=== PATIENT | female | born 1970 | race Caucasian/White ===

== ENCOUNTER 2024-08-10 15:12 | Inpatient (IN) | payer OTHER, SELFPAY ==
[2024-08-10] VITALS (16 sets, daily range): BP systolic 93–170; BP diastolic 72–111; BMI 17.7; BMI 19.1
[2024-08-10 08:27] LABS: % Basophils 0.2 % (0-2); % Eosinophils 1.3 % (0-6); % Immature Granulocytes 1.2 % (0-0.5); % Lymphocytes 14.7 % (20.5-51.1); % Monocytes 11.1 % (1.7-9.3); % Neutrophils 71.5 % (42.2-75.2); Absolute Eosinophils 0.1 10^3/uL (0-0.7); Absolute Immature Granulocytes 0.1 10^3/uL (0-0.05); Absolute Lymphocytes 1.6 10^3/uL (1.2-3.4); Absolute Monocytes 1.2 10^3/uL (0.1-0.6); Absolute Neutrophils 7.8 10^3/uL (1.4-6.5); Hematocrit 40.8 % (37.0-47.0); Mean Corp Hgb Conc. 31.9 g/dL (33.0-37.0); Mean Corpuscular Hgb 27.4 pg (27.0-31.0); Mean Corpuscular Volume 86.1 fL (81.0-99.0); Mean Platelet Volume 8.7 fL (7.4-10.4); Nucleated Red Blood Cells % 0 %; Platelet Count 760 10^3/uL (130-400); Red Blood Cell Count 4.74 10^6/uL (4.20-5.40); Red Cell Dist. Width 21.3 % (11.5-14.5); White Blood Cell Count 10.9 10^3/uL (4.8-10.8)
[2024-08-10 08:34] LABS: ALT (SGPT) 21 U/L (0-35); AST (SGOT) 24 U/L (14-36); Albumin 4.5 g/dl (3.5-5.0); Alkaline Phosphatase 125 U/L (38-126); Blood Urea Nitrogen 56 mg/dl (7-17); Calcium 10.6 mg/dl (8.4-10.2); Carbon Dioxide 14 mmol/L (22-30); Chloride 105 mmol/L (98-107); Glucose 123 mg/dl (70-99); Lipase 64 U/L (23-300); Potassium 6.9 mmol/L (3.5-5.1); Sodium 136 mmol/L (135-145); Total Bilirubin 0.4 mg/dl (0.2-1.3); Total Protein 8.4 g/dl (6.3-8.2); eGFR 17.91
--- NOTE | 2024-08-10 08:54 | ED.GENMED ---
History of Present Illness
General
Chief Complaint: Abdominal Symptoms
Time Seen by Provider: 08/10/24 08:15
History of Present Illness
History of Present Illness:
Patient is a 54-year-old woman with complicated medical history including lupus, colon cancer status post ileostomy, hypertension presenting to the emergency department nausea vomiting abdominal pain. Patient states that yesterday she had countless
episodes of nausea vomiting. She is also noticed increased output from ileostomy yesterday her total was anywhere from 1500 to 1700 mL. Normally she is under 800 mL. She does feel dehydrated. She is having lower abdominal pain. She states this
has happened to her before. All her care is at [facility]. Unfortunately ambulance came to the told her that she has to, [facility]. Patient would prefer to be transferred to [facility] if possible. No fever or chills. No chest pain or
difficulty breathing. No travel. No recent antibiotics. No sick contacts.
Phy Exam
Physical Exam
Physical Exam:
GENERAL: Chronically unwell
HEENT: normocephalic, extraocular movements intact, dry oral mucosa
NECK: normal inspection
RESPIRATORY: no respiratory distress, clear to auscultation bilaterally
CARDIOVASCULAR: regular rate and rhythm
ABDOMEN/: soft, non-distended, bilateral lower quadrant tenderness, no rebound or guarding, ileostomy in place
EXTREMITIES: non-tender, no edema/swelling
NEUROLOGIC: awake and alert, moves all extremities
SKIN: warm, chronic skin changes from raynauds/lupus
Course
Orders/Labs/Results
Orders:
Orders
08/10/24 08:13
Complete Blood Count/With Diff Urgent
Comprehensive Metabolic Panel Urgent
Lipase Urgent
Magnesium Urgent
Comment: ADD ON
08/10/24 08:35
Electrocardiogram (*1) Urgent
Reason for Study: Chest Pain
EKG- Treatment ONCE
08/10/24 08:53
Calcium Gluconate 1,000 mg IV NOW STA
Dextrose 50%-Water [Dextrose 50% Syringe] 12.5 grams IV [id number] PRN
Dextrose 50%-Water [Dextrose 50% Syringe] 25 grams IV NOW STA
Insulin Human Regular [Novolin R] 5 units IV NOW STA
Iohexol [Omnipaque] See Protocol PO NOW STA
Sodium Bicarbonate 50 meq IV NOW STA
Sodium Zirconium Cyclosilicate [Lokelma] 10 gram PO NOW STA
Bedside Glucose PRE IV Insulin- HyperK+ NOW
08/10/24 08:54
Lactated Ringers [Lr] 1,000 ml IV BOLUS
08/10/24 09:01
Urinalysis Reflex To Culture Urgent
08/10/24 09:07
Add On- LAB Urgent
Tests Added?: magnesium
08/10/24 09:15
Ondansetron Injectable [Zofran] 4 mg IV NOW STA
08/10/24 09:16
Electrocardiogram (*1) Urgent
Reason for Study: Other
Other Reason for Exam: hyperK
EKG- Treatment ONCE
Ondansetron Injectable [Zofran] 4 mg .ROUTE .STK-MED ONE
08/10/24 09:51
Calcium Gluconate 1,000 mg IV NOW STA
08/10/24 09:52
CT Abd/pel Without Iv Or Oral Urgent
Comment:
Reason For Exam: abdominal pain
08/10/24 10:23
Bedside Glucose POST IV Insulin- HyperK+ Q1HX2,Q2HX2
08/10/24 13:09
Potassium Urgent
08/10/24 13:23
Potassium Urgent
Comment: draw 4 hours after Lokelma administered
Abnormal Lab Results
08/10/24 08/10/24
08:13 11:21
WBC 10.9 H 10^3/uL
(4.8-10.8)
MCHC 31.9 L g/dL
(33.0-37.0)
RDW 21.3 H %
(11.5-14.5)
Plt Count 760 H 10^3/uL
(130-400)
Abs Immat Gran (auto) 0.1 H 10^3/uL
(0-0.05)
Absolute Neuts (auto) 7.8 H 10^3/uL
(1.4-6.5)
Absolute Monos (auto) 1.2 H 10^3/uL
(0.1-0.6)
Immature Gran % 1.2 H %
(0-0.5)
Lymphocytes % 14.7 L %
(20.5-51.1)
Monocytes % 11.1 H %
(1.7-9.3)
Potassium 6.9 H* mmol/L
(3.5-5.1)
Carbon Dioxide 14 L* mmol/L
(22-30)
BUN 56 H mg/dl
(7-17)
Creatinine 3.0 H mg/dL
(0.6-1.0)
Glucose 123 H mg/dl
(70-99)
Calcium 10.6 H mg/dl
(8.4-10.2)
Total Protein 8.4 H g/dl
(6.3-8.2)
POC Glucose 103 H mg/dl
(70-99)
08/10/24 08:13
Vital Signs
Initial and Last Documented VS:
Initial Vital Signs
Pulse Resp BP
101 16 148/111
08/10/24 07:57 08/10/24 07:57 08/10/24 07:57
Last Documented Vital Signs
Pulse Resp BP Pulse Ox
112 16 140/93 98
08/10/24 13:00 08/10/24 13:00 08/10/24 13:00 08/10/24 09:00
MDM/Problems Addressed
Differential Diagnosis Includes:
Patient is a 54-year-old woman with complicated medical history including colon cancer status post ileostomy completed at [place], [facility], followed by [facility] presenting to the emergency department nausea vomiting abdominal pain for the past
day as well as high output from her ileostomy. On arrival patient's vital signs are notable for heart rate in the low 100s. Her exam does show dry oral mucosa with bilateral lower quadrant tenderness. Concern for intra-abdominal complication such
as abscess versus gastroenteritis. Could be urine infection. Concern for metabolic derangement. I did review patient's CT scan that she had completed at [facility] last week on patient's portal and she did have evidence of gastroenteritis at that
time. She was not started on any medications. Will obtain blood work here as well as urine and CT scan. Will give fluids.
*Critical Care Note
Total Time (30-74mins, 75-104mins- exclusive of procedures): Not Applicable
Update Note
Update Note:
Blood work notable for a potassium of 6.9. Will obtain EKG. He will initiate hyperkalemia protocol. Her creatinine is 3. No prior baseline. Her CO2 is also low at 14.
EKG per my interpretation with peaked T waves. I did review patient's prior EKG on her portal which did not show these peaked T waves. Will treat with calcium for cardiac stabilization.
CT scan with no acute abnormality. On reevaluation patient's tachycardia has improved. She did feel much better after the Zofran. Awaiting urine. We did discuss transfer and initially patient did not want transfer to [facility]. I did call them
and unfortunately they do not have that available and it will take 1 to 2 days for transfer. I did offer patient admission and transfer however patient would prefer staying at [facility] for her entire hospital stay instead. Discussed with
hospitalist who excepted patient to their service with urine pending.
ED Attending Note
-
Portions of this chart may have been created with voice recognition software.� Occasional wrong word or��sound alike� substitutions may have occurred due to the inherent limitations of voice recognition software.
Discharge Plan
Departure
Patient Disposition: Admit
Date of Disposition: 08/10/24
Time of Disposition: 11:59
Presentation/result/management discussed w/ accepting MD/DO: Hospitalist
Discharge Problem:
JOSE (acute kidney injury), Acute hyperkalemia
Prescriptions:
No Action
prednisone 10 mg Tablet
30 mg PO DIRECTED
Rx Instructions:
STARTING ON 08/05/24 TAKE 30MG DAILY FOR 7 DAYS THEN 20MG DAILY FOR 7 DAYS THEN 10MG DAILY THERE AFTER. Chronic dose = 10 mg daily
loperamide 2 mg Tablet
2 mg PO TID
amitriptyline 25 mg Tablet
25 mg PO HS
pantoprazole [Protonix] 40 mg Tablet,Delayed Release (Dr/Ec)
40 mg PO DAILY
ferrous sulfate 325 mg (65 mg iron) Tablet
325 mg PO DAILY
hydroxychloroquine [Plaquenil] 200 mg Tablet
200 mg PO BID
ondansetron [Zofran ODT] 4 mg Tablet,Disintegrating
4 mg PO Q6HPRN PRN (Reason: NAUSEA)
tacrolimus 1 mg Capsule
1 mg PO Q12
oxycodone 5 mg Tablet
5 mg PO Q4HPRN PRN (Reason: SEVERE PAIN)
escitalopram oxalate [Lexapro] 10 mg Tablet
10 mg PO DAILY
gabapentin 100 mg Tablet
300 mg PO BID
Xarelto 20 mg Tablet
20 mg PO DAILY
psyllium husk [Metamucil] 0.4 gram Capsule
0.4 g PO BID
mycophenolate mofetil 200 mg/mL Suspension
200 mg PO BID
Referrals:
Bob Urban MD [Family Provider] -
Interventions
Interventions:
*Risk Screen - Suicide Last Done: 08/10/24 07:57
*General Assessment Last Done: 08/10/24 07:57
*Neglect/Abuse Screening Last Done: 08/10/24 07:57
Discharge Date and Time
Print Language: CITIZEN OF [place]
[2024-08-10] MEDS: LOKELMA 10 GRAM PO ×2 (09:02→21:59)
[2024-08-10] MEDS: SODIUM BICARBONATE 50 MEQ IV (09:03)
[2024-08-10] MEDS: DEXTROSE 50% SYRINGE 25 GRAMS IV ×2 (09:03→21:58)
[2024-08-10] MEDS: CALCIUM GLUCONATE 1000 MG IV ×2 (09:04→11:07)
[2024-08-10] MEDS: NOVOLIN R 5 UNITS IV (09:05)
[2024-08-10] MEDS: OMNIPAQUE 50 ML PO (09:36)
[2024-08-10] MEDS: LR 1000 IV ×2 (09:37→20:13)
[2024-08-10] MEDS: ZOFRAN IV (11:07)
[2024-08-10] MEDS: ZOFRAN 4 MG IV ×2 (11:13→14:20)
[2024-08-10 11:24] LABS: Glucose - Point of Care 103 mg/dl (70-99)
--- NOTE | 2024-08-10 13:34 | HPS.HSE ---
Family Physician
-
Family Physician: Bob Urban
Chief Complaint
-
High output diarrhea from ostomy bag
History of Present Illness
54-year-old woman with complicated medical history including:
lupus,
colon cancer status post ileostomy,
hypertension
presents with nausea vomiting abdominal pain. Yesterday she had countless episodes of nausea & vomiting. She has also had increased output from ileostomy yesterday her total was anywhere from 1500 to 1700 mL. Normally she is under 800 mL. She
feels dehydrated and is having lower abdominal pain. All her care is at [facility], but the ambulance came to . Patient would prefer to be transferred to [facility], bu there are no open beds there. No fever or chills. No chest pain or
difficulty breathing. No travel. No recent antibiotics. No sick contacts.
Medical History
Past Medical History
Past Medical History: Reports Other
Additional Past Medical History:
Lupus -with multiple varied complications
Colon cancer
Reynaulds
Past Surgical History: Reports Other
Additional Past Surgical History:
Colon cancer
Illeostomy
Skin lesions
Social History
Tobacco: Smoker
Alcohol: None
Drug: None
Living: With Family
Employment: Not Employed
Family History
Family History: Not pertinent
Allergies / Home Medications
Allergies reflects when Allergies were last updated in [facility].
Home Medications with original date entered in [facility]
Allergy/Medication List:
Allergies
Allergy/AdvReac Type Severity Reaction Status Date / Time
No Known Allergies Allergy Verified 08/10/24 08:04
Home Medications
amitriptyline 25 mg tablet 25 mg PO HS Mental Health 08/10/24
escitalopram oxalate 10 mg tablet (Lexapro) 10 mg PO DAILY Mental Health 08/10/24
ferrous sulfate 325 mg (65 mg iron) tablet 325 mg PO DAILY Supplement 08/10/24
gabapentin 100 mg tablet 300 mg PO BID Pain 08/10/24
hydroxychloroquine 200 mg tablet (Plaquenil) 200 mg PO BID lupus 08/10/24
loperamide 2 mg tablet 2 mg PO TID Loose Stools 08/10/24
mycophenolate mofetil 200 mg/mL oral suspension 200 mg PO BID lupus 08/10/24
ondansetron 4 mg disintegrating tablet 4 mg PO Q6HPRN PRN NAUSEA 08/10/24
oxycodone 5 mg tablet 5 mg PO Q4HPRN PRN SEVERE PAIN 08/10/24
pantoprazole 40 mg tablet,delayed release (Protonix) 40 mg PO DAILY Gastrointestinal Issue 08/10/24
prednisone 10 mg tablet 30 mg PO DIRECTED Lupus 08/10/24
psyllium husk 0.4 gram capsule (Metamucil) 0.4 g PO BID Gastrointestinal Issue 08/10/24
rivaroxaban 20 mg tablet (Xarelto) 20 mg PO DAILY Blood Clot Prevention/Tx 08/10/24
tacrolimus 1 mg capsule, immediate-release 1 mg PO Q12 Lupus 08/10/24
Review of Systems
-
History Source: Patient and Other (multiple chronic complaints on most organ systems)
A 12 point ROS was completed and negative except as noted: Yes
Skin: Reports Rash
Physical Exam
Vital Signs
Vital Signs
Pulse Resp BP Pulse Ox
112 16 140/93 98
08/10/24 13:00 08/10/24 13:00 08/10/24 13:00 08/10/24 09:00
Physical Exam
General: Appears in Distress, Poor Appetite, Appears Chronically Ill and Other (thin, with multiple skin rashes and discoloration)
HEENT: Atraumatic; No Good Dentition
Respiratory: Clear and Decreased Breath Sounds
Cardiac: S1/S2, Regular Rhythm and Tachycardia
GI: Soft and Other (ostomy with dark green liquid output)
Musculoskeletal: No Clubbing, No Cyanosis, No Edema and Other (blue/purple hands from raynaulds - chronic symptom)
Skin: Rash (all over entire body)
Neuro: Awake, Alert, Oriented and AO x 3
Psych: Calm
Laboratory Results
-
08/10/24 08:13
Laboratory Results
Total Bilirubin 0.4 mg/dl (0.2-1.3) 08/10/24 08:13
AST 24 U/L (14-36) 08/10/24 08:13
ALT 21 U/L (0-35) 08/10/24 08:13
Alkaline Phosphatase 125 U/L (38-126) 08/10/24 08:13
Lipase 64 U/L (23-300) 08/10/24 08:13
Data Reviewed
-
Lab Data: Labs Reviewed by me
Impression/Plan
-
IMPRESSION:
54 woman, medically complex, who usually gets her care at another hospital (which does not have beds right now). Here for viral gastroenteritis. Recent workup at another hospital showed c-diff neg.
WBC 10.9
K 6.9
Ca 10.6
BUN/Creat 56/3.0
CO2 [address]:
Markedly limited evaluation of intestinal tract with only small volume oral contrast.
No intestinal obstruction or free air.
Distal colonic anastomosis and apparent right lower quadrant ileostomy.
High attenuation density in the gallbladder which could represent vicarious excretion of contrast from prior outside CT in light of markedly abnormal renal function.
Small bilateral nonobstructing renal calculi.
Lobulated diffuse high attenuation density of the cortex of the kidneys bilaterally with minimal very faint likely residual contrast within nondilated renal pelves bilaterally. No findings to suggest obstructive uropathy bilaterally.
Some differential diagnostic possibilities include acute tubular necrosis, glomerulonephritis, renal toxicity of other etiology and cortical/medullary nephrocalcinosis.
PLAN:
1. Probable viral gastroenteritis, complicated by co-morbidities, with severe acidosis and renal failure
IV fluids
Supportive care
Replete electrolytes
2. WBC of 10.9 and PLT of 760 - probable acute phase reaction of viral illness.
Follow daily
3. Severe renal acidosis with bicarb of 14, bicarb administered.
High volume LR
Check BMP this evening
4. Acute renal failure, with BUN/Creat of 56/3.0
High volume LR
Check renal function daily
5. Hyperkalemia, initially 6.9 - No ECG changes of hyperk, calcium gluc given.
High volume IVF to improve renal function
Check BMP in PM
6. HYpercalcemia - likely from renal failure
IV fluids
Check again in pm
7. Tachycardia - rate in 110s. Chronic issue. Patient states her usual rate is 100-110
IV fluids
Follow
Continue usual home meds (dosages double checked by pharmacist)
Code: DNR
Xarelto for DVTp
[2024-08-10 13:55] LABS: Potassium 5.9 mmol/L (3.5-5.1)
--- NOTE | 2024-08-10 14:11 | EDRN ---
pt had x1 episode of vomiting. Pt. also complaining of HERNANDES and all over body pain, take oxy at home for chronic pain. Hospitalist made aware of symptoms, states he will order zofran and dilaudid for pt. Awaiting orders.
[2024-08-10] MEDS: DILAUDID 1 MG IV ×2 (14:27→20:25)
--- NOTE | 2024-08-10 16:15 | CM ---
CM met with pt, DIL/Natalie and sister/Isabel bedside
Pt resides with her son and DIL in a ranc[place] with 1STE
Pt ambulates with a WW and supervision
Her DIL is her informal caregivers and providers all personal care
DIL cares ofr ileostomy
Pt has a transfer chair, rollatoer, WW, shower chair and grab bars
She si current with [facility] and they manage the ostomy supplies
PCP- Alexx Rene
rx- [facility]
Emotional support provided as pt with complaints of chronic sickness
Pt may need SW support through [facility] and may want to reconsider palliative care on dc
Referred DIl to [address] program for paid caregiver program
Discharge Disposition- anticipate home with [facility]
[2024-08-10 17:08] LABS: Glucose - Point of Care 92 mg/dl (70-99)
[2024-08-10 18:42] LABS: Urine Albumin 3+ (Neg - Trace); Urine Bilirubin Negative (Negative); Urine Character Very Cloudy (Clear); Urine Color Yellow; Urine Glucose Negative (Negative); Urine Ketone Negative (Negative); Urine Leukocyte 1+ (Negative); Urine Nitrite Positive (Negative); Urine Occult Blood Trace (Negative); Urine Urobilinogen Negative (Neg - 1+)
[2024-08-10 18:52] LABS: Urine Bacteria Few (Negative); Urine Squamous Cell >30 /LPF (Few); Urine White Cell 80-90 /HPF (0-5)
[2024-08-10 20:26] LABS: Blood Urea Nitrogen 62 mg/dl (7-17); Calcium 10.6 mg/dl (8.4-10.2); Carbon Dioxide 17 mmol/L (22-30); Chloride 102 mmol/L (98-107); Estimated Creatinine Clearance 12 ml/min; Glucose 103 mg/dl (70-99); Potassium 5.9 mmol/L (3.5-5.1); Sodium 135 mmol/L (135-145); eGFR 13.93
--- NOTE | 2024-08-10 20:54 | PTCARENOTE ---
Pt received from ED RN. Admission complete by this RN. Family at bedside. BMP recheck sent to lab. LR running @ 200ml/hr per order. AAOx3. NSR on monitor, HR 97. BP 110/82(92). Satting 100%, pt with Raynauds so hands are cold. 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
however. Call light in reach. Care is ongoing.
[2024-08-10 21:55] LABS: Glucose - Point of Care 110 mg/dl (70-99)
[2024-08-10] MEDS: NOVOLIN R 0.05 UNITS IV (22:06)
[2024-08-10] MEDS: CALCIUM GLUCONATE 100 IV (22:13)
[2024-08-10 23:35] LABS: Glucose - Point of Care 174 mg/dl (70-99)
[2024-08-11] VITALS (14 sets, daily range): BP systolic 101–129; BP diastolic 59–77; PULSE 79; O2SAT 98; BMI 17.5; BMI 17.4
--- NOTE | 2024-08-11 00:50 | PTCARENOTE ---
POC glucose check reading 16. pt AAOx3. alert, chatting with staff. asymptomatic. immediate recheck on different finger, cleaned with alcohol, dried, blood drop wiped away. resulting as 90.
[2024-08-11] MEDS: PLAQUENIL 200 MG PO ×3 (00:55→20:13)
[2024-08-11] MEDS: NEURONTIN 300 MG PO ×3 (00:55→20:13)
[2024-08-11] MEDS: METAMUCIL, KONSYL 1 PACKET PO ×2 (00:56→08:59)
[2024-08-11] MEDS: CELLCEPT 500 MG PO ×3 (00:56→20:13)
[2024-08-11] MEDS: DELTASONE 30 MG PO ×2 (00:56→09:01)
[2024-08-11] MEDS: IMODIUM 2 MG PO ×4 (00:56→20:13)
[2024-08-11] MEDS: PROGRAF 1 MG PO ×3 (00:57→20:13)
[2024-08-11] MEDS: ELAVIL 25 MG PO ×2 (00:57→20:14)
[2024-08-11 01:02] LABS: Glucose - Point of Care 16 mg/dl (70-99)
[2024-08-11] MEDS: DILAUDID 1 MG IV ×5 (01:10→20:14)
[2024-08-11] MEDS: LR 1000 IV ×2 (01:11→06:06)
[2024-08-11 01:18] LABS: Potassium 5.2 mmol/L (3.5-5.1)
--- NOTE | 2024-08-11 02:55 | PTCARENOTE ---
Glucose check done, initial result 62. pt AAOx3. alert, chatting with staff. asymptomatic. immediate recheck on different finger, cleaned with alcohol, dried, blood drop wiped away. resulting as 75. Pt has hx of Raynaud, hands purple B/L and cold.
[2024-08-11 03:10] LABS: Glucose - Point of Care 62 mg/dl (70-99)
[2024-08-11 05:04] LABS: Glucose - Point of Care 113 mg/dl (70-99)
[2024-08-11 06:16] LABS: Blood Urea Nitrogen 56 mg/dl (7-17); Calcium 9.5 mg/dl (8.4-10.2); Carbon Dioxide 16 mmol/L (22-30); Chloride 101 mmol/L (98-107); Estimated Creatinine Clearance 12 ml/min; Glucose 100 mg/dl (70-99); Potassium 5.2 mmol/L (3.5-5.1); Sodium 130 mmol/L (135-145); eGFR 13.08
--- NOTE | 2024-08-11 07:46 | W.PN.HOSP.TC ---
Today's Communication/Plan
-
see bold
Assessment / Plan
Assessment / Plan
Gen: NAD, AAOx3.
Eyes: EOMI, PERRLA, no scleral icterus.
Neck: supple.
CV: RRR, +S1/S2, no m/r/g.
Resp: CTAB, no rales, wheezes, or rhonchi.
Abd: +BS, soft, NT, ND
Skin: No rashes.
Neuro: CN 2-12 intact, non-focal.
Psych: Normal mood and affect.
CT A/P: Markedly limited evaluation of intestinal tract with only small volume oral contrast. No intestinal obstruction or free air. Distal colonic anastomosis and apparent right lower quadrant ileostomy. High attenuation density in the gallbladder
which could represent vicarious excretion of contrast from prior outside CT in light of markedly abnormal renal function. Small bilateral nonobstructing renal calculi. Lobulated diffuse high attenuation density of the cortex of the kidneys
bilaterally with minimal very faint likely residual contrast within nondilated renal pelves bilaterally. No findings to suggest obstructive uropathy bilaterally. Some of several differential diagnostic possibilities include acute tubular necrosis,
glomerulonephritis, renal toxicity of other etiology and cortical/medullary nephrocalcinosis.
JOSE, acute metabolic acidosis, hyperkalemia:
-suspect due to GI losses possibly from viral gastroenteritis
-change IVFs to D5W with 150meq NaHCO3/L @ 125cc/hr
-c/s renal/GI (discussed with both services)
-note, recent hospitalization from 07/30/24-08/05/24 at [facility]. Baseline Cr 0.8-1.0, presented with similar picture of increased ileostomy output. At that time the patient's Lasix and lisinopril were held and not restarted on d/c.
Patient received bicarb drip during hospitalization. Cr at the time of discharge was 1.07. I personally reviewed the records from [facility].
-hyponatremia, trend Na with change in IVFs
Other problems:
Anxiety: cont Elavil/Lexapro
GERD: Cont PPI
Severe protein calorie malnutrition
Malignant neoplasm of sigmoid colon: diagnosed 2022, s/p resection with ostomy, FOLFOX x 2, revision at [facility] in Jun 2024 for Brannon's reversal and diverting loop ileostomy.
SLE: cont Plaquenil/Cellcept/Prograf/Prednisone
Chronic tachycardia
h/o thrombosis: Cont Xarelto
DNR/Xarelto
Total time spent on today's encounter was 50 minutes which included time spent in counseling the patient/family regarding diagnosis and treatment plan as listed above, goals of care, and symptom management. Case was discussed with nursing staff,
specialists, and care coordinators/case management. All labs and imaging personally reviewed by me. Remainder the time spent in detailed review of previous records, lab data, imaging, and other medical provider documentation.
Anticipated Discharge: > 48 hours
Subjective/Interval History
-
Date of Service: August 11, 2024
No new complaints.
Objective Data
-
Labs:
Laboratory Results
08/10/24 08/11/24 08/11/24
20:04 01:00 05:03
Sodium 135 130 L
Potassium 5.9 H 5.2 H 5.2 H
Chloride 102 101
Carbon Dioxide 17 L 16 L
BUN 62 H 56 H
Creatinine 3.7 H 3.9 H
Glucose 103 H 100 H
Calcium 10.6 H 9.5
Vital Signs:
Vital Signs
Temp Pulse Resp BP Pulse Ox
97.5 F 95 14 111/71 99
08/11/24 05:24 08/11/24 06:00 08/11/24 06:00 08/11/24 06:00 08/11/24 02:37
I&O
08/10/24 08/11/24 08/12/24
06:59 06:59 06:59
Intake Total 2640 / 2640
Output Total 400 / 400
Balance 2239 / 2239
--- NOTE | 2024-08-11 07:53 | PTCARENOTE ---
Received patient from night club manager. Patient resting comfortably in bed. AAO, VSS. No events noted overnight. Complaints of pain from the Lupus, see MAR. Currently on Room Air. LR @ 200L/hr through IV. Ileostomy site red and budded, CDI with
green liquid output. Wounds to be seen by wound nurse today. Clear liquid diet. No testing scheduled for today at this time. Call brandon in reach.
[2024-08-11] MEDS: SODIUM BICARBONATE 1150 MEQ IV ×2 (09:00→19:24)
[2024-08-11] MEDS: LEXAPRO 10 MG PO (09:01)
[2024-08-11] MEDS: FEOSOL 325 MG PO (09:01)
[2024-08-11] MEDS: PROTONIX 40 MG PO ×2 (09:01→20:13)
[2024-08-11 09:07] LABS: Glucose - Point of Care 90 mg/dl (70-99)
[2024-08-11 09:43] LABS: Glucose - Point of Care 114 mg/dl (70-99)
--- NOTE | 2024-08-11 11:30 | CM ---
CM reviewed chart- ADC >48 hours
Call from [facility] requesting update as pt is current
CM requested support for LTC services in the community and assistance with [facility] application
ERIKA referral sent via [facility]
Jose will also have [facility] reach back out to pt on dc to explain their services again
Pt had previously declined due to misunderstanding of philosophy and services
Discharge Disposition- anticipate home with [facility] and likely [facility]
[2024-08-11 11:57] LABS: Hematocrit 26.8 % (37.0-47.0); Hemoglobin 8.7 g/dL (12.0-16.0); Mean Corp Hgb Conc. 32.5 g/dL (33.0-37.0); Mean Corpuscular Hgb 27.2 pg (27.0-31.0); Mean Corpuscular Volume 83.8 fL (81.0-99.0); Mean Platelet Volume 8.9 fL (7.4-10.4); Platelet Count 496 10^3/uL (130-400); Red Cell Dist. Width 20.7 % (11.5-14.5)
--- NOTE | 2024-08-11 12:28 | CON.GI ---
Addendum entered and electronically signed by Chivo Wyatt MD 08/11/24 16:58:
I saw and examined the patient.
The STRATEGIC PARTNER DEVELOPMENT MANAGER's note was reviewed and I agree with the note.
-recurrent admissions with high ostomy output after Price reversal and diverting loop ileostomy - At [facility] with Dr. Roldan 07/02/2024
( hx colon CA with colostomy with attempted elective reversal 07/02 at [facility] -unable to reverse secondary to severe inflammation)
-JOSE /metabolic acidosis /hyponatremia/hyperkalemia
-anemia
-hx lupus on immunosuppression (Prednisone, Mycophenolate, Plaquenil, prograf)
-hx cerebral thrombosis in Xarelto
PLAN:
Will monitor input/output closely
cont to correct electrolyte/ IV hydration as per medical team/nephrology
Will increase PPI to twice daily
continue Imodium 2mg TID and Metamucil BID
low residue diet
Increase fluid intake
Will consider Lomotil or octreotide as next step if she continues to have high output
STRATEGIC PARTNER DEVELOPMENT MANAGER discussed with Dr. Roladn office staff and updated on patient status -awaiting input from Dr. Roldan about early reversal versus transfer to [facility]
will follow
Original Note:
Consultation
-
Date/Time Consultation Requested: 08/11/24 0900
Date/Time Consultation Performed: 08/11/24 1230
Requesting Provider: Navjot Wyatt MD
Performing Provider: VERONICA Hunter
Reason for Consultation: nausea, vomiting, abdominal pain
Medical History
Chief Complaint / HPI
Chief Complaint: nausea/vomiting/diarrhea
History of Present Illness:
Pt is a 54yo with hx lupus with immunosuppression,cerebral thrombosis on Xarelto , tobacco abuse, HTN and colon Ca. In review with patient she diagnosed 2022 with colon resection with colostomy completed at [facility] then folfox x 2
not completed with complicated course with CO. She recently went for elective colostomy reversal at [facility] July 02, 2024 but procedure not completed due to severe inflammation with immunosuppression and nutritional status with concern for poor
healing. She then proceeded with Price reversal and diverting loop ileostomy with Dr. Mitali Valera. Per patient she is due for repeat surgery 08/21 to complete reversal and barium enema 08/17 prior to surgery. After surgery she was discharge
07/07. She has had recurrent admission at [facility] 07/18-07/23 with electrolyte imbalance. 07/30-08/05/24- [facility] admission with similar symptoms with JOSE, hyponatremia, anemia, vomiting with fluid distention noted in stomach on CT and also
question of SMA syndrome , increased ostomy output requiring bicarb gtt. Pt was given trial of Imodium. She did also have palliative care consult during admission. She now returns 08/10 to [facility] with nausea, vomiting and abdominal
pain with increased ileostomy output from 1500ml to 1700ml with normal around 800ml. Pt receives care through [facility] but ambulance brought her to [place]. On admission she is noted with leukocytosis, dehydration with hbg 13 with drop to 8.7
with hydration, platelets 760, calcium 10.6, creat 3 now 3.9, Co2 14 with metabolic acidosis, K 6.9 improved to 5.2. She has also lost 10- 20 lbs since surgery.
At this time she continues to admits to dry mouth with feeling of pill dysphagia. She also had nausea/vomiting on admission with larger volumes at time and improvement since admission, abdominal pain, with high outputs. She reports dark stools
but no blood or black in stool. Last EGD/colon at [facility] in April prior to surgery.
Past Medical History
Past Medical History: Cancer (colon CA with colonoscopy with attempted reversal 07/02 and price reversal with diverting loop ileostomy), HTN, CO and Other (lupus on immunosuppression, cerebral thrombosis, tobacco abuse )
Social History
Tobacco: Smoker
Alcohol: None
Drug: None
Living: With Family
Employment: Disabled
Family History
Family History: Other (paternal grandmother with rectal CA)
Allergies / Home Medications
Allergy/AdvReac Type Severity Reaction Status Date / Time
No Known Allergies Allergy Verified 08/10/24 08:04
�Medication �Instructions �Recorded
amitriptyline 25 mg tablet 25 mg PO HS Mental Health 08/10/24
escitalopram oxalate 10 mg tablet 10 mg PO DAILY Mental Health 08/10/24
(Lexapro)
ferrous sulfate 325 mg (65 mg 325 mg PO DAILY Supplement 08/10/24
iron) tablet
gabapentin 100 mg tablet 300 mg PO BID Pain 08/10/24
hydroxychloroquine 200 mg tablet 200 mg PO BID lupus 08/10/24
(Plaquenil)
loperamide 2 mg tablet 2 mg PO TID Loose Stools 08/10/24
mycophenolate mofetil 200 mg/mL 500 mg PO BID lupus 08/10/24
oral suspension
ondansetron 4 mg disintegrating 4 mg PO Q6HPRN PRN NAUSEA 08/10/24
tablet
oxycodone 5 mg tablet 5 mg PO Q4HPRN PRN SEVERE PAIN 08/10/24
pantoprazole 40 mg tablet,delayed 40 mg PO DAILY Gastrointestinal 08/10/24
release (Protonix) Issue
prednisone 10 mg tablet 30 mg PO DIRECTED Lupus 08/10/24
psyllium husk 0.4 gram capsule 0.4 g PO BID Gastrointestinal Issue 08/10/24
(Metamucil)
rivaroxaban 20 mg tablet (Xarelto) 20 mg PO DAILY Blood Clot 08/10/24
Prevention/Tx
tacrolimus 1 mg capsule, 1 mg PO Q12 Lupus 08/10/24
immediate-release
Review of Systems
-
History Source: Patient and Family
Constitutional: Reports Weight Loss, Fatigue and Other (dry mouth )
EENT: Reports No Symptoms
Respiratory: Reports No Symptoms
Abdomen/GI: Reports Abdominal Pain, Nausea, Vomiting and Diarrhea (increased ostomy ouput )
: Reports No Symptoms
Musculoskeletal: Reports Joint Pain
Neurological: Reports Weakness
Endocrine: Reports No Symptoms
Hematologic/Lymphatic: Reports No Symptoms
Vital Signs
Temp Pulse Resp BP Pulse Ox
98 F 95 14 111/71 99
08/11/24 07:10 08/11/24 06:00 08/11/24 06:00 08/11/24 06:00 08/11/24 02:37
Physical Exam
Exam
General: Other (thin appearing with difficulty rash )
HEENT: Normocephalic and Anicteric
Respiratory: Clear
Cardiac: Regular Rhythm
GI: Soft, Non Tender, Non Distended and Other (mid line incision with small dressing and area not healed, ileostomy wtih bornw )
Musculoskeletal: No Clubbing and No Cyanosis
Skin: Dry
Neuro: Awake, Alert and AO x 3
Psych: Calm
Results
WBC 5.0 10^3/uL (4.8-10.8) 08/11/24 10:48
Hgb 8.7 g/dL (12.0-16.0) L D 08/11/24 10:48
Hct 26.8 % (37.0-47.0) L 08/11/24 10:48
MCV 83.8 fL (81.0-99.0) 08/11/24 10:48
Plt Count 496 10^3/uL (130-400) H D 08/11/24 10:48
Absolute Neuts (auto) 7.8 10^3/uL (1.4-6.5) H 08/10/24 08:13
Sodium 130 mmol/L (135-145) L 08/11/24 05:03
Potassium 5.2 mmol/L (3.5-5.1) H 08/11/24 05:03
Chloride 101 mmol/L (98-107) 08/11/24 05:03
Carbon Dioxide 16 mmol/L (22-30) L 08/11/24 05:03
BUN 56 mg/dl (7-17) H 08/11/24 05:03
Creatinine 3.9 mg/dL (0.6-1.0) H 08/11/24 05:03
Calcium 9.5 mg/dl (8.4-10.2) 08/11/24 05:03
Total Bilirubin 0.4 mg/dl (0.2-1.3) 08/10/24 08:13
AST 24 U/L (14-36) 08/10/24 08:13
ALT 21 U/L (0-35) 08/10/24 08:13
Alkaline Phosphatase 125 U/L (38-126) 08/10/24 08:13
Lipase 64 U/L (23-300) 08/10/24 08:13
Diagnostic Image Results:
08/11/24 CT Abd/pel Without Iv Or Oral
Markedly limited evaluation of intestinal tract with only small volume oral contrast. No intestinal obstruction or free air. Distal colonic anastomosis and apparent right lower quadrant ileostomy.
High attenuation density in the gallbladder which could represent vicarious excretion of contrast from prior outside CT in light of markedly abnormal renal function.
Small bilateral nonobstructing renal calculi.
Lobulated diffuse high attenuation density of the cortex of the kidneys bilaterally with minimal very faint likely residual contrast within nondilated renal pelves bilaterally. No findings to suggest obstructive uropathy bilaterally. Some of several
differential diagnostic possibilities include acute tubular necrosis, glomerulonephritis, renal toxicity of other etiology and cortical/medullary nephrocalcinosis.
Prior GI Procedures:
EGD: April 2024 results not reviewed [facility]
Colonoscopy: April 2024 results not reviewed [facility]
Assessment / Plan
-
Pt is a 54yo with hx lupus with immunosuppression, cerebral thrombosis on Xarelto , tobacco abuse HTN and colon Ca. In review with patient she diagnosed 2022 with colon resection with colostomy completed at [facility] then folfox x 2
not completed with complicated course with CO. She recently went for elective colostomy reversal at [facility] July 02, 2024 but procedure not completed due to severe inflammation with immunosuppression and nutritional status with concern for poor
healing. She then proceeded with Price reversal and diverting loop ileostomy with Dr. Mitali Valera. Per patient she is due for repeat surgery 08/21 to complete reversal and barium enema 08/17 prior to surgery. After surgery she was discharge
07/07. She has had recurrent admission at [facility] 07/18-07/23 with electrolyte imbalance. 07/30-08/05/24- [facility] admission with similar symptoms with JOSE, hyponatremia, anemia, vomiting with fluid distention noted in stomach on CT and also
question of SMA syndrome , increased ostomy output requiring bicarb gtt. Pt was given trial of Imodium. She did also have palliative care consult during admission. She now returns 08/10 to [facility] with nausea, vomiting and abdominal
pain with increased ileostomy output from 1500ml to 1700ml with normal around 800ml. Pt receives care through [facility] but ambulance brought her to [place]. On admission she is noted with leukocytosis, dehydration with hbg 13 with drop to 8.7
with hydration, platelets 760, calcium 10.6, creat 3 now 3.9, Co2 14 with metabolic acidosis, K 6.9 improved to 5.2. She has also lost 10- 20 lbs since surgery.
-recurrent admission (now third admit) with high ostomy output post Price reversal and diverting loop ileostomy with Dr. Mitali Valera 07/02
-noted severe inflammation in colon and unable to reverse 07/02
-JOSE
-metabolic acidosis
-hyponatremia
-hyperkalemia
-anemia
-hx colon CA with colostomy with attempted elective reversal 07/02 diverted due to severe inflammation
-hx lupus on immunosuppression (Prednisone, Mycophenolate, Plaquenil, prograf)
-hx cerebral thrombosis in Xarelto
PLAN:
etiology of electrolyte imbalance related to post ileostomy state and high ostomy outputs
cont to correct output per renal
reviewed with nursing accurate 1 +O
cont Imodium 2mg TID and Metamucil BID
cont PPI will increased to BID
discussed increasing fluid intakes
once documented high output
other option are to consider sooner reversal if able per Toshia, add Lomotil, octreotide
Questran should be avoided
I discussed recurrent admission with Dr. Valera office staff and updated on status
Pt is due barium enema 08/17 and reattempt reversal 08/21
ok for low residue diet
family updated
-
-
Thank you for consultation and allowing me to participate in the patient's care. Please call the sales operations consultant GI physician during the after hours with any questions or concerns.
--- NOTE | 2024-08-11 12:45 | W.CON.NEPH ---
Consultation
-
Date/Time Consultation Requested: 08/11/2024 9 AM
Date/Time Consultation Performed: 08/11/2024 12 PM
Requesting Provider: Dr. Wyatt
Performing Provider: Dr. Hendricks
Reason for Consultation: JOSE
Medical History
-
Chief Complaint: Nausea vomiting
History of Present Illness:
This is a 54-year-old female who generally gets most of her care at [facility]. She had colon cancer for sigmoid diagnosed in 2022 with resection and ostomy placement. She underwent chemotherapy and subsequent Brannon's reversal for
a diverting loop ileostomy on July 02. Since her surgery she has been declining clinically. She says that she became volume depleted and was admitted to [facility] earlier in this month. She received blood transfusion iron and fluids and
had improvement of her creatinine to her baseline of 1.07 at the time of discharge. She says that there was talk of possibly arranging for outpatient IV fluids on a routine basis but this was never determined to be the plan. She had a port which
was removed otherwise. In the last week that she has been out of the hospital she has had poor oral intake with persistent nausea and increased ileostomy output. She had then called EMS who had brought her to [facility] because of a full
ER at [facility]. Here she was noted to have acute kidney injury with a creatinine of 3.9. She also had associated hyponatremia and hyperkalemia. She also has systemic lupus with skin manifestations as well as Raynaud's and thrombotic
complications. She says that she also had lupus nephritis though she was never biopsied. She has been treated with Plaquenil, prednisone, CellCept, tacrolimus. She says that she has never heard of Benlysta or voclosporin.
Past Medical History
Systemic lupus with skin, thrombotic, renal issues
Sigmoid colon cancer with resection, Brannon's procedure, loop ileostomy
Chronic tachycardia
GERD
Anxiety
Social History
Tobacco: Non-Smoker
Alcohol: None
Family History
Family History: Not Pertinent
Allergies / Home Medications
Allergy/AdvReac Type Severity Reaction Status Date / Time
No Known Allergies Allergy Verified 08/10/24 08:04
�Medication �Instructions �Recorded �Confirmed �Type
amitriptyline 25 mg tablet 25 mg PO HS Mental Health 08/10/24 08/10/24 History
escitalopram oxalate 10 mg tablet 10 mg PO DAILY Mental Health 08/10/24 08/10/24 History
(Lexapro)
ferrous sulfate 325 mg (65 mg 325 mg PO DAILY Supplement 08/10/24 08/10/24 History
iron) tablet
gabapentin 100 mg tablet 300 mg PO BID Pain 08/10/24 08/10/24 History
hydroxychloroquine 200 mg tablet 200 mg PO BID lupus 08/10/24 08/10/24 History
(Plaquenil)
loperamide 2 mg tablet 2 mg PO TID Loose Stools 08/10/24 08/10/24 History
mycophenolate mofetil 200 mg/mL 500 mg PO BID lupus 08/10/24 08/10/24 History
oral suspension
ondansetron 4 mg disintegrating 4 mg PO Q6HPRN PRN NAUSEA 08/10/24 08/10/24 History
tablet
oxycodone 5 mg tablet 5 mg PO Q4HPRN PRN SEVERE PAIN 08/10/24 08/10/24 History
pantoprazole 40 mg tablet,delayed 40 mg PO DAILY Gastrointestinal 08/10/24 08/10/24 History
release (Protonix) Issue
prednisone 10 mg tablet 30 mg PO DIRECTED Lupus 08/10/24 08/10/24 History
psyllium husk 0.4 gram capsule 0.4 g PO BID Gastrointestinal Issue 08/10/24 08/10/24 History
(Metamucil)
rivaroxaban 20 mg tablet (Xarelto) 20 mg PO DAILY Blood Clot 08/10/24 08/10/24 History
Prevention/Tx
tacrolimus 1 mg capsule, 1 mg PO Q12 Lupus 08/10/24 08/10/24 History
immediate-release
Review of Systems
-
Mild nausea.
No chest pain or shortness of breath
Decreased urine output
Ileostomy output has improved
All other systems: Negative unless noted
Physical Exam
Vital Signs
Vital Signs
Temp Pulse Resp BP Pulse Ox
98 F 95 14 111/71 99
08/11/24 11:05 08/11/24 06:00 08/11/24 06:00 08/11/24 06:00 08/11/24 02:37
Lab Results
WBC 5.0 10^3/uL (4.8-10.8) 08/11/24 10:48
RBC 3.20 10^6/uL (4.20-5.40) L 08/11/24 10:48
Hgb 8.7 g/dL (12.0-16.0) L D 08/11/24 10:48
Hct 26.8 % (37.0-47.0) L 08/11/24 10:48
Plt Count 496 10^3/uL (130-400) H D 08/11/24 10:48
Sodium 130 mmol/L (135-145) L 08/11/24 05:03
Potassium 5.2 mmol/L (3.5-5.1) H 08/11/24 05:03
Chloride 101 mmol/L (98-107) 08/11/24 05:03
Carbon Dioxide 16 mmol/L (22-30) L 08/11/24 05:03
BUN 56 mg/dl (7-17) H 08/11/24 05:03
Creatinine 3.9 mg/dL (0.6-1.0) H 08/11/24 05:03
eGFR 13.08 08/11/24 05:03
Glucose 100 mg/dl (70-99) H 08/11/24 05:03
Calcium 9.5 mg/dl (8.4-10.2) 08/11/24 05:03
Albumin 4.5 g/dl (3.5-5.0) 08/10/24 08:13
CT abdomen pelvis without contrast
IMPRESSION:
Markedly limited evaluation of intestinal tract with only small volume oral contrast. No intestinal obstruction or free air. Distal colonic anastomosis and apparent right lower quadrant ileostomy.
High attenuation density in the gallbladder which could represent vicarious excretion of contrast from prior outside CT in light of markedly abnormal renal function.
Small bilateral nonobstructing renal calculi.
Lobulated diffuse high attenuation density of the cortex of the kidneys bilaterally with minimal very faint likely residual contrast within nondilated renal pelves bilaterally. No findings to suggest obstructive uropathy bilaterally. Some of several
differential diagnostic possibilities include acute tubular necrosis, glomerulonephritis, renal toxicity of other etiology and cortical/medullary nephrocalcinosis.
Physical Exam
Patient is awake alert oriented and in no distress. Mood and affect were pleasant, insight and judgment were good. Pupils are equal round and reactive to light, extraocular movements are intact, sclera were anicteric. Hearing was normal, ears and
nose are intact. Oropharynx was clear. Neck was supple with trachea midline and no thyromegaly. Heart was regular rate and rhythm without rubs. Lower extremities without edema. Lungs were clear to auscultation bilaterally and with normal
excursion. Abdomen was soft, nontender, with normal active bowel sounds, and no hepatosplenomegaly. Skin was without rash and with normal turgor. Diffuse scattered skin lesions. Ileostomy clean dry and intact
Data Reviewed
-
CT Scan: Report Reviewed by me
Medical Tests (Nuc Med, Echo etc): Image Personally Visualized and interpreted (EKG on 08/10/2024 by my reading shows sinus tachycardia)
Labs: Labs Reviewed by me
Old Records: Reviewed (Reviewed from [facility])
Assessment/Plan
-
Assessment
JOSE
Metabolic acidosis
Hyponatremia
Hyperkalemia
Systemic lupus
Diverting loop ileostomy
Nausea vomiting
Failure to thrive
Colon cancer status post resection, chemo
History of thrombosis, cerebral
Plan
Overall clinical picture is consistent with volume depletion
Check urine studies
Continue IV fluids with bicarbonate
Follow BMP
She does prefer to have all her care performed at [facility] and so we will stabilize her various issues such he may follow-up with rheumatology
She says that she has a surgical appointment next Saturday for ileostomy reversal at [facility]
Discussed with patient and family
--- NOTE | 2024-08-11 13:48 | WOUNDNOTE ---
L MEDIAL LOWER LEG
--- NOTE | 2024-08-11 13:48 | WOUNDNOTE ---
R MEDIAL LOWER LEG
--- NOTE | 2024-08-11 13:50 | WOUNDNOTE ---
WON RN note: Patient admitted with Acute kidney injury, hyperkalemia.
See H&P for complete history. Lives with son and his girlfriend Natalie who does wound care.
PMH: Lupus, HTN, malignant neoplasm of sigmoid colon s/p resection with ostomy. Jun 2024 had revision at [facility] Brannon's reversal with diverting loop ileostomy. Lupus associated chronic skin changes on body.
Wound Location and type/assessment: Patient admitted with: Scattered red patches of skin all over body with scabs, some open and weeping but mostly dry. Patient reports itching and used steroid cream at home does not recall name. Patient is
currently on prednisone. R hip and L medial leg with weeping partial thickness ulcers lupus related. Heels and sacrum are intact. Midline incision being packed with dry gauze and covered with dry dressing. Ileostomy appliance changed yesterday per
patient, peristomal skin intact. Currently using Wheeler 2 1/4' 2 piece appliance, no leakage. Patient states much less output compared to admission. Pouch had about 200ml of brown liquid stool.
Appetite: clears, dietary following.
Pressure redistribution devices in place: On [facility] air bed, can turns self and ambulate with minimal assist.
Plan: Will order mineral oil for all dry red flaky patches on back, arms, chest and legs. Patient declined steroid cream since she is taking prednisone. She states' any moisturizer cream will help' Dressings changed on R hip and lower legs, honey
gel applied to hip and L leg. Called [facility] for 1/4' plain packing strips to use for abdominal wound tomorrow. Supplies placed at bedside. Teaching done with patient and caregiver Natalie. Will confirm orders with hospitalist and updated nurse Darren at
bedside. Updated care plan and will follow as needed.
Note to case management of equipment requested for discharge: none.
Recommend follow up at wound care center upon discharge.
[2024-08-11] MEDS: XARELTO 15 MG PO (17:25)
[2024-08-11 18:21] LABS: Protein/creatinine Ratio 0.3; Urine Protein 76 mg/dl; Urine Sodium 8 mmol/L (30-90)
[2024-08-11] MEDS: METAMUCIL, KONSYL PO (20:24)
[2024-08-11] MEDS: HYDROPHOR 1 APPLIC TOPICAL (20:24)
[2024-08-11 22:02] LABS: Blood Urea Nitrogen 65 mg/dl (7-17); Calcium 8.4 mg/dl (8.4-10.2); Carbon Dioxide 25 mmol/L (22-30); Chloride 91 mmol/L (98-107); Estimated Creatinine Clearance 11 ml/min; Glucose 116 mg/dl (70-99); Potassium 5.1 mmol/L (3.5-5.1); Sodium 126 mmol/L (135-145); eGFR 11.96
--- NOTE | 2024-08-11 22:14 | PTCARENOTE ---
Received patient from previous RN. Patient is Aox3 and pleasant. NSR on monitor. RA sating at 96%. D5 water running at 125. 150 emptied from ileostomy, liquid brown. Patient reported 8/10 pain, see MAR. Patient resting in bed with call brandon in
reach. Assessment and VS as documented.
[2024-08-11] MEDS: NSS 1000 IV (23:05)
[2024-08-12] VITALS (11 sets, daily range): BP systolic 100–158; BP diastolic 64–94
--- NOTE | 2024-08-12 02:08 | DOWNTIME ---
There was a [employer] Client Emergency Telecommunications Dispatcher Downtime on 08/12/2024 from 0100 to 08/12/2023 at 0205 . Downtime documentation of patient's care, including medication administrations, has been reconciled in the electronic record per guidelines. Refer to the
patient's paper chart under the miscellaneous tab to see printed paper medication records and downtime forms.
[2024-08-12] MEDS: DILAUDID 1 MG IV ×5 (05:21→21:23)
[2024-08-12 05:50] LABS: Hematocrit 25.5 % (37.0-47.0); Hemoglobin 8.1 g/dL (12.0-16.0); Mean Corp Hgb Conc. 31.8 g/dL (33.0-37.0); Mean Corpuscular Hgb 26.9 pg (27.0-31.0); Mean Corpuscular Volume 84.7 fL (81.0-99.0); Mean Platelet Volume 8.7 fL (7.4-10.4); Platelet Count 491 10^3/uL (130-400); Red Blood Cell Count 3.01 10^6/uL (4.20-5.40); Red Cell Dist. Width 20.3 % (11.5-14.5); White Blood Cell Count 4.9 10^3/uL (4.8-10.8)
[2024-08-12 06:25] LABS: Blood Urea Nitrogen 67 mg/dl (7-17); Calcium 8.1 mg/dl (8.4-10.2); Carbon Dioxide 22 mmol/L (22-30); Chloride 96 mmol/L (98-107); Estimated Creatinine Clearance 12 ml/min; Glucose 105 mg/dl (70-99); Potassium 5.5 mmol/L (3.5-5.1); Sodium 128 mmol/L (135-145); eGFR 13.49
[2024-08-12] MEDS: NSS 1000 IV ×3 (07:30→21:22)
[2024-08-12] MEDS: LEXAPRO 10 MG PO (08:43)
[2024-08-12] MEDS: PROGRAF 1 MG PO (08:43)
[2024-08-12] MEDS: PLAQUENIL 200 MG PO (08:43)
[2024-08-12] MEDS: CELLCEPT 500 MG PO (08:43)
[2024-08-12] MEDS: FEOSOL 325 MG PO (08:43)
[2024-08-12] MEDS: DELTASONE 20 MG PO (08:43)
[2024-08-12] MEDS: IMODIUM 2 MG PO ×3 (08:43→22:04)
[2024-08-12] MEDS: NEURONTIN 300 MG PO (08:43)
[2024-08-12] MEDS: PROTONIX 40 MG PO ×2 (08:44→21:19)
[2024-08-12] MEDS: METAMUCIL, KONSYL PO ×2 (08:44→21:20)
[2024-08-12] MEDS: HYDROPHOR 1 APPLIC TOPICAL ×2 (08:44→21:20)
--- NOTE | 2024-08-12 08:49 | PTCARENOTE ---
Received patient from shift coordinator. Patient resting comfortably in bed. AAO, VSS. No events noted overnight. Complaints of pain from the Lupus, see MAR. Currently on Room Air. NSS @ 125mL/hr, was changed due to lab work. Ileostomy site red and
budded, CDI with green liquid output. Wounds to be tended to per order. No testing scheduled for today at this time. Call brandon in reach.
--- NOTE | 2024-08-12 08:54 | CM ---
Patient seen at bedside with physician. Patient confirmed discharge plan home to her son's and girlfriend. Patient for home with [facility]. CM will continue to follow for discharge planning needs.
Plans; home with [facility]
--- NOTE | 2024-08-12 08:59 | W.PN.HOSP.TC ---
Today's Communication/Plan
-
cont NSS
stop prednisone and start hydrocortisone 25 mg IV Q8
start cefepime
Assessment / Plan
Assessment / Plan
Gen: NAD, AAOx3.
Eyes: EOMI, PERRLA, no scleral icterus.
Neck: supple.
CV: RRR, +S1/S2, no m/r/g.
Resp: CTAB, no rales, wheezes, or rhonchi.
Abd: +BS, soft, NT, ND--ostomy
Ext: no clubbing--purple fingers bilaterally PIP and distal, MCP to PIP red
Skin: No rashes.
Neuro: non-focal.
Psych: tearful, crying--frustrated over clinical situation
CT A/P: Markedly limited evaluation of intestinal tract with only small volume oral contrast. No intestinal obstruction or free air. Distal colonic anastomosis and apparent right lower quadrant ileostomy. High attenuation density in the gallbladder
which could represent vicarious excretion of contrast from prior outside CT in light of markedly abnormal renal function. Small bilateral nonobstructing renal calculi. Lobulated diffuse high attenuation density of the cortex of the kidneys
bilaterally with minimal very faint likely residual contrast within nondilated renal pelves bilaterally. No findings to suggest obstructive uropathy bilaterally. Some of several differential diagnostic possibilities include acute tubular necrosis,
glomerulonephritis, renal toxicity of other etiology and cortical/medullary nephrocalcinosis.
JOSE (baseline creat 0.8-1.0), acute metabolic acidosis, hyperkalemia/hyponatremia--Na 128, K 5.5, BUN 67, creat 3.8, HCO3 22 (improved with bicarb drip)--likely due to increased ostomy output--apprec renal--now on NSS--note, recent hospitalization
from 07/30/24-08/05/24 at [facility]. At that time the patient's Lasix and lisinopril were held and not restarted on d/c. Patient received bicarb drip during hospitalization. Cr at the time of discharge was 1.07. Dr. Wyatt personally
reviewed the records from [facility].
MRSA screen positive--noted
pseudomonas UTI--sensitive to cipro--check EKG for QTc--for now start cefepime
Anxiety: cont Elavil/Lexapro--watch sodium with SSI/SSRI
GERD: Cont PPI
Severe protein calorie malnutrition--affects healing and all care
Malignant neoplasm of sigmoid colon: diagnosed 2022, s/p resection with ostomy, FOLFOX x 2, revision at [facility] in Jun 2024 for Brannon's reversal and diverting loop ileostomy.
SLE: cont Plaquenil/Cellcept/Prograf/Prednisone--with dropping sodium and rising potassium, watch for relative AI--will start stress dose steroids, 25mg IV Q8
Chronic tachycardia
h/o thrombosis: Cont Xarelto
DNR/Xarelto
Anticipated Discharge: > 48 hours
Subjective/Interval History
-
Date of Service: August 12, 2024
pt without specific c/o--frustrated at current situation
Objective Data
-
Labs:
Laboratory Results
08/11/24 08/12/24
21: 05:26
WBC 4.9
Hgb 8.1 L
Hct 25.5 L
Plt Count 491 H
Sodium 126 L 128 L
Potassium 5.1 5.5 H
Chloride 91 L 96 L
Carbon Dioxide 25
BUN 65 H 67 H
Creatinine 4.2 H* 3.8 H
Glucose 116 H 105 H
Calcium 8.4 8.1 L
Vital Signs:
max temp for 24 hours
08/11/24
19:00
Temp 98.8 F
Vital Signs
Temp Pulse Resp BP Pulse Ox
97.8 F 79 7 115/74 97
08/12/24 07:20 08/12/24 06:00 08/12/24 06:00 08/12/24 06:00 08/12/24 06:00
I&O
08/11/24 08/12/24 08/13/24
06:59 06:59 06:59
Intake Total 2640 / 2640 450 / 450
Output Total 400 / 400 550 / 550
Balance 2240 / 2240 -100 / -100
Review of Systems
-
All other systems: Reviewed and negative
Physical Exam
-
General: Appears Chronically Ill
HEENT: Normocephalic and Atraumatic; Negative Oxygen
Respiratory: Clear to Auscultation; Negative Wheezes or Rhonchi
Cardiac: Regular Rhythm and S1/S2; Negative Murmur
GI: Soft, Nontender, Nondistended, Normal Bowel Sounds and Ostomy
Musculoskeletal: No Clubbing, No Edema and Other (purple warm fingers bilaterally from PIP distal, MCP to PIP red); Negative No Cyanosis
Skin: Other (thin fragile skin); Negative Rash
Neuro: Awake and Alert
Psych: Calm
[2024-08-12] MEDS: MAXIPIME 1000 MG IV (10:33)
[2024-08-12] MEDS: STERILE WATER FOR INJECTION 10 ML IV (10:33)
--- NOTE | 2024-08-12 11:24 | W.PN.NEPH.PH ---
Today's Communication / Plan
-
2 Gram potassium diet/continue IV fluid
Assessment/Plan
-
Assessment
JOSE
Metabolic acidosis
Hyponatremia
Hyperkalemia
Systemic lupus
Diverting loop ileostomy
Nausea vomiting
Failure to thrive
Colon cancer status post resection, chemo
History of thrombosis, cerebral
Plan
Overall clinical picture is consistent with volume depletion
Check urine studies= consistent with urinary tract infection no evidence of active lupus nephritis as there is only 3-6 red blood cells with a protein creatinine ratio of 0.3.
Okay with normal saline bicarbonate has improved
Follow BMP
Urine cultures= Pseudomonas continue antibiotic
She says that she has a surgical appointment next Saturday for ileostomy reversal at [place]
Discussed with patient and family
Creatinine improved potassium mildly elevated= changed to a 2 g potassium
-
-
Date of Service: August 12, 2024
CC / HPI / ROS
-
Chief Complaint:
Nausea/vomiting
History of Present Illness:
Acute kidney injury secondary to GI losses and hyperkalemia.
Improving.
Antibiotics for UTI
Review of Systems:.
No chest pain or shortness of breath.
Increased urine output
Labs
-
Labs:
WBC 4.9 10^3/uL (4.8-10.8) 08/12/24 05:26
RBC 3.01 10^6/uL (4.20-5.40) L 08/12/24 05:26
Hgb 8.1 g/dL (12.0-16.0) L 08/12/24 05:26
Hct 25.5 % (37.0-47.0) L 08/12/24 05:26
Plt Count 491 10^3/uL (130-400) H 08/12/24 05:26
Sodium 128 mmol/L (135-145) L 08/12/24 05:26
Potassium 5.5 mmol/L (3.5-5.1) H 08/12/24 05:26
Chloride 96 mmol/L (98-107) L 08/12/24 05:26
Carbon Dioxide 22 mmol/L (22-30) 08/12/24 05:26
BUN 67 mg/dl (7-17) H 08/12/24 05:26
Creatinine 3.8 mg/dL (0.6-1.0) H 08/12/24 05:26
eGFR 13.49 08/12/24 05:26
Glucose 105 mg/dl (70-99) H 08/12/24 05:26
Calcium 8.1 mg/dl (8.4-10.2) L 08/12/24 05:26
Albumin 4.5 g/dl (3.5-5.0) 08/10/24 08:13
Physical Exam
-
Vital Signs:
Vital Signs
Temp Pulse Resp BP Pulse Ox
97.8 F 80 14 135/84 98
08/12/24 07:20 08/12/24 11:00 08/12/24 11:00 08/12/24 10:00 08/12/24 11:00
Cardiovascular:: Regular rate and rhythm
Respiratory:: Bilateral: CTA
Lung Excursion:: Normal
Abdomen:: Soft
Bowel Sounds:: Normal
Extremity Edema:: None: Bilateral:
Pryor Catheter: No
--- NOTE | 2024-08-12 14:08 | W.PN.GI.CBS2 ---
Today's Communication / Plan
-
continue current mx
monitor I/O
Assessment / Plan
-
Pt is a 54yo with hx lupus with immunosuppression, cerebral thrombosis on Xarelto , tobacco abuse HTN and colon Ca. In review with patient she diagnosed 2022 with colon resection with colostomy completed at [facility] then folfox x 2
not completed with complicated course with PA. She recently went for elective colostomy reversal at [place] July 02, 2024 but procedure not completed due to severe inflammation with immunosuppression and nutritional status with concern for poor
healing. She then proceeded with Brannon reversal and diverting loop ileostomy with Dr. Mitali Valera. Per patient she is due for repeat surgery 08/21 to complete reversal and barium enema 08/17 prior to surgery. After surgery she was discharge
07/07. She has had recurrent admission at [facility] 07/18-07/23 with electrolyte imbalance. 07/30-08/05/24- [facility] admission with similar symptoms with JOSE, hyponatremia, anemia, vomiting with fluid distention noted in stomach on CT and also
question of SMA syndrome , increased ostomy output requiring bicarb gtt. Pt was given trial of Imodium. She did also have palliative care consult during admission. She now returns 08/10 to [facility] with nausea, vomiting and abdominal
pain with increased ileostomy output from 1500ml to 1700ml with normal around 800ml. Pt receives care through [facility] but ambulance brought her to [place]. On admission she is noted with leukocytosis, dehydration with hbg 13 with drop to 8.7
with hydration, platelets 760, calcium 10.6, creat 3 now 3.9, Co2 14 with metabolic acidosis, K 6.9 improved to 5.2. She has also lost 10- 20 lbs since surgery.
-recurrent admissions with high ostomy output after Brannon reversal and diverting loop ileostomy - At [facility] with Dr. Roldan 07/02/2024
( hx colon CA 2022 with colostomy+ chemo with attempted elective reversal 07/02 at [facility] -unable to reverse secondary to severe inflammation)
-JOSE /metabolic acidosis /hyponatremia/hyperkalemia
- UTI
-anemia
-hx lupus on immunosuppression (Prednisone, Mycophenolate, Plaquenil, prograf)
-hx cerebral thrombosis in Xarelto
PLAN:
Will monitor input/output closely ( documented ileostomy output yesterday 350 cc )
cont to correct electrolyte/ IV hydration as per medical team/nephrology
continue PPI to twice daily
continue Imodium 2mg TID and Metamucil BID
low residue diet
Increase fluid intake
Will consider Lomotil or octreotide as next step if she continues to have high output
BEDSPREAD FOLDER discussed with Dr. Roldan office staff and updated on patient status -awaiting input from Dr. Roldan about early reversal
will follow
Total Time Spent with Patient (in minutes): 35
Subjective
Subjective
Date of Service: August 12, 2024
Denies any abdominal pain/ N/V
Objective
Data Reviewed
Laboratory Data:
Laboratory Results
08/12/24 05:26
08/12/24 05:26
Laboratory Results
Magnesium 2.0 mg/dl (1.6-2.3) 08/10/24 08:13
Total Bilirubin 0.4 mg/dl (0.2-1.3) 08/10/24 08:13
AST 24 U/L (14-36) 08/10/24 08:13
ALT 21 U/L (0-35) 08/10/24 08:13
Alkaline Phosphatase 125 U/L (38-126) 08/10/24 08:13
Lipase 64 U/L (23-300) 08/10/24 08:13
Vital Signs and I&O:
Vital Signs
Temp Pulse Resp BP Pulse Ox
98.5 F 88 16 139/84 98
08/12/24 11:05 08/12/24 13:00 08/12/24 13:00 08/12/24 12:00 08/12/24 13:00
I&O
08/11/24 08/12/24 08/13/24
06:59 06:59 06:59
Intake Total 2640 / 2640 450 / 450
Output Total 400 / 400 550 / 550 350 / 350
Balance 2240 / 2240 -100 / -100 -350 / -350
Physical Exam
Physical Exam
GI: Soft, Non Distended and Non Tender
[2024-08-12] MEDS: SOLU-CORTEF 25 MG IV (16:30)
--- NOTE | 2024-08-12 17:49 | PTCARENOTE ---
Called to give report, RN in the middle of completing an admission. 3W RN to call back.
--- NOTE | 2024-08-12 19:20 | PTCARENOTE ---
Report called to Sridhar VELARDE 3W. Patient transported via wheel chair to new room with all known belongings. PCT in room to receive patient, spoke with receiving lieutenant shift supervisor RN.
[2024-08-12] MEDS: ELIQUIS 2.5 MG PO (21:19)
[2024-08-12] MEDS: CIPRO 200 MG 100 IV (21:21)
[2024-08-12] MEDS: ELAVIL 25 MG PO (21:21)
[2024-08-12] MEDS: PROGRAF PO (21:26)
[2024-08-12] MEDS: PLAQUENIL PO (21:26)
[2024-08-12] MEDS: CELLCEPT PO (21:26)
[2024-08-13] MEDS: SOLU-CORTEF 25 MG IV ×2 (00:56→08:24)
[2024-08-13 03:00] VITALS: BP 140/82
[2024-08-13] MEDS: DILAUDID 1 MG IV ×5 (03:44→22:11)
[2024-08-13 06:40] LABS: Hematocrit 24.5 % (37.0-47.0); Hemoglobin 7.9 g/dL (12.0-16.0); Mean Corp Hgb Conc. 32.2 g/dL (33.0-37.0); Mean Corpuscular Hgb 27.4 pg (27.0-31.0); Mean Corpuscular Volume 85.1 fL (81.0-99.0); Mean Platelet Volume 9.3 fL (7.4-10.4); Platelet Count 468 10^3/uL (130-400); Red Blood Cell Count 2.88 10^6/uL (4.20-5.40); Red Cell Dist. Width 20.4 % (11.5-14.5); White Blood Cell Count 4.6 10^3/uL (4.8-10.8)
[2024-08-13 07:19] LABS: ALT (SGPT) < 10 U/L (0-35); AST (SGOT) 14 U/L (14-36); Albumin 2.5 g/dl (3.5-5.0); Alkaline Phosphatase 70 U/L (38-126); Blood Urea Nitrogen 62 mg/dl (7-17); Calcium 8.2 mg/dl (8.4-10.2); Carbon Dioxide 19 mmol/L (22-30); Chloride 105 mmol/L (98-107); Estimated Creatinine Clearance 19 ml/min; Glucose 113 mg/dl (70-99); Magnesium 1.3 mg/dl (1.6-2.3); Potassium 5.4 mmol/L (3.5-5.1); Sodium 130 mmol/L (135-145); Total Bilirubin < 0.1 mg/dl (0.2-1.3); Total Protein 5.1 g/dl (6.3-8.2); eGFR 23.41
[2024-08-13 07:30] VITALS: BP 171/99
[2024-08-13] MEDS: METAMUCIL, KONSYL PO ×2 (08:23→21:34)
[2024-08-13] MEDS: IMODIUM 2 MG PO ×3 (08:23→20:54)
[2024-08-13] MEDS: NEURONTIN 300 MG PO (08:24)
[2024-08-13] MEDS: PROTONIX 40 MG PO ×2 (08:24→20:53)
[2024-08-13] MEDS: LEXAPRO 10 MG PO (08:25)
[2024-08-13] MEDS: ELIQUIS 2.5 MG PO (08:25)
[2024-08-13] MEDS: FEOSOL 325 MG PO (08:25)
[2024-08-13] MEDS: NSS 1000 IV ×3 (08:28→23:00)
[2024-08-13] MEDS: HYDROPHOR 1 APPLIC TOPICAL ×2 (08:29→20:54)
[2024-08-13] MEDS: CIPRO 200 MG 100 IV (11:04)
[2024-08-13 11:30] VITALS: BP 176/95
--- NOTE | 2024-08-13 13:03 | W.PN.GI.CBS2 ---
Today's Communication / Plan
-
Continue monitor input/output
Continue current supportive management
follow up colorectal surgery at [place]
Assessment / Plan
-
Pt is a 54yo with hx lupus with immunosuppression, cerebral thrombosis on Xarelto , tobacco abuse HTN and colon Ca. In review with patient she diagnosed 2022 with colon resection with colostomy completed at [facility] then folfox x 2
not completed with complicated course with [place]. She recently went for elective colostomy reversal at [place] July 02, 2024 but procedure not completed due to severe inflammation with immunosuppression and nutritional status with concern for poor
healing. She then proceeded with Brannon reversal and diverting loop ileostomy with Dr. Mitali Valera. Per patient she is due for repeat surgery 08/21 to complete reversal and barium enema 08/17 prior to surgery. After surgery she was discharge
07/07. She has had recurrent admission at [facility] 07/18-07/23 with electrolyte imbalance. 07/30-08/05/24- [facility] admission with similar symptoms with JOSE, hyponatremia, anemia, vomiting with fluid distention noted in stomach on CT and also
question of SMA syndrome , increased ostomy output requiring bicarb gtt. Pt was given trial of Imodium. She did also have palliative care consult during admission. She now returns 08/10 to [facility] with nausea, vomiting and abdominal
pain with increased ileostomy output from 1500ml to 1700ml with normal around 800ml. Pt receives care through [facility] but ambulance brought her to [place]. On admission she is noted with leukocytosis, dehydration with hbg 13 with drop to 8.7
with hydration, platelets 760, calcium 10.6, creat 3 now 3.9, Co2 14 with metabolic acidosis, K 6.9 improved to 5.2. She has also lost 10- 20 lbs since surgery.
-recurrent admissions with high ostomy output after Brannon reversal and diverting loop ileostomy - At [facility] with Dr. Roldan 07/02/2024
( hx colon CA 2022 with colostomy+ chemo with attempted elective reversal 07/02 at [facility] -unable to reverse secondary to severe inflammation)
-JOSE /metabolic acidosis /hyponatremia/hyperkalemia
- UTI
-anemia
-hx lupus on immunosuppression (Prednisone, Mycophenolate, Plaquenil, prograf)
-hx cerebral thrombosis in Xarelto
PLAN:
Will monitor input/output closely ( documented ileostomy output yesterday 850 cc ) . S.Cr this am better
cont to correct electrolyte/ IV hydration as per medical team/nephrology
continue PPI to twice daily
continue Imodium 2mg TID and Metamucil BID
low residue diet
Increase fluid intake
consider adding Lomotil or octreotide as next step if she continues to have high output. currently output is decreasing
FACILITIES AND GROUNDS DIRECTOR discussed with Dr. Roldan office staff and updated on patient status . Patient has follow-up with colorectal surgery at [place] next week
--Continue further ileostomy care with colorectal surgery
No further recommendation at this point. Will sign off. Please call us back if any questions
Total Time Spent with Patient (in minutes): 35
Subjective
Subjective
Date of Service: August 13, 2024
feeling better. Tolerating diet. Ileostomy output is less
Objective
Data Reviewed
Laboratory Data:
Laboratory Results
08/13/24 06:09
08/13/24 06:09
Laboratory Results
Magnesium 1.3 mg/dl (1.6-2.3) L 08/13/24 06:09
Total Bilirubin < 0.1 mg/dl (0.2-1.3) L 08/13/24 06:09
AST 14 U/L (14-36) 08/13/24 06:09
ALT < 10 U/L (0-35) 08/13/24 06:09
Alkaline Phosphatase 70 U/L (38-126) 08/13/24 06:09
Lipase 64 U/L (23-300) 08/10/24 08:13
Vital Signs and I&O:
Vital Signs
Temp Pulse Resp BP Pulse Ox
97.6 F 76 18 176/95 100
08/13/24 11:30 08/13/24 11:30 08/13/24 11:30 08/13/24 11:30 08/13/24 11:30
I&O
08/12/24 08/13/24 08/14/24
06:59 06:59 06:59
Intake Total 450 / 450 2280 / 2280
Output Total 550 / 550 1400 / 1400
Balance -100 / -100 880 / 880
Physical Exam
Physical Exam
GI: Soft, Non Distended, Non Tender and Other (ileostomy +)
--- NOTE | 2024-08-13 13:04 | W.PN.HOSP.TC ---
Today's Communication/Plan
-
see bold
Assessment / Plan
Assessment / Plan
Gen: NAD, AAOx3, appears chronically ill.
Eyes: EOMI, PERRLA, no scleral icterus.
Neck: supple.
CV: RRR, +S1/S2, no m/r/g.
Resp: CTAB, no rales, wheezes, or rhonchi.
Abd: +BS, soft, NT, ND
Skin: Diffuse patchy, scaly rash
Neuro: CN 2-12 intact, non-focal.
Psych: Normal mood and affect.
CT A/P: Markedly limited evaluation of intestinal tract with only small volume oral contrast. No intestinal obstruction or free air. Distal colonic anastomosis and apparent right lower quadrant ileostomy. High attenuation density in the gallbladder
which could represent vicarious excretion of contrast from prior outside CT in light of markedly abnormal renal function. Small bilateral nonobstructing renal calculi. Lobulated diffuse high attenuation density of the cortex of the kidneys
bilaterally with minimal very faint likely residual contrast within nondilated renal pelves bilaterally. No findings to suggest obstructive uropathy bilaterally. Some of several differential diagnostic possibilities include acute tubular necrosis,
glomerulonephritis, renal toxicity of other etiology and cortical/medullary nephrocalcinosis.
JOSE:
-likely due to increased ostomy output
-baseline Cr 0.8-1.0
-with acute metabolic acidosis
-cont NS @ 125cc/hr, Cr improving
-hyperkalemia/hyponatremia, on chronic Prednisone, increase stress dose hydrocortisone to 50mg IV Q8H (note 30mg Prednisone daily equals 120mg IV Hydrocortisone)
-note, recent hospitalization from 07/30/24-08/05/24 at [facility]. At that time the patient's Lasix and lisinopril were held and not restarted on d/c. Patient received bicarb drip during hospitalization. Cr at the time of discharge was
1.07. Dr. Wyatt personally reviewed the records from [facility].
Acute pseudomonas UTI:
-cont Cipro
-immunocompromised, ID to see
Anxiety: cont Elavil/Lexapro, may need to d/c if Na does not improving
GERD: Cont PPI
Severe protein calorie malnutrition
Malignant neoplasm of sigmoid colon: diagnosed 2022, s/p resection with ostomy, FOLFOX x 2, revision at [facility] in Jun 2024 for Brannon's reversal and diverting loop ileostomy.
SLE: cont Plaquenil/Cellcept/Prograf. Increase Hydrocortisone as above,
Chronic tachycardia
h/o thrombosis: Resume Xarelto (renally dosed). Stop Eliquis (has failed Eliquis in the past)
Patient's mother updated at bedside.
DNR/Xarelto
Total time spent on today's encounter was 50 minutes which included time spent in counseling the patient/family regarding diagnosis and treatment plan as listed above, goals of care, and symptom management. Case was discussed with nursing staff,
specialists, and care coordinators/case management. All labs and imaging personally reviewed by me. Remainder the time spent in detailed review of previous records, lab data, imaging, and other medical provider documentation.
Anticipated Discharge: 24 - 48 hours
Subjective/Interval History
-
Date of Service: August 13, 2024
No new complaints.
Objective Data
-
Labs:
Laboratory Results
08/13/24
06:09
WBC 4.6 L
Hgb 7.9 L
Hct 24.5 L
Plt Count 468 H
Sodium 130 L
Potassium 5.4 H
Chloride 105
Carbon Dioxide 19 L
BUN 62 H
Creatinine 2.4 H
Glucose 113 H
Calcium 8.2 L
Total Bilirubin < 0.1 L
AST 14
ALT < 10
Alkaline Phosphatase 70
Vital Signs:
Vital Signs
Temp Pulse Resp BP Pulse Ox
97.6 F 76 18 176/95 100
08/13/24 11:30 08/13/24 11:30 08/13/24 11:30 08/13/24 11:30 08/13/24 11:30
I&O
08/12/24 08/13/24 08/14/24
06:59 06:59 06:59
Intake Total 450 / 450 2280 / 2280
Output Total 550 / 550 1400 / 1400
Balance -100 / -100 880 / 880
--- NOTE | 2024-08-13 14:46 | W.PN.NEPH.PH ---
Today's Communication / Plan
-
continue normal saline
Assessment/Plan
-
Assessment
JOSE
Metabolic acidosis
Hyponatremia
Hyperkalemia
Systemic lupus
Diverting loop ileostomy
Nausea vomiting
Failure to thrive
Colon cancer status post resection, chemo
History of thrombosis, cerebral
Plan
Overall clinical picture is consistent with volume depletion
Check urine studies= consistent with urinary tract infection no evidence of active lupus nephritis as there is only 3-6 red blood cells with a protein creatinine ratio of 0.3.
Follow BMP
Urine cultures= Pseudomonas continue antibiotic
She says that she has a surgical appointment next Saturday for ileostomy reversal at [place]
Discussed with patient and family
Creatinine improved potassium mildly elevated= changed to a 2 g potassium.
Sodium remains mildly low at 130 asymptomatic.
Consider discharged tomorrow
-
-
Date of Service: August 13, 2024
CC / HPI / ROS
-
Chief Complaint:
Nausea/vomiting
History of Present Illness:
Acute kidney injury secondary to GI losses and hyperkalemia.
Improving.
Antibiotics for UTI
Review of Systems:.
No chest pain or shortness of breath.
Increased urine output
Labs
-
Labs:
WBC 4.6 10^3/uL (4.8-10.8) L 08/13/24 06:09
RBC 2.88 10^6/uL (4.20-5.40) L 08/13/24 06:09
Hgb 7.9 g/dL (12.0-16.0) L 08/13/24 06:09
Hct 24.5 % (37.0-47.0) L 08/13/24 06:09
Plt Count 468 10^3/uL (130-400) H 08/13/24 06:09
Sodium 130 mmol/L (135-145) L 08/13/24 06:09
Potassium 5.4 mmol/L (3.5-5.1) H 08/13/24 06:09
Chloride 105 mmol/L (98-107) 08/13/24 06:09
Carbon Dioxide 19 mmol/L (22-30) L 08/13/24 06:09
BUN 62 mg/dl (7-17) H 08/13/24 06:09
Creatinine 2.4 mg/dL (0.6-1.0) H 08/13/24 06:09
eGFR 23.41 08/13/24 06:09
Glucose 113 mg/dl (70-99) H 08/13/24 06:09
Calcium 8.2 mg/dl (8.4-10.2) L 08/13/24 06:09
Albumin 2.5 g/dl (3.5-5.0) L D 08/13/24 06:09
Physical Exam
-
Vital Signs:
Vital Signs
Temp Pulse Resp BP Pulse Ox
97.6 F 76 18 176/95 100
08/13/24 11:30 08/13/24 11:30 08/13/24 11:30 08/13/24 11:30 08/13/24 11:30
Cardiovascular:: Regular rate and rhythm
Respiratory:: Bilateral: CTA
Lung Excursion:: Normal
Abdomen:: Soft
Bowel Sounds:: Normal
Extremity Edema:: None: Bilateral:
Pryor Catheter: No
[2024-08-13 15:30] VITALS: BP 163/97
--- NOTE | 2024-08-13 15:49 | CON.ID ---
Consultation
-
Date/Time Consultation Requested: 08/12/20242003
Date/Time Consultation Performed: 08/13/2024 1430
Requesting Provider: Dr. Wyatt
Performing Provider: Dr. Sultana
Reason for Consultation: Urinary tract infection
Chief Complaint / Past History
History of Present Illness
Lisette Hilton is a 54-year-old female with a significant past medical history of extensive lupus (x 25 years) being evaluated at the request of Dr. Wyatt regarding urinary tract infection. History is obtained from chart review, along with patient
interview.
The patient reports that she underwent an attempt at colostomy reversal in mid June 2024, but surgery was unsuccessful, and she was left with an ileostomy. She reports since that time she has been dealing with high output from the ileostomy,
and states that she has been hospitalized 4 times for the same. She is usually seen in the [facility], though.
She presents to the emergency room 06/10/25 secondary to abdominal discomfort, along with nausea and vomiting. She reports the nausea and vomiting have been going on for the prior 24 hours, along with increased output from her ileostomy. During
this time she denied any fevers or chills. She denies any prior antibiotics. She denies any recent sick contacts. She admits that she did have some dysuria prior to admission. Cultures obtained at the time of presentation are positive for
Pseudomonas aeruginosa, and Infectious Diseases is asked to comment upon further antibiotic management.
At this time she reports feeling somewhat improved. Initial workup revealed acute elevation of her creatinine along with hyponatremia.
Past History
Additional Past Medical History:
Lupus
Colon CA
HTN
Raynaud's syndrome
Additional Past Surgical History:
Colon resection with colostomy (08/2022)
Ileostomy placement (07/02/2024)
Allergy History:
No Known Allergies Allergy (Verified 08/10/24 08:04)
Medications Reviewed: Yes
Current Antibiotics:
Cipro
Social History
Tobacco: Smoker
Alcohol: None
Drug: None
Living: With Family
Family History
Family History: Not Pertinent
Review of Systems
Vital Signs
Temp Pulse Resp BP Pulse Ox
97.6 F 76 18 176/95 100
08/13/24 11:30 08/13/24 11:30 08/13/24 11:30 08/13/24 11:30 08/13/24 11:30
Physical Exam
Physical Exam
Constitutional: Comfortable, Chronically Ill and Non-toxic
Eyes: No Conjunctival Hemorrhage and Sclera Anicteric
Oral: No Thrush and No Ulcers
Cardiovascular: Regular Rate and S1/S2; Negative S3/S4
Pulmonary: Negative Wheezes or Rales
Gastrointestinal: Soft, Non Tender, Non Distended, Normal Bowel Sounds and Other (Ostomy in place.)
Genito-Urinary: Negative Pryor or CVA Tenderness
Extremities: Negative Cyanosis or Erythema
Neurological: Awake and Alert
Psychological: Calm
Lab / Diagnostic Study Results
08/13/24 06:09
08/13/24 06:09
Abs Immat Gran (auto) 0.1 10^3/uL (0-0.05) H 08/10/24 08:13
Absolute Neuts (auto) 7.8 10^3/uL (1.4-6.5) H 08/10/24 08:13
Absolute Lymphs (auto) 1.6 10^3/uL (1.2-3.4) 08/10/24 08:13
Absolute Monos (auto) 1.2 10^3/uL (0.1-0.6) H 08/10/24 08:13
Absolute Basos (auto) 0.0 10^3/uL (0-0.2) 08/10/24 08:13
Immature Gran % 1.2 % (0-0.5) H 08/10/24 08:13
Neutrophils % 71.5 % (42.2-75.2) 08/10/24 08:13
Lymphocytes % 14.7 % (20.5-51.1) L 08/10/24 08:13
Monocytes % 11.1 % (1.7-9.3) H 08/10/24 08:13
Eosinophils % 1.3 % (0-6) 08/10/24 08:13
Basophils % 0.2 % (0-2) 08/10/24 08:13
Ur Squamous Epith Cells >30 /LPF (Few) 08/10/24 18:32
Microbiology Results
Micro:
08/11/24 16:05 Salmonella/Shigella Culture - Final
Feces/Stool No Salmonella, Shigella, Aeromonas or Plesiomonas species
isolated.
Campylobacter Culture - Final
No Campylobacter species isolated.
Shiga Toxin Test - Final
No E. coli Shiga Toxin 1 or 2 detected.
08/10/24 18:32 Urine Culture - Final
Urine Pseudomonas aeruginosa
M.I.C. RX
--------- ---
Aztreonam <=4 S
Cefepime 4 S
Ceftazidime <=1 S
Ciprofloxacin <=0.25 S
Meropenem <=1 S
Piperacillin/Tazobactam <=8 S
Tobramycin <=2 S
08/11/24 01:23 MRSA Screen - Final
Nose Staph aureus MRSA
08/11/24 16:05 - Final
Feces/Stool Negative for Norovirus GI and GII.
08/11/24 16:05 Cryptosporidium/Giardia - Final
Feces/Stool Negative for Cryptosporidium and/or Giardia Lamblia
antigens.
C. difficile GDH Antigen & Toxins - Final
Negative for toxigenic C.difficile
Imaging:
08/10/2024 CT abdomen/pelvis without contrast: Markedly limited evaluation of intestinal track with only a small volume of oral contrast. No intestinal obstruction or free air. Distal colonic anastomosis and apparent right lower quadrant ileostomy
in place. Small bilateral nonobstructing renal calculi. Lobulated diffuse high attenuation density of the cortex of the kidneys bilaterally with minimal very faint likely residual contrast within nondilated renal pelves bilaterally. No findings to
suggest obstructive uropathy bilaterally. Some of several differential diagnostic possibilities include acute tubular necrosis, glomerulonephritis, renal toxicity of other etiology and cortical/medullary nephrocalcinosis.
Assessment / Plan
Complicated urinary tract infection secondary to Pseudomonas aeruginosa
Nausea and vomiting; improved
Ileostomy with high output
JOSE
Lupus
Immunosuppression secondary to medications (mycophenolate, prednisone, tacrolimus)
Colon CA
HTN
Raynaud's
Recommendations:
Agree with initiation of ciprofloxacin. Given renal insufficiency will change to 500 mg every 24 hours. Would treat for a total of 7 to 10 days.
Trend creatinine and creatinine clearance to guide further dose adjustment.
Monitor for improvement or worsening in urinary symptomatology
Follow white count and temperature curve.
[2024-08-13] MEDS: SOLU-CORTEF 50 MG IV ×2 (17:16→23:53)
[2024-08-13] MEDS: XARELTO 15 MG PO (17:17)
[2024-08-13 19:43] VITALS: BP 154/93
[2024-08-13] MEDS: NON-FORMULARY ITEM 0.4 GRAM PO (20:53)
[2024-08-13] MEDS: ELAVIL 25 MG PO (20:55)
[2024-08-13 23:47] VITALS: BP 155/94
[2024-08-14 03:47] VITALS: BP 148/90
[2024-08-14] MEDS: DILAUDID 1 MG IV ×2 (06:06→09:54)
[2024-08-14 06:42] LABS: Hematocrit 28.2 % (37.0-47.0); Hemoglobin 8.8 g/dL (12.0-16.0); Mean Corp Hgb Conc. 31.2 g/dL (33.0-37.0); Mean Corpuscular Hgb 27.4 pg (27.0-31.0); Mean Corpuscular Volume 87.9 fL (81.0-99.0); Platelet Count 488 10^3/uL (130-400); Red Blood Cell Count 3.21 10^6/uL (4.20-5.40); Red Cell Dist. Width 20.4 % (11.5-14.5); White Blood Cell Count 5.8 10^3/uL (4.8-10.8)
[2024-08-14 07:09] LABS: Blood Urea Nitrogen 50 mg/dl (7-17); Calcium 8.9 mg/dl (8.4-10.2); Carbon Dioxide 18 mmol/L (22-30); Chloride 110 mmol/L (98-107); Estimated Creatinine Clearance 30 ml/min; Glucose 102 mg/dl (70-99); Sodium 134 mmol/L (135-145); eGFR 41.16
[2024-08-14 07:30] VITALS: BP 163/100
[2024-08-14] MEDS: NEURONTIN 300 MG PO (08:19)
[2024-08-14] MEDS: PROTONIX 40 MG PO ×2 (08:19→18:38)
[2024-08-14] MEDS: IMODIUM 2 MG PO ×2 (08:20→16:27)
[2024-08-14] MEDS: FEOSOL 325 MG PO (08:20)
[2024-08-14] MEDS: NON-FORMULARY ITEM 0.4 GRAM PO (08:20)
[2024-08-14] MEDS: LEXAPRO 10 MG PO (08:20)
[2024-08-14] MEDS: SOLU-CORTEF 50 MG IV ×2 (08:23→16:27)
[2024-08-14] MEDS: NSS 1000 IV ×2 (08:27→16:26)
[2024-08-14] MEDS: HYDROPHOR 1 APPLIC TOPICAL (08:29)
--- NOTE | 2024-08-14 08:34 | W.PN.HOSP.TC ---
Addendum entered and electronically signed by Navjot Wyatt MD 08/14/24 14:29:
Anemia was dilutional.
Addendum entered and electronically signed by Navjot Wyatt MD 08/14/24 11:42:
Case discussed with Dr. Sultana. D/c dose for Cipro will be 500mg daily based on current CrCl.
Addendum entered and electronically signed by Navjot Wyatt MD 08/14/24 11:25:
Case discussed with Dr. Hendricks and the pt is medically cleared for d/c.
Total time spent on d/c = 60 min. This included today's physical exam, progress note, review of laboratory and diagnostic data, preparation of discharge documents and prescriptions, and discussions about the pt's hospital course and discharge plan
with the patient and other medical physicist involved in the patient's care.
Original Note:
Today's Communication/Plan
-
see bold
Assessment / Plan
Assessment / Plan
Gen: NAD, AAOx3, appears chronically ill.
Eyes: EOMI, PERRLA, no scleral icterus.
Neck: supple.
CV: remains RRR, +S1/S2, no m/r/g.
Resp: remains CTAB, no rales, wheezes, or rhonchi.
Abd: +BS, soft, NT, ND
Skin: Diffuse patchy rash
Neuro: CN 2-12 intact, non-focal.
Psych: Normal mood and affect.
CT A/P: Markedly limited evaluation of intestinal tract with only small volume oral contrast. No intestinal obstruction or free air. Distal colonic anastomosis and apparent right lower quadrant ileostomy. High attenuation density in the gallbladder
which could represent vicarious excretion of contrast from prior outside CT in light of markedly abnormal renal function. Small bilateral nonobstructing renal calculi. Lobulated diffuse high attenuation density of the cortex of the kidneys
bilaterally with minimal very faint likely residual contrast within nondilated renal pelves bilaterally. No findings to suggest obstructive uropathy bilaterally. Some of several differential diagnostic possibilities include acute tubular necrosis,
glomerulonephritis, renal toxicity of other etiology and cortical/medullary nephrocalcinosis.
JOSE:
-likely due to increased ostomy output
-baseline Cr 0.8-1.0
-with acute metabolic acidosis
-cont NS @ 125cc/hr, Cr improving, now 1.5
-hyperkalemia/hyponatremia, on chronic Prednisone, cont stress dose hydrocortisone 50mg IV Q8H (note 30mg Prednisone daily equals 120mg IV Hydrocortisone)
-note, recent hospitalization from 07/30/24-08/05/24 at [facility]. At that time the patient's Lasix and lisinopril were held and not restarted on d/c. Patient received bicarb drip during hospitalization. Cr at the time of discharge was
1.07. Dr. Wyatt personally reviewed the records from [facility].
Acute comlicated pseudomonas UTI:
-immunocompromised, cont Cipro as per ID
Anxiety: cont Elavil/Lexapro, may need to d/c if Na does not improving
GERD: Cont PPI
Severe protein calorie malnutrition
Malignant neoplasm of sigmoid colon: diagnosed 2022, s/p resection with ostomy, FOLFOX x 2, revision at [facility] in Jun 2024 for Brannon's reversal and diverting loop ileostomy.
SLE: cont Plaquenil/Cellcept/Prograf. cont IV Hydrocortisone as above
Chronic tachycardia
h/o thrombosis: cont Xarelto (renally dosed).
Patient's mother updated at bedside.
DNR/Xarelto
Total time spent on today's encounter was 51 minutes which included time spent in counseling the patient/family regarding diagnosis and treatment plan as listed above, goals of care, and symptom management. Case was discussed with nursing staff,
specialists, and care coordinators/case management. All labs and imaging personally reviewed by me. Remainder the time spent in detailed review of previous records, lab data, imaging, and other medical provider documentation.
Anticipated Discharge: Within 24 hours
Subjective/Interval History
-
Date of Service: August 14, 2024
'I feel great.'
Objective Data
-
Labs:
Laboratory Results
08/14/24
06:19
WBC 5.8
Hgb 8.8 L
Hct 28.2 L
Plt Count 488 H
Sodium 134 L
Potassium 5.0
Chloride 110 H
Carbon Dioxide 18 L
BUN 50 H
Creatinine 1.5 H
Glucose 102 H
Calcium 8.9
Vital Signs:
Vital Signs
Temp Pulse Resp BP Pulse Ox
98.1 F 80 16 148/90 97
08/14/24 03:47 08/14/24 03:47 08/14/24 03:47 08/14/24 03:47 08/14/24 03:47
I&O
08/13/24 08/14/24 08/15/24
06:59 06:59 06:59
Intake Total 2280 / 2280 980 / 980
Output Total 1400 / 1400 1800 / 1800 900 / 900
Balance 880 / 880 -820 / -820 -900 / -900
--- NOTE | 2024-08-14 10:52 | W.PN.NEPH.PH ---
Today's Communication / Plan
-
bicarb
Assessment/Plan
-
Assessment
JOSE
Metabolic acidosis
Hyponatremia
Hyperkalemia
Systemic lupus
Diverting loop ileostomy
Nausea vomiting
Failure to thrive
Colon cancer status post resection, chemo
History of thrombosis, cerebral
Plan
for dc
restart tacrolimus at OP dose, f/u with rheum for levels
start bicarb 650 mg BID to help acidosis and HK
-
-
Date of Service: August 14, 2024
CC / HPI / ROS
-
Chief Complaint:
Nausea/vomiting
History of Present Illness:
JOSE/Cr down to 1.5
BP stable
K normal
mild acidosis persists
Antibiotics for UTI
Review of Systems:.
No chest pain or shortness of breath.
Labs
-
Labs:
WBC 5.8 10^3/uL (4.8-10.8) 08/14/24 06:19
RBC 3.21 10^6/uL (4.20-5.40) L 08/14/24 06:19
Hgb 8.8 g/dL (12.0-16.0) L 08/14/24 06:19
Hct 28.2 % (37.0-47.0) L 08/14/24 06:19
Plt Count 488 10^3/uL (130-400) H 08/14/24 06:19
Sodium 134 mmol/L (135-145) L 08/14/24 06:19
Potassium 5.0 mmol/L (3.5-5.1) 08/14/24 06:19
Chloride 110 mmol/L (98-107) H 08/14/24 06:19
Carbon Dioxide 18 mmol/L (22-30) L 08/14/24 06:19
BUN 50 mg/dl (7-17) H 08/14/24 06:19
Creatinine 1.5 mg/dL (0.6-1.0) H 08/14/24 06:19
eGFR 41.16 08/14/24 06:19
Glucose 102 mg/dl (70-99) H 08/14/24 06:19
Calcium 8.9 mg/dl (8.4-10.2) 08/14/24 06:19
Albumin 2.5 g/dl (3.5-5.0) L D 08/13/24 06:09
Physical Exam
-
Vital Signs:
Vital Signs
Temp Pulse Resp BP Pulse Ox
97.7 F 70 18 163/100 97
08/14/24 07:30 08/14/24 07:30 08/14/24 07:30 08/14/24 07:30 08/14/24 03:47
Cardiovascular:: Regular rate and rhythm
Respiratory:: Bilateral: Coarse
Lung Excursion:: Normal
Abdomen:: Nontender and Soft
Bowel Sounds:: Normal
Extremity Edema:: +1: Bilateral:
[2024-08-14 11:00] VITALS: BP 181/96
--- NOTE | 2024-08-14 11:50 | CM ---
Received notification that patient is medically cleared for discharge. Placed a call to [facility] and spoke to Janette [phone] to make aware. She requested that a new referral be faxed through [employer] so she has an update and that
all discharge paperwork be faxed to [phone].
Plan: Case management will continue to follow and assist with discharge planning. Home with [facility].
[2024-08-14] MEDS: CIPRO 500 MG PO ×2 (12:34→18:37)
[2024-08-14] MEDS: ROXICODONE 5 MG PO (12:34)
--- NOTE | 2024-08-14 13:30 | PN.CDI ---
CDI
- -
CDI:
Physician Documentation Request
Admit Date: 08/10/24 15:12
Dear Doctor Edmundo,
Please review the following and provide your response in the progress notes.
Clinical Indicators:
GI consult, 08/11
#...07/30-08/05/24- [facility] admission with similar symptoms with JOSE, hyponatremia, anemia,
#...vomiting with fluid distention noted in stomach on CT and also question of SMA syndrome
#...returns 08/10 to [facility] with nausea, vomiting and
#...abdominal pain with increased ileostomy output from 1500ml to 1700ml
#...with normal around 800ml.
#...admission she is noted with leukocytosis, dehydration with hbg 13
#...with drop to 8.7 with hydration, ....
#-anemia
Laboratory Tests
08/10/24 08/11/24 08/12/24
08:13 10:48 05:26
Hgb 13.0 8.7 L D 8.1 L
Hct 40.8 26.8 L 25.5 L
08/13/24 08/14/24
06:09 06:19
Hgb 7.9 L 8.8 L
Hct 24.5 L 28.2 L
Based on the above and your clinical assessment, please clarify,the most likely condition/diagnosis evaluated, monitored and/or treated?
Anemia, due to acute blood loss and hydration
Acute blood loss anemia with baseline chronic anemia (Specify type)
Precipitous drop in hematocrit
Other(please specify)
Use of terms such as suspected, likely, concern for, or probable (associated with a specific diagnosis that is being evaluated, monitored, or treated as if it exists) are acceptable and can be coded in the inpatient setting, when documented at the
time of discharge.
Thank you,
Ashley Martinez RN BSN CCDS
CDI Specialist
please contact via tiger text
Please use your independent medical judgment in providing your response.
--- NOTE | 2024-08-14 13:32 | W.PN.ID1 ---
Date of Service
Date of Service: August 14, 2024
Today's Communication
Adjusted cipro dose.
Assessment / Plan
Complicated urinary tract infection secondary to Pseudomonas aeruginosa
Nausea and vomiting; improved
Ileostomy with high output
JOSE
Lupus
Immunosuppression secondary to medications (mycophenolate, prednisone, tacrolimus)
Colon CA
HTN
Raynaud's
Recommendations:
JOSE improving. CrCl now 30.
Increase cipro dose to 500mg po bid through 08/19/24.
QTc acceptable.
Chief Complaint
-: UTI
Subjective / Review of Systems
Dysuria resolved.
Overall feeling better.
Vital Signs / Physical Exam
Vital Signs
Vital Signs
Temp Pulse Resp BP Pulse Ox
98.8 F 76 18 181/96 97
08/14/24 11:00 08/14/24 11:00 08/14/24 11:00 08/14/24 11:00 08/14/24 12:10
Physical Exam
Constitutional: No Acute Distress and Comfortable
Gastrointestinal: Soft, Non Tender and Non Distended
Genito-Urinary: Negative CVA Tenderness
Neurological: AO x 3
Objective Data
Lab Data
Lab Results
08/14/24 06:19
08/14/24 06:19
Estimated Creat Clear 30 ml/min 08/14/24 06:19
Total Bilirubin < 0.1 mg/dl (0.2-1.3) L 08/13/24 06:09
AST 14 U/L (14-36) 08/13/24 06:09
ALT < 10 U/L (0-35) 08/13/24 06:09
Alkaline Phosphatase 70 U/L (38-126) 08/13/24 06:09
Most recent labs reviewed.
Micro Results:
08/11/24 16:05 Salmonella/Shigella Culture - Final
Feces/Stool No Salmonella, Shigella, Aeromonas or Plesiomonas species
isolated.
Campylobacter Culture - Final
No Campylobacter species isolated.
Shiga Toxin Test - Final
No E. coli Shiga Toxin 1 or 2 detected.
08/10/24 18:32 Urine Culture - Final
Urine Pseudomonas aeruginosa
08/11/24 01:23 MRSA Screen - Final
Nose Staph aureus MRSA
08/11/24 16:05 - Final
Feces/Stool Negative for Norovirus GI and GII.
08/11/24 16:05 Cryptosporidium/Giardia - Final
Feces/Stool Negative for Cryptosporidium and/or Giardia Lamblia
antigens.
C. difficile GDH Antigen & Toxins - Final
Negative for toxigenic C.difficile
Imaging:
08/10/2024 CT abdomen/pelvis without contrast: Markedly limited evaluation of intestinal track with only a small volume of oral contrast. No intestinal obstruction or free air. Distal colonic anastomosis and apparent right lower quadrant ileostomy
in place. Small bilateral nonobstructing renal calculi. Lobulated diffuse high attenuation density of the cortex of the kidneys bilaterally with minimal very faint likely residual contrast within nondilated renal pelves bilaterally. No findings to
suggest obstructive uropathy bilaterally. Some of several differential diagnostic possibilities include acute tubular necrosis, glomerulonephritis, renal toxicity of other etiology and cortical/medullary nephrocalcinosis.
[2024-08-14 17:06] VITALS: BP 183/105
[2024-08-14] MEDS: XARELTO 15 MG PO (17:16)
--- NOTE | 2024-08-15 16:31 | W.DCSUMMARY ---
Discharge Summary
Discharge Data
Date of Admission: 08/10/24
Date of Discharge: 08/14/24
-
Pending Results: No
Hospital Course
Primary diagnoses:
Acute kidney injury
Acute metabolic acidosis
Acute complicated Pseudomonas urinary tract infection
Secondary diagnoses:
Systemic lupus erythematosus, immunocompromise state
Hyperkalemia
Hyponatremia
Dilutional anemia, anemia of chronic disease
Anxiety
Gastroesophageal reflux disease
Severe protein calorie malnutrition
Malignant neoplasm of sigmoid colon, diagnosed 2022, s/p resection with ostomy, FOLFOX x 2, revision at [facility] in Jun 2024
Chronic tachycardia
h/o thrombosis
Consultants:
Infectious disease
Nephrology
Gastroenterology
Imaging:
CT A/P: Markedly limited evaluation of intestinal tract with only small volume oral contrast. No intestinal obstruction or free air. Distal colonic anastomosis and apparent right lower quadrant ileostomy. High attenuation density in the gallbladder
which could represent vicarious excretion of contrast from prior outside CT in light of markedly abnormal renal function. Small bilateral nonobstructing renal calculi. Lobulated diffuse high attenuation density of the cortex of the kidneys
bilaterally with minimal very faint likely residual contrast within nondilated renal pelves bilaterally. No findings to suggest obstructive uropathy bilaterally. Some of several differential diagnostic possibilities include acute tubular necrosis,
glomerulonephritis, renal toxicity of other etiology and cortical/medullary nephrocalcinosis.
54-year-old female who presented with chief complaint of high output diarrhea from her ostomy bag as outlined in the H&P done on admission. Hospital course by problem list:
JOSE: On admission the patient's creatinine was 3.0, it peaked at 4.2, and improved to 1.5 with IV fluids. Her acute kidney injury was likely due to increased ostomy output. She also had an acute metabolic acidosis. On discharge she was started on
oral sodium bicarbonate. She had hyperkalemia that resolved. She also had hyponatremia that improved. She was instructed to have a basic metabolic profile 4 days after discharge.
Acute complicated pseudomonas UTI: Patient was immunocompromised due to immunosuppressants she was taking for systemic lupus erythematosus. Urine culture grew Pseudomonas sensitive to ciprofloxacin. She was initially on cefepime. She was seen in
consultation by infectious disease and transitioned to oral ciprofloxacin on which she was discharged.
Discharge Plan
-
Patient Disposition: Home (Routine Discharge)
Discharge Diagnosis/Procedures: Acute kidney injury, acute metabolic acidosis, and hyperkalemia due to increased ostomy output. Acute complicated Pseudomonas UTI.
Condition: Good
Diet: As tolerated
Activity: As tolerated
Driving Restrictions: As prior to admission
Blood Work: BMP, Mg, and CBC in 4 days, script from PCP
Activity Restrictions/Additional Instructions:
Wound Care Instructions
Midline incision: Clean with soap and water, Pack openings with 1/4' plain packing strip leave tail end out, cover with folded 2x2 gauze and seal with tegaderm. Change daily and prn drainage.
R hip and L medial lower leg: clean with soap and water, smear of honey gel, adaptic and dry dressing change q 2 days and prn drainage
L hip and R medial lower leg: clean with soap and water, dry dressing change q 2-3 days and prn drainage.
Mineral oil to back, arms and chest bid
Referrals:
Bob Urban MD [Family Provider] - in 4 days
Prescriptions:
New
ciprofloxacin HCl 500 mg Tablet
500 mg PO Q24H Qty: 8 0RF
pantoprazole 40 mg Tablet,Delayed Release (Dr/Ec)
40 mg PO BID Qty: 60 0RF
sodium bicarbonate 650 mg tablet
650 mg PO BID Qty: 60 0RF
Continued
prednisone 10 mg Tablet
30 mg PO DIRECTED
Rx Instructions:
STARTING ON 08/05/24 TAKE 30MG DAILY FOR 7 DAYS THEN 20MG DAILY FOR 7 DAYS THEN 10MG DAILY THERE AFTER. Chronic dose = 10 mg daily
loperamide 2 mg Tablet
2 mg PO TID
amitriptyline 25 mg Tablet
25 mg PO HS
ferrous sulfate 325 mg (65 mg iron) Tablet
325 mg PO DAILY
hydroxychloroquine [Plaquenil] 200 mg Tablet
200 mg PO BID
ondansetron 4 mg Tablet,Disintegrating
4 mg PO Q6HPRN PRN (Reason: NAUSEA)
tacrolimus 1 mg Capsule
1 mg PO Q12
oxycodone 5 mg Tablet
5 mg PO Q4HPRN PRN (Reason: SEVERE PAIN)
escitalopram oxalate [Lexapro] 10 mg Tablet
10 mg PO DAILY
gabapentin 100 mg Tablet
300 mg PO BID
Xarelto 20 mg Tablet
20 mg PO DAILY
psyllium husk [Metamucil] 0.4 gram Capsule
0.4 g PO BID
mycophenolate mofetil 200 mg/mL Suspension
500 mg PO BID
Discontinued
pantoprazole [Protonix] 40 mg Tablet,Delayed Release (Dr/Ec)
40 mg PO DAILY
Discharge Orders:
Discharge Patient (As Directed); Ordered 08/14/24
Ordered By: Navjot Wyatt
Discharge Date and Time
Discharge Date/Time: 08/14/24 18:50
Print Language: SALVADOREAN
== END 2024-08-14 18:50 | disposition home or self-care (01) | DRG 682 ==
LOC: 3 WEST ACU 15:12
PROVIDERS: Nurse Practitioner Family; ADMITTING PHYSICIAN Internal Medicine; ATTENDING PHYSICIAN Internal Medicine; CONSULT PHYSICIAN Internal Medicine Gastroenterology; EMERGENCY PHYSICIAN Student in an Organized Health Care Education/Training Program; FAMILY PHYSICIAN Family Medicine; OTHER PHYSICIAN Internal Medicine Infectious Disease; OTHER PHYSICIAN Specialist
DX: N17.0 Acute kidney failure with tubular necrosis (principal); E43 Unspecified severe protein-calorie malnutrition; E87.1 Hypo-osmolality and hyponatremia; E87.21 Acute metabolic acidosis; N39.0 Urinary tract infection, site not specified; Z68.1 Body mass index [BMI] 19.9 or less, adult; D84.821 Immunodeficiency due to drugs; B96.5 Pseudomonas (aeruginosa) (mallei) (pseudomallei) as the cause of diseases classified elsewhere; E87.5 Hyperkalemia; M32.14 Glomerular disease in systemic lupus erythematosus; D63.8 Anemia in other chronic diseases classified elsewhere; F41.9 Anxiety disorder, unspecified; K21.9 Gastro-esophageal reflux disease without esophagitis; Z85.038 Personal history of other malignant neoplasm of large intestine; Z86.718 Personal history of other venous thrombosis and embolism; Z79.624 Long term (current) use of inhibitors of nucleotide synthesis; Z79.01 Long term (current) use of anticoagulants; Z93.2 Ileostomy status; I10 Essential (primary) hypertension; E86.0 Dehydration; F17.200 Nicotine dependence, unspecified, uncomplicated; Z79.899 Other long term (current) drug therapy; Z79.891 Long term (current) use of opiate analgesic; N20.0 Calculus of kidney; L98.9 Disorder of the skin and subcutaneous tissue, unspecified; R62.7 Adult failure to thrive; Z80.0 Family history of malignant neoplasm of digestive organs; I73.00 Raynaud's syndrome without gangrene; Z22.322 Carrier or suspected carrier of Methicillin resistant Staphylococcus aureus; Z66 Do not resuscitate; N25.89 Other disorders resulting from impaired renal tubular function; R00.0 Tachycardia, unspecified; R13.10 Dysphagia, unspecified; E83.52 Hypercalcemia
CPT/HCPCS: 74176; 80048; 80053; 80197; 81003; 81015; 82570; 82962; 83690; 83735; 84132; 84156; 84300; 85025; 85027; 87045; 87046; 87070; 87077; 87086; 87147; 87186; 87324; 87328; 87329; 87427; 87449; 87798; 93005; 96361; 96374; 96375; 96376; 97162; 97166; 97530; 99285

== ENCOUNTER 2024-08-19 10:44 | Emergency (ER) | payer OTHER, SELFPAY ==
[2024-08-19] VITALS (8 sets, daily range): BP systolic 122–200; BP diastolic 73–108
[2024-08-19 11:36] LABS: % Basophils 0.2 % (0-2); % Eosinophils 0.9 % (0-6); % Immature Granulocytes 0.9 % (0-0.5); % Lymphocytes 7.1 % (20.5-51.1); % Monocytes 3.1 % (1.7-9.3); % Neutrophils 87.8 % (42.2-75.2); Absolute Eosinophils 0.1 10^3/uL (0-0.7); Absolute Immature Granulocytes 0.1 10^3/uL (0-0.05); Absolute Lymphocytes 0.7 10^3/uL (1.2-3.4); Absolute Monocytes 0.3 10^3/uL (0.1-0.6); Absolute Neutrophils 8.2 10^3/uL (1.4-6.5); Hematocrit 38.6 % (37.0-47.0); Hemoglobin 12.1 g/dL (12.0-16.0); Mean Corp Hgb Conc. 31.3 g/dL (33.0-37.0); Mean Corpuscular Hgb 27.4 pg (27.0-31.0); Mean Corpuscular Volume 87.3 fL (81.0-99.0); Mean Platelet Volume 8.7 fL (7.4-10.4); Nucleated Red Blood Cells % 0 %; Platelet Count 653 10^3/uL (130-400); Red Blood Cell Count 4.42 10^6/uL (4.20-5.40); Red Cell Dist. Width 22.9 % (11.5-14.5); White Blood Cell Count 9.3 10^3/uL (4.8-10.8)
[2024-08-19 12:06] LABS: ALT (SGPT) 14 U/L (0-35); AST (SGOT) 26 U/L (14-36); Albumin 4.1 g/dl (3.5-5.0); Alkaline Phosphatase 73 U/L (38-126); Blood Urea Nitrogen 30 mg/dl (7-17); Calcium 10.3 mg/dl (8.4-10.2); Carbon Dioxide 16 mmol/L (22-30); Chloride 111 mmol/L (98-107); Glucose 150 mg/dl (70-99); Potassium 4.5 mmol/L (3.5-5.1); Sodium 141 mmol/L (135-145); Total Bilirubin 0.5 mg/dl (0.2-1.3); Total Protein 7.6 g/dl (6.3-8.2); eGFR > 60.00
[2024-08-19 13:36] LABS: Lipase 63 U/L (23-300)
[2024-08-19] MEDS: NSS 1000 IV (13:59)
[2024-08-19] MEDS: DILAUDID 0.5 MG IV (14:00)
--- NOTE | 2024-08-19 14:03 | ED.GENMED ---
History of Present Illness
General
Chief Complaint: Abdominal Symptoms
Source: patient
Time Seen by Provider: 08/19/24 13:34
History of Present Illness
History of Present Illness:
54-year-old female presents for evaluation. She is here for fatigue and vomiting. Vomiting started early this morning. She has a history of colon cancer. She is due for an ostomy reversal this coming Saturday at [facility]. She saw
then earlier this week for preop appointment. She was discharged from this hospital 5 days ago. She notes mild diffuse abdominal pain. The vomiting stopped upon arrival here. She notes increased output through her ostomy which is clear and
yellow in nature. No measurable fever. She was here in the hospital and discharged 5 days ago after acute kidney injury.
Phy Exam
Physical Exam
Physical Exam:
General: Cachectic appearing female no acute respiratory distress HEENT: Normocephalic atraumatic mucosa dry
Heart: Regular rate and rhythm
Lungs: Clear no wheeze
Abdomen: Soft mildly diffusely tender. Ileostomy present with clear output.
Extremities: No cyanosis or edema
Skin: Warm no rash
Course
Orders/Labs/Results
Orders:
Orders
08/19/24 11:19
Complete Blood Count/With Diff Urgent
Comprehensive Metabolic Panel Urgent
Lipase Urgent
08/19/24 13:54
0.9% Sodium Chloride 1000 ml [Nss] 1,000 ml IV BOLUS
HYDROmorphone [Dilaudid] 0.5 mg IV NOW STA
Abnormal Lab Results
08/19/24
11:19
MCHC 31.3 L g/dL
(33.0-37.0)
RDW 22.9 H %
(11.5-14.5)
Plt Count 653 H D 10^3/uL
(130-400)
Abs Immat Gran (auto) 0.1 H 10^3/uL
(0-0.05)
Absolute Neuts (auto) 8.2 H 10^3/uL
(1.4-6.5)
Absolute Lymphs (auto) 0.7 L 10^3/uL
(1.2-3.4)
Immature Gran % 0.9 H %
(0-0.5)
Neutrophils % 87.8 H %
(42.2-75.2)
Lymphocytes % 7.1 L %
(20.5-51.1)
Chloride 111 H mmol/L
(98-107)
Carbon Dioxide 16 L mmol/L
(22-30)
BUN 30 H mg/dl
(7-17)
Glucose 150 H mg/dl
(70-99)
Calcium 10.3 H mg/dl
(8.4-10.2)
08/19/24 11:19
08/19/24 11:19
Vital Signs
Initial and Last Documented VS:
Initial Vital Signs
Temp Resp BP
98.0 F 18 200/108
08/19/24 10:56 08/19/24 10:56 08/19/24 10:56
Last Documented Vital Signs
Temp Pulse Resp BP Pulse Ox
98.0 F 93 13 156/99 98
08/19/24 10:56 08/19/24 16:15 08/19/24 16:15 08/19/24 16:00 08/19/24 16:15
MDM/Problems Addressed
Differential Diagnosis Includes:
Recurrent vomiting with fatigue. Question electrolyte abnormality versus dehydration. She has had multiple imaging studies of her abdomen recently. Check labs. Fluids ordered pain medicine ordered.
*Critical Care Note
Total Time (30-74mins, 75-104mins- exclusive of procedures): Not Applicable
Update Note
Update Note:
Reevaluated patient multiple times. She is fatigued. She persists to be drowsy. Discussed with patient and family treatment options. She has an elective procedure 2 days from now at [facility]. They are concerned about getting
this to happen. I spoke with colorectal specialist Dr. Pace at [facility] as well as emergency room attending Dr. Victor who has accepted patient in transfer. This will be emergency room the emergency room transfer for
vomiting and dehydration with planned elective procedure in 2 days from now.
ED Attending Note
-
Portions of this chart may have been created with voice recognition software.� Occasional wrong word or��sound alike� substitutions may have occurred due to the inherent limitations of voice recognition software.
Discharge Plan
Departure
Patient Disposition: Acute Care Hospital
Date of Disposition: 08/19/24
Time of Disposition: 16:47
Discharge Problem:
Acute dehydration
Prescriptions:
No Action
prednisone 10 mg Tablet
30 mg PO DIRECTED
Rx Instructions:
STARTING ON 08/05/24 TAKE 30MG DAILY FOR 7 DAYS THEN 20MG DAILY FOR 7 DAYS THEN 10MG DAILY THERE AFTER. Chronic dose = 10 mg daily
loperamide 2 mg Tablet
2 mg PO TID
amitriptyline 25 mg Tablet
25 mg PO HS
ferrous sulfate 325 mg (65 mg iron) Tablet
325 mg PO DAILY
hydroxychloroquine [Plaquenil] 200 mg Tablet
200 mg PO BID
ondansetron 4 mg Tablet,Disintegrating
4 mg PO Q6HPRN PRN (Reason: NAUSEA)
tacrolimus 1 mg Capsule
1 mg PO Q12
oxycodone 5 mg Tablet
5 mg PO Q4HPRN PRN (Reason: SEVERE PAIN)
escitalopram oxalate [Lexapro] 10 mg Tablet
10 mg PO DAILY
gabapentin 100 mg Tablet
300 mg PO BID
Xarelto 20 mg Tablet
20 mg PO DAILY
psyllium husk [Metamucil] 0.4 gram Capsule
0.4 g PO BID
mycophenolate mofetil 200 mg/mL Suspension
500 mg PO BID
ciprofloxacin HCl 500 mg Tablet
500 mg PO Q24H Qty: 8 0RF
pantoprazole 40 mg Tablet,Delayed Release (/Ec)
40 mg PO BID Qty: 60 0RF
sodium bicarbonate 650 mg tablet
650 mg PO BID Qty: 60 0RF
Referrals:
Catherine Beavers CRNP [Family Provider] -
Hospital Transfer
Other hospital: [facility]
I certify that the patient requires transfer: Yes
Discussed case with accepting physician: Dr. Pereira
Reason for transfer: higher level of care and specialties available
Interventions
Interventions:
*Risk Screen - Suicide Last Done: 08/19/24 10:56
*General Assessment Last Done: 08/19/24 10:56
*Neglect/Abuse Screening Last Done: 08/19/24 13:11
*ED COVID-19 Vaccine History Last Done: 08/19/24 10:56
PW-Zmursw-Ncimksmqpz Assessment Last Done: 08/19/24 13:11
Discharge Date and Time
Print Language: KHMER
== END 2024-08-19 19:33 | disposition short-term general hospital (02) ==
LOC: EMR 10:44
PROVIDERS: Emergency Medicine; EMERGENCY PHYSICIAN Emergency Medicine; FAMILY PHYSICIAN Nurse Practitioner Family
DX: E86.0 Dehydration (principal)
CPT/HCPCS: 99285; 96374; 96361; 80053; 83690; 85025

== ENCOUNTER 2024-09-01 14:17 | Emergency (ER) | payer OTHER, SELFPAY ==
[2024-09-01 14:21] VITALS: BP 161/105
[2024-09-01 15:25] LABS: % Basophils 0.1 % (0-2); % Eosinophils 1.1 % (0-6); % Immature Granulocytes 0.4 % (0-0.5); % Lymphocytes 12.3 % (20.5-51.1); % Monocytes 5.9 % (1.7-9.3); % Neutrophils 80.2 % (42.2-75.2); Absolute Eosinophils 0.1 10^3/uL (0-0.7); Absolute Lymphocytes 0.9 10^3/uL (1.2-3.4); Absolute Monocytes 0.4 10^3/uL (0.1-0.6); Absolute Neutrophils 5.9 10^3/uL (1.4-6.5); Hematocrit 27.5 % (37.0-47.0); Hemoglobin 8.8 g/dL (12.0-16.0); Mean Corpuscular Hgb 28.2 pg (27.0-31.0); Mean Corpuscular Volume 88.1 fL (81.0-99.0); Mean Platelet Volume 8.9 fL (7.4-10.4); Nucleated Red Blood Cells % 0 %; Platelet Count 528 10^3/uL (130-400); Red Blood Cell Count 3.12 10^6/uL (4.20-5.40); Red Cell Dist. Width 20.7 % (11.5-14.5); White Blood Cell Count 7.3 10^3/uL (4.8-10.8)
[2024-09-01 15:34] VITALS: BP 156/97
[2024-09-01] MEDS: ZOFRAN 4 MG IV (15:36)
[2024-09-01 15:40] LABS: ALT (SGPT) < 10 U/L (0-35); AST (SGOT) 16 U/L (14-36); Albumin 2.4 g/dl (3.5-5.0); Alkaline Phosphatase 72 U/L (38-126); Blood Urea Nitrogen 9 mg/dl (7-17); Carbon Dioxide 25 mmol/L (22-30); Chloride 103 mmol/L (98-107); Glucose 158 mg/dl (70-99); Lipase 32 U/L (23-300); Potassium 3.4 mmol/L (3.5-5.1); Sodium 131 mmol/L (135-145); Total Bilirubin 0.2 mg/dl (0.2-1.3); Total Protein 4.8 g/dl (6.3-8.2); eGFR > 60.00
[2024-09-01] MEDS: NSS 1000 IV (15:41)
--- NOTE | 2024-09-01 15:42 | ED.GENMED ---
History of Present Illness
General
Chief Complaint: Post Operative Problem(s)
Source: patient and family (daughter at bedside)
Exam Limitations: none
Time Seen by Provider: 09/01/24 14:51
Nursing documentation reviewed up to this point in time: agreed with
History of Present Illness
History of Present Illness:
54 yo female with h/o Lupus, lupus nephritis, HTN, colon cancer stage 3 was on Palliative Care 2 years ago but no longer, had ileostomy reversal at [place] on 08/21, was feeling well and healing well until well3 evenings ago, while watching TV developed
gradually increasing stabbing intermittent abdominal pains that got worse when she moved her bowels. Initally bowel movments had some form but with recent frequent stools, have become liquid, non bloody
Pain 8-10/10
Is nauseous, has not vomited. Denies fever. Denies CP, SOB.
Has not eaten anything past 3 days, has been tolerating liquids and trying to drink, but not able to drink much
Went to [facility] ER yesterday for same, had labs, CT w IV and PO contrast.
Pt states they did 'nothing' for her in the ED, they said they couldn't give her anything because she was on Palliative Care. She has not been on Palliative care for 2 years she says.
She had two chemo treatments 2 years ago for her colon CA but had to stop as she had an LA. She has appointment next week with Oncology at [facility] to see if she can restart it.
Past History
Past History
ED Past Medical History: Other (Lupus, colon cancer, HTN,)
ED Past Surgical History: Other ( colon tumor resected colostomy reversal, 2023, ileostomy reversal on 08/21/2024)
Social History
Tobacco: Non-smoker
Alcohol: None
Personal: Single
Living: with family (daughter)
Review of Systems
Review of Systems
Allergies reviewed?: Yes
All Other Systems: ROS reviewed and negative except as documented in HPI and ROS
Constitutional: Reports fatigue; Denies fever or chills
Respiratory: Denies trouble breathing
Cardiac: Denies chest pain
ABD/GI: Reports abdominal pain, nausea, diarrhea and anorexia; Denies vomiting, bloody stools or black stools
: Reports frequency and incontinence; Denies dysuria, difficulty voiding or urgency
Musculoskeletal: Reports no symptoms
Skin: Reports other (Generalized patches of discoloration of skin)
Neurological: Reports no symptoms
Phy Exam
Physical Exam
Physical Exam:
GENERAL: Mild distress due to pain. A&Ox3.
CONSTITUTIONAL: Afebrile.
EYES: clear, conjunctivae normal
ENMT: dry mucus membranes, Pharynx nl
RESPIRATORY: Regular respirations, nonlabored, lungs clear.
CARDIOVASCULAR: Regular rate and rhythm, no murmurs, no rubs.
GI: generally tender, semi firm, two 4 x 4 Tegaderm dressings intact abdominal wall with no drainage. Normal BS
MUSCULOSKELETAL: Moves with ease. Well perfused.
SKIN: Warm, dry, generalized areas of hyperpigmentation
PSYCH: Depressed mood and affect. Well kept, interactive and appropriate
NEUROLOGIC: Awake, alert and oriented. No focal neurological deficits
Course
Orders/Labs/Results
Orders:
Orders
09/01/24 15:12
Complete Blood Count/With Diff Urgent
Comprehensive Metabolic Panel Urgent
Lipase Urgent
09/01/24 15:26
0.9% Sodium Chloride 1000 ml [Nss] 1,000 ml IV BOLUS
Morphine Sulfate 4 mg IV NOW STA
Ondansetron Injectable [Zofran] 4 mg IV NOW STA
09/01/24 18:52
Urinalysis Reflex To Culture Urgent
Date Specimen was Collected: 09/01/24
Time Specimen was Collected: 18:50
Urine Microscopic Reflex Cult Urgent
STOOL [C difficile Antigen & Toxins] Urgent
PEE Source: Feces/Stool
Specimen Description:
Date Specimen was Collected: 09/01/24
Time Specimen was Collected: 18:50
Stool Culture Urgent
PEE Source: Feces/Stool
Specimen Description:
Date Specimen was Collected: 09/01/24
Time Specimen was Collected: 18:50
Urine Culture Urgent
PEE Source: U
Specimen Description:
Date Specimen was Collected: 09/01/24
Time Specimen was Collected: 18:50
09/01/24 19:21
Morphine Sulfate 4 mg IV NOW STA
09/01/24 19:45
Hydrocodone 5/APAP 325 [[place] 5/325] 1 tablet PO NOW STA
Abnormal Lab Results
09/01/24 09/01/24
15:12 18:52
RBC 3.12 L 10^6/uL
(4.20-5.40)
Hgb 8.8 L g/dL
(12.0-16.0)
Hct 27.5 L %
(37.0-47.0)
MCHC 32.0 L g/dL
(33.0-37.0)
RDW 20.7 H %
(11.5-14.5)
Plt Count 528 H 10^3/uL
(130-400)
Absolute Lymphs (auto) 0.9 L 10^3/uL
(1.2-3.4)
Neutrophils % 80.2 H %
(42.2-75.2)
Lymphocytes % 12.3 L %
(20.5-51.1)
Sodium 131 L mmol/L
(135-145)
Potassium 3.4 L mmol/L
(3.5-5.1)
Creatinine 0.5 L mg/dL
(0.6-1.0)
Glucose 158 H mg/dl
(70-99)
Calcium 8.0 L mg/dl
(8.4-10.2)
Total Protein 4.8 L g/dl
(6.3-8.2)
Albumin 2.4 L g/dl
(3.5-5.0)
Leukocyte Esterase Rfl 1+ A
(Negative)
Urine WBC (Reflex) 50-60 A /HPF
(0-5)
Urine Bacteria (Reflex) Few A
(Negative)
Urine Albumin (Reflex) 4+ A
(Neg - Trace)
09/01/24 15:12
09/01/24 15:12
Vital Signs
Initial and Last Documented VS:
Initial Vital Signs
Temp Pulse Resp BP Pulse Ox
98.7 F 96 20 161/105 97
09/01/24 14:21 09/01/24 14:21 09/01/24 14:21 09/01/24 14:21 09/01/24 14:21
Last Documented Vital Signs
Temp Pulse Resp BP Pulse Ox
98.7 F 81 10 174/99 97
09/01/24 14:21 09/01/24 19:00 09/01/24 19:00 09/01/24 18:49 09/01/24 14:21
MDM/Problems Addressed
MDM/Problems Addressed:
54 yo female with h/o Lupus, lupus nephritis, HTN, colon cancer stage 3 was on Palliative Care 2 years ago but no longer, had ileostomy reversal at [place] on 08/21, was feeling well and healing well until well3 evenings ago, while watching TV developed
gradually increasing stabbing intermittent abdominal pains that got worse when she moved her bowels. Initally bowel movments had some form but with recent frequent stools, have become liquid, non bloody
Pain 8-1010
Is nauseous, has not vomited. Denies fever. Denies CP, SOB.
Has not eaten anything past 3 days, has been tolerating liquids and trying to drink, but not able to drink much
Went to [facility] yesterday for same, had labs, CT w IV and PO contrast.
Pt states they did 'nothing' for her in the ED, they said they couldn't give her anything because she was on Palliative Care. She has not been on Palliative care for 2 years she says.
She had two chemo treatments 2 years ago for her colon CA but had to stop as she had an LA. She has appointment next week with Oncology at [facility] to see if she can restart it.
Patient has a portal for [facility]' on her phone, I reviewed the lab work and CAT scan results from yesterday. Albumin and protein are very low at 2.6 and 0.19 respectively. Hemoglobin was 8.1. CT impression was 'pancolitis, presumably infectious
with small amount of ascites.'
Unable to get official CT report after contacting [facility] and making multiple requests.
6:00 PM:
Patient is much more comfortable after IV fluids and pain medicine
She is comfortable going home on antibiotics and pain medication.
She has appointment with her Oncologist in 8 days she will keep
She is smiling and comfortable at discharge
Chronic conditions affecting care: HTN, Cancer (colon cancer) and Other (Lupus)
*Critical Care Note
Total Time (30-74mins, 75-104mins- exclusive of procedures): Not Applicable
ED Attending Note
-
Portions of this chart may have been created with voice recognition software.� Occasional wrong word or��sound alike� substitutions may have occurred due to the inherent limitations of voice recognition software.
Discharge Plan
Departure
Patient Disposition: Home (Routine Discharge)
Date of Disposition: 09/01/24
Time of Disposition: 19:44
Patient with high blood pressure during this ER visit?: Yes
Condition: Fair
Discharge Problem:
Pancolitis
Instructions: Abdominal pain in adults - Discharge instructions, Colitis
Prescriptions:
New
hydrocodone-acetaminophen 5-300 mg tablet
1 tab PO Q6H PRN (Reason: Pain) Qty: 15 0RF
amoxicillin-pot clavulanate 875-125 mg tablet
1 tab PO Q12H Qty: 20 0RF
No Action
amitriptyline 25 mg Tablet
25 mg PO HS
ferrous sulfate 325 mg (65 mg iron) Tablet
325 mg PO DAILY
hydroxychloroquine [Plaquenil] 200 mg Tablet
200 mg PO BID
ondansetron 4 mg Tablet,Disintegrating
4 mg PO Q6HPRN PRN (Reason: NAUSEA)
escitalopram oxalate [Lexapro] 10 mg Tablet
10 mg PO DAILY
gabapentin 100 mg Tablet
300 mg PO BID
Xarelto 20 mg Tablet
20 mg PO DAILY
pantoprazole 40 mg Tablet,Delayed Release (Dr/Ec)
40 mg PO BID Qty: 60 0RF
Referrals:
Gely Gupta MD [Active] - As needed
UNKNOWN - PT DOES,NOT KNOW [Unknown Provider] -
Activity Restrictions/Additional Instructions:
As we discussed, I sent a prescription to your pharmacy for Augmentin to take twice a day for 10 days, you were given your first dose here tonight to start tomorrow.
Take a probiotic or eat yogurt daily while on the antibiotic to avoid diarrhea
I also sent a prescription for hydrocodone or Vicodin to take as needed for pain.
Contact your surgeon if you need any further pain medication.
I gave you the name of a GI doctor here.
I think it would be best for you to get a GI doctor at [place] where all your other specialist are to maintain continuity of your care.
Keep your appointment on 09/09 with your Oncologist
Interventions
Interventions:
*Risk Screen - Suicide Last Done: 09/01/24 14:21
*General Assessment Last Done: 09/01/24 14:21
*Neglect/Abuse Screening Last Done: 09/01/24 14:21
ED- Fall Risk Assessment Last Done: 09/01/24 16:32
*ED COVID-19 Vaccine History Last Done: 09/01/24 14:21
ED-Skin Assessment Last Done: 09/01/24 16:32
Discharge Date and Time
Print Language: MOSOTHO
[2024-09-01] MEDS: MORPHINE SULFATE 4 MG IV ×2 (15:43→19:28)
[2024-09-01 16:00] VITALS: BP 163/92
[2024-09-01 17:00] VITALS: BP 178/97
[2024-09-01 18:00] VITALS: BP 164/113
[2024-09-01 18:49] VITALS: BP 174/99
[2024-09-01 19:00] LABS: Urine Albumin 4+ (Neg - Trace); Urine Bilirubin Negative (Negative); Urine Character Clear (Clear); Urine Color Yellow; Urine Glucose Negative (Negative); Urine Ketone Negative (Negative); Urine Leukocyte 1+ (Negative); Urine Nitrite Negative (Negative); Urine Occult Blood Negative (Negative); Urine Specific Gravity 1.015 (<1.030); Urine Urobilinogen Negative (Neg - 1+)
[2024-09-01 19:18] LABS: Urine Bacteria Few (Negative); Urine Red Blood Cell 0-2 /HPF (0-2); Urine White Cell 50-60 /HPF (0-5)
[2024-09-01] MEDS: NORCO 5/325 1 TABLET PO (20:00)
== END 2024-09-01 20:11 | disposition home or self-care (01) ==
LOC: EMR 14:17
PROVIDERS: Registered Nurse; EMERGENCY PHYSICIAN Student in an Organized Health Care Education/Training Program; FAMILY PHYSICIAN Nurse Practitioner Family
DX: K52.9 Noninfective gastroenteritis and colitis, unspecified (principal); C18.9 Malignant neoplasm of colon, unspecified; I10 Essential (primary) hypertension; M32.14 Glomerular disease in systemic lupus erythematosus; Z98.890 Other specified postprocedural states
CPT/HCPCS: 96374; 96375; 96376; 96361; 99284; 80053; 81003; 81015; 83690; 85025; 87045; 87046; 87077; 87086; 87186; 87324; 87427; 87449

== ENCOUNTER 2024-09-21 23:04 | Inpatient (IN) | payer OTHER, SELFPAY ==
[2024-09-21 14:07] VITALS: BP 161/106
--- NOTE | 2024-09-21 17:00 | ED.GENMED ---
History of Present Illness
General
Chief Complaint: Swelling
Source: patient and other (Son's girlfriend)
Time Seen by Provider: 09/21/24 16:32
History of Present Illness
History of Present Illness:
54-year-old female bilateral eye swelling some crusting to the medial border of the eyes. Started 1+ week ago. No fever or chills. Patient has a chronic rash to the face and back. This is different however. Some leg swelling bilaterally
although this is improved. No chest pain or shortness of breath.
Past History
Past History
ED Past Medical History: Other (Lupus, colon cancer, HTN,)
ED Past Surgical History: Bowel resection and Other ( colon tumor resected colostomy reversal, 2023, ileostomy reversal on 08/21/2024)
Social History
Tobacco: Non-smoker
Alcohol: None
Personal: Single
Living: with family (daughter)
Phy Exam
Physical Exam
Physical Exam:
GENERAL: Alert and oriented in no apparent distress. Old for stated age
EYE: Orbits normal. No pain with eye movements. Orbits normal centrally
NECK: Supple, no significant adenopathy.
ENT: Pharynx without erythema. No intraoral oral ulcerations
CARDIAC: Regular rate and rhythm without any obvious murmurs.
LUNGS: Clear breath sounds,normal
ABDOMEN: Soft, without focal tenderness or distention
NEUROLOGICAL: Alert and oriented , grossly non-focal
SKIN: Warm and dry, diffuse maculopapular scaly rash to the back neck and face. Erythematous rash periorbitally bilaterally with some crusting to the medial border. Conjunctiva normal. Eye normal.
MUSCULOSKELETAL: Chronic appearing lower extremity edema mild in nature. No significant pitting
PSYCH: Normal and appropriate interaction..
Scores
Heart Failure Risk
Heart Failure Risk Score: Not Applicable
Course
Orders/Labs/Results
Orders:
Orders
09/21/24 17:10
BNP [NT-proBNP] Urgent
CBC/With Diff [Complete Blood Count/With Diff] Urgent
CRP [C-Reactive Protein] Urgent
Comprehensive Metabolic Panel Urgent
ESR [Erythrocyte Sed Rate] Urgent
09/21/24 18:05
CXR2 [CR Chest - 2 Views ] Urgent
Comment:
Reason For Exam: edema
09/21/24 18:19
Urinalysis Reflex To Culture Urgent
Date Specimen was Collected: 09/21/24
Time Specimen was Collected: 18:19
Urine Microscopic Reflex Cult Urgent
Urine Culture Urgent
PEE Source: U
Specimen Description:
Date Specimen was Collected: 09/21/24
Time Specimen was Collected: 18:19
09/21/24 19:44
CeFAZolin 1 GRAM [Ancef] 1 gram in 5 ml IV NOW
Abnormal Lab Results
09/21/24 09/21/24
17:10 18:19
WBC 4.1 L 10^3/uL
(4.8-10.8)
RBC 3.61 L 10^6/uL
(4.20-5.40)
Hgb 10.1 L g/dL
(12.0-16.0)
Hct 33.6 L %
(37.0-47.0)
MCHC 30.1 L g/dL
(33.0-37.0)
RDW 20.8 H %
(11.5-14.5)
Plt Count 619 H 10^3/uL
(130-400)
Abs Immat Gran (auto) 0.1 H 10^3/uL
(0-0.05)
Immature Gran % 1.2 H %
(0-0.5)
Monocytes % 10.1 H %
(1.7-9.3)
ESR 96 H mm/hour
(0-20)
Glucose 102 H mg/dl
(70-99)
Total Protein 5.0 L g/dl
(6.3-8.2)
Albumin 2.3 L g/dl
(3.5-5.0)
Ur Occult Blood Reflex 1+ A
(Negative)
Leukocyte Esterase Rfl 2+ A
(Negative)
Urine RBC 3-6 A /HPF
(0-2)
Urine WBC (Reflex) 26-30 A /HPF
(0-5)
Urine Bacteria (Reflex) Moderate A
(Negative)
Urine Albumin (Reflex) 4+ A
(Neg - Trace)
09/21/24 17:10
09/21/24 17:10
Vital Signs
Initial and Last Documented VS:
Initial Vital Signs
Temp Pulse Resp BP Pulse Ox
98.2 F 94 18 161/106 98
09/21/24 14:07 09/21/24 14:07 09/21/24 14:07 09/21/24 14:07 09/21/24 14:07
Last Documented Vital Signs
Temp Pulse Resp BP Pulse Ox
98.2 F 94 18 161/106 98
09/21/24 14:07 09/21/24 14:07 09/21/24 14:07 09/21/24 14:07 09/21/24 14:07
*Critical Care Note
Total Time (30-74mins, 75-104mins- exclusive of procedures): Not Applicable
Data Reviewed
Review of Other/Old Records Reveals: Labs, Records and Testing
Update Note
Update Note:
Patient with erythematous rash mostly to the face. Significant nature. Etiology unsure. Possible cellulitis possible dermatitis possible lupus related. In addition UTI diarrhea weakness. Warrants inpatient manage
ED Attending Note
-
Portions of this chart may have been created with voice recognition software.� Occasional wrong word or��sound alike� substitutions may have occurred due to the inherent limitations of voice recognition software.
Discharge Plan
Departure
Patient Disposition: Admit
Date of Disposition: 09/21/24
Time of Disposition: 19:43
Presentation/result/management discussed w/ accepting MD/DO: Hospitalist
Discharge Problem:
Rash/possible cellulitis versus lupus ra, UTI/weakness
Prescriptions:
No Action
amitriptyline 25 mg Tablet
25 mg PO HS
ferrous sulfate 325 mg (65 mg iron) Tablet
325 mg PO DAILY
hydroxychloroquine [Plaquenil] 200 mg Tablet
200 mg PO BID
ondansetron 4 mg Tablet,Disintegrating
4 mg PO Q6HPRN PRN (Reason: NAUSEA)
escitalopram oxalate [Lexapro] 10 mg Tablet
10 mg PO DAILY
gabapentin 100 mg Tablet
300 mg PO BID
Xarelto 20 mg Tablet
20 mg PO DAILY
pantoprazole 40 mg Tablet,Delayed Release (Dr/Ec)
40 mg PO BID Qty: 60 0RF
lisinopril 30 mg Tablet
30 mg PO DAILY
cyclobenzaprine 5 mg Tablet
5 mg PO HSPRN PRN (Reason: muscle spasms)
hydrocodone-acetaminophen 5-300 mg tablet
1 tab PO Q6HPRN PRN (Reason: severe pain)
Referrals:
Heri Cassidy MD [Family Provider] -
Interventions
Interventions:
*Risk Screen - Suicide Last Done: 09/21/24 14:07
*General Assessment Last Done: 09/21/24 17:10
*Neglect/Abuse Screening Last Done: 09/21/24 14:07
ED- Pulmonary Assessment Last Done: 09/21/24 17:54
ED-Skin Assessment Last Done: 09/21/24 17:10
Discharge Date and Time
Print Language: MONTSERRATIAN
[2024-09-21 17:23] LABS: Hematocrit 33.6 % (37.0-47.0); Hemoglobin 10.1 g/dL (12.0-16.0); Mean Corp Hgb Conc. 30.1 g/dL (33.0-37.0); Mean Corpuscular Volume 93.1 fL (81.0-99.0); Red Blood Cell Count 3.61 10^6/uL (4.20-5.40); Red Cell Dist. Width 20.8 % (11.5-14.5); White Blood Cell Count 4.1 10^3/uL (4.8-10.8)
[2024-09-21 17:31] LABS: ALT (SGPT) 17 U/L (0-35); AST (SGOT) 29 U/L (14-36); Albumin 2.3 g/dl (3.5-5.0); Alkaline Phosphatase 113 U/L (38-126); Blood Urea Nitrogen 11 mg/dl (7-17); Calcium 8.4 mg/dl (8.4-10.2); Carbon Dioxide 28 mmol/L (22-30); Chloride 107 mmol/L (98-107); Glucose 102 mg/dl (70-99); Potassium 3.7 mmol/L (3.5-5.1); Sodium 138 mmol/L (135-145); Total Bilirubin 0.5 mg/dl (0.2-1.3); eGFR > 60.00
[2024-09-21 17:35] LABS: C-Reactive Protein < 5.00 mg/L (0.0-10.00)
[2024-09-21 17:39] LABS: NT-proBNP 14300 pg/ml
[2024-09-21 17:41] LABS: Erythrocyte Sed Rate 96 mm/hour (0-20)
[2024-09-21 17:44] LABS: % Basophils 0.2 % (0-2); % Eosinophils 0.2 % (0-6); % Immature Granulocytes 1.2 % (0-0.5); % Lymphocytes 33.2 % (20.5-51.1); % Monocytes 10.1 % (1.7-9.3); % Neutrophils 55.1 % (42.2-75.2); Absolute Immature Granulocytes 0.1 10^3/uL (0-0.05); Absolute Lymphocytes 1.4 10^3/uL (1.2-3.4); Absolute Monocytes 0.4 10^3/uL (0.1-0.6); Absolute Neutrophils 2.2 10^3/uL (1.4-6.5); Mean Platelet Volume 8.5 fL (7.4-10.4); Nucleated Red Blood Cells % 0 %; Platelet Count 619 10^3/uL (130-400)
[2024-09-21 18:00] VITALS: BP 150/88
[2024-09-21 18:24] LABS: Urine Albumin 4+ (Neg - Trace); Urine Bilirubin Negative (Negative); Urine Character Slightly Cloudy (Clear); Urine Color Yellow; Urine Glucose Negative (Negative); Urine Ketone Negative (Negative); Urine Leukocyte 2+ (Negative); Urine Nitrite Negative (Negative); Urine Occult Blood 1+ (Negative); Urine Urobilinogen Negative (Neg - 1+)
[2024-09-21 18:31] LABS: Urine Squamous Cell 0-2 /LPF (Few)
[2024-09-21 18:32] LABS: Urine Bacteria Moderate (Negative); Urine White Cell 26-30 /HPF (0-5)
[2024-09-21 21:00] VITALS: BP 146/86
--- NOTE | 2024-09-21 21:42 | HPS.HSE ---
Family Physician
-
Family Physician: Heri Cassidy
Chief Complaint
-
Bilateral eye swelling, urinary frequency/pressure, bilateral leg edema
History of Present Illness
54-year-old female complaining of bilateral eye swelling with itching of eyelashes surrounding lupus rash that is chronic extends from face down entire chest trunk and back she also complains of urinary frequency with pressure after finishing a
10-day course of Augmentin on 09/13 for Pseudomonas Aeruginosa. She appeared to have a prior infection of same bacteria 08/10/2024 was treated with ciprofloxacin. She states her legs are also always swollen. She states she was taken off of most of
her medication is currently on Plaquenil, prednisone 10 mg daily. She denies fever, chills, chest pain, palpitations, cough, shortness breath, abdominal pain, nausea, vomiting, diarrhea
The patient was treated in the ER on 09/01/2024 complaining of abdominal pain and frequent stools. She was treated for UTI with urine culture on 09/04/2024 showing 70,000 CFU per mL Pseudomonas aeruginosa, patient is on Augmentin 875 twice daily for
10 days which she completed on . She reports going to [facility] on 08/31/2024 complaining of abdominal pain watery stools states they would not give her anything because she was on palliative care however she states she has not been on
palliative care for the past 2 years. She reports she was told she had C. difficile on 09/05/2024. She has past medical history of systemic lupus, RA, colon cancer stage III Dx 2 years ago states had ND after 2 doses of IV chemotherapy, had Colon
resection with reversal 2023, ileostomy reversal on 08/21/2024 and states is stable,, cerebral thrombosis she states 2 years ago she was on palliative care but she is no longer on that.
Medical History
Past Medical History
Past Medical History: Reports Other
Additional Past Medical History:
Lupus -with multiple varied complications
Colon cancer
[place]
Past Surgical History: Reports Other
Additional Past Surgical History:
Colon resection with reversal 2023, ileostomy reversal on 08/21/2024
Skin lesions
Social History
Tobacco: Smoker
Alcohol: None
Drug: None
Living: With Family
Employment: Not Employed
Family History
Family History: Not pertinent
Allergies / Home Medications
Allergies reflects when Allergies were last updated in [employer].
Home Medications with original date entered in [employer]
Allergy/Medication List:
Allergies
Allergy/AdvReac Type Severity Reaction Status Date / Time
No Known Allergies Allergy Verified 09/21/24 14:07
Home Medications
amitriptyline 25 mg tablet 25 mg PO HS Mental Health 08/10/24
escitalopram oxalate 10 mg tablet (Lexapro) 10 mg PO DAILY Mental Health 08/10/24
ferrous sulfate 325 mg (65 mg iron) tablet 325 mg PO DAILY Supplement 08/10/24
gabapentin 100 mg tablet 300 mg PO BID Pain 08/10/24
hydroxychloroquine 200 mg tablet (Plaquenil) 200 mg PO BID lupus 08/10/24
ondansetron 4 mg disintegrating tablet 4 mg PO Q6HPRN PRN NAUSEA 08/10/24
rivaroxaban 20 mg tablet (Xarelto) 20 mg PO DAILY Blood Clot Prevention/Tx 08/10/24
pantoprazole 40 mg tablet,delayed release 40 mg PO BID #60 tabs 08/14/24
cyclobenzaprine 5 mg tablet 5 mg PO HSPRN PRN muscle spasms 09/21/24
hydrocodone 5 mg-acetaminophen 300 mg tablet 1 tab PO Q6HPRN PRN severe pain 09/21/24
lisinopril 30 mg tablet 30 mg PO DAILY 09/21/24
Review of Systems
-
History Source: Patient
A 12 point ROS was completed and negative except as noted: Yes
Constitutional: Denies Fever or Chills
EENT: Reports Other (Bilateral upper and lower eyelid swelling with crusting along eyelash line surrounding lupus rash to face, neck, trunk, back); Denies Sore Throat or Runny Nose
Respiratory: Denies Cough or Trouble Breathing
Cardiac: Denies Chest Pain or Palpitations
Abdomen/GI: Denies Abdominal Pain, Nausea, Vomiting, Diarrhea or Constipated
: Reports Frequency and Urgency; Denies Dysuria, Incontinence, Difficulty Voiding or Dark Urine
Musculoskeletal: Reports Edema; Denies Joint Pain
Skin: Reports Rash (Chronic lupus rash); Denies Itching
Neurological: Denies Dizzy or Headache
Endocrine: Reports No Symptoms
Hematologic/Lymphatic: Reports No Symptoms
Psych: Reports Calm
Physical Exam
Vital Signs
Vital Signs
Temp Pulse Resp BP Pulse Ox
98.2 F 94 18 161/106 98
09/21/24 14:07 09/21/24 14:07 09/21/24 14:07 09/21/24 14:07 09/21/24 14:07
Physical Exam
General: Comfortable, Conversant and Pain; No Fever, Chills or Slurred Speech
HEENT: NormoCephalic, Anicteric, PERRLA, [place] Conjunctivae and Other (Bilateral upper and lower eyelid swelling with crusting along eyelash line surrounding lupus rash to face, neck, trunk, back)
Respiratory: Clear; No Wheezes, Rales or Rhonchi
Cardiac: S1/S2, Regular Rhythm and Peripheral Edema (Bilateral legs +1); No Murmur, Rub or Gallop
GI: Soft, Non Tender, Non Distended, Normal Bowel Sounds and No Hepatosplenomegaly
Genito-urinary: Deferred by me
Musculoskeletal: No Clubbing, No Cyanosis and Other (Bilateral hands PIP joint swelling with erythema, lupus rash chronic to face, neck, trunk,, +1 bilateral lower leg edema)
Skin: Warm, Dry and Rash (Chronic lupus rash as above)
Neuro: AO x 3; No Slurred Speech, Facial Droop or Tremors
Psych: Calm
Laboratory Results
-
09/21/24 17:10
09/21/24 17:10
Laboratory Results
Total Bilirubin 0.5 mg/dl (0.2-1.3) 09/21/24 17:10
AST 29 U/L (14-36) 09/21/24 17:10
ALT 17 U/L (0-35) 09/21/24 17:10
Alkaline Phosphatase 113 U/L (38-126) 09/21/24 17:10
Data Reviewed
-
Diagnostic Radiology: Report Reviewed by me
Lab Data: Labs Reviewed by me
Impression/Plan
-
Impression/plan:
Admit to telemetry
#Acute peripheral edema concern for diastolic heart failure, proteinuria
BNP 14,300
I/O, daily weights
-Salt restrict, Fluid retirct 40 oz
-Check 2D echo
-Check lipid profile
-Start Lasix 20 mg twice daily
#Bilateral eye conjunctivitis in setting of chronic lupus rash
-Erythromycin based ointment bilateral eyes 1 cm ribbon 4 times daily x 10 days
CXR: 1. Mild pleural density along the lateral and posterior aspect of the left lower hemithorax, suggesting a small left pleural effusion with loculation.
2. Subtle parenchymal opacity within the lingula, best seen on the lateral view with some loss of definition of the left heart border. This is most likely atelectasis based on morphologic appearance,
#Acute in chronic Lupus with chronic pain
-To face, trunk, back
On daily prednisone 10 mg daily
-Will increase Prednisone to 40 mg daily x 5-day course then taper daily by 10 mg to original dose prednisone 10 mg daily
-Continue Plaquenil 200 mg twice daily, gabapentin 300 mg twice daily, hydrocodone/acetaminophen 1 tab p.o. every 6 hours severe pain
-cont pt's Protonix 40 mg daily
#Symptomatic UTI
Finished 10-day course of Augmentin Pseudomonas aeruginosa
#Pseudomonas aeruginosa UTI 08/10/2024�treated with Cipro
-Current urinary pressure, frequency
- IV cefepime q12 h
#HTN-uncontrolled
161/106, stopped her prior hypertensive meds appear to be lisinopril 30 mg
-Resume lisinopril 30 mg daily
#Colon cancer stage III Dx 2 years ago
-states had ND after 2 doses of IV chemotherapy
S/P had Colon resection with reversal 2023, ileostomy reversal on 08/21/2024 and states is stable
#HX cerebral thrombosis
Continue Xarelto 20 mg daily
#Anemia
Hgb 10, MCV 93.1
Anxiety
Continue Lexapro 10 mg daily
GERD
Protonix 40 mg twice daily
DVT prophylaxis
Continue Xarelto
DNR per patient
[2024-09-21 22:27] VITALS: BMI 19.0
--- NOTE | 2024-09-21 22:45 | W.PN.UPDATE ---
Update Note
Progress Note Update
Patient seen in conjunction with VERONICA. I agree with the findings and physical. I concur with the assessment and plan listed otherwise.
This is a 54-year-old female with past medical history of systemic lupus, hypertension, history of cerebral thrombosis on anticoagulation with Xarelto, recent admission for colitis, history of recurrent urinary tract infections who presents to the
emergency department with ankle swelling, bilateral face swelling and drainage as well as persistent pelvic pressure and discomfort reminiscent of a urinary tract infection.
She denies any fevers or chills. She reports that the bilateral periorbital erythema and edema has been ongoing for about 2 weeks. She does reports she has been scratching arise. She denies any conjunctivitis, foreign body sensation, blurry
vision or double vision. She does report some headache as well. She denies orthopnea or PND. She has no dyspnea on exertion. She reports generalized aches and pains.
On arrival in the emergency department she was hypertensive to 160/106, she was satting 98% on room air. Chest x-ray shows mild pleural thickening, CBC was unremarkable, electrolytes BUN/creatinine were all stable. ESR was elevated at 96, BNP was
elevated at 14,000, UA was markedly positive.
Assessment and plan
Patient for 4-year-old with systemic lupus complicated by cerebral thrombosis coming in with multiple issues including ankle edema, periorbital rash and UTI.
1. ankle edema -with elevated BNP cannot rule out CHF with likely preserved EF secondary to chronic hypertension, giving hypertension and history of proteinuria (with hypoalbuminemia) cannot rule out proteinuric renal disease with fluid retention
-Admit to telemetry
- daily weights and i/os
- start oral lasix 20 bid
- given degree of proteinuria, check lipid panel
-restart lisinopril
- check tsh
- check echo
- salt and water restriction
2. Rash - lupus rash versus edema secondary to itching. ESR is elevated at 96
- steroid taper, 40 daily then taper at day 5
- continue plaquinel
- unclear if this is seconary to d/c of tac, will monitor for now
- topical management
- f/u with outpatient rheumatology
3. UTI
- persitent uti with pseudomonas (listed as sensitive but patient with symptoms and + u/a)
- cefepime for now pending cultures
- oral agent on d/c
4. Blood clot - Cerebral thrombosis
- continue Xarelto
Code status - DNR
[2024-09-21] MEDS: LASIX 20 MG PO (23:08)
[2024-09-21] MEDS: NORCO 5/325 1 TABLET PO (23:09)
[2024-09-21] MEDS: FLEXERIL 5 MG PO (23:09)
[2024-09-21] MEDS: ZESTRIL 30 MG PO (23:10)
[2024-09-21] MEDS: DELTASONE 40 MG PO (23:10)
[2024-09-21] MEDS: ANCEF 5 IV (23:12)
[2024-09-21 23:15] VITALS: BP 159/98
[2024-09-22] VITALS (9 sets, daily range): BP systolic 130–169; BP diastolic 81–111; BMI 19.7
[2024-09-22] MEDS: ULTRAM 25 MG PO (01:27)
[2024-09-22] MEDS: MAXIPIME 2000 MG IV ×3 (02:33→17:16)
[2024-09-22] MEDS: STERILE WATER FOR INJECTION 10 ML IV ×3 (02:33→17:16)
--- NOTE | 2024-09-22 02:49 | W.PN.UPDATE ---
Update Note
Progress Note Update
Pharmacist notified [employer] that pharmacy do not carry the ordered dose of Hydrocodone-Acetaminophen which is 5/300mg, and patient did not bring her own dose. Therefore will order the closest dose of Hydrocodone-Acetaminophen 5/325mg.
[2024-09-22] MEDS: NORCO 5/325 1 TABLET PO ×2 (05:44→15:58)
[2024-09-22 06:45] LABS: Hematocrit 33.9 % (37.0-47.0); Hemoglobin 10.4 g/dL (12.0-16.0); Mean Corp Hgb Conc. 30.7 g/dL (33.0-37.0); Mean Corpuscular Volume 91.4 fL (81.0-99.0); Mean Platelet Volume 8.6 fL (7.4-10.4); Platelet Count 664 10^3/uL (130-400); Red Blood Cell Count 3.71 10^6/uL (4.20-5.40); Red Cell Dist. Width 20.6 % (11.5-14.5); White Blood Cell Count 3.1 10^3/uL (4.8-10.8)
[2024-09-22 06:46] LABS: ALT (SGPT) 16 U/L (0-35); AST (SGOT) 28 U/L (14-36); Albumin 2.2 g/dl (3.5-5.0); Alkaline Phosphatase 109 U/L (38-126); Blood Urea Nitrogen 9 mg/dl (7-17); Calcium 8.4 mg/dl (8.4-10.2); Carbon Dioxide 24 mmol/L (22-30); Chloride 107 mmol/L (98-107); Estimated Creatinine Clearance 88 ml/min; Glucose 139 mg/dl (70-99); HDL Cholesterol 68 mg/dl; Potassium 4.2 mmol/L (3.5-5.1); Sodium 136 mmol/L (135-145); Total Bilirubin 0.5 mg/dl (0.2-1.3); Total Protein 5.1 g/dl (6.3-8.2); Triglyceride 280 mg/dl (10-149); Very Low Density Lipoprotein 56 mg/dl (0-30); eGFR > 60.00
[2024-09-22 06:57] LABS: LDL Cholesterol, Calculated 298 mg/dl; Total Cholesterol 422 mg/dl (50-199)
[2024-09-22 07:54] LABS: % Immature Granulocytes 1.6 % (0-0.5); % Lymphocytes 28.7 % (20.5-51.1); % Monocytes 3.3 % (1.7-9.3); % Neutrophils 66.4 % (42.2-75.2); Absolute Immature Granulocytes 0.1 10^3/uL (0-0.05); Absolute Lymphocytes 0.9 10^3/uL (1.2-3.4); Absolute Monocytes 0.1 10^3/uL (0.1-0.6); Nucleated Red Blood Cells % 0 %
[2024-09-22] MEDS: ZESTRIL 30 MG PO (08:22)
[2024-09-22] MEDS: NEURONTIN 300 MG PO ×2 (08:22→20:57)
[2024-09-22] MEDS: LASIX 20 MG PO (08:22)
[2024-09-22] MEDS: PROTONIX 40 MG PO ×2 (08:22→20:57)
[2024-09-22] MEDS: DELTASONE 40 MG PO (08:22)
[2024-09-22] MEDS: FEOSOL 325 MG PO (08:23)
[2024-09-22] MEDS: ERYTHROMYCIN 0.5% OPHTHALMIC OINTMENT 1 APPLIC OPHTH ×3 (08:23→21:13)
[2024-09-22] MEDS: LEXAPRO 10 MG PO (08:23)
[2024-09-22] MEDS: PLAQUENIL 200 MG PO ×2 (08:23→20:57)
[2024-09-22] MEDS: XARELTO 20 MG PO (08:23)
[2024-09-22] MEDS: TYLENOL 650 MG PO (09:30)
--- NOTE | 2024-09-22 10:00 | PTCARENOTE ---
pt given prn tylenol for HERNANDES. pt with high automatic BP this AM. manual taken. 155/93
[2024-09-22] MEDS: ERYTHROMYCIN 0.5% OPHTHALMIC OINTMENT OPHTH (14:15)
--- NOTE | 2024-09-22 15:16 | W.PN.HOSP.TC ---
Addendum entered and electronically signed by Rahul Weir MD 09/22/24 15:36:
Reviewed echocardiogram LVEF 55-60%. Mild to moderate aortic stenosis with aortic valve area 1.4 cm�. Pulmonary hypertension with PA pressure 60-65 mmHg.
Continue gentle diuresis.
Original Note:
Today's Communication/Plan
-
See plan
Assessment / Plan
Assessment / Plan
Impression:
Presentation with periorbital swelling, peripheral edema and persistently elevated blood pressure.
Suspect lupus nephritis/nephrotic syndrome.
Accelerated hypertension secondary to above
Dyslipidemia in the settings of nephrotic syndrome
Suspected UTI
Immunosuppressed status
Other conditions:
Systemic lupus erythematosus.
Chronic immunosuppressed state.
Anemia of chronic disease
GERD.
Severe protein calorie malnutrition with BMI of 19.
: CAD diagnosed 2022, status post resection with ileostomy, FOLFOX chemotherapy, status post reversal of ileostomy.
History of cerebral thrombosis on anticoagulation with Xarelto
Neuropathy/chronic pain with opiate dependence
Plan:
Suspect worsening of nephrotic syndrome with periorbital and peripheral edema
Was taken off CellCept and tacrolimus recently for described possible side effects.
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
Currently on Plaquenil.
BMP within normal limits.
Check urine protein, protein/creatinine ratio
Check complement levels
Patient reports improved edema with initiation of corticosteroid therapy. Continue prednisone 40 mg at this point.
Nephrology/rheumatology follow-up as outpatient
Consider statin therapy
Accelerated hypertension
Continue lisinopril
Add Norvasc.
Noted elevated natruretic peptide, although no clinical evidence of CHF with clear lungs with clear lungs, normal chest x-ray and echocardiogram with preserved biventricular function.
Hold further Lasix,
Concern for UTI.
Afebrile.
No urinary symptoms.
Recent UTI with Pseudomonas
Continue cefepime pending urine cultures.
Neuropathy
Chronic pain
Continue preadmission analgesic regimen including gabapentin, hydrocodone, Ultram.
Monitor for oversedation
Anticipated Discharge: 24 - 48 hours
Subjective/Interval History
-
Date of Service: September 22, 2024
Objective Data
-
Labs:
Laboratory Results
09/22/24
05:42
WBC 3.1 L
Hgb 10.4 L
Hct 33.9 L
Plt Count 664 H
Sodium 136
Potassium 4.2
Chloride 107
Carbon Dioxide 24
BUN 9
Creatinine 0.6
Glucose 139 H
Calcium 8.4
Total Bilirubin 0.5
AST 28
ALT 16
Alkaline Phosphatase 109
Vital Signs:
Vital Signs
Temp Pulse Resp BP Pulse Ox
98.7 F 83 17 153/93 99
09/22/24 15:12 09/22/24 15:12 09/22/24 15:12 09/22/24 15:12 09/22/24 15:12
I&O
09/21/24 09/22/24 09/23/24
06:59 06:59 06:59
Intake Total 480 / 480
Balance 480 / 480
Physical Exam
-
General: Appears Chronically Ill
HEENT: Normocephalic and Atraumatic; Negative Oxygen
Respiratory: Clear to Auscultation; Negative Wheezes or Rhonchi
Cardiac: Regular Rhythm and S1/S2; Negative Murmur
GI: Soft, Nontender, Nondistended, Normal Bowel Sounds and Ostomy
Musculoskeletal: No Clubbing, No Edema and Other (purple warm fingers bilaterally from PIP distal, MCP to PIP red); Negative No Cyanosis
Skin: Other (thin fragile skin); Negative Rash
Neuro: Awake and Alert
Psych: Calm
[2024-09-22] MEDS: LASIX 20 MG IV (15:59)
[2024-09-22] MEDS: NORVASC 10 MG PO (15:59)
--- NOTE | 2024-09-22 16:38 | CM ---
Patient seen at bedside with mother
IA completed
Lives with her son and his girlfriend in a 1 story home
PLOF: stated independent, not using device
DME: Rollator, shower chair, transport w/c, grab bars
Current with [facility] liaison notified. Referral entered in [facility] for ERIKA
PCP: [facility]
Pharmacy: [facility]
PLAN: [facility]
Fax #: [phone]
[2024-09-22 18:00] LABS: Protein/creatinine Ratio 10.7; Urine Protein 183 mg/dl; Urine Protein 183 mg/dl (0-12)
[2024-09-22] MEDS: FLEXERIL 5 MG PO (20:56)
[2024-09-22] MEDS: ELAVIL 25 MG PO (20:57)
[2024-09-23] MEDS: STERILE WATER FOR INJECTION 10 ML IV ×2 (02:44→10:32)
[2024-09-23] MEDS: FLUSH (NSS) 2 FLUSH IV (02:46)
[2024-09-23] MEDS: MAXIPIME 2000 MG IV ×2 (02:46→10:31)
[2024-09-23 03:03] VITALS: BP 136/85
[2024-09-23 05:48] VITALS: BMI 19.3
[2024-09-23 07:16] VITALS: BP 139/90
[2024-09-23 08:21] LABS: Hematocrit 33.8 % (37.0-47.0); Mean Corp Hgb Conc. 32.5 g/dL (33.0-37.0); Mean Corpuscular Hgb 28.8 pg (27.0-31.0); Mean Corpuscular Volume 88.5 fL (81.0-99.0); Mean Platelet Volume 8.7 fL (7.4-10.4); Platelet Count 589 10^3/uL (130-400); Red Blood Cell Count 3.82 10^6/uL (4.20-5.40); Red Cell Dist. Width 20.4 % (11.5-14.5); White Blood Cell Count 3.6 10^3/uL (4.8-10.8)
[2024-09-23] MEDS: NEURONTIN 300 MG PO (08:40)
[2024-09-23] MEDS: PROTONIX 40 MG PO (08:40)
[2024-09-23] MEDS: DELTASONE 40 MG PO (08:40)
[2024-09-23] MEDS: XARELTO 20 MG PO (08:40)
[2024-09-23] MEDS: FEOSOL 325 MG PO (08:40)
[2024-09-23] MEDS: LEXAPRO 10 MG PO (08:40)
[2024-09-23] MEDS: PLAQUENIL 200 MG PO (08:40)
[2024-09-23] MEDS: ERYTHROMYCIN 0.5% OPHTHALMIC OINTMENT 1 APPLIC OPHTH ×2 (08:41→12:31)
[2024-09-23] MEDS: NORVASC 10 MG PO (08:41)
[2024-09-23] MEDS: ZESTRIL 30 MG PO (08:41)
[2024-09-23 08:42] LABS: Absolute Neutrophils -Man Diff 1.7 10^3/uL (1.4-6.5); Anisocytosis 1+; Band Neutrophils 0 % (0-3); Lymphocytes 34 % (20-51); Monocytes 17 % (2-9); Normal RBC Morphology No; Ovalocytes 1+; Platelets Checked Yes; Segmented Neutrophils 48 % (42-75)
[2024-09-23 08:43] LABS: Total Cells Counted 100
[2024-09-23] MEDS: TYLENOL 650 MG PO (08:50)
[2024-09-23 09:17] LABS: ALT (SGPT) 12 U/L (0-35); AST (SGOT) 22 U/L (14-36); Albumin 2.1 g/dl (3.5-5.0); Alkaline Phosphatase 84 U/L (38-126); Blood Urea Nitrogen 18 mg/dl (7-17); Calcium 8.2 mg/dl (8.4-10.2); Carbon Dioxide 23 mmol/L (22-30); Chloride 108 mmol/L (98-107); Estimated Creatinine Clearance 74 ml/min; Glucose 84 mg/dl (70-99); Potassium 4.2 mmol/L (3.5-5.1); Sodium 134 mmol/L (135-145); Total Bilirubin 0.3 mg/dl (0.2-1.3); Total Protein 4.6 g/dl (6.3-8.2); eGFR > 60.00
[2024-09-23] MEDS: NORCO 5/325 1 TABLET PO (10:38)
[2024-09-23 11:06] VITALS: BP 124/71
--- NOTE | 2024-09-23 13:07 | W.DS.TRANS ---
DC Summary - [employer]
-
Discharge Instructions:
Discharge Diagnosis/Procedures Impression:
Presentation with periorbital swelling,
peripheral edema and persistently elevated blood
pressure.
Suspect lupus nephritis/nephrotic syndrome.
Accelerated hypertension secondary to above
Dyslipidemia in the settings of nephrotic
syndrome
Suspected UTI
Immunosuppressed status
Other conditions:
Systemic lupus erythematosus.
Chronic immunosuppressed state.
Anemia of chronic disease
GERD.
Severe protein calorie malnutrition with BMI of
19.
: CAD diagnosed 2022, status post resection with
ileostomy, FOLFOX chemotherapy, status post
reversal of ileostomy.
History of cerebral thrombosis on
anticoagulation with Xarelto
Neuropathy/chronic pain with opiate dependence
Diet Regular
Instructions: *PCP/Other [employer] Heart Failure Instructions
Stand-Alone Forms:
Changes to Home Medications: Yes
Discharge Medications:
DC Medications w/original date entered in [employer]
amitriptyline 25 mg tablet 25 mg PO HS Mental Health 08/10/24
escitalopram oxalate 10 mg tablet (Lexapro) 10 mg PO DAILY Mental Health 08/10/24
ferrous sulfate 325 mg (65 mg iron) tablet 325 mg PO DAILY Supplement 08/10/24
gabapentin 100 mg tablet 300 mg PO BID Pain 08/10/24
hydroxychloroquine 200 mg tablet (Plaquenil) 200 mg PO BID lupus 08/10/24
ondansetron 4 mg disintegrating tablet 4 mg PO Q6HPRN PRN NAUSEA 08/10/24
rivaroxaban 20 mg tablet (Xarelto) 20 mg PO DAILY Blood Clot Prevention/Tx 08/10/24
pantoprazole 40 mg tablet,delayed release 40 mg PO BID #60 tabs 08/14/24
cyclobenzaprine 5 mg tablet 5 mg PO HSPRN PRN muscle spasms 09/21/24
hydrocodone 5 mg-acetaminophen 300 mg tablet 1 tab PO Q6HPRN PRN severe pain 09/21/24
lisinopril 30 mg tablet 30 mg PO DAILY 09/21/24
amlodipine 10 mg tablet 10 mg PO DAILY #30 tabs 09/23/24
furosemide 20 mg tablet (Lasix) 20 mg PO DAILY #30 tabs 09/23/24
Home Medication Changes
Lasix and Amlodipine initiated
Pending Results: No
--- NOTE | 2024-09-23 13:18 | CM ---
Spoke with Marline from [facility]
Patient is current with [facility] & they will [facility]
IMM n/a
PLAN: ERIKA [facility]
Fax #: [phone]
mom to transport
[2024-09-24 06:01] LABS: Complement C3 99 mg/dl (88-165)
== END 2024-09-23 14:06 | disposition home or self-care (01) | DRG 545 ==
LOC: 2 NORTH 23:04
PROVIDERS: Clinical Nurse Specialist Family Health; Emergency Medicine; ADMITTING PHYSICIAN Internal Medicine; ATTENDING PHYSICIAN Internal Medicine; EMERGENCY PHYSICIAN Emergency Medicine; FAMILY PHYSICIAN Family Medicine
DX: M32.14 Glomerular disease in systemic lupus erythematosus (principal); E43 Unspecified severe protein-calorie malnutrition; N04.9 Nephrotic syndrome with unspecified morphologic changes; N39.0 Urinary tract infection, site not specified; D84.9 Immunodeficiency, unspecified; F11.20 Opioid dependence, uncomplicated; Z68.1 Body mass index [BMI] 19.9 or less, adult; M32.9 Systemic lupus erythematosus, unspecified; H10.9 Unspecified conjunctivitis; B96.5 Pseudomonas (aeruginosa) (mallei) (pseudomallei) as the cause of diseases classified elsewhere; I15.8 Other secondary hypertension; K21.9 Gastro-esophageal reflux disease without esophagitis; F41.9 Anxiety disorder, unspecified; Z66 Do not resuscitate; I27.20 Pulmonary hypertension, unspecified; D63.8 Anemia in other chronic diseases classified elsewhere; E78.5 Hyperlipidemia, unspecified; G62.9 Polyneuropathy, unspecified; G89.29 Other chronic pain; I25.10 Atherosclerotic heart disease of native coronary artery without angina pectoris; F17.200 Nicotine dependence, unspecified, uncomplicated; Z51.5 Encounter for palliative care; Z85.038 Personal history of other malignant neoplasm of large intestine; Z79.01 Long term (current) use of anticoagulants
CPT/HCPCS: 71046; 80053; 80061; 81003; 81015; 82570; 83880; 84156; 85025; 85652; 86140; 86160; 87077; 87086; 87147; 87186; 93306; 97162; 97166; 99285

== ENCOUNTER 2024-09-28 13:43 | Inpatient (IN) | payer OTHER, SELFPAY ==
[2024-09-26] VITALS (14 sets, daily range): BP systolic 125–197; BP diastolic 87–119; BMI 16.8; BMI 18.0
--- NOTE | 2024-09-26 08:06 | ED.GENMED ---
History of Present Illness
General
Chief Complaint: Back Pain
Source: patient and family
Time Seen by Provider: 09/26/24 07:07
History of Present Illness
History of Present Illness:
This patient is a 54-year-old female presents emergency department complaints of headache and back pain. Patient is chronically ill with an extensive prior medical history and was just discharged from the hospital a few days ago after suffering
from suspected lupus nephritis with associated accelerated hypertension. Her blood pressure was near normal upon discharge. Her daughter typically lives with her but has not been there in the last few days and there has not been any in-home or
nursing care. Patient states that sometime last night she developed headache. This was not sudden onset or worst of life. She has difficulty describing where it is and just states 'I do not know' when asked details about it. She denies recent
trauma or falls, photophobia, visual deficits, numbness, tingling, focal weakness, neck pain. Patient also notes lower back pain, bilateral without associated radiation, exacerbating, relieving factors. She denies bowel or bladder incontinence,
numbness, tingling, weakness. Patient was noted to be walking around difficulty. Patient denies recent URI symptoms but does note baseline dyspnea. No other new symptoms reported.
Past History
Past History
ED Past Medical History: Other (Lupus, colon cancer, HTN, Raynaud's, immunocompromised, reflux, coronary artery disease, etc. etc.)
ED Past Surgical History: Bowel resection and Other ( colon tumor resected colostomy reversal, 2023, ileostomy reversal on 08/21/2024)
Social History
Tobacco: Non-smoker
Alcohol: None
Drug: None
Personal: Single
Living: with family (daughter)
Phy Exam
Physical Exam
Physical Exam:
GENERAL: Alert , in no apparent distress but appears somewhat uncomfortable
EYE: pupils equal and reactive, no photophobia, EOMI, no nystagmus, bilateral periorbital edema noted without associated redness or warmth
NECK: Supple, no significant adenopathy.
ENT: o/p clr, mm very dry.
CARDIAC: Regular rate and rhythm .
LUNGS: Clear breath sounds bilaterally, no acute respiratory distress, no wheezes/rales/rhonchi
ABDOMEN: Soft, without focal tenderness, no r/g, abdominal wound healing well without drainage
NEUROLOGICAL: Alert and oriented, no focal neuro deficits
SKIN: Superficial abrasions noted x 2 to the left side of the face without secondary infection. Patient has a lupus-like rash noted about face, scalp, superior chest, superior back. Purple discoloration noted to fingers bilaterally which is
chronic as per patient and daughter
MUSCULOSKELETAL: Trace edema, baseline purplish discoloration to fingers
PSYCH: Normal and appropriate interaction.
Course
Orders/Labs/Results
Orders:
Orders
09/26/24 08:05
Amlodipine [Norvasc] 10 mg PO NOW STA
HYDROmorphone [Dilaudid] 0.5 mg IV NOW STA
Lisinopril [Zestril] 30 mg PO NOW STA
09/26/24 08:08
Lisinopril [Zestril] 20 mg .ROUTE .STK-MED ONE
09/26/24 08:13
CT Head W/o Iv Contrast Urgent
Comment:
Reason For Exam: on anticoagulation, hx ?cerebral thombus?, c/o kohler
Cardiac Monitoring- Treatment ONCE
Pulse Ox/cont/shift [RESP] Stat
Quantity: 1
09/26/24 08:14
CT Abd/pel Without Iv Or Oral Urgent
Comment:
Reason For Exam: lower back pain, hx lupus
09/26/24 08:25
Complete Blood Count/No Diff Urgent
Comprehensive Metabolic Panel Urgent
09/26/24 11:08
Potassium Chloride [KCl] 40 meq PO NOW STA
09/26/24 11:09
Furosemide [Lasix] 40 mg IV ONCE ONE
09/26/24 12:28
Diltiazem HCl [Cardizem] 5 mg IV NOW STA
09/26/24 12:34
Urinalysis Reflex To Culture Urgent
HYDROmorphone [Dilaudid] 0.25 mg IV NOW STA
Abnormal Lab Results
09/26/24
08:25
RBC 3.72 L 10^6/uL
(4.20-5.40)
Hgb 10.5 L g/dL
(12.0-16.0)
Hct 33.5 L %
(37.0-47.0)
MCHC 31.3 L g/dL
(33.0-37.0)
RDW 19.4 H %
(11.5-14.5)
Plt Count 540 H 10^3/uL
(130-400)
Potassium 3.1 L mmol/L
(3.5-5.1)
Creatinine 0.5 L mg/dL
(0.6-1.0)
Glucose 116 H mg/dl
(70-99)
Total Protein 5.3 L g/dl
(6.3-8.2)
Albumin 2.6 L g/dl
(3.5-5.0)
09/26/24 08:25
09/26/24 08:25
Vital Signs
Initial and Last Documented VS:
Initial Vital Signs
Temp Pulse Resp BP
97.6 F 92 26 162/119
09/26/24 06:24 09/26/24 06:24 09/26/24 06:24 09/26/24 06:24
Last Documented Vital Signs
Temp Pulse Resp BP Pulse Ox
97.6 F 96 13 166/101 99
09/26/24 06:24 09/26/24 11:40 09/26/24 11:40 09/26/24 11:40 09/26/24 11:40
Update Note
Update Note:
Patient presents to the Emergency Department with headache and back pain____
Number and Complexity of Problems Addressed at the Encounter
� Chronic conditions affecting care: There is documentation of a cerebral thrombus from several years ago for which she takes anticoagulation
� Acute Exacerbation and/or Progression of Chronic Illness: Lupus, immunosuppression
� Differential Diagnosis includes: But not limited to intracerebral bleed, migraine, kidney stone, etc. etc. etc.
Amount and/or Complexity of Data to be Reviewed and Analyzed
� I performed an independent evaluation of and my interpretation is:
EKG:
CT:No acute findings in the abdomen or pelvis. Trace free fluid in the pelvis.
Biliary sludge.
Interval right lower quadrant ileostomy reversal without evidence of bowel obstruction.
The kidneys appear mildly prominent bilaterally, similar to prior CT. There is no evidence of hydronephrosis or renal calculus.
No acute intracranial hemorrhage.
There are small hypodensities within the anterior left frontal lobe, left occipital lobe and posterior left temporal lobe for which are suspicious for age-indeterminate infarcts, possible subacute infarctions. If there is concern for acute ischemia
consider MRI for further evaluation.
Xrays:
Laboratory Studies: baseline anemia and thrombocytosis, mild hypoK,
Other:
� Review of other/old records reveals: I reviewed patient's records from recent hospitalization for lupus nephritis and accelerated hypertension September 2024
� Clinical information was obtained by an independent historian: Daughter who is bedside
� Prescriptions/Medications Considered but not given:
� Further testing considered but not performed:
Risk of Complications and/or Morbidity or Mortality of Patient Management
� Social determinants of health affecting care:
� Discussion with other providers (PCP, Hospitalists, Consultants, etc):
� Escalation of care including admission/observation vs risk of discharge considered: 12:32 PM multiple reassessments. Patient continues to complain of pain and asking for more narcotics. On the other hand, she is also noted to
be able to get out of bed and walk around without difficulty. No acute emergent etiology noted for her headache and back pain here. Concern regarding her persistently elevated blood pressure which is a change in comparison to September 23 just a few
days ago. I have given antihypertensives with little response, will now give IV Cardizem and recommend observation overnight, case discussed with hospitalist. I also recommend consideration for palliative care consult which I am told is not
available from the emergency department at this time.
ED Attending Note
-
Portions of this chart may have been created with voice recognition software.� Occasional wrong word or��sound alike� substitutions may have occurred due to the inherent limitations of voice recognition software.
Discharge Plan
Departure
Patient Disposition: Admit
Date of Disposition: 09/26/24
Time of Disposition: 12:35
Admit to: Telemetry
Presentation/result/management discussed w/ accepting MD/DO: Hospitalist
Discharge Problem:
Hypertensive urgency
Prescriptions:
No Action
amitriptyline 25 mg Tablet
25 mg PO HS
ferrous sulfate 325 mg (65 mg iron) Tablet
325 mg PO DAILY
hydroxychloroquine [Plaquenil] 200 mg Tablet
200 mg PO BID
ondansetron 4 mg Tablet,Disintegrating
4 mg PO Q6HPRN PRN (Reason: NAUSEA)
escitalopram oxalate [Lexapro] 10 mg Tablet
10 mg PO DAILY
gabapentin 100 mg Tablet
300 mg PO BID
Xarelto 20 mg Tablet
20 mg PO DAILY
pantoprazole 40 mg Tablet,Delayed Release (Dr/Ec)
40 mg PO BID Qty: 60 0RF
lisinopril 30 mg Tablet
30 mg PO DAILY
cyclobenzaprine 5 mg Tablet
5 mg PO HSPRN PRN (Reason: muscle spasms)
hydrocodone-acetaminophen 5-300 mg tablet
1 tab PO Q6HPRN PRN (Reason: severe pain)
amlodipine 10 mg Tablet
10 mg PO DAILY Qty: 30 0RF
furosemide [Lasix] 20 mg tablet
20 mg PO DAILY Qty: 30 0RF
Referrals:
Bob Urban MD [Family Provider] -
Interventions
Interventions:
*Risk Screen - Suicide Last Done: 09/26/24 06:24
*General Assessment Last Done: 09/26/24 08:11
*Neglect/Abuse Screening Last Done: 09/26/24 08:27
*ED- Fall Risk Assessment Last Done: 09/26/24 08:11
*ED COVID-19 Vaccine History Last Done: 09/26/24 08:11
ED-Musculoskeletal Assessment Last Done: 09/26/24 08:27
Discharge Date and Time
Print Language: DANISH
[2024-09-26] MEDS: NORVASC 10 MG PO (08:18)
[2024-09-26] MEDS: ZESTRIL 30 MG PO (08:18)
[2024-09-26] MEDS: DILAUDID 0.5 MG IV (08:18)
[2024-09-26 08:34] LABS: Hematocrit 33.5 % (37.0-47.0); Hemoglobin 10.5 g/dL (12.0-16.0); Mean Corp Hgb Conc. 31.3 g/dL (33.0-37.0); Mean Corpuscular Hgb 28.2 pg (27.0-31.0); Mean Corpuscular Volume 90.1 fL (81.0-99.0); Mean Platelet Volume 8.4 fL (7.4-10.4); Platelet Count 540 10^3/uL (130-400); Red Blood Cell Count 3.72 10^6/uL (4.20-5.40); Red Cell Dist. Width 19.4 % (11.5-14.5); White Blood Cell Count 9.3 10^3/uL (4.8-10.8)
[2024-09-26 08:42] LABS: ALT (SGPT) 15 U/L (0-35); AST (SGOT) 27 U/L (14-36); Albumin 2.6 g/dl (3.5-5.0); Alkaline Phosphatase 104 U/L (38-126); Blood Urea Nitrogen 12 mg/dl (7-17); Calcium 8.9 mg/dl (8.4-10.2); Carbon Dioxide 30 mmol/L (22-30); Chloride 106 mmol/L (98-107); Estimated Creatinine Clearance 73 ml/min; Glucose 116 mg/dl (70-99); Potassium 3.1 mmol/L (3.5-5.1); Sodium 137 mmol/L (135-145); Total Bilirubin 0.3 mg/dl (0.2-1.3); Total Protein 5.3 g/dl (6.3-8.2); eGFR > 60.00
[2024-09-26] MEDS: KCL 40 MEQ PO (11:33)
[2024-09-26] MEDS: LASIX 40 MG IV (11:33)
[2024-09-26] MEDS: CARDIZEM 5 MG IV (12:36)
[2024-09-26] MEDS: DILAUDID 0.25 MG IV (12:37)
--- NOTE | 2024-09-26 13:40 | HPS.HSE ---
Family Physician
-
Family Physician: Bob Urban
Chief Complaint
-
Back Pain and Headache
History of Present Illness
Patient is a 54 y/o female with extensive past medical history who presents with back pain and headache associated with elevated blood pressure. Additional history is obtained from family at the bedside. Patient was discharged from [facility] on September 23 following a hospitalization for lupus nephritis and accelerated hypertension. During that hospitalization she was started on Lasix and Amlodipine. Patient reports she did not take any of her medications yesterday. In the ED
she was given her usual doses of anti-hypertensive and her blood pressure is slowly improving. In regards to her back pain she describes it as low back pain that is sharp with movement. She denies any radiation of the pain. She has not tried to
take anything for the pain at home. She also reports abdominal pain. She denies diarrhea and notes bowel movement yesterday. She reports poor appetite, but denies vomiting.
Medical History
Past Medical History
Past Medical History: Reports Other
Additional Past Medical History:
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
Anemia of Chronic Disease
Raynaud's
Cerebral Thrombosis
Hypertension
Hyperlipidemia
Anxiety
Chronic Neuropathic Pain
Colon Cancer
GERD
Severe Protein Malnutrition
Chronic Immunosuppressed State
Past Surgical History: Reports Other
Additional Past Surgical History:
Colon Resection with Ileostomy and Subsequent Reversal
Social History
Tobacco: Smoker
Alcohol: None
Drug: None
Living: With Family
Employment: Not Employed
Family History
Family History: Not pertinent
Allergies / Home Medications
Allergies reflects when Allergies were last updated in [employer] [facility].
Home Medications with original date entered in [employer] [facility]
Allergy/Medication List:
Allergies
Allergy/AdvReac Type Severity Reaction Status Date / Time
No Known Allergies Allergy Verified 09/26/24 06:24
Home Medications
amitriptyline 25 mg tablet 25 mg PO HS Mental Health 08/10/24
escitalopram oxalate 10 mg tablet (Lexapro) 10 mg PO DAILY Mental Health 08/10/24
ferrous sulfate 325 mg (65 mg iron) tablet 325 mg PO DAILY Supplement 08/10/24
gabapentin 100 mg tablet 300 mg PO BID Pain 08/10/24
hydroxychloroquine 200 mg tablet (Plaquenil) 200 mg PO BID lupus 08/10/24
ondansetron 4 mg disintegrating tablet 4 mg PO Q6HPRN PRN NAUSEA 08/10/24
rivaroxaban 20 mg tablet (Xarelto) 20 mg PO DAILY Blood Clot Prevention/Tx 08/10/24
pantoprazole 40 mg tablet,delayed release 40 mg PO BID #60 tabs 08/14/24
cyclobenzaprine 5 mg tablet 5 mg PO HSPRN PRN muscle spasms 09/21/24
lisinopril 30 mg tablet 30 mg PO DAILY 09/21/24
amlodipine 10 mg tablet 10 mg PO DAILY #30 tabs 09/23/24
furosemide 20 mg tablet (Lasix) 20 mg PO DAILY #30 tabs 09/23/24
acetaminophen 500 mg tablet 1,000 mg PO DAILYPRN PRN mild pain 09/26/24
prednisone 5 mg tablet 5 mg PO BID 09/26/24
sodium bicarbonate 650 mg tablet 650 mg PO BID 09/26/24
Review of Systems
-
A 12 point ROS was completed and negative except as noted: Yes
Constitutional: Denies Fever or Chills
Respiratory: Denies Cough or Trouble Breathing
Cardiac: Denies Chest Pain or Palpitations
Musculoskeletal: Reports See HPI
Physical Exam
Vital Signs
Vital Signs
Temp Pulse Resp BP Pulse Ox
97.6 F 95 22 146/93 99
09/26/24 06:24 09/26/24 13:30 09/26/24 13:30 09/26/24 13:00 09/26/24 11:45
Physical Exam
General: Comfortable and Conversant
HEENT: Anicteric and Moist mucous membranes
Respiratory: Clear and Non Labored Respirations
Cardiac: S1/S2 and Regular Rhythm
GI: Soft and Tender (Mild tenderness around prior ileostomy site)
Rectal: Deferred by Provider
Musculoskeletal: No Clubbing and No Cyanosis
Skin: Warm, Dry and Other (Chronic Lupus Rash)
Neuro: Awake, Alert, Oriented and Nonfocal/grossly intact
Psych: Calm
Laboratory Results
-
09/26/24 08:25
09/26/24 08:25
Laboratory Results
Total Bilirubin 0.3 mg/dl (0.2-1.3) 09/26/24 08:25
AST 27 U/L (14-36) 09/26/24 08:25
ALT 15 U/L (0-35) 09/26/24 08:25
Alkaline Phosphatase 104 U/L (38-126) 09/26/24 08:25
Troponin I Cancelled 09/26/24 08:13
Data Reviewed
-
Diagnostic Radiology: Report Reviewed by me
CT Scan: Report Reviewed by me
Lab Data: Labs Reviewed by me
Impression/Plan
-
Uncontrolled Hypertension, likely related to missed medications
-Resume Lasix, Amlodipine and Lisinopril
-Monitor blood pressure
Headache, possibly related to uncontrolled hypertension vs migraine, less likely lupus
-Head CT show multiple left hypodensities suspicious for age-indeterminate infarcts, possibly subacute infarcts
-Consult Neurology
-Check Brain MRI/MRA/MRV
-Avoid narcotics as can exacerbate headache symptoms
Abdominal Pain, possibly lupus related, less likely mesenteric ischemic doubt related to recent ileostomy reversal
-Abd/Pelvis without acute findings
-Allow diet as tolerated
-Monitor bowel movements
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
Chronic Immunosuppressed State
-Continue hydroxychloroquine
-continue Prednisone
Questionable history of Cerebral Thrombosis (details unknown)
-Continue Xarelto
Anemia of Chronic Disease
-Hgb at baseline
-Continue iron supplement
Anxiety
-Continue amitriptyline
Chronic Neuropathic Pain
-Continue gabapentin
-continue Elavil
GERD
-Continue Protonix
Severe Protein Malnutrition
-Consult Dietary
Hx Colon Cancer s/p Colon Resection with Subsequent Reversal
[2024-09-26] MEDS: LIDOCAINE 4% PATCH 1 PATCH TOPICAL (14:00)
[2024-09-26 14:12] LABS: Magnesium 1.7 mg/dl (1.6-2.3)
--- NOTE | 2024-09-26 14:27 | CON.NEURO ---
Consultation
Order
Date of Consultation: 09/26/24
Requesting Provider: Daniella Oglesby PA-C
Reason for Consult: Headache.
Neurology Consultation Note.
HPI: This is a 54-year-old woman who presented to [facility] on 09/26/2024 with worsening back pain. She reports a long-standing history of back pain that began approximately 2 years ago. The pain has recently exacerbated, localizing to
the middle of her back without radiation to the legs. It is aggravated by movement and has significantly impacted her mobility, preventing her from walking and causing difficulty with stairs and rising from a chair. She also reports weight loss,
dropping from 115 lbs to 101 lbs over the past two months. The patient notes that her legs feel weaker than they did 2 weeks ago, particularly the right leg. No reports of fever, sensory symptoms in the feet, change in sphincter function, recent
falls.
PDMP: Hydrocodone-Acetamin 5-300 Mg 15 tablets filled in on 09/03/2024, Oxycodone Hcl (Ir) 5 Mgb 20 tablets filled in on 08/2024, Oxycodone-Acetaminophen 5-325 10 tablets filled in on 08/05/2024, oxycodone 5 mg 10 tablets filled in on 07/10/2024
Additionally, the patient complains of holocephalic headaches with no autonomic symptoms that worsen when sitting up. She is not sure why she is on acetazolamide. No reports of tinnitus, diplopia.
Ms. Hilton reports a history of 'strokes' that she has been on Xarelto for.
Ms. Hilton reportedly underwent reversal of her right ileostomy on 08/20/2024 at [facility]. She was treated with colectomy around 2 years ago for colon cancer.
The was treated for lupus exacerbation during the above hospitalization. She has been on prednisone 5 mg daily, which was temporarily increased to 30 mg due to the flare but has since been tapered back to her usual dose. Two days prior to
presentation, she experienced increased facial swelling, rash and eye redness. She has been off tacrolimus since the cancer diagnosis and maintained on Plaquenil.
ER VS: 162/109-191/111, 79, afebrile.
Labs: Glucose�116, normal sodium, creatinine, WBCs, magnesium�1.7, platelets�540, hemoglobin�10.5.
UA culture (09/21/2024)�Staphylococcus haemolyticus, Pseudomonas aeruginosa.
CT head wo contrast(09/26/2024) small hypodensities within the anterior left frontal lobe, left occipital lobe and posterior left temporal lobe for which are suspicious for age-indeterminate infarcts, possible subacute infarctions
Ms. Hilton was seen at ER on 09/01/2024 with abdominal pain.
MAR: Hydromorphone 0.25 mg given at 8:18 AM, 12:37 PM on 09/26/2024
PMH: colon cancer, SLE off Tacrolimus., HTN, DLP, MOLLY, BMI 16, L4 on L5 anterolisthesis.
PSH: partial colectomy with anastomosis, R ileostomy reversal (08/20/2024)
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
FH: both parents are reportedly healthy
All:NKDA
ROS: Positive for weight loss
HENT: Negative for ear pain, hearing loss, tinnitus and trouble swallowing.
Eyes: Negative. Negative for photophobia, pain and visual disturbance.
Respiratory: Negative for cough, choking and shortness of breath.
Cardiovascular: Negative for chest pain, palpitations and leg swelling.
Gastrointestinal: Negative for abdominal pain and vomiting.
Genitourinary: Negative for dysuria, flank pain and urgency.
Musculoskeletal: Positive for back pain
Skin: positive for diffuse purple nonpruritic rash
Allergic/Immunologic: Negative. Negative for immunocompromised state.
Neurological: Positive for headache, leg weakness
Psychiatric/Behavioral: Positive for confusion
General: Slim, in moderate distress due to pain
Cardio: Regular rate and rhythm. Purpuric�scaly skin rash including face, neck and upper extremities.
Neuro:
Mental Status: Somnolent, oriented to name, date of . Did not know her age, month, season, president. Poor attention and relatively preserved comprehension. Follows simple requests. Nonfluent. No hemineglect.
Cranial Nerves: Pupils are equally round and reactive to light. EOMs full. Visual broussard full to confrontation. No ptosis. No nystagmus. V1-V3 intact to light touch and pinprick bilaterally, symmetric. Face symmetric. Normal hearing AU. The
palate elevated well. SCMs and traps 5/5. Tongue midline. No dysarthria.
Motor: Upper extremities�antigravity. Minimal movements of lower extremities in bed plane
Reflexes: 1+ throughout the upper extremities and knees. Plantar responses flexor bilaterally.
Sensory: Limited exam by attention however reported that she was able to feel vibration at the ankles.
Coordination: No tremors myoclonic movements
Gait: deferred
Assessment and Plan:
I. Low pressure headache.
II. Mixed encephalopathy (toxic, vascular)
III. Chronic lower back pain with subacute L proximal leg weakness. Grade 1 anterolisthesis.
IV. Left frontal, occipital and temporal cortical hypodensities. Differential diagnosis includes subacute to chronic infarcts(venous) vs [employer] lupus vs metastasis.
-Avoid medications known to cause headache as a side effect (Lexapro is known to cause headache help to 20% of treated patients)
�Brain MRI w/wo molly SEDRICK
-Avoid opioids and [employer] suppressants.
-Please obtain medical records from [facility]
-Hold acetazolamide
-Increase gabapentin to 300 mg 3 times daily
-IV Toradol 30 mg, Reglan 10 mg, Benadryl 25 mg Q8h PRN for moderate to severe headache.
-Rheumatology consult
-Please check CK, TFTs
-LS spine MRI with and without molly
-PT
-Case was discussed with patient's son girlfriend present at bedside.
I personally reviewed all radiology and labs along with past medical records pertinent to current medical problems. Total time spent in patient care is 60 minutes.
Thank you for allowing us to participate in the care of this patient. We will continue to follow. Please do not hesitate to contact us with any questions or concerns.
Subjective/Objective
Subjective Data
Date of Service: September 26, 2024
Objective Data
Vital Signs
Temp Pulse Resp BP Pulse Ox
36.4 C 95 14 153/96 99
09/26/24 06:24 09/26/24 14:00 09/26/24 14:00 09/26/24 14:00 09/26/24 11:45
Lab Results
09/26/24 08:25
09/26/24 08:25
Sodium 137 mmol/L (135-145) 09/26/24 08:25
Potassium 3.1 mmol/L (3.5-5.1) L 09/26/24 08:25
BUN 12 mg/dl (7-17) 09/26/24 08:25
Glucose 116 mg/dl (70-99) H 09/26/24 08:25
Calcium 8.9 mg/dl (8.4-10.2) 09/26/24 08:25
Patient Allergies
No Known Allergies Allergy (Verified 09/26/24 06:24)
Medications
-
Active Medications
Generic Name Dose Route Start Last Admin
Trade Name Freq PRN Reason Stop Dose Admin
Lidocaine 1 patch 09/26/24 14:00 09/26/24 14:00
Lidocaine 4% Topical Patch TOPICAL 10/24/24 13:59 1 patch
DAILY SUMMER Administration
Protocol
Patch Removal 1 patch 09/26/24 20:00
Remove Lidocaine Patch REMOVE 10/24/24 19:59
DAILY@2000 SUMMER
Home Medications
�Medication �Instructions �Recorded
amitriptyline 25 mg tablet 25 mg PO Mental Health 08/10/24
escitalopram oxalate 10 mg tablet 10 mg PO DAILY Mental Health 08/10/24
(Lexapro)
ferrous sulfate 325 mg (65 mg 325 mg PO DAILY Supplement 08/10/24
iron) tablet
gabapentin 100 mg tablet 300 mg PO BID Pain 08/10/24
hydroxychloroquine 200 mg tablet 200 mg PO BID lupus 08/10/24
(Plaquenil)
ondansetron 4 mg disintegrating 4 mg PO Q6HPRN PRN NAUSEA 08/10/24
tablet
rivaroxaban 20 mg tablet (Xarelto) 20 mg PO DAILY Blood Clot 08/10/24
Prevention/Tx
pantoprazole 40 mg tablet,delayed 40 mg PO BID #60 tabs 08/14/24
release
cyclobenzaprine 5 mg tablet 5 mg PO HSPRN PRN muscle spasms 09/21/24
lisinopril 30 mg tablet 30 mg PO DAILY 09/21/24
amlodipine 10 mg tablet 10 mg PO DAILY #30 tabs 09/23/24
furosemide 20 mg tablet (Lasix) 20 mg PO DAILY #30 tabs 09/23/24
acetaminophen 500 mg tablet 1,000 mg PO DAILYPRN PRN mild pain 09/26/24
prednisone 5 mg tablet 5 mg PO BID 09/26/24
sodium bicarbonate 650 mg tablet 650 mg PO BID 09/26/24
Vital Signs and Labs
-
Vital Signs and Labs:
Vital Signs
Temp Pulse Resp BP Pulse Ox
36.4 C 95 14 153/96 99
09/26/24 06:24 09/26/24 14:00 09/26/24 14:00 09/26/24 14:00 09/26/24 11:45
Lab Results
09/26/24 08:25
09/26/24 08:25
Sodium 137 mmol/L (135-145) 09/26/24 08:25
Potassium 3.1 mmol/L (3.5-5.1) L 09/26/24 08:25
BUN 12 mg/dl (7-17) 09/26/24 08:25
Glucose 116 mg/dl (70-99) H 09/26/24 08:25
Calcium 8.9 mg/dl (8.4-10.2) 09/26/24 08:25
Medications
-
Medications:
Generic Name Dose Route Start Last Admin
Trade Name Freq PRN Reason Stop Dose Admin
Lidocaine 1 patch 09/26/24 14:00 09/26/24 14:00
Lidocaine 4% Topical Patch TOPICAL 10/24/24 13:59 1 patch
DAILY SUMMER Administration
Protocol
Patch Removal 1 patch 09/26/24 20:00
Remove Lidocaine Patch REMOVE 10/24/24 19:59
DAILY@2000 SUMMER
Home Medications
-
Home Medications
amitriptyline 25 mg tablet 25 mg PO Mental Health 08/10/24
escitalopram oxalate 10 mg tablet (Lexapro) 10 mg PO DAILY Mental Health 08/10/24
ferrous sulfate 325 mg (65 mg iron) tablet 325 mg PO DAILY Supplement 08/10/24
gabapentin 100 mg tablet 300 mg PO BID Pain 08/10/24
hydroxychloroquine 200 mg tablet (Plaquenil) 200 mg PO BID lupus 08/10/24
ondansetron 4 mg disintegrating tablet 4 mg PO Q6HPRN PRN NAUSEA 08/10/24
rivaroxaban 20 mg tablet (Xarelto) 20 mg PO DAILY Blood Clot Prevention/Tx 08/10/24
pantoprazole 40 mg tablet,delayed release 40 mg PO BID #60 tabs 08/14/24
cyclobenzaprine 5 mg tablet 5 mg PO HSPRN PRN muscle spasms 09/21/24
lisinopril 30 mg tablet 30 mg PO DAILY 09/21/24
amlodipine 10 mg tablet 10 mg PO DAILY #30 tabs 09/23/24
furosemide 20 mg tablet (Lasix) 20 mg PO DAILY #30 tabs 09/23/24
acetaminophen 500 mg tablet 1,000 mg PO DAILYPRN PRN mild pain 09/26/24
prednisone 5 mg tablet 5 mg PO BID 09/26/24
sodium bicarbonate 650 mg tablet 650 mg PO BID 09/26/24
[2024-09-26 14:58] LABS: TSH Reflex To Free T4 0.99 uIU/ml (0.47-4.68)
[2024-09-26 15:13] LABS: Erythrocyte Sed Rate 71 mm/hour (0-20)
--- NOTE | 2024-09-26 15:36 | W.PN.UPDATE ---
Update Note
Progress Note Update
This is an addendum to the H&P written by Daniella Luz on 09/26/2024. Patient seen and examined independently with PA.
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
ileostomy with reversal in July of this year, possible cerebral thrombosis in the past, anxiety, presenting with headache and back pain and abdominal pain.
She has not been taking her meds for the past few days due to her son's girlfriend being away for a few days.
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 Renal function improved.
Blood pressure initially 191/118. Improved with diltiazem and IV Lasix given in ER.
At this time patient is complaining of severe posterior headache that is throbbing. No neurological symptoms otherwise. She states she has had migraines before. CT scan of the head showed small hypodensities within anterior left frontal lobe,
left occipital lobe and posterior left temporal lobe suspicious for age-indeterminate infarct, possible subacute infarctions. Lupus cerebritis unlikely as no neurological deficits. Could be secondary to migraine. Headache may have worsened with
Dilaudid. Check inflammatory markers. Check MRI/MRA head and neck with venogram. Neurology consulted.
Hypokalemia repleted.
Unclear etiology of abdominal pain and CT scan abdomen pelvis unremarkable. Patient had a bowel movement yesterday. Diagnosis of exclusion would be lupus associated abdominal pain. Does not seem to be related to reversal of ileostomy which was
performed at [place]. Could also be secondary to mesenteric lupus vasculitis. Consider CTA abdomen.
Patient with worsening of chronic back pain. Lidocaine patch for pain.
Await inflammatory markers and if elevated may need to transfer to [place] for further rheumatological evaluation.
[2024-09-26 16:05] LABS: Creatine Phosphokinase 77 U/L (30-135)
[2024-09-26] MEDS: TYLENOL 1000 MG PO (16:45)
--- NOTE | 2024-09-26 17:45 | PTCARENOTE ---
pt came from ED via stretcher, family at bedside, complaining of back pain, able to walk from stretcher to bed, assist X1, able to state location, year and birthday. Vitals obtained and charted, refusing to eat her meal. All over body redness, rash,
not itching. Plan of care on going.
[2024-09-26] MEDS: TORADOL 10 MG IV (18:08)
--- NOTE | 2024-09-26 20:20 | PTCARENOTE ---
NIH scale on the patient completed and scored at a 5. 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 Patient unsure of location and date. Patient thinks she is 17 years old. Patient has expressive aphasia, weakness and drowsiness but
follows commands. Her face is symmetrical and strength is symmetrical. Patient is drinking fluids and taking pills. Messaged VERONICA Aguilar and Neurologist Aly. No new recommendations at this time.
[2024-09-26] MEDS: PLAQUENIL 200 MG PO (20:42)
[2024-09-26] MEDS: PROTONIX 40 MG PO (20:42)
[2024-09-26] MEDS: DELTASONE 5 MG PO (20:42)
[2024-09-26] MEDS: SODIUM BICARBONATE 650 MG PO (20:44)
[2024-09-26] MEDS: ELAVIL 25 MG PO (21:44)
[2024-09-26] MEDS: NEURONTIN 300 MG PO (21:44)
[2024-09-27 05:29] VITALS: BMI 17.6
[2024-09-27 06:48] LABS: Hematocrit 35.1 % (37.0-47.0); Hemoglobin 11.4 g/dL (12.0-16.0); Mean Corp Hgb Conc. 32.5 g/dL (33.0-37.0); Mean Corpuscular Hgb 28.9 pg (27.0-31.0); Mean Corpuscular Volume 88.9 fL (81.0-99.0); Mean Platelet Volume 8.9 fL (7.4-10.4); Platelet Count 519 10^3/uL (130-400); Red Blood Cell Count 3.95 10^6/uL (4.20-5.40); Red Cell Dist. Width 19.3 % (11.5-14.5)
[2024-09-27 07:06] VITALS: BP 142/88
[2024-09-27 07:07] LABS: Blood Urea Nitrogen 14 mg/dl (7-17); Calcium 8.5 mg/dl (8.4-10.2); Carbon Dioxide 27 mmol/L (22-30); Chloride 105 mmol/L (98-107); Estimated Creatinine Clearance 76 ml/min; Glucose 87 mg/dl (70-99); Magnesium 1.7 mg/dl (1.6-2.3); Potassium 3.9 mmol/L (3.5-5.1); Sodium 136 mmol/L (135-145); eGFR > 60.00
--- NOTE | 2024-09-27 08:22 | CM ---
Chart reviewed
IA completed
CM consult completed
Recently discharged from on 09/23 to home with [facility]
Lives with her son and his girlfriend in a 1 story home
PLOF: stated independent, not using device
DME: Rollator, shower chair, transport w/c, grab bars
Current with [facility] - Marline Maldonado liaison notified. [facility]
PCP: [facility]
Pharmacy: [facility]
PLAN: [facility]
Fax #: [phone]
[2024-09-27 08:50] VITALS: BP 145/91; PULSE 91; O2SAT 100
[2024-09-27] MEDS: NEURONTIN 300 MG PO ×3 (08:58→22:26)
[2024-09-27] MEDS: PROTONIX 40 MG PO ×2 (08:59→20:38)
[2024-09-27] MEDS: NORVASC 10 MG PO (08:59)
[2024-09-27] MEDS: LASIX 20 MG PO (08:59)
[2024-09-27] MEDS: PLAQUENIL 200 MG PO ×2 (08:59→20:38)
[2024-09-27] MEDS: DELTASONE 5 MG PO ×2 (08:59→20:38)
[2024-09-27] MEDS: SODIUM BICARBONATE 650 MG PO ×2 (08:59→20:38)
[2024-09-27] MEDS: XARELTO 20 MG PO (08:59)
[2024-09-27] MEDS: ZESTRIL 20 MG PO (08:59)
[2024-09-27] MEDS: FEOSOL 325 MG PO (08:59)
[2024-09-27] MEDS: LEXAPRO 10 MG PO (08:59)
[2024-09-27] MEDS: ZESTRIL 10 MG PO (09:00)
[2024-09-27] MEDS: LIDOCAINE 4% PATCH 1 PATCH TOPICAL (09:00)
[2024-09-27 09:11] VITALS: BP 145/91; PULSE 91; O2SAT 100
[2024-09-27 10:16] VITALS: BMI 17.6
--- NOTE | 2024-09-27 10:26 | PTOTSP ---
Speech Therapy
Presentation: Patient's speech appeared to consist of inconsistent consonant production which is likely related to poor dentition (many missing teeth). Patient has a hx of wax/ wane cognition since hospitalization. Patient denied any communiction or
cognitive deficits.
Swallowing Function: SECURITY OPERATIONS CENTER OPERATOR observed patient with several bites of cracker and sips of thin liquids (cup) in which patient appeared to tolerate as she did not exhibit any overt clinical s/sx of aspiration. Noted prolonged mastication which cleared with
reflexive thin liquid washes (cup). This is likely related to her poor dentition.
Given the above, recommend reg/ thins.
Recommendations:
1) Continuation of regular consistency solids and thin liquids
2) Standard aspiration precautions
3) Medications as tolerated
Plan: No further SECURITY OPERATIONS CENTER OPERATOR intervention is indicated; place consult if clinically indicated.
[2024-09-27] MEDS: TYLENOL 1000 MG PO (13:22)
--- NOTE | 2024-09-27 13:58 | W.PN.NEURO.1 ---
Today's Communication / Plan
-
.
Subjective/Objective
Subjective Data
Date of Service: September 27, 2024
Neurology Follow up Note.
Ms. Hilton reports no complaints. She denies having headache, change in vision or strength or back pain.
According to patient's mother Ms. Hilton has a history of A-fib.
Brain MRI wo vale-2 mm focus of restricted diffusion within the superior right parietal lobe, chronic infarcts in the left frontal, bilateral temporal and left occipital lobes as well as a lacunar infarction involving the right thalamus.
MRA head/neck-no evidence of dural venous sinus thrombosis, BL latcher,
LS spine MRi wo vale-no evidence of metastasis, significant central or neuroforaminal stenosis.
PMH: colon cancer, SLE off Tacrolimus, HTN, DLP, VALE, BMI 16, L4 on L5 anterolisthesis.
PSH: partial colectomy with anastomosis, R ileostomy reversal (08/20/2024)
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
FH: both parents are reportedly healthy
All:NKDA
ROS: Positive for weight loss
HENT: Negative for ear pain, hearing loss, tinnitus and trouble swallowing.
Eyes: Negative. Negative for photophobia, pain and visual disturbance.
Respiratory: Negative for cough, choking and shortness of breath.
Cardiovascular: Negative for chest pain, palpitations and leg swelling.
Gastrointestinal: Negative for abdominal pain and vomiting.
Genitourinary: Negative for dysuria, flank pain and urgency.
Musculoskeletal: Positive for back pain
Skin: positive for diffuse purple nonpruritic rash
Allergic/Immunologic: Negative. Negative for immunocompromised state.
Neurological: Negative for headache, change in strength or sensation.
Psychiatric/Behavioral: Positive for confusion
General: Slim, in moderate distress due to pain
Cardio: Regular rate and rhythm. Purpuric�scaly skin rash including face, neck and upper extremities.
Neuro:
Mental Status: Awake oriented to name, year, initially months was incorrect. Impaired attention and comprehension. Follows simple requests intermittently. Nonfluent.
Cranial Nerves: Pupils are equally round and reactive to light. EOMs full. Visual broussard full to confrontation. No ptosis. No nystagmus. V1-V3 intact to light touch and pinprick bilaterally, symmetric. Face symmetric. Normal hearing AU. The
palate elevated well. SCMs and traps 5/5. Tongue midline. No dysarthria.
Motor: No pronator or leg drift.
Coordination: No tremors myoclonic movements
Gait: deferred
Assessment and Plan:
I. Embolic right MCA territory cortical infarcts.
II. Vascular encephalopathy
III. Chronic lower back pain with subacute L proximal leg weakness. Grade 1 anterolisthesis.
IV. Left frontal, occipital and temporal cortical hypodensities. Differential diagnosis includes subacute to chronic infarcts(venous) vs HEADWAITRESS lupus vs metastasis.
�No objections to restart Xarelto given the size of the stroke and history of A-fib
-rubber worker consult
-Please obtain medical records from [facility]
-PT
-Outpatient neuropsychological evaluation
-Case was discussed with patient's mother present at bedside
I personally reviewed all radiology and labs along with past medical records pertinent to current medical problems. Total time spent in patient care is 35 minutes.
Thank you for allowing us to participate in the care of this patient. We will continue to follow. Please do not hesitate to contact us with any questions or concerns.
Objective Data
Vital Signs
Temp Pulse Resp BP Pulse Ox
36.9 C 96 17 142/88 93
09/27/24 07:06 09/27/24 07:06 09/27/24 07:06 09/27/24 07:06 09/27/24 07:06
Lab Results
09/27/24 05:58
09/27/24 05:58
Sodium 136 mmol/L (135-145) 09/27/24 05:58
Potassium 3.9 mmol/L (3.5-5.1) D 09/27/24 05:58
BUN 14 mg/dl (7-17) 09/27/24 05:58
Glucose 87 mg/dl (70-99) 09/27/24 05:58
Calcium 8.5 mg/dl (8.4-10.2) 09/27/24 05:58
Patient Allergies
No Known Allergies Allergy (Verified 09/26/24 06:24)
Vital Signs and Labs
-
Vital Signs and Labs:
Vital Signs
Temp Pulse Resp BP Pulse Ox
36.9 C 96 17 142/88 93
09/27/24 07:06 09/27/24 07:06 09/27/24 07:06 09/27/24 07:06 09/27/24 07:06
Lab Results
09/27/24 05:58
09/27/24 05:58
Sodium 136 mmol/L (135-145) 09/27/24 05:58
Potassium 3.9 mmol/L (3.5-5.1) D 09/27/24 05:58
BUN 14 mg/dl (7-17) 09/27/24 05:58
Glucose 87 mg/dl (70-99) 09/27/24 05:58
Calcium 8.5 mg/dl (8.4-10.2) 09/27/24 05:58
Medications
-
Medications:
Generic Name Dose Route Start Last Admin
Trade Name Freq PRN Reason Stop Dose Admin
Acetaminophen 1,000 mg 09/26/24 14:56 09/27/24 13:22
Acetaminophen 500 Mg Tablet PO 10/24/24 14:55 1,000 mg
Q6HPRN PRN Administration
mild pain/fever
Amitriptyline HCl 25 mg 09/26/24 22:00 09/26/24 21:44
Amitriptyline 25 Mg Tablet PO 10/24/24 21:59 25 mg
HS SUMMER Administration
Amlodipine Besylate 10 mg 09/27/24 08:00 09/27/24 08:59
Amlodipine 10 Mg Tablet PO 10/25/24 07:59 10 mg
DAILY SUMMER Administration
Cyclobenzaprine HCl 5 mg 09/26/24 22:00
Cyclobenzaprine 10 Mg Tablet PO 10/24/24 21:59
HSPRN PRN
muscle spasms
Diphenhydramine HCl 25 mg 09/27/24 03:00
Diphenhydramine 50 Mg/Ml 1 Ml Vial IV 10/25/24 01:59
Q8HPRN PRN
headache/nausea
Escitalopram Oxalate 10 mg 09/27/24 08:00 09/27/24 08:59
Escitalopram 10 Mg Tablet PO 10/25/24 07:59 10 mg
DAILY SUMMER Administration
Ferrous Sulfate 325 mg 09/27/24 08:00 09/27/24 08:59
Ferrous Sulfate 325 Mg Tablet PO 10/25/24 07:59 325 mg
DAILY SUMMER Administration
Furosemide 20 mg 09/27/24 08:00 09/27/24 08:59
Furosemide 20 Mg Tablet PO 10/25/24 07:59 20 mg
DAILY SUMMER Administration
Gabapentin 300 mg 09/26/24 22:00 09/27/24 08:58
Gabapentin 300 Mg Capsule PO 10/24/24 21:59 300 mg
TID SUMMER Administration
Hydroxychloroquine Sulfate 200 mg 09/26/24 20:00 09/27/24 08:59
Hydroxychloroquine 200 Mg Tablet PO 10/24/24 19:59 200 mg
BID SUMMER Administration
Ketorolac Tromethamine 10 mg 09/27/24 03:00
Ketorolac 15 Mg/Ml Injection IV 10/02/24 01:59
Q8HPRN PRN
moderate pain/headache
Lidocaine 1 patch 09/26/24 14:00 09/27/24 09:00
Lidocaine 4% Topical Patch TOPICAL 10/24/24 13:59 1 patch
DAILY SUMMER Administration
Protocol
Lisinopril 20 mg 09/27/24 08:00 09/27/24 08:59
Lisinopril 20 Mg Tablet PO 10/25/24 07:59 20 mg
DAILY SUMMER Administration
Lisinopril 10 mg 09/27/24 08:00 09/27/24 09:00
Lisinopril 10 Mg Tablet PO 10/25/24 07:59 10 mg
DAILY SUMMER Administration
Metoclopramide HCl 10 mg 09/27/24 03:00
Metoclopramide 10 Mg/2 Ml Vial IV 10/25/24 01:59
Q8HPRN PRN
headache/nausea
Pantoprazole Sodium 40 mg 09/26/24 20:00 09/27/24 08:59
Pantoprazole 40 Mg Delayed Release Tablet PO 10/24/24 19:59 40 mg
BID SUMMER Administration
Patch Removal 1 patch 09/26/24 20:00 09/26/24 20:42
Remove Lidocaine Patch REMOVE 10/24/24 19:59 1 patch
DAILY@2000 SUMMER Administration
Prednisone 5 mg 09/26/24 20:00 09/27/24 08:59
Prednisone 5 Mg Tablet PO 10/24/24 19:59 5 mg
BID SUMMER Administration
Rivaroxaban 20 mg 09/27/24 08:00 09/27/24 08:59
Rivaroxaban 20 Mg Tablet PO 10/25/24 07:59 20 mg
DAILY SUMMER Administration
Sodium Bicarbonate 650 mg 09/26/24 20:00 09/27/24 08:59
Sodium Bicarbonate 650 Mg Tablet PO 10/24/24 19:59 650 mg
BID SUMMER Administration
Home Medications
-
Home Medications
amitriptyline 25 mg tablet 25 mg PO HS Mental Health 08/10/24
escitalopram oxalate 10 mg tablet (Lexapro) 10 mg PO DAILY Mental Health 08/10/24
ferrous sulfate 325 mg (65 mg iron) tablet 325 mg PO DAILY Supplement 08/10/24
gabapentin 100 mg tablet 300 mg PO BID Pain 08/10/24
hydroxychloroquine 200 mg tablet (Plaquenil) 200 mg PO BID lupus 08/10/24
ondansetron 4 mg disintegrating tablet 4 mg PO Q6HPRN PRN NAUSEA 08/10/24
rivaroxaban 20 mg tablet (Xarelto) 20 mg PO DAILY Blood Clot Prevention/Tx 08/10/24
pantoprazole 40 mg tablet,delayed release 40 mg PO BID #60 tabs 08/14/24
cyclobenzaprine 5 mg tablet 5 mg PO HSPRN PRN muscle spasms 09/21/24
lisinopril 30 mg tablet 30 mg PO DAILY 09/21/24
amlodipine 10 mg tablet 10 mg PO DAILY #30 tabs 09/23/24
furosemide 20 mg tablet (Lasix) 20 mg PO DAILY #30 tabs 09/23/24
acetaminophen 500 mg tablet 1,000 mg PO DAILYPRN PRN mild pain 09/26/24
prednisone 5 mg tablet 5 mg PO BID 09/26/24
sodium bicarbonate 650 mg tablet 650 mg PO BID 09/26/24
--- NOTE | 2024-09-27 14:09 | W.PN.HOSP.TC ---
Today's Communication/Plan
-
PT/OT
Assessment / Plan
Assessment / Plan
Gen-awake, looks chronically ill, NAD
HEENT-NC, AT, anicteric, clear oral mm, alopecia
Neck-supple
CV-reg, no M, +S1/S2
Lungs-clear B/L
Abd-soft, NT, ND
Ext-no edema
Musculoskeletal-cyanosis of digits bilaterally, tender left-sided paraspinal muscles over lumbar region
Skin-warm and dry
Neuro-grossly non-focal
Psych-calm, cooperative
Essential hypertension with hypertensive emergency -presentation with severe blood pressure elevation and acute stroke. Emergency resolved. Blood pressure improved. Unclear compliance with meds at home.
Continue amlodipine, lisinopril, furosemide.
Acute stroke -brain MRI confirms 2 mm focus of restricted diffusion in the superior right parietal lobe, consistent with small acute infarction.
Findings of chronic previous strokes bilaterally. Chronic small vessel ischemic disease.
MRA head and neck without significant vascular occlusion.
Suspect underlying SLE as the etiology of her strokes. Unclear if she has a history of antiphospholipid antibody syndrome or vasculitis.
We need to check records from [facility].
Neurology following. Echo requested by neurology.
Consult PT/OT.
Lower back pain -no reports of falls or trauma. Lumbar spine MRI reviewed, shows multilevel degenerative changes with grade 1 anterolisthesis of L4 on L5, L5 on S1. Minimal canal stenosis, mild bilateral neuroforaminal narrowing at L4-L5. Mild to
moderate right-sided neuroforaminal narrowing and mild left-sided neuroforaminal narrowing at L5-S1.
Suspect musculoskeletal back pain.
Trial of lidocaine patch and analgesics. PT/OT. Continue cyclobenzaprine.
Hypokalemia -improved.
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 Mother wants her to relocate to [place]. She is on hydroxychloroquine and prednisone.
Severe Raynaud's disease
Chronic inflammatory anemia -hemoglobin stable.
Leukopenia -possibly due to SLE. Monitor for now.
Aortic stenosis -mild to moderate on most recent echo.
Tricuspid regurgitation -mild to moderate on most recent echo.
Severe protein calorie malnutrition
GERD
History of cerebral thrombosis -chronic Xarelto. Details unclear.
Stage III colon cancer (2022) -treated with chemotherapy and colon resection with reversal in 2023, subsequent ileostomy reversal July 2024, [facility].
Full code
PT/OT -SNF recommended.
Anticipated Discharge: > 48 hours
Subjective/Interval History
-
Date of Service: September 27, 2024
Patient seen and examined. Headache resolved, abdominal pain improved. Complaining of mild back pain.
Objective Data
-
Labs:
Laboratory Results
09/27/24
05:58
WBC 4.0 L
Hgb 11.4 L
Hct 35.1 L
Plt Count 519 H
Sodium 136
Potassium 3.9 D
Chloride 105
Carbon Dioxide 27
BUN 14
Creatinine 0.6
Glucose 87
Calcium 8.5
Vital Signs:
Vital Signs
Temp Pulse Resp BP Pulse Ox
98.4 F 96 17 142/88 93
09/27/24 07:06 09/27/24 07:06 09/27/24 07:06 09/27/24 07:06 09/27/24 07:06
I&O
09/26/24 09/27/24 09/28/24
05:59 06:59 06:59
Intake Total
Balance
Review of Systems
-
History Source: Patient
All other systems: Reviewed and negative
[2024-09-27 15:00] VITALS: BP 143/93
[2024-09-27] MEDS: ANUSOL HC 25 MG RECTAL (17:31)
[2024-09-27] MEDS: COLACE 100 MG PO (20:38)
[2024-09-27] MEDS: ELAVIL 25 MG PO (22:26)
[2024-09-27 23:09] VITALS: BP 142/83
[2024-09-28 05:30] VITALS: BMI 17.8
[2024-09-28 07:00] VITALS: BP 150/101
[2024-09-28 08:29] LABS: % Immature Granulocytes 1.2 % (0-0.5); % Lymphocytes 32.4 % (20.5-51.1); % Monocytes 12.5 % (1.7-9.3); % Neutrophils 53.9 % (42.2-75.2); Absolute Immature Granulocytes 0.1 10^3/uL (0-0.05); Absolute Lymphocytes 1.3 10^3/uL (1.2-3.4); Absolute Monocytes 0.5 10^3/uL (0.1-0.6); Absolute Neutrophils 2.2 10^3/uL (1.4-6.5); Hematocrit 32.3 % (37.0-47.0); Hemoglobin 10.1 g/dL (12.0-16.0); Mean Corp Hgb Conc. 31.3 g/dL (33.0-37.0); Mean Corpuscular Hgb 28.5 pg (27.0-31.0); Mean Corpuscular Volume 91.2 fL (81.0-99.0); Mean Platelet Volume 8.8 fL (7.4-10.4); Nucleated Red Blood Cells % 0 %; Platelet Count 471 10^3/uL (130-400); Red Blood Cell Count 3.54 10^6/uL (4.20-5.40); Red Cell Dist. Width 19.7 % (11.5-14.5); White Blood Cell Count 4.1 10^3/uL (4.8-10.8)
[2024-09-28] MEDS: SODIUM BICARBONATE 650 MG PO ×2 (08:36→21:46)
[2024-09-28] MEDS: ZESTRIL 20 MG PO (08:36)
[2024-09-28] MEDS: DELTASONE 5 MG PO ×2 (08:36→21:45)
[2024-09-28] MEDS: PROTONIX 40 MG PO ×2 (08:36→21:45)
[2024-09-28] MEDS: PLAQUENIL 200 MG PO ×2 (08:36→21:45)
[2024-09-28] MEDS: LEXAPRO 10 MG PO (08:36)
[2024-09-28] MEDS: FEOSOL 325 MG PO (08:36)
[2024-09-28] MEDS: NORVASC 10 MG PO (08:36)
[2024-09-28] MEDS: LASIX 20 MG PO (08:36)
[2024-09-28] MEDS: COLACE 100 MG PO ×2 (08:37→21:44)
[2024-09-28] MEDS: ZESTRIL 10 MG PO (08:37)
[2024-09-28] MEDS: NEURONTIN 300 MG PO ×3 (08:37→21:46)
[2024-09-28] MEDS: LIDOCAINE 4% PATCH 1 PATCH TOPICAL (08:37)
[2024-09-28] MEDS: XARELTO 20 MG PO (08:37)
--- NOTE | 2024-09-28 11:00 | CM ---
Addendum entered by Luz Elena Richardson 09/28/24 15:21:
tt from UR - LOC to inpatient
Original Note:
Patient seen at bedside.
OBS status-form signed in chart
PTrec SNF
Options reviewed
Referrals to [facility] entered in [facility]
Will need insurance auth
PLAN: SNF, pending bed availability when medically stable, will need ins auth
[2024-09-28 12:55] VITALS: BP 130/80; PULSE 90
[2024-09-28 14:10] LABS: Amphetamines Positive (Negative); Barbiturates Negative (Negative); Benzodiazepines Negative (Negative); Cocaine Negative (Negative)
[2024-09-28 14:11] LABS: Marijuana Positive (Negative); Methamphetamines Negative (Negative)
[2024-09-28 14:12] LABS: Buprenorphine Negative (Negative); Methadone Negative (Negative); Opiates Negative (Negative); Tricyclic Antidepressants Positive (Negative)
[2024-09-28 14:13] LABS: Phencyclidine Negative (Negative)
[2024-09-28 14:34] LABS: Fentanyl, Urine Negative (Negative)
[2024-09-28 15:03] VITALS: BP 123/75
[2024-09-28 15:41] VITALS: BP 123/75; PULSE 90; O2SAT 98
--- NOTE | 2024-09-28 16:16 | W.PN.HOSP.TC ---
Today's Communication/Plan
-
Monitor neurologic status.
Continue anticoagulation and current antihypertensive regimen.
Physical therapy evaluation
Placement to rehab.
Assessment / Plan
Assessment / Plan
Essential hypertension with hypertensive emergency -presentation with severe blood pressure elevation and acute stroke. Emergency resolved. Blood pressure improved. Unclear compliance with meds at home.
Continue amlodipine, lisinopril, furosemide.
Acute stroke
Reported headache upon admission, although with no documented focal neurologic findings on exam.
brain MRI confirms 2 mm focus of restricted diffusion in the superior right parietal lobe, consistent with small acute infarction.
Findings of chronic previous strokes bilaterally. Chronic small vessel ischemic disease.
MRA head and neck without significant vascular occlusion.
Suspect underlying SLE as the etiology of her strokes. Unclear if she has a history of antiphospholipid antibody syndrome or vasculitis.
We need to check records from [facility] requested
Neurology following.
Echocardiogram 09/22/24: LVEF 55-60%. Normal regional wall motions. Normal right ventricular size and function. Dilated left atrium. Mild to moderate aortic stenosis with CASSIE 1.4 cm�
Repeat echocardiogram requested by neurology pending
Presumption new/subacute embolic CVA
Patient has no documented A-fib while multiple admissions at .
Patient cleared to resume Xarelto by neurology
Consult PT/OT.
SNF placement
Hypertension
BP reasonably controlled on current regimen including amlodipine and lisinopril
Nephrotic syndrome suspected.
Likely related to lupus nephritis
Lower back pain -no reports of falls or trauma. Lumbar spine MRI reviewed, shows multilevel degenerative changes with grade 1 anterolisthesis of L4 on L5, L5 on S1. Minimal canal stenosis, mild bilateral neuroforaminal narrowing at L4-L5. Mild to
moderate right-sided neuroforaminal narrowing and mild left-sided neuroforaminal narrowing at L5-S1.
Suspect musculoskeletal back pain.
Trial of lidocaine patch and analgesics. PT/OT. Continue cyclobenzaprine.
Hypokalemia -improved.
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 Mother wants her to relocate to [place]. She is on hydroxychloroquine and prednisone.
Severe Raynaud's disease
Chronic inflammatory anemia -hemoglobin stable.
Leukopenia -possibly due to SLE. Monitor for now.
Severe protein calorie malnutrition
GERD
History of cerebral thrombosis -chronic Xarelto. Details unclear.
Stage III colon cancer (2022) -treated with chemotherapy and colon resection with reversal in 2023, subsequent ileostomy reversal July 2024, [facility].
Full code
PT/OT -SNF recommended.
Anticipated Discharge: Within 24 hours
Subjective/Interval History
-
Date of Service: September 28, 2024
Objective Data
-
Labs:
Laboratory Results
09/28/24
07:12
WBC 4.1 L
Hgb 10.1 L
Hct 32.3 L
Plt Count 471 H
Vital Signs:
Vital Signs
Temp Pulse Resp BP Pulse Ox
99.8 F 90 16 123/75 98
09/28/24 15:03 09/28/24 15:03 09/28/24 15:03 09/28/24 15:03 09/28/24 15:03
I&O
09/27/24 09/28/24 09/29/24
06:59 06:59 06:59
Intake Total 900 / 900
Output Total 300 / 300
Balance 600 / 600
Physical Exam
-
General: Appears Chronically Ill
HEENT: Normocephalic and Atraumatic; Negative Oxygen
Respiratory: Clear to Auscultation; Negative Wheezes or Rhonchi
Cardiac: Regular Rhythm and S1/S2; Negative Murmur
GI: Soft, Nontender, Nondistended, Normal Bowel Sounds and Ostomy
Musculoskeletal: No Clubbing, No Edema and Other (purple warm fingers bilaterally from PIP distal, MCP to PIP red); Negative No Cyanosis
Skin: Other (thin fragile skin); Negative Rash
Neuro: Awake and Alert
Psych: Calm
[2024-09-28 16:49] LABS: Urine Albumin 4+ (Neg - Trace); Urine Bilirubin Negative (Negative); Urine Character Clear (Clear); Urine Color Yellow; Urine Glucose Negative (Negative); Urine Ketone Negative (Negative); Urine Leukocyte Negative (Negative); Urine Nitrite Negative (Negative); Urine Occult Blood Negative (Negative); Urine Urobilinogen Negative (Neg - 1+); Urine pH 6.5 (5.0-9.0)
[2024-09-28 17:19] LABS: Urine Squamous Cell >30 /LPF (Few)
[2024-09-28 17:20] LABS: Urine Bacteria Few (Negative); Urine Red Blood Cell 0-2 /HPF (0-2); Urine White Cell 0-2 /HPF (0-5)
--- NOTE | 2024-09-28 17:25 | W.PN.NEURO.1 ---
Today's Communication / Plan
-
reviewed ECHO report from 09/22/24, no need to repeat ECHO
Neuro Assessment/Plan
Assessment
Brain MRI wo vale-2 mm focus of restricted diffusion within the superior right parietal lobe, chronic infarcts in the left frontal, bilateral temporal and left occipital lobes as well as a lacunar infarction involving the right thalamus.
MRA head/neck-no evidence of dural venous sinus thrombosis, BL tin container straightener,
LS spine MRi wo vale-no evidence of metastasis, significant central or neuroforaminal stenosis.
I don't believe the stroke has any relation to her presenting headache/neck pain/back pain
stroke secondary prevention remains Xarelto 20/day, given Afib by history
Plan
agree, rehab placement
Subjective/Objective
Subjective Data
Date of Service: September 28, 2024
patient reports feeling ok, pain controlled
Objective Data
Vital Signs
Temp Pulse Resp BP Pulse Ox
37.7 C 90 16 123/75 98
09/28/24 15:03 09/28/24 15:03 09/28/24 15:03 09/28/24 15:03 09/28/24 15:03
Lab Results
09/28/24 07:12
09/27/24 05:58
Sodium 136 mmol/L (135-145) 09/27/24 05:58
Potassium 3.9 mmol/L (3.5-5.1) D 09/27/24 05:58
BUN 14 mg/dl (7-17) 09/27/24 05:58
Glucose 87 mg/dl (70-99) 09/27/24 05:58
Calcium 8.5 mg/dl (8.4-10.2) 09/27/24 05:58
Ur Buprenorphine Negative (Negative) 09/28/24 13:12
Patient Allergies
No Known Allergies Allergy (Verified 09/26/24 06:24)
[2024-09-28] MEDS: ELAVIL 25 MG PO (21:46)
[2024-09-28 23:17] VITALS: BP 128/78
[2024-09-29 07:09] VITALS: BP 161/102
[2024-09-29] MEDS: PLAQUENIL 200 MG PO (07:56)
[2024-09-29] MEDS: SODIUM BICARBONATE 650 MG PO (07:56)
[2024-09-29] MEDS: FEOSOL 325 MG PO (07:56)
[2024-09-29] MEDS: DELTASONE 5 MG PO (07:56)
[2024-09-29] MEDS: ZESTRIL 20 MG PO (07:56)
[2024-09-29] MEDS: ZESTRIL 10 MG PO (07:56)
[2024-09-29] MEDS: PROTONIX 40 MG PO (07:56)
[2024-09-29] MEDS: COLACE 100 MG PO (07:56)
[2024-09-29] MEDS: LASIX 20 MG PO (07:56)
[2024-09-29] MEDS: NEURONTIN 300 MG PO (07:56)
[2024-09-29] MEDS: NORVASC 10 MG PO (07:56)
[2024-09-29] MEDS: LIDOCAINE 4% PATCH 1 PATCH TOPICAL (07:56)
[2024-09-29] MEDS: LEXAPRO 10 MG PO (07:56)
[2024-09-29] MEDS: XARELTO 20 MG PO (07:57)
[2024-09-29] MEDS: TYLENOL 1000 MG PO (09:54)
[2024-09-29 09:59] VITALS: BP 127/79
[2024-09-29 10:06] VITALS: BP 127/79; PULSE 93; O2SAT 100
--- NOTE | 2024-09-29 13:57 | W.DS.TRANS ---
DC Summary - Personal Financial Advisor
-
Discharge Instructions:
Discharge Diagnosis/Procedures SLE
Diet Regular
Instructions:
Stand-Alone Forms:
Changes to Home Medications: No
Discharge Medications:
DC Medications w/original date entered in [employer]
amitriptyline 25 mg tablet 25 mg PO HS Mental Health 08/10/24
escitalopram oxalate 10 mg tablet (Lexapro) 10 mg PO DAILY Mental Health 08/10/24
ferrous sulfate 325 mg (65 mg iron) tablet 325 mg PO DAILY Supplement 08/10/24
gabapentin 100 mg tablet 300 mg PO BID Pain 08/10/24
hydroxychloroquine 200 mg tablet (Plaquenil) 200 mg PO BID lupus 08/10/24
ondansetron 4 mg disintegrating tablet 4 mg PO Q6HPRN PRN NAUSEA 08/10/24
rivaroxaban 20 mg tablet (Xarelto) 20 mg PO DAILY Blood Clot Prevention/Tx 08/10/24
pantoprazole 40 mg tablet,delayed release 40 mg PO BID #60 tabs 08/14/24
cyclobenzaprine 5 mg tablet 5 mg PO HSPRN PRN muscle spasms 09/21/24
lisinopril 30 mg tablet 30 mg PO DAILY Blood Pressure 09/21/24
amlodipine 10 mg tablet 10 mg PO DAILY #30 tabs 09/23/24
furosemide 20 mg tablet (Lasix) 20 mg PO DAILY #30 tabs 09/23/24
acetaminophen 500 mg tablet 1,000 mg PO DAILYPRN PRN mild pain 09/26/24
prednisone 5 mg tablet 5 mg PO BID Anti-Inflammatory 09/26/24
sodium bicarbonate 650 mg tablet 650 mg PO BID 09/26/24
Home Medication Changes
Pending Results: No
--- NOTE | 2024-09-29 14:10 | CM ---
Patient seen at bedside
PT rec SNF
Patient declining SNF after discussion
Spoke with patient mother
IMM n/a
Current with [facility] - [facility] & spoke with Marline Maldonado liaaleyda
PLAN: Home with [facility], RN/PT/OT/RACE RELATIONS ADVISER/BRITTNEE
FAX #: [phone]
[2024-09-29 15:00] VITALS: BP 136/82
== END 2024-09-29 15:31 | disposition home health service (06) | DRG 545 ==
LOC: 2 NORTH 13:43
PROVIDERS: Hospitalist; Physician Assistant Medical; ADMITTING PHYSICIAN Hospitalist; ATTENDING PHYSICIAN Internal Medicine; CONSULT PHYSICIAN Psychiatry & Neurology Neurology; EMERGENCY PHYSICIAN Emergency Medicine; FAMILY PHYSICIAN Family Medicine
DX: M32.9 Systemic lupus erythematosus, unspecified (principal); E43 Unspecified severe protein-calorie malnutrition; Z68.1 Body mass index [BMI] 19.9 or less, adult; I27.20 Pulmonary hypertension, unspecified; I10 Essential (primary) hypertension; M54.50 Low back pain, unspecified; I73.00 Raynaud's syndrome without gangrene; D72.819 Decreased white blood cell count, unspecified; I35.0 Nonrheumatic aortic (valve) stenosis; K21.9 Gastro-esophageal reflux disease without esophagitis; Z86.73 Personal history of transient ischemic attack (TIA), and cerebral infarction without residual deficits; Z79.01 Long term (current) use of anticoagulants; Z85.038 Personal history of other malignant neoplasm of large intestine; Z92.21 Personal history of antineoplastic chemotherapy
CPT/HCPCS: 70450; 70544; 70548; 70551; 72158; 74176; 80048; 80053; 80306; 80307; 81003; 81015; 82550; 83735; 84443; 85025; 85027; 85652; 86140; 92610; 96374; 96375; 96376; 97116; 97129; 97162; 97167; 97530; 97535; 99285; A9585

== ENCOUNTER 2024-11-19 13:45 | Emergency (ER) | payer OTHER, SELFPAY ==
[2024-11-19 13:49] VITALS: BP 152/103
[2024-11-19 15:35] VITALS: BP 160/99
--- NOTE | 2024-11-19 15:53 | ED.GENMED ---
History of Present Illness
<Salma Cotton PA-C - Last Filed: 11/19/24 21:18>
General
Chief Complaint: Swelling
Source: patient
Exam Limitations: none
Time Seen by Provider: 11/19/24 15:47
Nursing documentation reviewed up to this point in time: agreed with
History of Present Illness
History of Present Illness:
Patient is a 55-year-old female history hypertension, lupus, colon CA status post colostomy/ileostomy with reversal presenting to the emergency department with multiple complaints today. Patient reports full body pain and itchiness of skin. She
reports red rash on her face, trunk, back, and arms. Patient states she also had some swelling around her eyes and feels that her lower extremities are swollen, as well. Patient states she has frequent diarrhea and supplies feels that she is
unable to control her bowels.
Patient does report feeling as if her abdomen is mildly distended and has diffuse abdominal pain. She did recently have a CT scan performed at [facility]. She has been unable to follow-up on results of this yet.
Patient denies any recent fever, headache, chest pain, or shortness of breath/difficulty breathing. She is scheduled to see her pasteurizer later in the month at [facility].
Patient has a history of
Past History
<Salma Cotton PA-C - Last Filed: 11/19/24 21:18>
Past History
ED Past Medical History: Other (Lupus, colon cancer, HTN, Raynaud's, immunocompromised, reflux, coronary artery disease, etc. etc.)
ED Past Surgical History: Bowel resection and Other ( colon tumor resected colostomy reversal, 2023, ileostomy reversal on 08/21/2024)
Social History
Tobacco: Non-smoker
Alcohol: None
Drug: None
Personal: Single
Living: with family (daughter)
Review of Systems
<Salma Cotton PA-C - Last Filed: 11/19/24 21:18>
Review of Systems
Allergies reviewed?: Yes
All Other Systems: ROS reviewed and negative except as documented in HPI and ROS
Phy Exam
<Salma Cotton PA-C - Last Filed: 11/19/24 21:18>
Physical Exam
Physical Exam:
Vitals: Hypertensive, otherwise vital signs stable. Afebrile
General: Patient is chroncially ill appearing. No apparent distress
Skin: Diffuse erythematous maculopapular rash/hyperpigmentation of face, neck, back, and bilateral upper arms.
Head: Normocephalic, atraumatic
Eyes: Mild bilateral periorbital edema. Sclera nonicteric. EOMs intact. No nystagmus.
Throat: Protecting airway
Neck: Normal ROM, no cervical spine tenderness, no meningismus
Cardiac: Regular rate and rhythm, no murmurs.
Pulm: Normal respiratory effort, no wheezes, rales, rhonchi heard on exam.
Abdomen: Mild distention. Diffuse abdominal tenderness..
Extremities: Mild edema of bilateral feet. No evidence of cyanosis
Neuro: AAOx3. CN II-XII intact. No focal neurologic deficits.
Psychiatric: Normal affect.
Scores
<Salma Cotton PA-C - Last Filed: 11/19/24 21:18>
Heart Failure Risk
Heart Failure Risk Score: Not Applicable
Course
<Salma Cotton PA-C - Last Filed: 11/19/24 21:18>
Orders/Labs/Results
Orders:
Orders
11/19/24 16:15
CR Chest - 2 Views Urgent
Comment:
Reason For Exam: swelling
11/19/24 16:16
HYDROmorphone [Dilaudid] 0.25 mg IV NOW STA
11/19/24 16:28
CRP [C-Reactive Protein] Urgent
Complete Blood Count/With Diff Urgent
Comprehensive Metabolic Panel Urgent
ESR [Erythrocyte Sed Rate] Urgent
Lipase Urgent
Magnesium Urgent
NT-proBNP Urgent
Total CK [Creatine Phosphokinase] Urgent
11/19/24 17:16
Diphenhydramine [Benadryl] 25 mg PO NOW STA
11/19/24 18:34
Complement C3 Urgent
Complement C4 Urgent
Protein/Creat Ratio (Random) Urgent
Date Specimen was Collected: 11/19/24
Time Specimen was Collected: 18:33
Comment: ADDON
Urinalysis Reflex To Culture Urgent
Date Specimen was Collected: 11/19/24
Time Specimen was Collected: 18:33
Urine Microscopic Reflex Cult Urgent
Urine Protein Urgent
Urine Protein/Creat Ratio (Random) [Protein/Creat Ratio (Random)] Urgent
11/19/24 18:43
Add On- LAB Urgent
Tests Added?: Complement C3 and C4
11/19/24 19:29
Add On- LAB Urgent
Tests Added?: urine protein:creatine ratio
11/19/24 20:57
HYDROmorphone [Dilaudid] 0.5 mg IV NOW STA
Prednisone [Deltasone] 40 mg PO NOW STA
Abnormal Lab Results
11/19/24 11/19/24
16:28 18:34
WBC 4.4 L 10^3/uL
(4.8-10.8)
RBC 3.55 L 10^6/uL
(4.20-5.40)
Hgb 10.5 L g/dL
(12.0-16.0)
Hct 32.5 L %
(37.0-47.0)
MCHC 32.3 L g/dL
(33.0-37.0)
RDW 15.9 H %
(11.5-14.5)
Plt Count 425 H 10^3/uL
(130-400)
Abs Immat Gran (auto) 0.1 H 10^3/uL
(0-0.05)
Immature Gran % 2.3 H %
(0-0.5)
Monocytes % 12.0 H %
(1.7-9.3)
ESR 27 H mm/hour
(0-20)
Chloride 110 H mmol/L
(98-107)
Calcium 7.9 L mg/dl
(8.4-10.2)
Total Protein 4.6 L g/dl
(6.3-8.2)
Albumin 2.1 L g/dl
(3.5-5.0)
Urine Bacteria (Reflex) Few A
(Negative)
Urine Albumin (Reflex) 3+ A
(Neg - Trace)
11/19/24 16:28
11/19/24 16:28
Vital Signs
Initial and Last Documented VS:
Initial Vital Signs
Temp Pulse Resp BP
98.1 F 96 18 152/103
11/19/24 13:49 11/19/24 13:49 11/19/24 13:49 11/19/24 13:49
Last Documented Vital Signs
Temp Pulse Resp BP Pulse Ox
98.1 F 81 16 147/89 95
11/19/24 13:49 11/19/24 20:41 11/19/24 20:41 11/19/24 20:41 11/19/24 20:41
Yanalt;Alexy Arellano, DO - Last Filed: 11/19/24 18:13>
Orders/Labs/Results
Orders:
Orders
11/19/24 16:15
CR Chest - 2 Views Urgent
Comment:
Reason For Exam: swelling
11/19/24 16:16
HYDROmorphone [Dilaudid] 0.25 mg IV NOW STA
11/19/24 16:28
CRP [C-Reactive Protein] Urgent
Complete Blood Count/With Diff Urgent
Comprehensive Metabolic Panel Urgent
ESR [Erythrocyte Sed Rate] Urgent
Lipase Urgent
Magnesium Urgent
NT-proBNP Urgent
Total CK [Creatine Phosphokinase] Urgent
11/19/24 17:16
Diphenhydramine [Benadryl] 25 mg PO NOW STA
11/19/24 18:34
Complement C3 Urgent
Complement C4 Urgent
Protein/Creat Ratio (Random) Urgent
Date Specimen was Collected: 11/19/24
Time Specimen was Collected: 18:33
Comment: ADDON
Urinalysis Reflex To Culture Urgent
Date Specimen was Collected: 11/19/24
Time Specimen was Collected: 18:33
Urine Microscopic Reflex Cult Urgent
Urine Protein Urgent
Urine Protein/Creat Ratio (Random) [Protein/Creat Ratio (Random)] Urgent
11/19/24 18:43
Add On- LAB Urgent
Tests Added?: Complement C3 and C4
11/19/24 19:29
Add On- LAB Urgent
Tests Added?: urine protein:creatine ratio
11/19/24 20:57
HYDROmorphone [Dilaudid] 0.5 mg IV NOW STA
Prednisone [Deltasone] 40 mg PO NOW STA
Abnormal Lab Results
11/19/24 11/19/24
16:28 18:34
WBC 4.4 L 10^3/uL
(4.8-10.8)
RBC 3.55 L 10^6/uL
(4.20-5.40)
Hgb 10.5 L g/dL
(12.0-16.0)
Hct 32.5 L %
(37.0-47.0)
MCHC 32.3 L g/dL
(33.0-37.0)
RDW 15.9 H %
(11.5-14.5)
Plt Count 425 H 10^3/uL
(130-400)
Abs Immat Gran (auto) 0.1 H 10^3/uL
(0-0.05)
Immature Gran % 2.3 H %
(0-0.5)
Monocytes % 12.0 H %
(1.7-9.3)
ESR 27 H mm/hour
(0-20)
Chloride 110 H mmol/L
(98-107)
Calcium 7.9 L mg/dl
(8.4-10.2)
Total Protein 4.6 L g/dl
(6.3-8.2)
Albumin 2.1 L g/dl
(3.5-5.0)
Urine Bacteria (Reflex) Few A
(Negative)
Urine Albumin (Reflex) 3+ A
(Neg - Trace)
11/19/24 16:28
11/19/24 16:28
Vital Signs
Initial and Last Documented VS:
Initial Vital Signs
Temp Pulse Resp BP
98.1 F 96 18 152/103
11/19/24 13:49 11/19/24 13:49 11/19/24 13:49 11/19/24 13:49
Last Documented Vital Signs
Temp Pulse Resp BP Pulse Ox
98.1 F 81 16 147/89 95
11/19/24 13:49 11/19/24 20:41 11/19/24 20:41 11/19/24 20:41 11/19/24 20:41
<Salma Cotton PA-C - Last Filed: 11/19/24 21:18>
MDM/Problems Addressed
Differential Diagnosis Includes:
Not limited to: Lupus flare, lupus nephritis, electrolyte abnormality, rhabdomyolysis, congestive heart failure, etc.
MDM/Problems Addressed:
54-year-old female with history as documented presenting with multiple symptoms including periorbital edema, with new rash, full body aching with known history of lupus. No fever, chest pain, shortness of breath. Patient hypertensive on arrival,
otherwise stable vital signs. Physical exam as above. Patient chronically ill-appearing although in no acute distress. She does have a significant maculopapular rash of head, neck, trunk, upper extremities. Mild distention of abdomen with
diffuse tenderness. Cardio/pulmonary assessment unremarkable. Differential broad at this time although concern for possible acute lupus flare. Patient had recent CT scan performed of abdomen and I was personally reviewed results which showed no
acute findings. Will check screening labs, inflammatory markers, chest x-ray given edema. Will treat pain and reassess.
Update: Labs reviewed. Mild leukopenia and anemia. Mild elevation in ESR to 27. Chemistry relatively unremarkable. Chest x-ray without acute findings. Given known lupus�will attempt to contact patient's pasteurizer at [facility].
Update: Case discussed with [facility] rheumatology, Pamela Arteaga. Will send additional labs including C3, C4 and urinalysis and urine protein: Creatinine ratio. Will touch base with rheumatology once these result for disposition planning, possible
discharge home versus transfer to [facility].
Update 9 PM: Urinalysis and additional labs discussed with [facility] rheumatology on-call. These results were sent over the patient's primary pasteurizer, as well for interpretation. Apparently 3+ urine protein is baseline for patient. They
ultimately feel symptoms secondary to acute lupus flare although feel that patient is stable for discharge home with very close patient rheumatology follow-up in a few days. They will contact her for outpatient appointment. I feel this is a
reasonable option at this time. Patient's vital signs have normalized. Will plan to start prednisone taper course as directed by rheumatology. Advised patient to take all other home medications as prescribed. Return precautions discussed.
Patient and patient's daughter comfortable with plan. Patient will go home with her daughter who lives with her and will monitor closely for worsening symptoms.
Chronic conditions affecting care:
Hypertension, SLE
Acute Exacerbation and/or Progression of Chronic Illness:
Acute lupus flare
<Salma Cotton PA-C - Last Filed: 11/19/24 21:18>
*Radiology
Radiology exam reviewed: preliminary read by ED provider (Chest x-ray reviewed by me-no acute abnormalities) and radiology read reviewed
*Pulse Oximetry
Patient hypoxic: no
*EKG
Interpreted by ED Provider?: NA
*Registered Nurse Teacher Interpretation
Rate: Registered Nurse Teacher- N/A
*Critical Care Note
Total Time (30-74mins, 75-104mins- exclusive of procedures): Not Applicable
<Salma Cotton PA-C - Last Filed: 11/19/24 21:18>
Patient Management
Discussion with other providers: [facility] (Case discussed with rheumatology at [facility])
ED Attending Note
<Salma Cotton PA-C - Last Filed: 11/19/24 21:18>
-
Portions of this chart may have been created with voice recognition software.� Occasional wrong word or��sound alike� substitutions may have occurred due to the inherent limitations of voice recognition software.
<Alexy Arellano, - Last Filed: 11/19/24 18:13>
ED Attending Note
Patient seen and examined by attending physician: Yes
I performed the substantive portion of visit, reviewed & personally made and approve the management plan that is documented in note by myself or RICK.: Yes
ED Attending Note:
I agree with Tete's note
Patient presents with a multitude of symptoms but primarily it appears she is here because she feels less energy, has an exacerbation of her chronic rash and has difficulty controlling her bowel movements since having reversal of ileostomy in
July. From a rash standpoint the patient noted that her chronic rash has become much more erythematous than normal. She feels her face is more swollen than baseline. Her rash is very pruritic to the point of being painful. She has had
decreased appetite and oral intake. She denies any fever. She denies any shortness of breath. Patient also noted that she has had difficulty controlling bowel movements since having an ileostomy reviews. Because of this her hemorrhoids are
inflamed making it difficult for her to sit. She has back pain which appears to be chronic but is bothering her more than baseline.
General: Awake, Alert, Oriented X3. Appears chronically ill but in no distress
Vitals: unremarkable
Head: Atraumatic
Eyes: Pupils equal, EOMI
Throat: Airway intact, no exudates dry mucosa
Neck: Trachea midline
Lungs: Clear and equal b/l
Heart: Regular rate, no murmurs
Abd: Soft, mild, diffuse discomfort without rebound, No pulsatile mass
Neuro: Nonfocal
Skin: Warm, dry, diffuse macular papular rash and plaques which exists over her entire body
Extremities: pulses equal b/l, 1+ edema
Labs drawn here show a mildly low white blood cell count which is consistent with other measurements. She has mild anemia which is also consistent with previous measurements. Her renal function is normal as most of her chemistries.
No evidence for an acute infectious process. Wonder if this is a little a flare of her lupus. Manage will try to discuss with the patient's pasteurizer at [facility].
Discharge Plan
Departure
Patient Disposition: Home (Routine Discharge)
Date of Disposition: 11/19/24
Time of Disposition: 20:58
Patient with high blood pressure during this ER visit?: Yes
Condition: Good
Covid-19: Not Applicable
Discharge Problem:
Acute systemic lupus erythematosus
Instructions: Lupus and kidney disease
Prescriptions:
New
prednisone 10 mg tablet
10 mg PO DIRECTED Qty: 50 0RF
Rx Instructions:
Take 40mg (4 tabs) PO x 3 days, then 30mg (3 tabs) PO x 4 days, then 20mg (2 tabs) PO x 4 days, then 10mg PO daily
oxycodone 5 mg tablet
5 mg PO Q6H PRN (Reason: Pain) Qty: 10 0RF
No Action
amitriptyline 25 mg Tablet
25 mg PO HS
ferrous sulfate 325 mg (65 mg iron) Tablet
325 mg PO DAILY
hydroxychloroquine [Plaquenil] 200 mg Tablet
200 mg PO BID
ondansetron 4 mg Tablet,Disintegrating
4 mg PO Q6HPRN PRN (Reason: NAUSEA)
escitalopram oxalate [Lexapro] 10 mg Tablet
10 mg PO DAILY
gabapentin 100 mg Tablet
300 mg PO BID
Xarelto 20 mg Tablet
20 mg PO DAILY
pantoprazole 40 mg Tablet,Delayed Release (Dr/Ec)
40 mg PO BID Qty: 60 0RF
lisinopril 30 mg Tablet
30 mg PO DAILY
cyclobenzaprine 5 mg Tablet
5 mg PO HSPRN PRN (Reason: muscle spasms)
amlodipine 10 mg Tablet
10 mg PO DAILY Qty: 30 0RF
furosemide [Lasix] 20 mg tablet
20 mg PO DAILY Qty: 30 0RF
prednisone 5 mg Tablet
5 mg PO BID
acetaminophen 500 mg Tablet
1,000 mg PO DAILYPRN PRN (Reason: mild pain)
sodium bicarbonate 650 mg Tablet
650 mg PO BID
Referrals:
Bhargavi Thompson MD [Non-Admitting Privileges] - Tomorrow
Bob Urban MD [Family Provider] -
Activity Restrictions/Additional Instructions:
RETURN TO THE EMERGENCY DEPARTMENT WITH ANY INTRACTABLE PAIN, CHEST PAIN, SHORTNESS OF BREATH, INABILITY TO PRODUCE URINE, WORSENING IN CURRENT SYMPTOMS, OR ANY OTHER CONCERNS
- As discussed�I suspect you are having a flare of your lupus. Your presentation was discussed at length with your pasteurizer at [facility].as recommended by your pasteurizer�a steroid taper course was sent to your pharmacy. You were given your
first dose in the emergency department and should resume this tomorrow. You should continue to take all your other medication prescribed.
- You should continue to take Tylenol as needed for pain. For severe pain you can take oxycodone. This will cause drowsiness and do not take prior to driving. Do not take your home alone.
- Continue to stay well-hydrated.
- Follow-up with your pasteurizer in a few days for further evaluation/management
Monitor your symptoms closely and return to the emergency department with any acute worsening/new symptoms or any other concerns
Interventions
Interventions:
*Risk Screen - Suicide Last Done: 11/19/24 13:54
*General Assessment Last Done: 11/19/24 13:49
*Neglect/Abuse Screening Last Done: 11/19/24 14:41
*ED- Fall Risk Assessment Last Done: 11/19/24 14:41
*ED COVID-19 Vaccine History Last Done: 11/19/24 13:49
*Nursing Disposition Last Done: 11/19/24 21:07
ED- Cardiac Assessment Last Done: 11/19/24 15:38
ED- Pulmonary Assessment Last Done: 11/19/24 14:41
ED-Skin Assessment Last Done: 11/19/24 15:38
Discharge Date and Time
Print Language: SERBIAN
[2024-11-19] MEDS: DILAUDID 0.25 MG IV (16:30)
[2024-11-19 16:51] LABS: ALT (SGPT) 11 U/L (0-35); AST (SGOT) 22 U/L (14-36); Albumin 2.1 g/dl (3.5-5.0); Alkaline Phosphatase 76 U/L (38-126); Blood Urea Nitrogen 15 mg/dl (7-17); Calcium 7.9 mg/dl (8.4-10.2); Carbon Dioxide 27 mmol/L (22-30); Chloride 110 mmol/L (98-107); Creatine Phosphokinase 49 U/L (30-135); Glucose 74 mg/dl (70-99); Lipase 170 U/L (23-300); Magnesium 1.7 mg/dl (1.6-2.3); Potassium 4.1 mmol/L (3.5-5.1); Sodium 137 mmol/L (135-145); Total Bilirubin 0.2 mg/dl (0.2-1.3); Total Protein 4.6 g/dl (6.3-8.2); eGFR > 60.00
[2024-11-19 16:53] LABS: C-Reactive Protein < 5.00 mg/L (0.0-10.00)
[2024-11-19 16:59] LABS: NT-proBNP 782 pg/ml
[2024-11-19 17:03] LABS: Hematocrit 32.5 % (37.0-47.0); Hemoglobin 10.5 g/dL (12.0-16.0); Mean Corp Hgb Conc. 32.3 g/dL (33.0-37.0); Mean Corpuscular Hgb 29.6 pg (27.0-31.0); Mean Corpuscular Volume 91.5 fL (81.0-99.0); Mean Platelet Volume 9.1 fL (7.4-10.4); Platelet Count 425 10^3/uL (130-400); Red Blood Cell Count 3.55 10^6/uL (4.20-5.40); Red Cell Dist. Width 15.9 % (11.5-14.5); White Blood Cell Count 4.4 10^3/uL (4.8-10.8)
[2024-11-19 17:09] LABS: % Basophils 0.5 % (0-2); % Eosinophils 1.4 % (0-6); % Immature Granulocytes 2.3 % (0-0.5); % Lymphocytes 30.9 % (20.5-51.1); % Neutrophils 52.9 % (42.2-75.2); Absolute Eosinophils 0.1 10^3/uL (0-0.7); Absolute Immature Granulocytes 0.1 10^3/uL (0-0.05); Absolute Lymphocytes 1.4 10^3/uL (1.2-3.4); Absolute Monocytes 0.5 10^3/uL (0.1-0.6); Absolute Neutrophils 2.3 10^3/uL (1.4-6.5); Nucleated Red Blood Cells % 0 %
[2024-11-19] MEDS: BENADRYL 25 MG PO (17:19)
[2024-11-19 17:20] VITALS: BP 176/103
[2024-11-19 17:33] LABS: Erythrocyte Sed Rate 27 mm/hour (0-20)
[2024-11-19 18:42] LABS: Urine Albumin 3+ (Neg - Trace); Urine Bilirubin Negative (Negative); Urine Character Clear (Clear); Urine Color Yellow; Urine Glucose Negative (Negative); Urine Ketone Negative (Negative); Urine Leukocyte Negative (Negative); Urine Nitrite Negative (Negative); Urine Occult Blood Negative (Negative); Urine Urobilinogen Negative (Neg - 1+)
[2024-11-19 18:49] LABS: Urine Squamous Cell 16-20 /LPF (Few)
[2024-11-19 18:51] LABS: Urine Bacteria Few (Negative); Urine Red Blood Cell 0-2 /HPF (0-2)
[2024-11-19 19:34] LABS: Complement C3 90 mg/dl (88-165)
[2024-11-19 20:31] LABS: Protein/creatinine Ratio 13.6; Urine Protein 381 mg/dl
[2024-11-19 20:41] VITALS: BP 147/89
[2024-11-19] MEDS: DILAUDID 0.5 MG IV (21:04)
[2024-11-19] MEDS: DELTASONE 40 MG PO (21:04)
== END 2024-11-19 21:15 | disposition home or self-care (01) ==
LOC: EMR 13:45
PROVIDERS: Physician Assistant; EMERGENCY PHYSICIAN Emergency Medicine; FAMILY PHYSICIAN Family Medicine
DX: M32.9 Systemic lupus erythematosus, unspecified (principal); I11.9 Hypertensive heart disease without heart failure; I25.10 Atherosclerotic heart disease of native coronary artery without angina pectoris; I73.00 Raynaud's syndrome without gangrene; D64.9 Anemia, unspecified; Z85.038 Personal history of other malignant neoplasm of large intestine; Z93.3 Colostomy status
CPT/HCPCS: 99283; 96374; 96376; 71046; 80053; 81003; 81015; 82550; 82570; 83690; 83735; 83880; 84156; 85025; 85652; 86140; 86160

== ENCOUNTER 2025-01-31 08:00 | Emergency (ER) | payer OTHER, SELFPAY ==
[2025-01-31 08:02] VITALS: BP 153/96
--- NOTE | 2025-01-31 08:22 | ED.GENMED ---
History of Present Illness
General
Chief Complaint: Abdominal Pain
Source: patient
Time Seen by Provider: 01/31/25 08:12
History of Present Illness
History of Present Illness:
54-year-old female presents to the emergency room complaining of abdominal pain after a fall. Patient has a complex medical history including systemic lupus erythematosus and colon cancer requiring bowel resection and an ileostomy. The ileostomy
was recently reversed at [facility]. Patient was suffering with constipation and began taking MiraLAX on Saturday. Through the course of the night this morning she was having the urgency to have a bowel movement and noted she had diarrhea. She fell
while going to the bathroom and now has pain in her abdomen. She is also been experiencing diarrhea which has been difficult for her to control.
Past History
Past History
ED Past Medical History: Other (Lupus, colon cancer, HTN, Raynaud's, immunocompromised, reflux, coronary artery disease, etc. etc.)
ED Past Surgical History: Bowel resection and Other ( colon tumor resected colostomy reversal, 2023, ileostomy reversal on 08/21/2024)
Social History
Tobacco: Non-smoker
Alcohol: None
Drug: None
Personal: Single
Living: with family (daughter)
Phy Exam
Physical Exam
Physical Exam:
General: Awake, Alert, Oriented X3. No acute distress.
Vitals: unremarkable
Head: Atraumatic
Eyes: Pupils equal, EOMI
Throat: Airway intact, no exudates
Neck: Trachea midline
Lungs: Clear and equal b/l
Heart: Regular rate, no murmurs
Abd: Soft, abdominal distention, incisions from recent surgery well-healed, small abrasion noted to the anterior abdomen, mildly diffusely tender without rebound no pulsatile mass
Neuro: Nonfocal
Skin: Warm, dry, rash secondary to lupus
Extremities: pulses equal b/l, 1+ edema
Course
Orders/Labs/Results
Orders:
Orders
01/31/25 08:20
CT Abd/pel W Iv And Oral Contr Urgent
Comment:
Reason For Exam: abd pain after a fall
Iohexol [Omnipaque] See Protocol PO NOW STA
01/31/25 08:24
Ketorolac [Toradol] 15 mg IV NOW STA
01/31/25 09:14
Complete Blood Count/With Diff Urgent
Comprehensive Metabolic Panel Urgent
Abnormal Lab Results
01/31/25
09:14
WBC 16.2 H 10^3/uL
(4.8-10.8)
MCHC 32.3 L g/dL
(33.0-37.0)
RDW 17.7 H %
(11.5-14.5)
Plt Count 500 H 10^3/uL
(130-400)
Abs Immat Gran (auto) 0.4 H 10^3/uL
(0-0.05)
Absolute Neuts (auto) 13.2 H 10^3/uL
(1.4-6.5)
Absolute Monos (auto) 1.1 H 10^3/uL
(0.1-0.6)
Immature Gran % 2.3 H %
(0-0.5)
Neutrophils % 81.5 H %
(42.2-75.2)
Lymphocytes % 9.1 L %
(20.5-51.1)
Chloride 113 H mmol/L
(98-107)
BUN 34 H mg/dl
(7-17)
Glucose 109 H mg/dl
(70-99)
Total Protein 5.8 L g/dl
(6.3-8.2)
Albumin 3.1 L g/dl
(3.5-5.0)
01/31/25 09:14
01/31/25 09:14
Vital Signs
Initial and Last Documented VS:
Initial Vital Signs
Temp Pulse Resp BP Pulse Ox
98.2 F 52 26 153/96 88
01/31/25 08:02 01/31/25 08:02 01/31/25 08:02 01/31/25 08:02 01/31/25 08:02
Last Documented Vital Signs
Temp Pulse Resp BP Pulse Ox
98.2 F 87 18 167/98 97
01/31/25 08:02 01/31/25 13:45 01/31/25 13:45 01/31/25 13:00 01/31/25 13:15
MDM/Problems Addressed
Differential Diagnosis Includes:
Abdominal wall contusion, hernia, diverticulitis
MDM/Problems Addressed:
Patient presents to the emergency room with pain in her abdomen after a fall. She is also been having frequent stools which is temporally associated with her starting to use MiraLAX. Labs show a mildly elevated white blood cell count. CT report
shows a left ventral hernia with some associated fluid. Patient is not particular tender over this hernia however. I do not believe there is evidence of an actual incarcerated or strangulated omentum here. There is no bowel in the hernia.
Remainder of the CAT scan shows chronic changes but nothing acute. Suspect patient's diffuse abdominal discomfort is more related to her recent fall. Stable for discharge home.
*Radiology
Radiology exam reviewed: radiology read reviewed
*Pulse Oximetry
SaO2: 88
Patient hypoxic: no
Comment: repeat 98 and has remained normal. Likely spurious initial measurment
*Critical Care Note
Total Time (30-74mins, 75-104mins- exclusive of procedures): Not Applicable
ED Attending Note
-
Portions of this chart may have been created with voice recognition software.� Occasional wrong word or��sound alike� substitutions may have occurred due to the inherent limitations of voice recognition software.
Discharge Plan
Departure
Patient Disposition: Home (Routine Discharge)
Date of Disposition: 01/31/25
Time of Disposition: 13:18
Patient with high blood pressure during this ER visit?: Yes
Condition: Good
Discharge Problem:
Abdominal contusion
Instructions: Contusion (DC), Abdominal Pain
Prescriptions:
No Action
amitriptyline 25 mg Tablet
25 mg PO HS
ferrous sulfate 325 mg (65 mg iron) Tablet
325 mg PO DAILY
hydroxychloroquine [Plaquenil] 200 mg Tablet
200 mg PO BID
escitalopram oxalate [Lexapro] 10 mg Tablet
10 mg PO DAILY
gabapentin 100 mg Tablet
300 mg PO BID
Xarelto 20 mg Tablet
20 mg PO DAILY
lisinopril 30 mg Tablet
30 mg PO DAILY
cyclobenzaprine 5 mg Tablet
5 mg PO HSPRN PRN (Reason: muscle spasms)
furosemide [Lasix] 20 mg tablet
20 mg PO DAILY Qty: 30 0RF
acetaminophen 500 mg Tablet
1,000 mg PO DAILYPRN PRN (Reason: mild pain)
atorvastatin 40 mg tablet
40 mg PO DAILY
amlodipine 5 mg tablet
5 mg PO DAILY
folic acid 1 mg tablet
1 mg PO DAILY
tacrolimus 1 mg capsule
1 mg PO DAILY
prednisone 10 mg tablet
10 mg PO DAILY
pantoprazole 40 mg tablet,delayed release (DR/EC)
40 mg PO DAILY
Referrals:
Bob Urban MD [Family Provider, Family Practice]
Interventions
Interventions:
*Risk Screen - Suicide Last Done: 01/31/25 08:02
*General Assessment Last Done: 01/31/25 08:02
*Neglect/Abuse Screening Last Done: 01/31/25 08:02
*ED- Fall Risk Assessment Last Done: 01/31/25 09:00
*ED COVID-19 Vaccine History Last Done: 01/31/25 09:00
*Nursing Disposition Last Done: 01/31/25 14:07
MY-Cdaurq-Yxqdbrffst Assessment Last Done: 01/31/25 09:00
ED-Musculoskeletal Assessment Last Done: 01/31/25 09:00
ED- Neurological Assessment Last Done: 01/31/25 09:00
ED-Skin Assessment Last Done: 01/31/25 09:00
Discharge Date and Time
Discharge Date/Time: 01/31/25 14:10
Print Language: JAPANESE
[2025-01-31 09:00] VITALS: BMI 24.1
[2025-01-31] MEDS: OMNIPAQUE 50 ML PO (09:16)
[2025-01-31] MEDS: TORADOL 15 MG IV (09:16)
[2025-01-31 09:28] LABS: Hematocrit 39.9 % (37.0-47.0); Hemoglobin 12.9 g/dL (12.0-16.0); Mean Corp Hgb Conc. 32.3 g/dL (33.0-37.0); Mean Corpuscular Volume 92.4 fL (81.0-99.0); Nucleated Red Blood Cells % 0 %; Platelet Count 500 10^3/uL (130-400); Red Cell Dist. Width 17.7 % (11.5-14.5)
[2025-01-31 09:55] LABS: ALT (SGPT) 14 U/L (0-35); AST (SGOT) 15 U/L (14-36); Albumin 3.1 g/dl (3.5-5.0); Alkaline Phosphatase 70 U/L (38-126); Blood Urea Nitrogen 34 mg/dl (7-17); Calcium 9.2 mg/dl (8.4-10.2); Carbon Dioxide 22 mmol/L (22-30); Chloride 113 mmol/L (98-107); Estimated Creatinine Clearance 59 ml/min; Glucose 109 mg/dl (70-99); Potassium 4.3 mmol/L (3.5-5.1); Sodium 137 mmol/L (135-145); Total Protein 5.8 g/dl (6.3-8.2); eGFR > 60.00
[2025-01-31 11:53] VITALS: BP 171/93
[2025-01-31 11:56] VITALS: BP 171/93
[2025-01-31 12:00] VITALS: BP 145/96
[2025-01-31 13:00] VITALS: BP 167/98
== END 2025-01-31 14:10 | disposition home or self-care (01) ==
LOC: EMR 08:00
PROVIDERS: EMERGENCY PHYSICIAN Emergency Medicine; FAMILY PHYSICIAN Family Medicine
DX: S30.1XXA Contusion of abdominal wall, initial encounter (principal); W18.39XA Other fall on same level, initial encounter; M32.9 Systemic lupus erythematosus, unspecified; I10 Essential (primary) hypertension; I25.10 Atherosclerotic heart disease of native coronary artery without angina pectoris; I73.00 Raynaud's syndrome without gangrene; Z85.038 Personal history of other malignant neoplasm of large intestine
CPT/HCPCS: 99284; 96374; 74177; 80053; 85025; Q9967

== ENCOUNTER 2025-04-01 10:44 | Emergency (ER) | payer OTHER, SELFPAY ==
[2025-04-01 10:51] VITALS: BP 170/100; BMI 22.9
--- NOTE | 2025-04-01 10:56 | ED.GENMED ---
History of Present Illness
General
Chief Complaint: Back Pain
Source: patient
Exam Limitations: none
Time Seen by Provider: 04/01/25 10:49
History of Present Illness
History of Present Illness:
55-year-old female with history of stage III colon cancer, lupus, Raynaud's, stroke on Xarelto presents complaining of low back pain. 3 days ago, she bent over to warp picker her dad who fell and she felt a pop in her back. Since then she has had back
pain but no associated new leg pain numbness or tingling. No bowel or bladder dysfunction with new. No fevers. She had trouble getting up today and called ambulance.
Past History
Past History
ED Past Medical History: Other (Lupus, colon cancer, HTN, Raynaud's, immunocompromised, reflux, coronary artery disease, etc. etc.)
ED Past Surgical History: Bowel resection and Other ( colon tumor resected colostomy reversal, 2023, ileostomy reversal on 08/21/2024)
Social History
Tobacco: Non-smoker
Alcohol: None
Drug: None
Personal: Single
Living: with family (daughter)
Phy Exam
Physical Exam
Physical Exam:
HEENT: Normal cephalic atraumatic
Heart: Regular rate and rhythm
Lungs: Clear no wheeze
Abdomen is soft nontender nondistended
Musculoskeletal exam: Patient is tender over the lumbar spine. No deformities to the legs
Extremities: No cyanosis
Course
Orders/Labs/Results
Orders:
Orders
04/01/25 10:54
Acetaminophen [Tylenol] 650 mg PO NOW STA
Diazepam [Valium] 5 mg PO NOW STA
CR Lumbar Spine 2 Or 3 Views Urgent
Comment:
Reason For Exam: back pain
Vital Signs
Initial and Last Documented VS:
Initial Vital Signs
Temp Pulse Resp BP Pulse Ox
97.8 F 78 18 170/100 97
04/01/25 10:51 04/01/25 10:51 04/01/25 10:51 04/01/25 10:51 04/01/25 10:51
Last Documented Vital Signs
Temp Pulse Resp BP Pulse Ox
97.8 F 84 18 116/87 96
04/01/25 10:51 04/01/25 14:46 04/01/25 14:46 04/01/25 14:46 04/01/25 14:46
MDM/Problems Addressed
Differential Diagnosis Includes:
Patient with low back pain after lifting up her father. Has colon cancer, lupus, LA on Xarelto. Consider possible pathologic fracture. X-rays pending. No red flags to suggest cauda equina. No fever infectious source. No neurologic deficit
otherwise suspect a hematoma. X-rays pending. Valium and Tylenol ordered
*Pulse Oximetry
Patient hypoxic: no
*Critical Care Note
Total Time (30-74mins, 75-104mins- exclusive of procedures): Not Applicable
Update Note
Update Note:
X-rays demonstrate superior endplate compression deformity of L2. Patient did receive relief with Valium and Tylenol here. She was ambulatory with a walker. Daughter now in the room I spoke with the mother on the phone. They were concerned that
she has been under a lot of stress and concern she had another stroke. I explained to them on my assessment she was alert and oriented without signs of acute neurologic deficiency. Offered other testing such as CT of the head blood work and
urinalysis however patient declined. Will prescribe Valium and have her continue Tylenol for her pain for compression fracture.
ED Attending Note
-
Portions of this chart may have been created with voice recognition software.� Occasional wrong word or��sound alike� substitutions may have occurred due to the inherent limitations of voice recognition software.
Discharge Plan
Departure
Patient Disposition: Home (Routine Discharge)
Date of Disposition: 04/01/25
Time of Disposition: 15:43
Patient with high blood pressure during this ER visit?: No
Discharge Problem:
Compression fracture
Instructions: Vertebral compression fracture
Prescriptions:
New
diazepam [Valium] 2 mg tablet
2 mg PO TID PRN (Reason: muscle spasm) Qty: 10 0RF
No Action
amitriptyline 25 mg Tablet
25 mg PO HS
ferrous sulfate 325 mg (65 mg iron) Tablet
325 mg PO DAILY
hydroxychloroquine [Plaquenil] 200 mg Tablet
200 mg PO BID
escitalopram oxalate [Lexapro] 10 mg Tablet
10 mg PO DAILY
gabapentin 100 mg Tablet
300 mg PO BID
Xarelto 20 mg Tablet
20 mg PO DAILY
lisinopril 30 mg Tablet
30 mg PO DAILY
cyclobenzaprine 5 mg Tablet
5 mg PO HSPRN PRN (Reason: muscle spasms)
furosemide [Lasix] 20 mg tablet
20 mg PO DAILY Qty: 30 0RF
acetaminophen 500 mg Tablet
1,000 mg PO DAILYPRN PRN (Reason: mild pain)
atorvastatin 40 mg tablet
40 mg PO DAILY
amlodipine 5 mg tablet
5 mg PO DAILY
folic acid 1 mg tablet
1 mg PO DAILY
tacrolimus 1 mg capsule
1 mg PO DAILY
prednisone 10 mg tablet
10 mg PO DAILY
pantoprazole 40 mg tablet,delayed release (DR/EC)
40 mg PO DAILY
Referrals:
Heri Cassidy MD [Primary Care Provider, Family Practice]
Bob Urban MD [Family Provider, Family Practice]
Activity Restrictions/Additional Instructions:
Use medicine as needed for pain. Use walker when ambulating. Please return here for worsening symptoms otherwise follow-up with your doctor
Interventions
Interventions:
*Risk Screen - Suicide Last Done: 04/01/25 10:51
*General Assessment Last Done: 04/01/25 10:51
*Neglect/Abuse Screening Last Done: 04/01/25 10:51
*ED- Fall Risk Assessment Last Done: 04/01/25 10:51
*ED COVID-19 Vaccine History Last Done: 04/01/25 10:51
ED-Musculoskeletal Assessment Last Done: 04/01/25 10:51
Discharge Date and Time
Print Language: TELUGU
[2025-04-01] MEDS: TYLENOL 650 MG PO (11:07)
[2025-04-01] MEDS: VALIUM 5 MG PO (11:08)
[2025-04-01 12:51] VITALS: BP 135/79
[2025-04-01 14:46] VITALS: BP 116/87
== END 2025-04-01 15:52 | disposition home or self-care (01) ==
LOC: EMR 10:44
PROVIDERS: EMERGENCY PHYSICIAN Emergency Medicine; FAMILY PHYSICIAN Family Medicine; PRIMARYCARE PHYSICIAN Family Medicine
DX: S32.020A Wedge compression fracture of second lumbar vertebra, initial encounter for closed fracture (principal); X50.1XXA Overexertion from prolonged static or awkward postures, initial encounter; I10 Essential (primary) hypertension; I25.10 Atherosclerotic heart disease of native coronary artery without angina pectoris; I73.00 Raynaud's syndrome without gangrene; Z85.038 Personal history of other malignant neoplasm of large intestine; Z86.73 Personal history of transient ischemic attack (TIA), and cerebral infarction without residual deficits; Z79.01 Long term (current) use of anticoagulants
CPT/HCPCS: 99283; 72100

== ENCOUNTER 2025-04-03 19:42 | Emergency (ER) | payer OTHER, SELFPAY ==
[2025-04-03 19:44] VITALS: BP 154/106
[2025-04-03 20:19] VITALS: BMI 22.3
[2025-04-03 20:25] VITALS: BP 146/91
[2025-04-03 20:43] LABS: Hematocrit 36.9 % (37.0-47.0); Hemoglobin 12.0 g/dL (12.0-16.0); Mean Corp Hgb Conc. 32.5 g/dL (33.0-37.0); Mean Corpuscular Volume 90.7 fL (81.0-99.0); Nucleated Red Blood Cells % 0 %; Platelet Count 430 10^3/uL (130-400); Red Cell Dist. Width 16.3 % (11.5-14.5)
[2025-04-03 21:03] LABS: ALT (SGPT) 12 U/L (0-35); AST (SGOT) 20 U/L (14-36); Albumin 3.2 g/dl (3.5-5.0); Alkaline Phosphatase 81 U/L (38-126); Blood Urea Nitrogen 21 mg/dl (7-17); Calcium 8.6 mg/dl (8.4-10.2); Carbon Dioxide 26 mmol/L (22-30); Chloride 110 mmol/L (98-107); Estimated Creatinine Clearance 58 ml/min; Glucose 93 mg/dl (70-99); Potassium 4.9 mmol/L (3.5-5.1); Sodium 137 mmol/L (135-145); Total Protein 6.0 g/dl (6.3-8.2); eGFR > 60.00
--- NOTE | 2025-04-03 21:04 | ED.GENMED ---
History of Present Illness
General
Chief Complaint: Change in Mental Status
Source: patient, family and previous hospital records
Exam Limitations: none
Time Seen by Provider: 04/03/25 20:32
Nursing documentation reviewed up to this point in time: agreed with
History of Present Illness
History of Present Illness:
55-year-old female brought in by family members today confusion subacute onset she suffers from lupus, chronic pain syndrome, chronic kidney disease, prior stroke, she is on Xarelto, nondrinker, she has had no falls, no dysuria no frequency, she
knows she is at the hospital she knows the year she knows her family members, she is anxious for discharge,, denies taking any extra meds, denies fever
Past History
Past History
ED Past Medical History: Other (Lupus, colon cancer, HTN, Raynaud's, immunocompromised, reflux, coronary artery disease, )
ED Past Surgical History: Bowel resection and Other ( colon tumor resected colostomy reversal, 2023, ileostomy reversal on 08/21/2024)
Social History
Tobacco: Non-smoker
Alcohol: None
Drug: None
Personal: Single
Living: with family (daughter)
Employment: Retired
Phy Exam
Physical Exam
Physical Exam:
Physical Exam
General: 55 female chronically ill looks older than stated age
Neck: No jaundice
Heart: Regular
Lungs: no acute respiratory distress. clear bilaterally
Abdomen: Not
Neuro: alert and oriented. Globally weak moves all extremities
Skin: no rash
Psychiatric: flat affect cooperative
Extremities: Vertical abrasion over the left villalpando minimal redness no overt cellulitic changes
Course
Orders/Labs/Results
Orders:
Orders
04/03/25 20:35
Complete Blood Count/With Diff Urgent
Comprehensive Metabolic Panel Urgent
04/03/25 20:57
CT Head W/o Iv Contrast Urgent
Comment:
Reason For Exam: cohfsuiosn prior CVA
04/03/25 20:58
Urinalysis Reflex To Culture Urgent
Date Specimen was Collected: 04/03/25
Time Specimen was Collected: 21:04
Abnormal Lab Results
04/03/25
20:35
RBC 4.07 L 10^6/uL
(4.20-5.40)
Hct 36.9 L %
(37.0-47.0)
MCHC 32.5 L g/dL
(33.0-37.0)
RDW 16.3 H %
(11.5-14.5)
Plt Count 430 H 10^3/uL
(130-400)
Abs Immat Gran (auto) 0.1 H 10^3/uL
(0-0.05)
Immature Gran % 1.3 H %
(0-0.5)
Chloride 110 H mmol/L
(98-107)
BUN 21 H mg/dl
(7-17)
Total Protein 6.0 L g/dl
(6.3-8.2)
Albumin 3.2 L g/dl
(3.5-5.0)
04/03/25 20:35
04/03/25 20:35
Vital Signs
Initial and Last Documented VS:
Initial Vital Signs
Pulse BP Pulse Ox
84 154/106 100
04/03/25 19:44 04/03/25 19:44 04/03/25 19:44
Last Documented Vital Signs
Temp Pulse Resp BP Pulse Ox
98.1 F 92 18 146/91 99
04/03/25 20:25 04/03/25 20:25 04/03/25 20:25 04/03/25 20:25 04/03/25 20:25
MDM/Problems Addressed
Differential Diagnosis Includes:
Deconditioning dehydration UTI electrolyte abnormality subacute CVA medication effect
MDM/Problems Addressed:
Confusion
Chronic conditions affecting care: Neurological disorder and Kidney disease
Acute Exacerbation and/or Progression of Chronic Illness: Neurological disorder and Kidney disease
*Radiology
Radiology exam reviewed: radiology read reviewed
*Pulse Oximetry
SaO2: 99
Oxygen Mode of Delivery: Room air
Patient hypoxic: no
*Electrician Chief Interpretation
Rate: normal
Interpretation: normal
Heart Rate: 78
Rhythm: sinus
*Critical Care Note
Total Time (30-74mins, 75-104mins- exclusive of procedures): Not Applicable
ED Attending Note
-
Portions of this chart may have been created with voice recognition software.� Occasional wrong word or��sound alike� substitutions may have occurred due to the inherent limitations of voice recognition software.
Discharge Plan
Departure
Prescriptions:
No Action
amitriptyline 25 mg Tablet
25 mg PO HS
ferrous sulfate 325 mg (65 mg iron) Tablet
325 mg PO DAILY
hydroxychloroquine [Plaquenil] 200 mg Tablet
200 mg PO BID
escitalopram oxalate [Lexapro] 10 mg Tablet
10 mg PO DAILY
gabapentin 100 mg Tablet
300 mg PO BID
Xarelto 20 mg Tablet
20 mg PO DAILY
lisinopril 30 mg Tablet
30 mg PO DAILY
cyclobenzaprine 5 mg Tablet
5 mg PO HSPRN PRN (Reason: muscle spasms)
furosemide [Lasix] 20 mg tablet
20 mg PO DAILY Qty: 30 0RF
acetaminophen 500 mg Tablet
1,000 mg PO DAILYPRN PRN (Reason: mild pain)
atorvastatin 40 mg tablet
40 mg PO DAILY
amlodipine 5 mg tablet
5 mg PO DAILY
folic acid 1 mg tablet
1 mg PO DAILY
tacrolimus 1 mg capsule
1 mg PO DAILY
prednisone 10 mg tablet
10 mg PO DAILY
pantoprazole 40 mg tablet,delayed release (DR/EC)
40 mg PO DAILY
diazepam [Valium] 2 mg tablet
2 mg PO TID PRN (Reason: muscle spasm) Qty: 10 0RF
Referrals:
Bob Urban MD [Family Provider, Family Practice]
Interventions
Interventions:
*Risk Screen - Suicide Last Done: 04/03/25 19:55
*General Assessment Last Done: 04/03/25 20:19
*Neglect/Abuse Screening Last Done: 04/03/25 19:55
*ED- Fall Risk Assessment Last Done: 04/03/25 20:19
*ED COVID-19 Vaccine History Last Done: 04/03/25 20:19
Discharge Date and Time
Print Language: HUNGARIAN
[2025-04-03 21:30] VITALS: BP 158/103
[2025-04-03 21:48] LABS: Urine Character Clear (Clear)
--- NOTE | 2025-04-03 21:57 | ED.GENMED ---
History of Present Illness
General
Chief Complaint: Change in Mental Status
Time Seen by Provider: 04/03/25 20:32
Past History
Past History
ED Past Medical History: Other (Lupus, colon cancer, HTN, Raynaud's, immunocompromised, reflux, coronary artery disease, )
ED Past Surgical History: Bowel resection and Other ( colon tumor resected colostomy reversal, 2023, ileostomy reversal on 08/21/2024)
Social History
Tobacco: Non-smoker
Alcohol: None
Drug: None
Personal: Single
Living: with family (daughter)
Employment: Retired
Course
Orders/Labs/Results
Orders:
Orders
04/03/25 20:35
Complete Blood Count/With Diff Urgent
Comprehensive Metabolic Panel Urgent
04/03/25 20:57
CT Head W/o Iv Contrast Urgent
Comment:
Reason For Exam: cohfsuiosn prior CVA
04/03/25 21:05
Urinalysis Reflex To Culture Urgent
Date Specimen was Collected: 04/03/25
Time Specimen was Collected: 21:04
Urine Microscopic Reflex Cult Urgent
Abnormal Lab Results
04/03/25 04/03/25
20:35 21:05
RBC 4.07 L 10^6/uL
(4.20-5.40)
Hct 36.9 L %
(37.0-47.0)
MCHC 32.5 L g/dL
(33.0-37.0)
RDW 16.3 H %
(11.5-14.5)
Plt Count 430 H 10^3/uL
(130-400)
Abs Immat Gran (auto) 0.1 H 10^3/uL
(0-0.05)
Immature Gran % 1.3 H %
(0-0.5)
Chloride 110 H mmol/L
(98-107)
BUN 21 H mg/dl
(7-17)
Total Protein 6.0 L g/dl
(6.3-8.2)
Albumin 3.2 L g/dl
(3.5-5.0)
Urine Ketones 1+ A
(Negative)
Ur Occult Blood Reflex 1+ A
(Negative)
Urine Albumin (Reflex) 4+ A
(Neg - Trace)
04/03/25 20:35
04/03/25 20:35
Vital Signs
Initial and Last Documented VS:
Initial Vital Signs
Pulse BP Pulse Ox
84 154/106 100
04/03/25 19:44 04/03/25 19:44 04/03/25 19:44
Last Documented Vital Signs
Temp Pulse Resp BP Pulse Ox
98.1 F 93 20 158/103 99
04/03/25 20:25 04/03/25 21:30 04/03/25 21:30 04/03/25 21:30 04/03/25 21:34
*Pulse Oximetry
SaO2: 99
Oxygen Mode of Delivery: Room air
Update Note
Update Note:
945 CT report noted labs noted RN reports patient ambulated without difficulty
ED Attending Note
-
Portions of this chart may have been created with voice recognition software.� Occasional wrong word or��sound alike� substitutions may have occurred due to the inherent limitations of voice recognition software.
Discharge Plan
Departure
Patient Disposition: Home (Routine Discharge)
Date of Disposition: 04/03/25
Time of Disposition: 22:00
Patient with high blood pressure during this ER visit?: No
Condition: Good
Discharge Problem:
confusion
Instructions: Altered Mental Status (DC)
Prescriptions:
No Action
amitriptyline 25 mg Tablet
25 mg PO HS
ferrous sulfate 325 mg (65 mg iron) Tablet
325 mg PO DAILY
hydroxychloroquine [Plaquenil] 200 mg Tablet
200 mg PO BID
escitalopram oxalate [Lexapro] 10 mg Tablet
10 mg PO DAILY
gabapentin 100 mg Tablet
300 mg PO BID
Xarelto 20 mg Tablet
20 mg PO DAILY
lisinopril 30 mg Tablet
30 mg PO DAILY
cyclobenzaprine 5 mg Tablet
5 mg PO HSPRN PRN (Reason: muscle spasms)
furosemide [Lasix] 20 mg tablet
20 mg PO DAILY Qty: 30 0RF
acetaminophen 500 mg Tablet
1,000 mg PO DAILYPRN PRN (Reason: mild pain)
atorvastatin 40 mg tablet
40 mg PO DAILY
amlodipine 5 mg tablet
5 mg PO DAILY
folic acid 1 mg tablet
1 mg PO DAILY
tacrolimus 1 mg capsule
1 mg PO DAILY
prednisone 10 mg tablet
10 mg PO DAILY
pantoprazole 40 mg tablet,delayed release (DR/EC)
40 mg PO DAILY
diazepam [Valium] 2 mg tablet
2 mg PO TID PRN (Reason: muscle spasm) Qty: 10 0RF
Referrals:
Bob Urban MD [Family Provider, Family Practice] - Next open appointment
Activity Restrictions/Additional Instructions:
Continue your medications as prescribed follow-up with your primary care provider
Interventions
Interventions:
*Risk Screen - Suicide Last Done: 04/03/25 19:55
*General Assessment Last Done: 04/03/25 20:19
*Neglect/Abuse Screening Last Done: 04/03/25 19:55
*ED- Fall Risk Assessment Last Done: 04/03/25 20:19
*ED COVID-19 Vaccine History Last Done: 04/03/25 20:19
ED- Pulmonary Assessment Last Done: 04/03/25 20:30
ED- Neurological Assessment Last Done: 04/03/25 20:30
ED- Cardiac Assessment Last Done: 04/03/25 20:30
Discharge Date and Time
Print Language: GERMAN
[2025-04-03 22:04] VITALS: BP 168/98
[2025-04-03 22:04] LABS: Urine Squamous Cell 16-20 /LPF (Few)
[2025-04-03 22:05] LABS: Urine Red Blood Cell 0-2 /HPF (0-2)
[2025-04-03] MEDS: VALIUM 5 MG PO (22:12)
== END 2025-04-03 22:23 | disposition home or self-care (01) ==
LOC: EMR 19:42
PROVIDERS: EMERGENCY PHYSICIAN Emergency Medicine; FAMILY PHYSICIAN Family Medicine
DX: R41.0 Disorientation, unspecified (principal); I25.10 Atherosclerotic heart disease of native coronary artery without angina pectoris; I12.9 Hypertensive chronic kidney disease with stage 1 through stage 4 chronic kidney disease, or unspecified chronic kidney disease; N18.9 Chronic kidney disease, unspecified; K21.9 Gastro-esophageal reflux disease without esophagitis; G89.4 Chronic pain syndrome; I73.00 Raynaud's syndrome without gangrene; Z79.01 Long term (current) use of anticoagulants; Z86.73 Personal history of transient ischemic attack (TIA), and cerebral infarction without residual deficits; Z85.038 Personal history of other malignant neoplasm of large intestine; Z90.49 Acquired absence of other specified parts of digestive tract
CPT/HCPCS: 99284; 70450; 80053; 81003; 81015; 85025

== ENCOUNTER 2025-04-05 15:46 | Emergency (ER) | payer OTHER, SELFPAY ==
[2025-04-05 16:33] VITALS: BP 146/84
[2025-04-05 17:27] VITALS: BMI 20.7
[2025-04-05] MEDS: VALIUM 5 MG PO (17:35)
--- NOTE | 2025-04-05 18:01 | ED.GENMED ---
History of Present Illness
General
Chief Complaint: Crisis Evaluation
Source: patient and family (Son who is sitting at the bedside)
Exam Limitations: none
Time Seen by Provider: 04/05/25 16:19
History of Present Illness
History of Present Illness:
The patient is a 55-year-old female with a past medical history of lupus and Raynaud's who was brought in by her son for concerns related to her taking care of herself and her mental health. Her son reports that his mother lives with his brother
and his brother's girlfriend. He reports that without their encouragement, the patient likely would not change her clothing or eat. Additionally, he reports that when he went to check up on her today, she ended up having a bowel movement in the
kitchen on the floor and seemingly acted as if this was normal. Additionally, he reports that his mother has been talking about killing herself for several days now. He is unaware of a specific plan however. Patient complains of severe low back
pain. Her son reports that the patient injured her back and was diagnosed with an L2 fracture several days ago. The patient has been taking Valium for pain. She is requesting something for pain. Patient reports she has been feeling down and
attributes this to 'family problems' but tells me she does not want to talk anymore.
Past History
Past History
ED Past Medical History: CAD, Cancer (colon), HTN and Other (Lupus, colon cancer, HTN, Raynaud's, immunocompromised, reflux, coronary artery disease, etc. etc.)
ED Past Surgical History: Bowel resection and Other ( colon tumor resected colostomy reversal, 2023, ileostomy reversal on 08/21/2024)
Social History
Tobacco: Non-smoker
Alcohol: None
Drug: None
Personal: Single
Living: with family (daughter)
Employment: Retired
Family History
Family History: Other
Review of Systems
Review of Systems
Allergies reviewed?: Yes
All Other Systems: Not applicable (Patient is not cooperative and states she does not want to talk to me. She does deny all pain to me with the exception of her lower back)
Constitutional: Reports fatigue
Psychiatric: Reports depression and suicidal (Expressing suicidal thoughts the family)
Phy Exam
Physical Exam
Physical Exam:
Physical Exam
General: Patient is on her side, holding her lower back. Scaly discoid looking excoriated rash on face and extremities, family reports this is chronic from patient's lupus
Neck: supple.
Heart: s1/s2 regular rate and rhythm,
Lungs: no acute respiratory distress. clear bilaterally
Abdomen: normal bowel sounds. not tender. no CVAT
Neuro: alert and oriented. no focal neurological deficits
Skin: Chronic erythematous, excoriated and scaly diffuse rash on face and extremities which patient and family reports is due to lupus
Psychiatric: Guarded affect, agitated
Extremities: no edema.
Course
Orders/Labs/Results
Orders:
Orders
04/05/25 15:54
Crisis Consult Urgent
Reason for Consult: suicidal ideation
04/05/25 17:27
Complete Blood Count/With Diff Urgent
Comprehensive Metabolic Panel Urgent
Diazepam [Valium] 5 mg PO NOW STA
04/05/25 17:28
Urine Drug Abuse Screen Urgent
04/05/25 21:24
ED Special Safety Observation ONCE
Observation level: One to Two
Vital Signs
Initial and Last Documented VS:
Initial Vital Signs
Pulse Resp BP Pulse Ox
83 18 146/84 99
04/05/25 16:33 04/05/25 16:33 04/05/25 16:33 04/05/25 16:33
Last Documented Vital Signs
Pulse Resp BP Pulse Ox
80 18 146/84 99
04/05/25 17:56 04/05/25 16:33 04/05/25 16:33 04/05/25 18:01
MDM/Problems Addressed
Differential Diagnosis Includes:
Suicidal ideation, subacute pain from lumbar spine injury, acute dehydration, failure to thrive
MDM/Problems Addressed:
Patient presents with subacute back pain from recent trauma as well as suicidal ideations
Chronic conditions affecting care:
Lupus
Acute Exacerbation and/or Progression of Chronic Illness:
Labs will be checked to check for acute on chronic renal insufficiency from lupus
*Pulse Oximetry
SaO2: 99
Oxygen Mode of Delivery: Room air
Patient hypoxic: no
Comment: 99% on room air
*Critical Care Note
Total Time (30-74mins, 75-104mins- exclusive of procedures): Not Applicable
Data Reviewed
Review of Other/Old Records Reveals: Discharge Summary (Patient was admitted in September 2024 for hypertensive urgency, hospitalist discharge reviewed by me)
Source: patient and family
Update Note
Update Note:
7:45 PM telepsych upheld patient's 302.
ED Attending Note
-
Portions of this chart may have been created with voice recognition software.� Occasional wrong word or��sound alike� substitutions may have occurred due to the inherent limitations of voice recognition software.
Discharge Plan
Departure
Patient Disposition: Psych Facility
Date of Disposition: 04/05/25
Time of Disposition: 19:48
Patient Status:: 302
Patient with high blood pressure during this ER visit?: Yes
Condition: Critical
Covid-19: Not Applicable
Discharge Problem:
Suicidal ideation
Prescriptions:
No Action
amitriptyline 25 mg Tablet
25 mg PO HS
ferrous sulfate 325 mg (65 mg iron) Tablet
325 mg PO DAILY
hydroxychloroquine [Plaquenil] 200 mg Tablet
200 mg PO BID
escitalopram oxalate [Lexapro] 10 mg Tablet
10 mg PO DAILY
gabapentin 100 mg Tablet
300 mg PO BID
Xarelto 20 mg Tablet
20 mg PO DAILY
lisinopril 30 mg Tablet
30 mg PO DAILY
cyclobenzaprine 5 mg Tablet
5 mg PO HSPRN PRN (Reason: muscle spasms)
furosemide [Lasix] 20 mg tablet
20 mg PO DAILY Qty: 30 0RF
acetaminophen 500 mg Tablet
1,000 mg PO DAILYPRN PRN (Reason: mild pain)
atorvastatin 40 mg tablet
40 mg PO DAILY
amlodipine 5 mg tablet
5 mg PO DAILY
folic acid 1 mg tablet
1 mg PO DAILY
tacrolimus 1 mg capsule
1 mg PO DAILY
prednisone 10 mg tablet
10 mg PO DAILY
pantoprazole 40 mg tablet,delayed release (DR/EC)
40 mg PO DAILY
diazepam [Valium] 2 mg tablet
2 mg PO TID PRN (Reason: muscle spasm) Qty: 10 0RF
Referrals:
UNKNOWN - PT DOES,NOT KNOW [Family Provider]
Interventions
Interventions:
*Risk Screen - Suicide Last Done: 04/05/25 15:52
*General Assessment Last Done: 04/05/25 17:56
*Neglect/Abuse Screening Last Done: 04/05/25 17:56
*ED- Fall Risk Assessment Last Done: 04/05/25 17:56
*ED COVID-19 Vaccine History Last Done: 04/05/25 17:56
ED-Psychological Assessment Last Done: 04/05/25 17:58
Discharge Date and Time
Print Language: [email or web address]
[2025-04-05 23:29] VITALS: BP 132/94
[2025-04-06 01:52] LABS: Hematocrit 36.8 % (37.0-47.0); Hemoglobin 11.9 g/dL (12.0-16.0); Mean Corp Hgb Conc. 32.3 g/dL (33.0-37.0); Mean Corpuscular Volume 90.0 fL (81.0-99.0); Nucleated Red Blood Cells % 0 %; Platelet Count 455 10^3/uL (130-400); Red Cell Dist. Width 16.1 % (11.5-14.5)
[2025-04-06 02:26] LABS: Blood Urea Nitrogen 24 mg/dl (7-17); Calcium 8.6 mg/dl (8.4-10.2); Carbon Dioxide 27 mmol/L (22-30); Chloride 110 mmol/L (98-107); Estimated Creatinine Clearance 53 ml/min; Glucose 87 mg/dl (70-99); Potassium 5.0 mmol/L (3.5-5.1); Sodium 138 mmol/L (135-145); eGFR > 60.00
[2025-04-06] MEDS: TYLENOL 1000 MG PO (07:55)
[2025-04-06 09:04] VITALS: BP 131/98
== END 2025-04-06 11:27 ==
LOC: EMR 15:46
PROVIDERS: Emergency Medicine; EMERGENCY PHYSICIAN Emergency Medicine
DX: R45.851 Suicidal ideations (principal); F32.A Depression, unspecified; I73.00 Raynaud's syndrome without gangrene; I25.10 Atherosclerotic heart disease of native coronary artery without angina pectoris; I10 Essential (primary) hypertension; Z85.038 Personal history of other malignant neoplasm of large intestine; M54.50 Low back pain, unspecified; F12.90 Cannabis use, unspecified, uncomplicated; Z63.9 Problem related to primary support group, unspecified
CPT/HCPCS: 99285; 80048; 80306; 80307; 82077; 85025

== ENCOUNTER 2025-04-15 19:52 | Emergency (ER) | payer OTHER, SELFPAY ==
[2025-04-15 19:59] VITALS: BP 122/76
--- NOTE | 2025-04-15 20:09 | ED.GENMED ---
History of Present Illness
General
Chief Complaint: Crisis Evaluation
Time Seen by Provider: 04/15/25 20:01
History of Present Illness
History of Present Illness:
55-year-old female with history of lupus and Raynaud's syndrome, chronic back pain presenting to the emergency department for concern of erratic behavior. Prior to arrival, patient was allegedly acting erratic, sending to the hospital by her
patient with recent hospital visit last week for suicidal ideation, had been placed under a 302 and sent to psychiatric facility. There was also some concern that patient may have ingested more of her medication than she was supposed to. Patient
herself denies any intentional overdose. She currently denies any SI or HI. She notes chronic back pain, denies any acute component. Denies chest pain or difficulty breathing. Denies abdominal pain or GI complaints. Denies additional acute
medical complaints
Past History
Past History
ED Past Medical History: CAD, Cancer (colon), HTN and Other (Lupus, colon cancer, HTN, Raynaud's, immunocompromised, reflux, coronary artery disease, etc. etc.)
ED Past Surgical History: Bowel resection and Other ( colon tumor resected colostomy reversal, 2023, ileostomy reversal on 08/21/2024)
Social History
Tobacco: Non-smoker
Alcohol: None
Drug: None
Personal: Single
Living: with family (daughter)
Employment: Retired
Family History
Family History: Other
Phy Exam
Physical Exam
Physical Exam:
General: Well-appearing, no clinical signs of dehydration, nontoxic and in no acute distress
HEENT: protecting airway
Neck: appears supple
CV: Normal heart rate, regular rhythm,
Resp: No accessory muscle use, no increased work of breathing, lungs clear to auscultation bilaterally
Abd: No distention
Extremities: No deformities, no swelling
Neuro: alert, no focal neurologic deficit
: deferred
Rectal: deferred
Psych: Normal affect
Skin: Chronic skin changes from lupus and Raynaud's
Course
Orders/Labs/Results
Orders:
Orders
04/15/25 20:04
Crisis Consult Routine
Reason for Consult: erratic behavior
04/15/25 20:13
Electrocardiogram (*1) Urgent
Reason for Study: QTc Monitoring
EKG- Treatment ONCE
04/15/25 20:14
Acetaminophen Urgent
Alcohol Urgent
Complete Blood Count/With Diff Urgent
Comprehensive Metabolic Panel Urgent
Salicylate Urgent
04/15/25 20:48
Fentanyl, Urine Urgent
Urine Drug Abuse Screen Urgent
Date Specimen was Collected: 04/15/25
Time Specimen was Collected: 20:26
Abnormal Lab Results
04/15/25 04/15/25
20:14 20:48
RBC 3.41 L 10^6/uL
(4.20-5.40)
Hgb 9.9 L g/dL
(12.0-16.0)
Hct 30.4 L %
(37.0-47.0)
MCHC 32.6 L g/dL
(33.0-37.0)
RDW 15.7 H %
(11.5-14.5)
Plt Count 466 H 10^3/uL
(130-400)
Abs Immat Gran (auto) 0.1 H 10^3/uL
(0-0.05)
Absolute Lymphs (auto) 1.0 L 10^3/uL
(1.2-3.4)
Immature Gran % 2.5 H %
(0-0.5)
Lymphocytes % 18.5 L %
(20.5-51.1)
Monocytes % 9.8 H %
(1.7-9.3)
Chloride 110 H mmol/L
(98-107)
BUN 30 H mg/dl
(7-17)
Calcium 8.1 L mg/dl
(8.4-10.2)
Total Bilirubin < 0.1 L mg/dl
(0.2-1.3)
Total Protein 5.4 L g/dl
(6.3-8.2)
Albumin 2.9 L g/dl
(3.5-5.0)
Salicylates < 1.0 L mg/dl
(2.0-20.0)
Acetaminophen < 10 L ug/ml
(10-30)
Ur Tricyclics Screen Positive H
(Negative)
U Benzodiazepines Scrn Positive H
(Negative)
U Marijuana (THC) Screen Positive H
(Negative)
04/15/25 20:14
04/15/25 20:14
Vital Signs
Initial and Last Documented VS:
Initial Vital Signs
Temp Pulse Resp BP Pulse Ox
98.2 F 92 18 122/76 99
04/15/25 19:59 04/15/25 19:59 04/15/25 19:59 04/15/25 19:59 04/15/25 19:59
Last Documented Vital Signs
Temp Pulse Resp BP Pulse Ox
98.1 F 97 18 122/76 95
04/15/25 20:39 04/15/25 20:39 04/15/25 20:39 04/15/25 19:59 04/15/25 20:39
MDM/Problems Addressed
MDM/Problems Addressed:
55-year-old female with prior history of lupus, Raynaud's syndrome presenting for concern of erratic behavior by family. Patient without acute complaints. Vital signs are normal.
On exam patient is resting comfortably, no acute distress. She is answering questions appropriately, no alteration in consciousness. She denies SI or HI, does not appear to be a present threat to herself or others. Denies any intentional or
unintentional overdose, does not appear to be acutely intoxicated. Will screen with laboratory analysis, discussed with family and crisis over their mental health concerns
22:00 -patient seen by crisis. Did also discuss with patient's daughter and [id number] at bedside. Patient will go to outpatient partial program, and everyone is in agreement with this plan. Family notes drug use history as well which has
been contributing to her erratic behavior. Labs otherwise relatively unremarkable, baseline anemia. Vitals remained stable. Patient resting comfortably. Return precautions discussed and patient verbalized under
*Pulse Oximetry
SaO2: 99
Oxygen Mode of Delivery: Room air
Patient hypoxic: no
*Critical Care Note
Total Time (30-74mins, 75-104mins- exclusive of procedures): Not Applicable
ED Attending Note
-
Portions of this chart may have been created with voice recognition software.� Occasional wrong word or��sound alike� substitutions may have occurred due to the inherent limitations of voice recognition software.
Discharge Plan
Departure
Patient Disposition: Home (Routine Discharge)
Date of Disposition: 04/15/25
Time of Disposition: 22:06
Patient with high blood pressure during this ER visit?: No
Condition: Good
Discharge Problem:
Change in behavior
Instructions: Drug and Alcohol Abuse Information
Prescriptions:
No Action
amitriptyline 25 mg Tablet
25 mg PO HS
ferrous sulfate 325 mg (65 mg iron) Tablet
325 mg PO DAILY
hydroxychloroquine [Plaquenil] 200 mg Tablet
200 mg PO BID
escitalopram oxalate [Lexapro] 10 mg Tablet
10 mg PO DAILY
gabapentin 100 mg Tablet
300 mg PO BID
Xarelto 20 mg Tablet
20 mg PO DAILY
lisinopril 30 mg Tablet
30 mg PO DAILY
cyclobenzaprine 5 mg Tablet
5 mg PO HSPRN PRN (Reason: muscle spasms)
furosemide [Lasix] 20 mg tablet
20 mg PO DAILY Qty: 30 0RF
acetaminophen 500 mg Tablet
1,000 mg PO DAILYPRN PRN (Reason: mild pain)
atorvastatin 40 mg tablet
40 mg PO DAILY
amlodipine 5 mg tablet
5 mg PO DAILY
folic acid 1 mg tablet
1 mg PO DAILY
tacrolimus 1 mg capsule
1 mg PO DAILY
prednisone 10 mg tablet
10 mg PO DAILY
pantoprazole 40 mg tablet,delayed release (DR/EC)
40 mg PO DAILY
diazepam [Valium] 2 mg tablet
2 mg PO TID PRN (Reason: muscle spasm) Qty: 10 0RF
Referrals:
Bob Urban MD [Family Provider, Family Practice]
Activity Restrictions/Additional Instructions:
You were seen in the emergency department for concern of erratic behavior
You were found to have reassuring vital signs and laboratory analysis. You are also seen by our crisis team, recommended for outpatient partial program.
Please follow-up closely with your primary care physician.
Return to the emergency department for any worsening of your symptoms, thoughts of wanting to hurt yourself or others, any development of chest pain, difficulty breathing, abdominal pain with persistent vomiting and inability to tolerate food or
liquid by mouth (concern for dehydration), weakness, headache or confusion, fever greater than 100.4, or any additional symptoms that are concerning to you.
Thank you for choosing [facility].
Interventions
Interventions:
*Risk Screen - Suicide Last Done: 04/15/25 19:59
*General Assessment Last Done: 04/15/25 19:59
*Neglect/Abuse Screening Last Done: 04/15/25 20:04
*ED- Fall Risk Assessment Last Done: 04/15/25 20:12
*ED COVID-19 Vaccine History Last Done: 04/15/25 20:13
ED-Psychological Assessment Last Done: 04/15/25 20:13
Discharge Date and Time
Print Language: AUSTRALIAN
[2025-04-15 20:12] VITALS: BMI 24.0
[2025-04-15 20:26] LABS: Hematocrit 30.4 % (37.0-47.0); Hemoglobin 9.9 g/dL (12.0-16.0); Mean Corp Hgb Conc. 32.6 g/dL (33.0-37.0); Mean Corpuscular Volume 89.1 fL (81.0-99.0); Nucleated Red Blood Cells % 0 %; Platelet Count 466 10^3/uL (130-400); Red Cell Dist. Width 15.7 % (11.5-14.5)
[2025-04-15 20:51] LABS: ALT (SGPT) 16 U/L (0-35); AST (SGOT) 21 U/L (14-36); Albumin 2.9 g/dl (3.5-5.0); Alkaline Phosphatase 92 U/L (38-126); Blood Urea Nitrogen 30 mg/dl (7-17); Calcium 8.1 mg/dl (8.4-10.2); Carbon Dioxide 26 mmol/L (22-30); Chloride 110 mmol/L (98-107); Estimated Creatinine Clearance 53 ml/min; Glucose 84 mg/dl (70-99); Potassium 4.9 mmol/L (3.5-5.1); Sodium 139 mmol/L (135-145); Total Protein 5.4 g/dl (6.3-8.2); eGFR > 60.00
[2025-04-15 20:52] LABS: Acetaminophen < 10 ug/ml (10-30); Salicylate < 1.0 mg/dl (2.0-20.0)
== END 2025-04-15 22:22 | disposition home or self-care (01) ==
LOC: EMR 19:52
PROVIDERS: EMERGENCY PHYSICIAN Student in an Organized Health Care Education/Training Program; FAMILY PHYSICIAN Family Medicine
DX: R46.2 Strange and inexplicable behavior (principal); D64.9 Anemia, unspecified; G89.29 Other chronic pain; I73.00 Raynaud's syndrome without gangrene; M32.9 Systemic lupus erythematosus, unspecified; I25.10 Atherosclerotic heart disease of native coronary artery without angina pectoris; I10 Essential (primary) hypertension; Z85.038 Personal history of other malignant neoplasm of large intestine
CPT/HCPCS: 99284; 80053; 80143; 80179; 80306; 80307; 82077; 85025; 93005

== ENCOUNTER 2025-05-25 21:01 | Inpatient (IN) | payer OTHER, SELFPAY ==
[2025-05-25] VITALS (33 sets, daily range): BP systolic 90–204; BP diastolic 63–140; BMI 22.3
--- NOTE | 2025-05-25 16:38 | ED.GENMED ---
History of Present Illness
General
Chief Complaint: Seizure
Time Seen by Provider: 05/25/25 16:38
History of Present Illness
History of Present Illness:
FOCUSED PAST MEDICAL HISTORY
- Colon cancer lupus, [place] 2021
REVIEW OF OLD RECORDS
- I reviewed records, the patient was seen by crisis approximately 6 weeks ago and at that time she was discharged with follow-up at [facility]. At that time she took 2 unknown pills.
- MRA head and neck 09/27/2024 showed no focal hemodynamically significant stenosis, aneurysm, or occlusion
- MRI 09/27/2024 was consistent with a 2 mm 'likely acute' infarct
Note:
CHIEF COMPLAINT(S)
Seizure and altered mental status.
HISTORY OF PRESENT ILLNESS
The patient is a 55-year-old female with a history of lupus and Raynauds phenomenon who presented with a seizure witnessed by family members while in the car. The family was initially driving her to another emergency department due to observed
right-sided weakness since 1:00 PM. Upon arrival, she was found to have a fever of 100.9�F orally.
The patient appears confused and is not answering questions appropriately. She is experiencing difficulty speaking and cannot articulate her words (aphasia). She denies a history of similar headaches but reports a new headache onset today. When
questioned, she struggled to recall the current month or other temporal details. The patient has purple and cold toes, consistent with Raynauds phenomenon. On further questioning, she acknowledges that her extensive rash is related to her lupus.
The patient reports taking Rivaroxaban (Xarelto), but cannot recall the indication, and no history of atrial fibrillation is noted.
I called the listed contact 'Natalie Hartman' [phone] who apparently is the son's girlfriend. I spoke to the mother, Margy Méndez [phone] who tells me that the son is deaf. She considers Natalie the main caregiver. The mother did not know of
the events that led up to the patient's presentation today. The timing of her symptoms is unclear at this time. The patient tells me she is on Xarelto.
REVIEW OF SYSTEMS
- Neurological: Altered mental status, aphasia, right-sided weakness, recent onset headache.
- Integumentary: Rash, consistent with lupus; purple, cold toes due to Raynauds phenomenon.
- Constitutional: Fever.
PHYSICAL EXAM
- HEENT: Moist oral mucosa,
- Pulmonary: No respiratory distress, breath sounds are clear and equal
- Abdomen: Soft with no peritoneal signs, no tenderness
- Extremities: Extensive rash noted
General: Altered mental status, difficulty answering questions, she is ill-appearing, appears somewhat uncomfortable
Skin: Extensive rash consistent with lupus; purple, cold toes suggesting Raynauds phenomenon, markedly delayed cap refill to the toes which patient states is chronic.
Neurological: The patient has intermittent moderate aphasia, she cannot name the month, she provides limited history, she appears globally weak in all extremities equally, she is not dysarthric
Cardiovascular: The patient is tachycardic
Psychiatric: Appears confused, limited insight and judgment
PROBLEM LIST
Acute
- Seizure
- Altered mental status
- Fever
- Aphasia
Chronic
- Lupus
- Raynauds phenomenon
PLAN
- Conduct blood cultures to assess for any possible infectious etiology given fever and altered mental status.
- Investigate further imaging to assess potential causes of seizure and right-sided weakness.
- Ensure close neurological monitoring.
DIFFERENTIAL DIAGNOSIS
The Differential Diagnosis includes, in no particular order and is not limited to:
1. Stroke or transient ischemic attack
2. Lupus cerebritis
3. Sepsis or other infectious causes
4. Medication-induced side effects
5. Meningitis or encephalitis
6. Metabolic disturbances (e.g., electrolyte imbalance)
7. Brain tumor or lesion
8. Autoimmune encephalopathy
9. Seizure disorder
10. Raynauds-associated complications or overlap syndrome
RADIOLOGY
- CT head shows a 1.8 cm low-attenuation lesion lateral left frontal, a chronic appearing infarct was also noted at the right internal capsule
- Chest x-ray shows no pneumonia
EKG
-
LABS
- White count is 13.9, urinalysis shows greater than 100 white cells
UPDATE
-SUMMARY OF ENCOUNTER
The patient, a 55-year-old female, presented to the emergency department following a seizure and altered mental status. Witnesses reported she experienced the seizure while in a car, displaying impaired communication, confusion, and complaints of
headache. The patient has a history of lupus, Raynauds phenomenon, and is on rivaroxaban. Assessment revealed fever and signs of a urinary tract infection (UTI) upon catheterization for a urine sample. Imaging from earlier in the year showed no
blockages in her blood vessels. Considering her current state, potential for stroke, and risk of sepsis, she was admitted for further evaluation and treatment. Management included administration of antibiotics, fluids, and acetaminophen.
DISPOSITION
Admit
ASSESSMENT
The patient presents with seizure, altered mental status, fever, and headache, potentially suggesting an infectious process such as UTI-induced sepsis. Differential includes stroke, given her communication difficulties and seizure.
EMERGENCY TREATMENTS ADMINISTERED
Antibiotics, fluids, and acetaminophen were given to manage suspected sepsis and fever.
MANAGEMENT OF THE PATIENTS CARE WAS DISCUSSED WITH
Consultations with other physicians to discuss her ongoing care and determine next steps.
PLAN
The patient will be monitored closely for neurological changes. Further imaging may be considered to rule out ischemic events or other cerebral complications. Antibiotic therapy will continue for suspected sepsis, and her fluid and electrolyte
status will be maintained. Specialists will be consulted as needed.
INDEPENDENT REVIEW OF LABS AND INTERPRETATION OF TESTS
My independent review of the urine analysis shows signs of infection.
MEDICAL DECISION MAKING
-Complexity of Data Reviewed: Chronic conditions affecting care include lupus and Raynauds phenomenon. The differential diagnosis includes stroke, lupus cerebritis, sepsis, medication side effects, meningitis, metabolic disturbances, brain tumor,
autoimmune encephalopathy, seizure disorder, and Raynauds-associated complications.
-Data:
Category 1: Clinical information obtained from her son�s girlfriend as an independent historian.
Category 3: Discussion with multiple physicians about management and further evaluation options.
-Risk: Given the patients complex presentation and medical history, the risk of complications, including stroke or prolonged infection, necessitated admission for close monitoring and further intervention.
DIAGNOSIS
1. Fever
2. Seizure (R56.9)
3. Altered mental status (R41.82)
Initial noncontrast CT imaging suggests CVA. However the patient also found to be febrile. I initially gave 1 g of Rocephin as the urinalysis showed greater than 100 white cells per high-powered field and this was a catheterized specimen. She
also had leukocytosis. Throughout her stay however, she had ongoing headache. There was no intracranial hemorrhage. She is on Xarelto. I discussed with Dr. Ying who recommended LP. I discussed with IR who suggested that we could just do the
procedure in the ED but I do not feel comfortable doing this. Around the time I was discussing with family further treatment options and consent for lumbar puncture, she had a witnessed generalized tonic-clonic seizure. I immediately went in the
room and suctioned her airway. I placed a nonrebreather as her sats were in the 60%'s. She did not require any [id number]. This is the second seizure in the last few hours. Keppra was started and was given 60 mg/kg at the recommendation of
Dr. Ying max 3 g. She was also given diazepam. We also discussed with Dr. West who recommended vancomycin, acyclovir, and ampicillin in addition to the Rocephin. She was intubated for airway protection without any difficulty. Ceribell was
placed.
Past History
Past History
ED Past Medical History: CAD, Cancer (colon), HTN and Other (Lupus, colon cancer, HTN, Raynaud's, immunocompromised, reflux, coronary artery disease, etc. etc.)
ED Past Surgical History: Bowel resection and Other ( colon tumor resected colostomy reversal, 2023, ileostomy reversal on 08/21/2024)
Social History
Tobacco: Non-smoker
Alcohol: None
Drug: None
Personal: Single
Living: with family (daughter)
Employment: Retired
Family History
Family History: Other
Phy Exam
Physical Exam
Physical Exam:
See HPI
Sepsis
Sepsis Screening
Sepsis Assessment: Sepsis
Sepsis Screen
Sepsis Screen: Sepsis
Date: 05/25/25
Time: 21:02
Course
Orders/Labs/Results
Orders:
Orders
05/25/25 16:47
Straight cath- Treatment ONCE
05/25/25 16:49
CT Head W/o Iv Contrast Urgent
Comment:
Reason For Exam: alt ms
CR Chest - 2 Views Urgent
Comment:
Reason For Exam: fever
05/25/25 16:57
COVID-19 Antigen Urgent
Source: Nasal Swab
Complete Blood Count/With Diff Urgent
Comprehensive Metabolic Panel Urgent
Blood Culture Q30M
PEE Source: Blood/Venous
Specimen Description:
Blood Culture Q30M
PEE Source: Blood/Venous
Specimen Description:
Influenza A+B Rapid Molecular Urgent
PEE Source: Nasal Swab
Specimen Description:
05/25/25 17:00
Fentanyl, Urine Urgent
Lactic Acid Q4H
Comment: CANCEL 2nd LACTIC ACID IF 1st LACTIC ACID IS LESS THAN 2
Urinalysis Reflex To Culture Urgent
Date Specimen was Collected: 05/25/25
Time Specimen was Collected: 16:56
Urine Drug Abuse Screen Urgent
Date Specimen was Collected: 05/25/25
Time Specimen was Collected: 16:56
Urine Microscopic Reflex Cult Urgent
Urine Culture Urgent
PEE Source: U
Specimen Description:
Date Specimen was Collected: 05/25/25
Time Specimen was Collected: 16:56
05/25/25 17:23
Acetaminophen [Tylenol] 1,000 mg PO NOW STA
05/25/25 18:13
Electrocardiogram (*1) Urgent
Reason for Study: TIA/Stroke
EKG- Treatment ONCE
CefTRIAXone [Rocephin] 1,000 mg IV NOW STA
05/25/25 18:14
0.9% Sodium Chloride 1000 ml [Nss] 1,000 ml IV BOLUS
05/25/25 18:29
Add On - Microbiology Urgent
Tests Added?: add on drug screen urine
05/25/25 19:08
CefTRIAXone [Rocephin] 1,000 mg IV NOW STA
05/25/25 19:09
Ceribell [Rapid Point of Care EEG (ED/ICU ONLY)] Q1H
Indications for use:: Altered Mental Status
05/25/25 19:16
Levetiracetam Injectable [Keppra] 1,000 mg .ROUTE .STK-MED ONE
diazePAM [Valium Injection] 10 mg .ROUTE .STK-MED ONE
05/25/25 19:22
Levetiracetam Injectable [Keppra] 2,000 mg IV NOW STA
05/25/25 19:23
Levetiracetam Injectable [Keppra] 2,000 mg .ROUTE .STK-MED ONE
05/25/25 19:28
Levetiracetam Injectable [Keppra] 1,000 mg IV NOW STA
05/25/25 19:29
Propofol 1,000,000 Mcg/100 ml [Diprivan] 1,000,000 mcg in 100 ml .ROUTE .STK-MED
05/25/25 19:34
Portable Chest Xray [CR Chest Portable - 1 View] Urgent
Comment:
Reason For Exam: post intubation
Reason Study Needs to be Portable: Patient Unstable
05/25/25 19:37
Dexamethasone Sod Phosphate [Decadron] 10 mg IV NOW STA
05/25/25 19:40
Fentanyl Citrate/Pf [Sublimaze] 50 mcg IV [id number] PRN
Fentanyl Citrate/Pf [Sublimaze] 55 mcg IV NOW STA
05/25/25 19:45
FentaNYL 1,000 MCG/100 ML [Sublimaze] 1,000 mcg in 100 ml IV PER PROTOCOL
Indication:: Deep Sedation
Begin Infusion:: Now
Goal:: RASS </= -3, BIS 40-60, ventilator synchrony
Maximum dose in mcg/hr:: 300
Initial Dose in mcg/hr:: 50
Titration Instructions:: Titrate Q30 min until ventilator synchrony, RASS or BIS goal is met.
Titration Instructions:: If RASS >/= -2 or BIS > 60 or ventilator dyssynchrony:
Titration Instructions:: administer bolus dose and increase infusion by 25 mcg/hr.
Titration Instructions:: Administer analgesia bolus dose(s) & titrate analgesia prior to
Titration Instructions:: adjusting sedation.
Over-sedation Instructions:: if BIS < 40 and pt is synchronous with ventilator, decrease infusion by
Over-sedation Instructions:: 25 mcg/hr every 2 hours until BIS = 40-60.
Over-sedation Instructions:: Do not wean infusion to off if patient is receiving a continuous NMBA or
Over-sedation Instructions:: has received a bolus dose of NMBA within the past 3 hours.
Notify provider:: immediately if pt exhibits signs/symptoms of chest wall rigidity,
Notify provider:: hemodynamic instability, or agitation/pain despite maximum dosing.
Additional Instructions:: Patient MUST be mechanically ventilated.
Propofol 1,000,000 Mcg/100 ml [Diprivan] 1,000,000 mcg in 100 ml IV PER PROTOCOL
Indication:: Deep Sedation
Begin Infusion:: Now
Goal:: RASS -3 to -5 or BIS < 60 or ventilator synchrony
Maximum dose in mcg/kg/min:: 50
Initial Dose in mcg/kg/min:: 10
Titration Instructions:: Titrate by 5-10 mcg/kg/min every 5 minutes until RASS -3 to -5 or
Titration Instructions:: BIS < 60 or ventilator synchrony is met.
Titration Instructions:: Administer analgesia bolus dose(s) & titrate analgesia prior to
Titration Instructions:: adjusting sedation.
Taper Instructions:: If RASS is at or below goal for 4 consecutive hours decrease infusion by
Taper Instructions:: 5-10 mcg/kg/min every 2 hours. Do not wean infusion to off if patient is
Taper Instructions:: receiving a continuous NMBA or has received bolus NMBA with the past 3 hrs
Over-sedation Instructions:: If BIS < 40 and synchronous with ventilator decrease infusion by
Over-sedation Instructions:: 5-10 mcg/kg/min every 2 hour until BIS = 40-60.
Notify provider:: immediately if patient exhibits signs/symptoms of propofol-related
Notify provider:: infusion syndrome.
Additional Instructions:: Patient MUST be mechanically ventilated and MUST receive analgesia.
05/25/25 19:54
Vancomycin [Vancocin] 1,500 mg 0.9% Sodium Chloride 500 ml [Nss] 500 ml IV NOW
05/25/25 20:25
Admit/Transfer Patient As Directed
Co-Sign Provider:
Level of Care: Inpatient admission
Assign to:: ICU
Physician / Group: Puma
Diagnosis: Seizure, Encephalopathy
Reason for Hospitalization: Seizure, Encephalopathy
Expected length of stay greater than two midnights?: Yes
ELOS- Estimated Length of Stay in days: 5
I certify the patient meets the requirements for IP care: Yes
PRN Pain Medication Management As Directed
May give lesser potent ordered pain med per pt: Yes
preference::
Protocol:: Medication orders for pain may be administered in a
manner that supports deferring to patient preference
when the pt is:
- Requesting an ordered lesser potent pain medication.
Least to most potent pain medications are defined
as: acetaminophen < NSAID < tramadol < opioids
(morphine, oxycodone, hydromorphone).
- Requesting a lesser dose of the same medication IF
ORDERED.
- Requesting a less intrusive route of administration
if both routes are prescribed by the provider (PO <
IV).
05/25/25 20:26
Code Status As Directed
Resuscitation Status: Full Code
05/25/25 20:33
Acyclovir [Zovirax Injection] 570 mg 0.9% Sodium Chloride 100 ml [Nss] 100 ml IV NOW
05/25/25 20:34
Ampicillin 2,000 mg 0.9% Sodium Chloride 100 ml [Nss] 100 ml IV NOW
05/25/25 20:35
CSF Cell Count Stat
CSF Cell Count X Stat
Lyme PCR, DNA [S] Stat
Paraneoplastic Ab IgG, CSF [S] Stat
CSF Culture with Gram Stain Stat
PEE Source: Csf
Specimen Description:
Meningitis Panel, CSF by PCR Stat
PEE Source: Csf
Specimen Description:
05/25/25 20:39
Lactic Acid Q4H
Comment: CANCEL 2nd LACTIC ACID IF 1st LACTIC ACID IS LESS THAN 2
Triglycerides Routine
Comment: baseline levels with propofol infusion
05/26/25 08:00
Polyethylene Glycol Powder [Miralax] 17 grams TUBE DAILY
05/28/25 06:00
Triglycerides Q3D
Comment: every 72 hours while patient is on propofol
05/31/25 06:00
Triglycerides Q3D
Comment: every 72 hours while patient is on propofol
06/03/25 06:00
Triglycerides Q3D
Comment: every 72 hours while patient is on propofol
Abnormal Lab Results
05/25/25 05/25/25
16:57 17:00
WBC 13.9 H 10^3/uL
(4.8-10.8)
RBC 3.98 L 10^6/uL
(4.20-5.40)
Hgb 11.7 L g/dL
(12.0-16.0)
Hct 35.3 L %
(37.0-47.0)
RDW 16.0 H %
(11.5-14.5)
Plt Count 516 H 10^3/uL
(130-400)
Abs Immat Gran (auto) 0.1 H 10^3/uL
(0-0.05)
Absolute Neuts (auto) 11.5 H 10^3/uL
(1.4-6.5)
Absolute Monos (auto) 1.1 H 10^3/uL
(0.1-0.6)
Immature Gran % 0.8 H %
(0-0.5)
Neutrophils % 82.9 H %
(42.2-75.2)
Lymphocytes % 8.3 L %
(20.5-51.1)
Sodium 134 L mmol/L
(135-145)
BUN 20 H mg/dl
(7-17)
Total Bilirubin 0.1 L mg/dl
(0.2-1.3)
Total Protein 5.7 L g/dl
(6.3-8.2)
Albumin 3.0 L g/dl
(3.5-5.0)
Ur Occult Blood Reflex 3+ A
(Negative)
Leukocyte Esterase Rfl 3+ A
(Negative)
Urine RBC 7-10 A /HPF
(0-2)
Urine WBC (Reflex) >100 A /HPF
(0-5)
Urine Bacteria (Reflex) Many A
(Negative)
Urine Albumin (Reflex) 4+ A
(Neg - Trace)
Ur Tricyclics Screen Positive H
(Negative)
Ur Amphetamines Screen Positive H
(Negative)
U Methamphetamines Scrn Positive H
(Negative)
U Benzodiazepines Scrn Positive H
(Negative)
U Marijuana (THC) Screen Positive H
(Negative)
05/25/25 16:57
05/25/25 16:57
Vital Signs
Initial and Last Documented VS:
Initial Vital Signs
Pulse Resp
113 14
05/25/25 16:40 05/25/25 16:40
Last Documented Vital Signs
Temp Pulse Resp BP Pulse Ox
38.3 C H 110 18 127/88 98
05/25/25 16:41 05/25/25 20:20 05/25/25 20:20 05/25/25 20:20 05/25/25 20:20
Procedures
Intubations
Procedure completed by: Ut, Dr. Hartman
Method of Intubation: glidescope
Tube size (cm): 7.5
Placement confirmed by: CXR
Breath sounds after intubation: equal
Intubation complications: no complications
*Pulse Oximetry
SaO2: 97
Patient hypoxic: no
*Critical Care Note
Total Time (30-74mins, 75-104mins- exclusive of procedures): 60min
comment:
Patient became more critically ill in appearance. Vital signs closely monitored. Frequently reassessing neurologic status. I reassessed her before and after intubation. Intubation separate from critical care procedure time.
ED Attending Note
-
Portions of this chart may have been created with voice recognition software.� Occasional wrong word or��sound alike� substitutions may have occurred due to the inherent limitations of voice recognition software.
Discharge Plan
Departure
Patient Disposition: Admit
Date of Disposition: 05/25/25
Time of Disposition: 18:37
Presentation/result/management discussed w/ accepting MD/DO: Hospitalist
Patient with high blood pressure during this ER visit?: Yes
Discharge Problem:
Encephalopathy
Prescriptions:
No Action
amitriptyline 25 mg Tablet
25 mg PO HS
ferrous sulfate 325 mg (65 mg iron) Tablet
325 mg PO DAILY
hydroxychloroquine [Plaquenil] 200 mg Tablet
200 mg PO BID
escitalopram oxalate [Lexapro] 10 mg Tablet
10 mg PO DAILY
gabapentin 100 mg Tablet
300 mg PO BID
Xarelto 20 mg Tablet
20 mg PO DAILY
lisinopril 30 mg Tablet
30 mg PO DAILY
cyclobenzaprine 5 mg Tablet
5 mg PO HSPRN PRN (Reason: muscle spasms)
furosemide [Lasix] 20 mg tablet
20 mg PO DAILY Qty: 30 0RF
acetaminophen 500 mg Tablet
1,000 mg PO DAILYPRN PRN (Reason: mild pain)
atorvastatin 40 mg tablet
80 mg PO DAILY
amlodipine 5 mg tablet
10 mg PO DAILY
folic acid 1 mg tablet
1 mg PO DAILY
tacrolimus 1 mg capsule
1 mg PO DAILY
prednisone 10 mg tablet
10 mg PO DAILY
pantoprazole 40 mg tablet,delayed release (DR/EC)
40 mg PO BID
diazepam [Valium] 2 mg tablet
2 mg PO TID PRN (Reason: muscle spasm) Qty: 10 0RF
aripiprazole 5 mg Tablet
5 mg PO DAILY
mirtazapine 7.5 mg Tablet
7.5 mg PO HS
Referrals:
Bob Urban MD [Family Provider, Family Practice]
Discharge Date and Time
Print Language: CYPRIOT
[2025-05-25 17:21] LABS: Urine Character Slightly Cloudy (Clear)
[2025-05-25 17:29] LABS: Hematocrit 35.3 % (37.0-47.0); Hemoglobin 11.7 g/dL (12.0-16.0); Mean Corp Hgb Conc. 33.1 g/dL (33.0-37.0); Mean Corpuscular Volume 88.7 fL (81.0-99.0); Nucleated Red Blood Cells % 0 %; Platelet Count 516 10^3/uL (130-400); Red Cell Dist. Width 16.0 % (11.5-14.5)
[2025-05-25 17:37] LABS: Urine Squamous Cell 0-2 /LPF (Few)
[2025-05-25 17:38] LABS: Urine White Cell >100 /HPF (0-5)
[2025-05-25 17:39] LABS: ALT (SGPT) 15 U/L (0-35); AST (SGOT) 22 U/L (14-36); Albumin 3.0 g/dl (3.5-5.0); Alkaline Phosphatase 84 U/L (38-126); Blood Urea Nitrogen 20 mg/dl (7-17); Calcium 8.6 mg/dl (8.4-10.2); Carbon Dioxide 23 mmol/L (22-30); Chloride 104 mmol/L (98-107); Estimated Creatinine Clearance 53 ml/min; Glucose 94 mg/dl (70-99); Potassium 4.6 mmol/L (3.5-5.1); Sodium 134 mmol/L (135-145); Total Protein 5.7 g/dl (6.3-8.2); eGFR > 60.00
[2025-05-25] MEDS: TYLENOL 1000 MG PO (17:49)
[2025-05-25 17:58] LABS: COVID-19 Antigen Negative (Negative)
[2025-05-25] MEDS: ROCEPHIN 1000 MG IV ×2 (18:26→20:12)
[2025-05-25] MEDS: NSS 1000 IV ×2 (18:26→22:26)
[2025-05-25] MEDS: DIPRIVAN 100 IV (19:35)
--- NOTE | 2025-05-25 19:46 | PTCARENOTE ---
pts family member outside of room asking for a nurse to her patient approx 191. stating 'i think shes having a seizure'. this RN went into room to assess, found pt foaming at the mouth, on her side shaking. dr sanchez made aware 1 g keppra
nad 5 mg of valium ordered and given. another 2 g keppra ordered and given. pt intubated at 1930, pt was given 15 mg etom and 100 succ prior to intubation. ET at 24 cm L lip. propofol gtt started at 25 mcg/hr at 193. cerebell applied, pt at 0%
seizure burden.
[2025-05-25] MEDS: SUBLIMAZE 55 MCG IV (20:01)
[2025-05-25] MEDS: DECADRON 10 MG IV (20:10)
[2025-05-25] MEDS: KEPPRA 2000 MG IV (20:11)
[2025-05-25] MEDS: KEPPRA 1000 MG IV (20:14)
--- NOTE | 2025-05-25 20:35 | HPS.HSE ---
Family Physician
-
Family Physician: Bob Urban
Chief Complaint
-
Headache, Seizure
History of Present Illness
Patient is a 55y F with PMH significant for SLE, paroxysmal A-Fib, history of cerebral thrombosis and colon cancer who presents to ED for evaluation of headache and witnessed seizure activity. History obtained from ED staff and from family at
the bedside. Patient was reportedly in her usual state of health yesterday. Today she began complaining of a severe headache in the morning that persisted throughout the day. She apparently complained that she was not able to use her R arm due to
clumsiness / ataxia. They were en route to [facility] when patient began speaking nonsensically and then had evident, tonic-clonic seizure activity in the car. They returned home and called 911 and patient was brought to the ED for
further evaluation.
Here in the ED, patient had another witnessed seizure. She was sedated and intubated for airway protection. She was noted to be febrile to 100.9.
Family reports no recent symptoms of illness including cough, N/V/D, etc. No recent travel. No known sick contacts / small children in the home.
UDS done in the ED was positive for methamphetamines / amphetamines, benzodiazepines, TCAs and THC.
Family reports prior history of methamphetamine use disorder - but was not aware of any recent use.
Medical History
Past Medical History
Past Medical History: Reports Other
Additional Past Medical History:
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
Anemia of Chronic Disease
Raynaud's
Cerebral Thrombosis
Hypertension
Anxiety
Chronic Neuropathic Pain
Colon Cancer
GERD
Severe Protein Malnutrition
Chronic Immunosuppressed State
ASCVD - Prior IN / CVA
Past Surgical History: Reports Other
Additional Past Surgical History:
Colon Resection with Ileostomy and Subsequent Reversal
Social History
Tobacco: Smoker (Current every day smoker)
Alcohol: None
Drug: Other (History of methamphetamine use (nasal). No prior IVDA.)
Living: With Family
Employment: Not Employed
Family History
Family History: Not pertinent
Allergies / Home Medications
Allergies reflects when Allergies were last updated in [facility].
Home Medications with original date entered in [facility]
Allergy/Medication List:
Unable to confirm med list on admission.
If medication reconciliation has not been performed, why?: Medication List N/A
Review of Systems
-
Unable to obtain full review of systems at this time due to: Patient Non-verbal
History Source: Family
Respiratory: Denies Cough
Abdomen/GI: Denies Nausea, Vomiting or Diarrhea
Neurological: Reports Headache and Other (Seizure)
Physical Exam
Vital Signs
Vital Signs
Temp Pulse Resp BP Pulse Ox
100.9 F H 110 18 127/88 98
05/25/25 16:41 05/25/25 20:20 05/25/25 20:20 05/25/25 20:20 05/25/25 20:20
Physical Exam
General: Other (55y F currently sedate / on vent.)
HEENT: Other (Dry MM. Facial rash extending into chest - chronic and unchanged per patient.)
Respiratory: Clear; No Wheezes, Rales or Rhonchi
Cardiac: S1/S2 and Regular Rhythm; No Murmur
GI: Soft, Non Tender, Non Distended and Normal Bowel Sounds
Musculoskeletal: No Clubbing, No Cyanosis and No Edema
Neuro: Sedated
Laboratory Results
-
05/25/25 16:57
05/25/25 16:57
Laboratory Results
Lactic Acid 1.9 mmol/L (0.7-2.0) 05/25/25 17:00
Total Bilirubin 0.1 mg/dl (0.2-1.3) L 05/25/25 16:57
AST 22 U/L (14-36) 05/25/25 16:57
ALT 15 U/L (0-35) 05/25/25 16:57
Alkaline Phosphatase 84 U/L (38-126) 05/25/25 16:57
Impression/Plan
-
A/P: Patient is a 55y F with PMH significant for SLE, ASCVD, history of cerebral thrombosis and paroxysmal A-Fib who presents to ED for evaluation of witnessed seizure activity.
Seizure
Fever
Severe Headache
- Admit to ICU for further evaluation and treatment.
- Sedated and intubated in the ED for airway protection / recurrent seizures.
- Keppra 3000mg x 1 administered. Now on Propofol for sedation / seizures.
- Differential for presentation including meningitis / encephalitis, lupus vasculitis, substance use disorder, CVA, etc.
- Cover with empiric antimicrobials for now. Plan for LP with IR in AM.
- Infectious Disease and IR consulted.
- Ceribell in place to monitor for any breakthrough seizure activity. BZDs as needed.
- Neurology consulted for further evaluation.
- MRI in AM with and without contrast.
- Check ESR, LP / COMMUNICATIONS CONSULTANT studies as noted above.
- IV dexamethasone pending further evaluation.
- ASA daily with prior h/o stroke, RUE ataxia and expressive aphasia described prior to seizure onset.
- Imaging in the ED with L frontal and R thalamic lesions concerning for stroke v vasculitis. MRI as noted above.
- Follow for clinical changes.
Substance Use Disorder
- UDS in the ED positive for amphetamines / methamphetamines, BZDs, TCAs and marijuana.
- Family reports prior h/o methamphetamine use disorder, but not aware of any recent use.
- ? amphetamine use contributed to headache, BP elevation, etc on admission.
- Follow for symptoms of withdrawal. BZDs as needed.
SLE with Chronic Rash
History of Cerebral Thrombosis / CVA
- IV dexamethasone acutely as noted above.
- Follow-up imaging / COMMUNICATIONS CONSULTANT studies for further evaluation.
- Holding Xarelto acutely for LP in the AM.
Paroxysmal Atrial Fibrillation
- By history. Currently in sinus rhythm.
- Holding Xarelto acutely as noted above.
DVT Prophylaxis: SCDs
Code Status: Full
[2025-05-25] MEDS: SUBLIMAZE 100 IV (20:49)
[2025-05-25 21:05] LABS: Triglycerides 360 mg/dl (10-149)
[2025-05-25] MEDS: VANCOCIN 530 MG IV (21:11)
[2025-05-25] MEDS: SUBLIMAZE 50 MCG IV ×2 (21:18→21:43)
[2025-05-25 21:39] LABS: Glucose - Point of Care 130 mg/dl (70-99)
--- NOTE | 2025-05-25 22:00 | PTCARENOTE ---
Received patient from the ED around 2129. On the vent AC 18/400/5/50% ET tube #7.5, 24 cm at the lip. On fentanyl and propofol. Ceribell in place with 0% seizure burden. Seizure pads placed on bed. Oropharyngeal tube placed 65 cm@ the lip to LIWS.
16 hebrew temp sensing lou placed for critical i/os. Son/mother at bedside and updated on plan of care.
[2025-05-25] MEDS: AMPICILLIN 108 MG IV (22:20)
[2025-05-25 22:25] LABS: B.E. -4.2 mmol/L; HCO3 19.6 mmol/L (21-28); O2 Saturation % 98.8 % (94-98); PCO2 31 mmHg (32-35); PO2 153 mmHg (83-108)
[2025-05-25] MEDS: ZOVIRAX INJECTION 111.4 MG IV (22:30)
[2025-05-25 22:40] LABS: Triglycerides 375 mg/dl (10-149)
[2025-05-25 22:53] LABS: INR 0.91; PT 12.6 Sec (11.4-14.6)
[2025-05-25 22:54] LABS: APTT 31.7 Sec (23.4-35.0)
[2025-05-25 23:24] LABS: C-Reactive Protein 27.40 mg/L (0.0-10.00)
[2025-05-26] VITALS (48 sets, daily range): BP systolic 86–175; BP diastolic 63–101; BMI 22.1
[2025-05-26] MEDS: DIPRIVAN 100 IV ×4 (00:32→22:17)
[2025-05-26] MEDS: DECADRON 8 MG IV ×3 (00:33→11:15)
[2025-05-26] MEDS: AMPICILLIN 108 MG IV ×6 (01:48→22:17)
[2025-05-26 04:54] LABS: Hematocrit 31.5 % (37.0-47.0); Hemoglobin 10.7 g/dL (12.0-16.0); Mean Corp Hgb Conc. 34.0 g/dL (33.0-37.0); Mean Corpuscular Volume 86.5 fL (81.0-99.0); Platelet Count 424 10^3/uL (130-400); Red Cell Dist. Width 16.0 % (11.5-14.5)
[2025-05-26 05:05] LABS: B.E. -5.9 mmol/L; HCO3 18.3 mmol/L (21-28); O2 Saturation % 98.9 % (94-98); PCO2 31 mmHg (32-35); PO2 113 mmHg (83-108)
[2025-05-26 05:35] LABS: ALT (SGPT) 12 U/L (0-35); AST (SGOT) 20 U/L (14-36); Albumin 2.1 g/dl (3.5-5.0); Alkaline Phosphatase 51 U/L (38-126); Blood Urea Nitrogen 21 mg/dl (7-17); Calcium 6.9 mg/dl (8.4-10.2); Carbon Dioxide 19 mmol/L (22-30); Chloride 112 mmol/L (98-107); Estimated Creatinine Clearance 53 ml/min; Glucose 130 mg/dl (70-99); Magnesium 1.4 mg/dl (1.6-2.3); Potassium 4.5 mmol/L (3.5-5.1); Sodium 135 mmol/L (135-145); Total Protein 4.5 g/dl (6.3-8.2); eGFR > 60.00
[2025-05-26] MEDS: ZOVIRAX INJECTION 111.4 MG IV ×3 (05:46→20:36)
--- NOTE | 2025-05-26 06:35 | PTCARENOTE ---
No changes from previous assessment. Remains on prop and fent. Plan for LP & MRI today. No seizure activity noted on the ceribell.
[2025-05-26] MEDS: SODIUM BICARBONATE 50 MEQ IV (06:37)
[2025-05-26] MEDS: MAGNESIUM SULFATE 50 IV (06:38)
[2025-05-26] MEDS: CALCIUM GLUCONATE 130 MG IV (06:42)
--- NOTE | 2025-05-26 07:27 | CON.INTV ---
Consultation
Consultation Request
Date/Time Consultation Requested: 05/26/2025-7 AM
Date/Time Consultation Performed: 05/26/2025-7:30 AM
Requesting Provider: Hospitalist
Performing Provider: Dr. Doe
Reason for Consultation: Seizure/critical care management
Medical History
-
Chief Complaint: New onset seizures
History of Present Illness:
55-year-old smoking female with a history of lupus, PAF, cerebral thrombosis, stage III colon cancer who presented with headache and witnessed seizure activity who was intubated for airway protection and cost estimator consulted for
seizures/ventilator/critical care management 05/26/2025. The patient is sedated on a ventilator review of systems is unobtainable.
Past Medical History
Past Medical History: None (SLE-with lupus nephritis and chronic rash. Chronic immunosuppression. Anemia of chronic disease. Raynaud's. Cerebral thrombosis. Hypertension. Anxiety. Chronic neuropathic pain. Colon cancer stage
III/resection/ileostomy/reversal.. GERD. Protein malnutrition.. Methamphetamine use.)
Social History
Tobacco: Smoker
Alcohol: None
Drug: Other (Methamphetamine-nasal)
Living: With Family
Occupational Exposures: No known asbestos exposure
Environmental Exposures: No known tuberculosis exposure
Family History
Family History: Reviewed & Not Pertinent
Allergies / Home Medications
Allergies
Allergy/AdvReac Type Severity Reaction Status Date / Time
No Known Allergies Allergy Verified 04/03/25 19:53
Home Medications
�Medication �Instructions �Recorded �Confirmed �Last Taken �Type
amitriptyline 25 mg tablet 25 mg PO HS Mental Health 08/10/24 01/31/25 01/30/25 History
escitalopram oxalate 10 mg tablet 10 mg PO DAILY Mental Health 08/10/24 01/31/25 01/30/25 History
(Lexapro)
ferrous sulfate 325 mg (65 mg 325 mg PO DAILY Supplement 08/10/24 01/31/25 01/30/25 History
iron) tablet
gabapentin 100 mg tablet 300 mg PO BID Pain 08/10/24 01/31/25 01/30/25 History
hydroxychloroquine 200 mg tablet 200 mg PO BID lupus 08/10/24 01/31/25 01/30/25 History
(Plaquenil)
rivaroxaban 20 mg tablet (Xarelto) 20 mg PO DAILY Blood Clot 08/10/24 01/31/25 01/30/25 History
Prevention/Tx
cyclobenzaprine 5 mg tablet 5 mg PO HSPRN PRN muscle spasms 09/21/24 01/31/25 09/21/24 20:00 History
lisinopril 30 mg tablet 30 mg PO DAILY Blood Pressure 09/21/24 01/31/25 01/30/25 History
furosemide 20 mg tablet (Lasix) 20 mg PO DAILY #30 tabs 09/23/24 01/31/25 01/30/25 Rx
acetaminophen 500 mg tablet 1,000 mg PO DAILYPRN PRN mild pain 09/26/24 01/31/25 01/30/25 History
amlodipine 5 mg tablet 10 mg PO DAILY 01/31/25 01/31/25 01/30/25 History
atorvastatin 40 mg tablet 80 mg PO DAILY 01/31/25 01/31/25 01/30/25 History
folic acid 1 mg tablet 1 mg PO DAILY 01/31/25 01/31/25 01/30/25 History
pantoprazole 40 mg tablet,delayed 40 mg PO BID 01/31/25 01/31/25 01/30/25 History
release
prednisone 10 mg tablet 10 mg PO DAILY 01/31/25 01/31/25 01/30/25 History
tacrolimus 1 mg capsule, 1 mg PO DAILY 01/31/25 01/31/25 01/30/25 History
immediate-release
diazepam 2 mg tablet (Valium) 2 mg PO TID PRN muscle spasm #10 04/01/25 Unknown Rx
tabs
aripiprazole 5 mg tablet 5 mg PO DAILY 05/25/25 Unknown History
mirtazapine 7.5 mg tablet 7.5 mg PO HS 05/25/25 Unknown History
Review of Systems
-
Unable to Obtain full review of systems at this time due to: Patient Intubation
Vitals / Labs / Diagnostic Testing
Vital Signs
Temp Pulse Resp BP Pulse Ox
98 F 78 18 111/75 98
05/26/25 03:11 05/26/25 07:15 05/26/25 07:15 05/26/25 07:00 05/26/25 07:15
Lab Data
05/26/25 04:35
05/26/25 04:35
Laboratory Results
05/25/25 05/25/25 05/26/25
22:17 22:18 04:55
PT 12.6
INR 0.91
APTT 31.7
pH 7.41 7.38
pCO2 31 L 31 L
pO2 153 H 113 H
HCO3 19.6 L 18.3 L
O2 Delivery Level
Microbiology
05/25/25 16:57 Nasal Swab Influenza Types A & B (RIA) - Final
Negative for Influenza A & B, NAAT
Negative results must be combined with clinical observations
and patient history.
Nucleic Acid Amplification test (NAAT)performed on the
[employer] platform.
Diagnostic Testing:
Physical Exam
-
Exam:
Well-nourished and well-developed in no apparent distress
HEENT-atraumatic, normocephalic, orotracheal intubation
Neck-supple, no JVD, no bruit
Heart-regular rate and rhythm-no murmurs, rubs or gallops
Chest-clear to auscultation, no wheezes, crackles
Back-no tenderness
Abdomen-soft, nontender, nondistended, no hepatosplenomegaly
Extremities-no cyanosis, clubbing, edema and good peripheral pulses
Integument with rash
Neurologically intubated sedated
Assessment
-
55-year-old smoking female with a history of lupus, PAF, cerebral thrombosis, stage III colon cancer who presented with headache and witnessed seizure activity who was intubated for airway protection and cost estimator consulted for
seizures/ventilator/critical care management 05/26/2025.
New onset seizures/tonic-clonic
Severe headache with fever
Substance abuse disorder-urine drug screen positive for amphetamines and minute feta means, benzodiazepines, tricyclic's and marijuana
SLE with chronic rash
Paroxysmal atrial fibrillation
Leukocytosis
[id number] 10.7
Metabolic acidosis
Hyperglycemia
Hypocalcemia
Hypomagnesemia
Conditions present prior to admission:
SLE-with lupus nephritis and chronic rash.
Chronic immunosuppression.
Anemia of chronic disease.
Raynaud's.
Cerebral thrombosis.
Hypertension.
Anxiety.
Chronic neuropathic pain.
Colon cancer stage III/resection/ileostomy/reversal..
GERD.
Protein malnutrition.
Methamphetamine use.
Plan
Patient critically ill intubated after witnessed tonic-clonic seizures
Ventilator settings reviewed
Chest x-ray reviewed-pull back ET tube 2 cm-reviewed with LOCOMOTIVE OILER
ABGs reviewed
Wean FiO2
Adjust ventilator
Nebulizers if needed-currently not bronchospastic
VAP prevention protocol
Aspiration precautions
Spontaneous breathing trial once mental status improved and no longer seizures
Check cultures
Check lumbar puncture
Empiric antibiotics-ampicillin, ceftriaxone, vancomycin, acyclovir and Decadron
Follow leukocytosis
Antiepileptics
Keppra load
Neurology evaluation ongoing-correspondence reviewed
CT head summarized below
MRI when able
Patient chronically on Eliquis
Heparin drip
Monitor blood sugar
Insulin supplementation as needed
Replace electrolytes
Substance abuse cessation counseling
DVT prophylaxis-on heparin drip
GI prophylaxis-on pantoprazole
Nutrition-nasogastric tube for feedings in the next 24 hours if not extubated
Early mobilization
Reviewed with son and mother at the bedside during multidisciplinary rounds 05/26/2025
Critical care statement: A total of 65 minutes of critical care time was provided for this patient today. This includes management of unstable vital signs, evaluation of the patient at bedside, reviewing the patient�s pertinent medical records
including radiographs, microbiology, laboratory evaluations, and��discussion with primary team, consultants, pharmacy, nutrition, physical therapy, case management, charge nurse, critical care nursing, and respiratory therapy.
Diagnostic data:
Chest x-ray 05/25/2025-endotracheal tube in normal position, mild airspace disease left lower lobe
Chest x-ray 05/26/2025-ET tube at [facility], improved left basilar atelectasis
CT head 05/25/25-1.8 cm low-attenuation lesion cortical self matter and subcortical white matter of the lateral left frontal lobe-differential includes acute ischemic infarct containing cytotoxic edema, COMMUNITY OUTREACH SPECIALIST vasculitis given history of lupus and or
metastatic disease, 8 mm chronic infarct in genu of the right internal capsule, mild diffuse cerebral and cerebellar volume loss
Echocardiogram 09/22/2024-EF 55-60%, moderate aortic stenosis, CASSIE 1.4 cm, mild to moderate mitral regurgitation, PA systolic estimated 60-65
Data Reviewed
-
EKG: Report reviewed by me
Radiology: Report reviewed by me
CT Scan: Report reviewed by me
Medical Tests (Nuc Med, Echo etc): Report reviewed by me
Labs: Labs reviewed by me
Old Records: Reviewed
Critical Care Time (in minutes): 65
[2025-05-26] MEDS: LOW STRENGTH ASPIRIN 81 MG TUBE (07:35)
[2025-05-26] MEDS: PROTONIX IV 40 MG IV (07:35)
[2025-05-26] MEDS: NSS (PRESERVATIVE FREE) 10 ML IV (07:35)
[2025-05-26] MEDS: ROCEPHIN 2000 MG IV ×2 (07:35→20:45)
[2025-05-26] MEDS: STERILE WATER FOR INJECTION 20 ML IV ×2 (07:35→20:45)
[2025-05-26] MEDS: MIRALAX 17 GRAMS TUBE (07:36)
--- NOTE | 2025-05-26 07:55 | W.PN.HOSP.TC ---
Today's Communication/Plan
-
Continue therapeutic Lovenox, antibiotics, antiviral, IV steroids
See plan
Assessment / Plan
Assessment / Plan
Physical Exam
General: Not in acute distress
HEENT: Normocephalic
Respiratory: Equal air entry bilaterally
Cardiac: S1/S2 and Regular Rhythm
GI: Soft, Non Tender, Non Distended and Normal Bowel Sounds
Musculoskeletal: No Cyanosis and No Edema
Neuro: Sedated
Assessment/Plan
55 y/o female with past medical history significant for SLE, paroxysmal A-Fib, history of cerebral thrombosis and colon cancer who presented to [facility] ED for evaluation of headache and witnessed seizure activity. Patient was reportedly in her usual
state of health on 05/24/25. On 05/25/25, she began complaining of a severe headache in the morning that persisted throughout the day. She apparently complained that she was not able to use her right arm due to clumsiness / ataxia. They were en
route to [facility] when patient began speaking nonsensically and then had evident, tonic-clonic seizure activity in the car. They returned home and called 911 and patient was brought to the [facility] emergency room for further evaluation.
Once at [facility] emergency room, patient had another witnessed seizure. She was sedated and intubated for airway protection. She was noted to be febrile to 100.9 F. Family reports no recent symptoms of illness including cough, N/V/D, etc. No recent
travel. No known sick contacts / small children in the home. UDS done in the ED was positive for methamphetamines / amphetamines, benzodiazepines, TCAs and THC. Family reported prior history of methamphetamine use disorder - but was not aware of
any recent use.
Witnessed Seizure
Fever
Severe Headache, right ataxia/expressive aphasia, followed by witnessed seizure
- Continue to monitor in ICU
- Sedated and intubated in the ED for airway protection/recurrent seizures.
- Keppra 3000mg x 1 administered initially, subsequently placed on Propofol for sedation/seizures.
- Continue Keppra 1000 mg BID
- Differential for presentation including meningitis / encephalitis, lupus vasculitis, substance use disorder, CVA, etc.
- Cover with empiric antimicrobials for now. LP with IR
- Infectious Disease and IR consulted.
- Ceribell in place to monitor for any breakthrough seizure activity. BZDs as needed.
- Neurology consulted for further evaluation.
- MRI Brain
- IV dexamethasone pending further evaluation.
- ASA daily with prior h/o stroke, RUE ataxia and expressive aphasia described prior to seizure onset.
- Imaging in the ED with L frontal and R thalamic lesions concerning for stroke vs vasculitis. MRI as noted above.
- Continue vancomycin, ceftriaxone, ampicillin, acyclovir
- Continue IV steroids (please see below)
- Continue droplet precautions pending LP results
- Continue Thiamine
UTI
- Continue antibiotics
Substance Use Disorder
- UDS in the ED positive for amphetamines / methamphetamines, BZDs, TCAs and marijuana.
- Family reports prior h/o methamphetamine use disorder, but not aware of any recent use.
- ? amphetamine use contributed to headache, BP elevation, etc on admission.
- Follow for symptoms of withdrawal. BZDs as needed.
SLE with Chronic Rash
Immunosuppressed State
History of Cerebral Thrombosis / CVA
- Patient is on chronic steroids at home (Dosage not confirmed, will reach out to [id number] to confirm medications)
- IV dexamethasone acutely as noted above.
- Follow-up imaging / MA[employer]ER studies for further evaluation.
- Holding Xarelto acutely for LP in the AM.
- Continue subq therapeutic dose Lovenox
Paroxysmal Atrial Fibrillation
- By history. Currently in sinus rhythm.
- Holding Xarelto acutely as noted above.
DVT Prophylaxis: SCDs. Therapeutic Lovenox.
Code Status: Full Code
Seizures needing intubation and mechanical ventilation, together with concern for infection, is a high risk encounter.
Anticipated Discharge: > 48 hours
Subjective/Interval History
-
Date of Service: May 26, 2025
Patient was seen and examined. She remained intubated and sedated.
Objective Data
-
Labs:
Laboratory Results
05/25/25 05/25/25 05/26/25
22:17 22:18 04:35
WBC 14.3 H
Hgb 10.7 L
Hct 31.5 L
Plt Count 424 H
PT 12.6
INR 0.91
APTT 31.7
HCO3 19.6 L
Sodium 135
Potassium 4.5
Chloride 112 H
Carbon Dioxide 19 L
BUN 21 H
Creatinine 1.0
Glucose 130 H
Calcium 6.9 L* D
Total Bilirubin 0.2
AST 20
ALT 12
Alkaline Phosphatase 51
05/26/25
04:55
WBC
Hgb
Hct
Plt Count
PT
INR
APTT
HCO3 18.3 L
Sodium
Potassium
Chloride
Carbon Dioxide
BUN
Creatinine
Glucose
Calcium
Total Bilirubin
AST
ALT
Alkaline Phosphatase
Vital Signs:
Vital Signs
Temp Pulse Resp BP Pulse Ox
97.7 F 78 18 111/75 98
05/26/25 07:41 05/26/25 07:15 05/26/25 07:15 05/26/25 07:00 05/26/25 07:15
I&O
05/25/25 05/26/25 05/27/25
06:59 06:59 06:59
Intake Total 1903.6 / 2023.9 120.3 / 120.3
Output Total 460 / 490 30 / 30
Balance 1443.6 / 1533.9 90.3 / 90.3
--- NOTE | 2025-05-26 08:00 | PTCARENOTE ---
Received pt @ change of shift intubated/sedated w b/l soft limb restraints/4 rails- see flow sheets. Pt. lethargic, opens eyes blink spont/tracks; pupils 2mm/sluggish b/l. MAUREEN w gen weakness but does not move extrem purposefully; does not follow
commands. SR on monitor. SpO2 97% on vent settings AC18/400/.30/+5 via ett #7.5/ 24 @ lip on L side. Auscultated coarse breath sounds throughout. +cough/gag; no secretions; unable to obtain sputum sample at this time. +BS, abd
soft/round/distended. Inc BM. Therm lou in place draining yellow urine. Hands and feet cool/cyanotic/mottled; hx raynauds. Generalized red/flat/flakey rash; primarily on face, chest, back; family reports rash is chronic from Lupus. #20 L AC w
prop/fent gtts- see flow sheet; #18 L hand with NSS@80mL/hr; #18 R hand patent, dressing c/d/i. Complete CHG bath given; pt. repositioned per protocol. Cerebell remains in place w 0% seizure burden. Plan for MRI, CTA, and LP; awaiting timing of
procedures. Family @ bedside, informed on place of care.
--- NOTE | 2025-05-26 08:15 | PHA.VAN.IN ---
Assessment
- Assessment
Renal Function: Appears similar to baseline (SCR may be slightly elevated form baseline at 1 vs 0.5)
Concomitant Antimicrobials: acyclovir, ampicillin, ceftriaxone
Plan
- Plan
Initial / Loading Dose: 1500mg - 11/06
Maintenance Regimen: dosing by level - 750mg x1 this AM + 500mg x1 this PM
Monitorin/6 0600
Anticipate renal function to improve in next few days give good UOP
Pharmacokinetics Vancomycin I
- -
Patient Age: 55
Patient Sex: Female
Vancomycin Day #: 1
Indication: Concrete Floater Infection
Requesting Provider: Dr. Bartholomew
Pertinent Antimicrobial Allergies:
NKDA
Height / Weight:
Height 5 ft 3 in
Actual Weight 56.5 kg
Pertinent Past Medical History: SLE (immunosuppressed)
- Vital Signs / Lab Results
Temp Pulse Resp BP Pulse Ox
97.7 F 78 18 111/75 98
05/26/25 07:41 05/26/25 07:15 05/26/25 07:15 05/26/25 07:00 05/26/25 07:15
Lab Results - Hematology
05/25/25 05/26/25
16:57 04:35
WBC 13.9 H 14.3 H
Lab Results - Chemistry
05/25/25 05/26/25
16:57 04:35
BUN 20 H 21 H
Creatinine 1.0 1.0
Estimated Creat Clear 53 53
Albumin 3.0 L 2.1 L
05/25/25 05/25/25
17:00 20:39
Lactic Acid 1.9 0.9
Lab Results - Urine
05/25/25
17:00
Urine Nitrite (Reflex) Negative
Leukocyte Esterase Rfl 3+ A
Urine WBC (Reflex) >100 A
Ur Squamous Epith Cells 0-2
Urine Bacteria (Reflex) Many A
Microbiology Results
05/25/25 16:57 Influenza Types A & B (RIA) - Final
Nasal Swab Negative for Influenza A & B, NAAT
Negative results must be combined with clinical observations
and patient history.
Nucleic Acid Amplification test (NAAT)performed on the
[employer] platform.
[2025-05-26] MEDS: SUBLIMAZE 50 MCG IV ×5 (08:37→23:24)
--- NOTE | 2025-05-26 08:57 | W.RAPID.EEG ---
Rapid EEG
-
Procedure Date: 05/25/25
Patient Status: Inpatient
Results:
IMPRESSION:
No evidence of status epilepticus
Recording Information:
Diagnostic Recording Time: 13:08:00 (788 minutes)
Recording 1:
Start Time: May 25, 2025 19:44 PM End Time: May 26, 2025 08:52 AM
Recording Technique: This EEG was obtained using a 10 lead, 8 channel system positioned circumferentially without any parasagittal coverage (rapid EEG). Computer selected EEG is reviewed as well as background features and all clinically significant
events. Clarity algorithm utilized and implemented to provide analysis of underlying activity and seizure detection used to facilitate reading. ICD-10 Code GW93C52
Clinical History: ALEJANDRINA LEVY is a 55 year old Prior Seizure patient undergoing EEG to screen for non-convulsive status epilepticus.
Disclaimer: EEG findings should be interpreted in the context of clinical history and other tests. A normal EEG does not rule out epilepsy or other conditions, and an abnormal EEG is not diagnostic on its own. Technical factors may affect
interpretation. Clinical context is required.
--- NOTE | 2025-05-26 08:59 | CON.NEURO4 ---
Addendum entered and electronically signed by Robbin Ying MD 05/26/25 15:31:
Studies reviewed.
I have personally examined the patient. I reviewed and agree with the MEDICAL MANAGEMENT SPECIALIST's Note.
My addenda:
Unresponsive to verbal and physical stimuli, intubated. No acute distress.
Speech mute. Negative doll's eyes. Negative corneals bilaterally
Follows no requests. No tremor.
No spontaneous movements of limbs.
Neck: full ROM.
Chest: no dyspnea
Heart: no JVD
Ext: (-) Clubbing, (-) Cyanosis, (-) Edema
IMPRESSIONS/RECOMMENDATIONS:
Abrupt onset of change in mental status
Most likely secondary to toxic metabolic encephalopathy. Differential diagnosis is broad and would include neuropsychiatric lupus erythematosus (NPSLE), meningitis, encephalitis, and bihemispheric stroke
Check lumbar puncture
Continue anticoagulation
Continue newly initiated levetiracetam 1000 mg twice a day
Continue thiamine
Appreciate assistance from infectious disease
Will continue to follow patient.
Original Note:
Consultation - Neurology 4
-
/CONSULTING PHYSICIAN: Dr. Robbin Ying
/REFERRING PHYSICIAN: Dr. Robbie Bartholomew
DICTATED BY: VERONICA Murphy
DATE/TIME OF REQUEST: 05/25/20252130
DATE/TIME OF CONSULTATION: 05/26/2025
Reason for Consultation: possible seizure
History of Present Illness:
HPI obtained from medical chart as patient unable to provide any history.
This is a 55y F with PMH significant for SLE, paroxysmal A-Fib, history of cerebral thrombosis, Raynaud phenomenon and colon cancer with surgery and ileostomy reversal 07/2024 who presented to [facility] ED 06/14/2025 for evaluation of right sided
weakness, headache/confusion and witnessed seizure activity.
Per records family she had a severe headache most of the day but about 1pm had noted right-sided weakness. They were on their way to a different facility when she had nonsensical speech follow by witnessed seizure activity in the car family had
reported shaking. They then returned home and called 911. Pt was brought in by EMS. In the ER she had continued confusion unable to state month or year. She was unable to give most of her medical history. She did report a headache. She was
able to report she takes rivaroxaban, she was unable to state why. She was also able to report that she has a rash secondary to lupus. While in the ER she had a second seizure and needed to be intubated to protect her airway. She was also found to
have low grade fever 100.9
UDS done in the ED was positive for methamphetamines / amphetamines, benzodiazepines, TCAs and THC.
Family reports prior history of methamphetamine use disorder - but was not aware of any recent use.
Pt did have recent evaluations at [facility] 04/05/[facility]25, 04/07/2025, 04/16/2025 and evaluations for increased confusion and change in behavior 04/03/2025, 04/15/2025
She was also previously evaluate in September 2024 by neurology for acute stroke
From Dr. Lu's evaluation 09/26/2024
'HPI: This is a 54-year-old woman who presented to [facility] on 09/26/2024 with worsening back pain. She reports a long-standing history of back pain that began approximately 2 years ago. The pain has recently exacerbated, localizing
to the middle of her back without radiation to the legs. It is aggravated by movement and has significantly impacted her mobility, preventing her from walking and causing difficulty with stairs and rising from a chair. She also reports weight loss,
dropping from 115 lbs to 101 lbs over the past two months. The patient notes that her legs feel weaker than they did 2 weeks ago, particularly the right leg. No reports of fever, sensory symptoms in the feet, change in sphincter function, recent
falls.
PDMP: Hydrocodone-Acetaminophen 5-300 Mg 15 tablets filled in on 09/03/2024, Oxycodone Hcl (Ir) 5 Mgb 20 tablets filled in on 08/2024, Oxycodone-Acetaminophen 5-325 10 tablets filled in on 08/05/2024, oxycodone 5 mg 10 tablets filled in on 07/10/2024
Additionally, the patient complains of holocephalic headaches with no autonomic symptoms that worsen when sitting up. She is not sure why she is on acetazolamide. No reports of tinnitus, diplopia.
Ms. Hilton reports a history of 'strokes' that she has been on Xarelto for.
Ms. Hilton reportedly underwent reversal of her right ileostomy on 08/20/2024 at [facility]. She was treated with colectomy around 2 years ago for colon cancer.
The was treated for lupus exacerbation during the above hospitalization. She has been on prednisone 5 mg daily, which was temporarily increased to 30 mg due to the flare but has since been tapered back to her usual dose. Two days prior to
presentation, she experienced increased facial swelling, rash and eye redness. She has been off tacrolimus since the cancer diagnosis and maintained on Plaquenil.'
Past Medical History:
Additional Past Medical History:
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
Anemia of Chronic Disease
Raynaud's
Cerebral Thrombosis
Hypertension
Anxiety
Chronic Neuropathic Pain
Colon Cancer
GERD
Severe Protein Malnutrition
Chronic Immunosuppressed State
ASCVD - Prior IN / CVA
Surgical History:
colon resection with ileostomy and reversal
Family History:
Not pertinent
Social History:
Tobacco: Smoker (Current every day smoker)
Alcohol: None
Drug: Other (History of methamphetamine use (nasal).
Living: With Family
Employment: Not Employed
Allergies: No known drug allergies
Home Medications: see below
Review of Symptoms:
Per the HPI. I am unable to obtain a complete review of systems�because of patient's inability to provide history.
Vital Signs: see below
Physical Exam:
The patient is afebrile, heart rate regular, ET tube in place.
Neurologic Examination:
The patient sedated and intubated. Does withdraw to pain upper extremities. Unable to follow commands, currently non-verbal. On cranial nerve assessment, pupils are 3 mm bilateral, round and reactive to light. MARIEL Visual broussard. Some
disconjugate gaze left eye. Negative corneal reflexes. MARIEL facial sensations or hearing. MARIEL palate or if uvula is midline. Current movements limited to withdraw of pain. No involuntary movement noted. Deep tendon reflexes are 2+ bilateral upper
and lower extremities and Babinski is equivocal b/l. MARIEL double simultaneous stimulation or coordination finger to nose.
Lab Results: see below
Neuro Imaging:
CT head 05/25/2025
1. 1.8 cm low-attenuation lesion in the cortical self matter and subcortical white matter of the lateral left frontal lobe. 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
of systemic lupus erythematosus, or (3) metastatic disease.
2. 8 mm chronic infarct in the genu of the right internal capsule and adjacent 1.3 cm lesion in the anterior right thalamus with a similar differential of ischemic infarction, vasculitis, and less likely metastatic disease.
3. Mild diffuse cerebral and cerebellar volume loss.
MRI brain
There is a 2 mm focus of restricted diffusion within the superior right parietal lobe, likely a small acute infarction.
Findings of chronic infarcts in the left frontal, bilateral temporal and left occipital lobes as well as a lacunar infarction involving the right thalamus. There are additional scattered T2/FLAIR white matter hypodensities which are likely sequelae
of chronic small vessel ischemic disease.
MRA neck with contrast 09/27/2024
This examination demonstrates no focal hemodynamically significant stenosis, aneurysm or occlusion.
There is mild stenosis of the left V4 segment of the vertebral artery.
There is no evidence of dural venous sinus thrombosis. Hypoplastic left transverse sigmoid sinus which is a normal variant.
MRA head 09/27/2024
This examination demonstrates no focal hemodynamically significant stenosis, aneurysm or occlusion.
Mild stenosis within the bilateral cavernous segments of the internal carotid arteries.
Impression:
ALEJANDRINA HILTON is a 55 year old F who has presented to the hospital with seizure activity and increased confusion. Broad differential for cause of symptoms include:
1. acute stroke
2. lupus cerebritis
3. metabolic disturbance, including toxic metabolic secondary to methamphetamine use
4. encephalitis
5. meningitis
6. less likely status epilepticus
Recommendations:
-Proceed with Lumbar puncture as planned
-Continue recommendations from infectious disease for possible infectious cause
-MRI brain with and without contrast
-CTA head and neck
-continue seizure precautions
-continue Keppra 1000 mg BID
-resume rivaroxaban when able, may need to use heparin until able to resume rivaroxaban
-continue thiamine 1000 mg daily
-will order labs for additional metabolic causes
- Continue DVT prophylaxis
Discussed patient care with nursing speech coach and Dr. Ying, neurologist
Medication and Allergies
Home Medications
Home Medications
�Medication �Instructions �Recorded
amitriptyline 25 mg tablet 25 mg PO HS Mental Health 08/10/24
escitalopram oxalate 10 mg tablet 10 mg PO DAILY Mental Health 08/10/24
(Lexapro)
ferrous sulfate 325 mg (65 mg 325 mg PO DAILY Supplement 08/10/24
iron) tablet
gabapentin 100 mg tablet 300 mg PO BID Pain 08/10/24
hydroxychloroquine 200 mg tablet 200 mg PO BID lupus 08/10/24
(Plaquenil)
rivaroxaban 20 mg tablet (Xarelto) 20 mg PO DAILY Blood Clot 08/10/24
Prevention/Tx
cyclobenzaprine 5 mg tablet 5 mg PO HSPRN PRN muscle spasms 09/21/24
lisinopril 30 mg tablet 30 mg PO DAILY Blood Pressure 09/21/24
furosemide 20 mg tablet (Lasix) 20 mg PO DAILY #30 tabs 09/23/24
acetaminophen 500 mg tablet 1,000 mg PO DAILYPRN PRN mild pain 09/26/24
amlodipine 5 mg tablet 10 mg PO DAILY 01/31/25
atorvastatin 40 mg tablet 80 mg PO DAILY 01/31/25
folic acid 1 mg tablet 1 mg PO DAILY 01/31/25
pantoprazole 40 mg tablet,delayed 40 mg PO BID 01/31/25
release
prednisone 10 mg tablet 10 mg PO DAILY 01/31/25
tacrolimus 1 mg capsule, 1 mg PO DAILY 01/31/25
immediate-release
diazepam 2 mg tablet (Valium) 2 mg PO TID PRN muscle spasm #10 04/01/25
tabs
aripiprazole 5 mg tablet 5 mg PO DAILY 05/25/25
mirtazapine 7.5 mg tablet 7.5 mg PO HS 05/25/25
Allergies
Allergies
Allergy/AdvReac Type Severity Reaction Status Date / Time
No Known Allergies Allergy Verified 04/03/25 19:53
Vital Signs / Labs
-
Vital Signs and Labs:
Temp Pulse Resp BP Pulse Ox
97.7 F 78 18 111/75 97
05/26/25 07:41 05/26/25 07:15 05/26/25 07:15 05/26/25 07:00 05/26/25 08:49
05/26/25 04:35
05/26/25 04:35
05/25/25 05/25/25 05/25/25
16:57 17:00 20:39
WBC 13.9 H
RBC 3.98 L
Hgb 11.7 L
Hct 35.3 L
RDW 16.0 H
Plt Count 516 H
Abs Immat Gran (auto) 0.1 H
Absolute Neuts (auto) 11.5 H
Absolute Monos (auto) 1.1 H
Immature Gran % 0.8 H
Neutrophils % 82.9 H
Lymphocytes % 8.3 L
ESR
pCO2
pO2
HCO3
ABG O2 Sat (Measured)
Sodium 134 L
Chloride
Carbon Dioxide
BUN 20 H
Glucose
Calcium
Phosphorus
Magnesium
Total Bilirubin 0.1 L
C-Reactive Protein
Total Protein 5.7 L
Albumin 3.0 L
Triglycerides 360 H
Ur Occult Blood Reflex 3+ A
Leukocyte Esterase Rfl 3+ A
Urine RBC 7-10 A
Urine WBC (Reflex) >100 A
Urine Bacteria (Reflex) Many A
Urine Albumin (Reflex) 4+ A
Ur Tricyclics Screen Positive H
Ur Amphetamines Screen Positive H
U Methamphetamines Scrn Positive H
U Benzodiazepines Scrn Positive H
U Marijuana (THC) Screen Positive H
POC Glucose
05/25/25 05/25/25 05/25/25
21:38 22:17 22:18
WBC
RBC
Hgb
Hct
RDW
Plt Count
Abs Immat Gran (auto)
Absolute Neuts (auto)
Absolute Monos (auto)
Immature Gran %
Neutrophils %
Lymphocytes %
ESR 94 H
pCO2 31 L
pO2 153 H
HCO3 19.6 L
ABG O2 Sat (Measured) 98.8 H
Sodium
Chloride
Carbon Dioxide
BUN
Glucose
Calcium
Phosphorus
Magnesium
Total Bilirubin
C-Reactive Protein 27.40 H
Total Protein
Albumin
Triglycerides 375 H
Ur Occult Blood Reflex
Leukocyte Esterase Rfl
Urine RBC
Urine WBC (Reflex)
Urine Bacteria (Reflex)
Urine Albumin (Reflex)
Ur Tricyclics Screen
Ur Amphetamines Screen
U Methamphetamines Scrn
U Benzodiazepines Scrn
U Marijuana (THC) Screen
POC Glucose 130 H
05/26/25 05/26/25
04:35 04:55
WBC 14.3 H
RBC 3.64 L
Hgb 10.7 L
Hct 31.5 L
RDW 16.0 H
Plt Count 424 H
Abs Immat Gran (auto)
Absolute Neuts (auto)
Absolute Monos (auto)
Immature Gran %
Neutrophils %
Lymphocytes %
ESR
pCO2 31 L
pO2 113 H
HCO3 18.3 L
ABG O2 Sat (Measured) 98.9 H
Sodium
Chloride 112 H
Carbon Dioxide 19 L
BUN 21 H
Glucose 130 H
Calcium 6.9 L* D
Phosphorus 5.4 H
Magnesium 1.4 L
Total Bilirubin
C-Reactive Protein
Total Protein 4.5 L D
Albumin 2.1 L
Triglycerides
Ur Occult Blood Reflex
Leukocyte Esterase Rfl
Urine RBC
Urine WBC (Reflex)
Urine Bacteria (Reflex)
Urine Albumin (Reflex)
Ur Tricyclics Screen
Ur Amphetamines Screen
U Methamphetamines Scrn
U Benzodiazepines Scrn
U Marijuana (THC) Screen
POC Glucose
--- NOTE | 2025-05-26 09:11 | W.PN.UPDATE ---
Update Note
Progress Note Update
I personally performed a history and physical exam of the patient and discussed management with the resident. I reviewed the resident's note and agree with the documented findings and plan of care HPI/CC with the following additions/corrections:
cc: headache and seizure
Ms Hilton is a 55 year old female with history notable for SLE (tacrolimus 1 mg daily, plaquenil and prednisone 10 mg PO daily), cerebral thrombosis, colon cancer, PAF who presented to the ER for severe headache that progressed to witnessed
seizure. The headache began on the day of admission and she developed inability to use the right arm due to clumsiness/ataxia. She does have a history of headaches. She developed a tonic clonic seizure 911 was called and she was brought to the
ER where she had another witnessed seizure. She was sedated and intubated for airway protection. Family report no: fevers, chills cough, nausea, vomiting, diarrhea. Son reports mom is not always forthcoming with complaints. No sick contacts or
small children in the home and now travel. Son reports she sees a ortho rn and doesnt recieve any injectable mediations for lupus.
Note she has an extensive rash attributed to lupus. Patient reports it is unchanged and chronic.
Since arrival here she has been febrile to 100.9, bp was initially mildly hypotensive 90s/60s now stabilized, wbc initially 13.9 today 14.3, hgb 11.7, plt 516, L shift, na 134, cr 1.0, gluose 94, t bili 0.1, ast 22, alt 15, alk phos 84, ESR 94, CRP
27, UA >100 wbc/hpf and many bacteria, UDS: methamphetamines/amphetamines, benzos, TCA and THC. There is a prior history of methamphetamine use disorder. CT head w/o IV contrast: 1.8 cm lesion in cortical self matter (ischemic infarct, wrecking supervisor
vasculitis, metastatic disease) also an 8 mm chronic infarct with similar differential, CXR 05/26 improved L basilar atelectasis or pneumonia, urine culture in progress, blood cultures x2 in progress, influenza screen in progress. She is currently
on vancomycin, ceftriaxone, ampicillin, acyclovir and dexamethasone. IR is consulted for LP.
Past Medical History
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
Anemia of Chronic Disease
Raynaud's
Cerebral Thrombosis
Hypertension
Anxiety
Chronic Neuropathic Pain
Colon Cancer
GERD
Severe Protein Malnutrition
Chronic Immunosuppressed State
ASCVD - Prior DC / CVA
Past Surgical History:
Colon Resection with Ileostomy and Subsequent Reversal
Social, family history reviewed
Physical Exam
General: no acute distress, sedated on ventilator
HEENT: supple neck
Respiratory: Clear; No Wheezes, Rales or Rhonchi
Cardiac: S1/S2 and Regular Rhythm; No Murmur
GI: Soft, Non Tender, Non Distended and Normal Bowel Sounds
Musculoskeletal: No Clubbing, No Cyanosis and No Edema
Skin: rash of the face, chest, arms - coalsecing, macular
Neuro: Sedated
Labs reviewed as above
Imaging reviewed as above
A&P:
Witnessed Seizure
Fever
Headache
UTI
SLE - uncontrolled
Substance use disorder
- blood cultures x2 in progress
- note UA with pyuria, urine culture in progress
- atelectasis on CXR
- LP pending with IR: cell count, culture, protein, glucose, meningitis panel; additionally note acid fast culture, fungus culture, CRAG, lyme PCR additionally are ordered
- c/w vancomycin, ceftriaxone, ampicillin, acyclovir, dexamethasone, droplet precautions pending LP results
AW
[2025-05-26] MEDS: VANCOCIN 150 IV (09:40)
[2025-05-26] MEDS: KEPPRA 1000 MG IV ×2 (09:41→20:42)
[2025-05-26] MEDS: THIAMINE INJECTION 100 MG IV (09:41)
[2025-05-26] MEDS: NSS 1000 IV (09:54)
[2025-05-26 10:13] LABS: Glycohemoglobin (HgbA1c) 6.0 % (4.0-5.9)
--- NOTE | 2025-05-26 10:15 | CON.INTV ---
Consultation
Consultation Request
Date/Time Consultation Requested: 05/25/25 21:39
Date/Time Consultation Performed: 05/26/2025 10:15
Requesting Provider: Carina Rock CRNP
Performing Provider: Angel Luis Doe MD
Medical History
-
Chief Complaint: Seizure
History of Present Illness:
This is a 55 y/o female with pmhx of paroxysmal atrial fibrillation, SLE, h/o cerebral thrombosis, h/o colon cancer who presented to the ED on 05/25/2025. By family report, she had been in her usual state of health until 05/24/2025. On the morning of
05/25 she began to experience a severe, persistent headache with gradual loss of right arm due to clumsiness and ataxia. [facility] when she began speaking nonsensically, then had an event that the
family described as seizure-like. They returned home and called 911, where EMS transported her to the hospital.
In the ED, she was initially confused and not answering questions appropriately. Labs showed sodium of 134, glucose of 94, creatinine 1.0. CBC showed WBC 13.9, hemoglobin 11.7, platelets of 516. Urinalysis showed 3+ leukocyte esterase, >100 WBC,
many bacteria. UDS in the ED was positive for methamphetamines/amphetamines, benzodiazepines, tricyclics and THC.
Chest X-ray showed no evidence for acute cardiopulmonary disease. CT Head showed a 1.8cm low-attenuation lesion int he self matter and subcortical white matter of the lateral left frontal lobe, 8mm chronic infarct in the gene of the right internal
capsule and adjacent 1.3cm lesion int eh anterior right thalamus, mild diffuse cerebral and cerebellar volume loss.
Her headache continued, and she had a witnessed generalized tonic-clonic seizure. Her oxygen saturation dropped to 60�s, so she was placed on a nonrebreather. She was given Keppra and diazepam, as well as vancomycin, acyclovir and ampicillin in
addition to Rocephin. She was sedated and intubated for airway protection, and transferred to the ICU for further management.
Today she remains intubated. Her mother and son are present in the room. They note that there is a rash upon her back that is chronic for many years secondary to her Lupus. By their report patient has had a difficulty 3 years due to her diagnosis of
colon cancer and subsequent treatment at [facility] and in the city. They state that the patient lives with her vaqlxycc-zc-pca, who would be able to comment more on how she has been feeling recently and her current medications as she helps manage
much of this.
Past Medical History
Past Medical History: CAD, Cancer (Stage III colon carcinoma treated with chemotherapy, status post ileostomy reversal 07/2024), HTN, Psychiatric (Anxiety) and Other (Raynaud's, Cerebral Thrombosis, Chronic neuropathic pain, Systemic Lupus
Erythematous )
Past Surgical History: Other (Colon tumor resection with ileostomy, subsequent ileostomy reversal 08/21/2024)
Social History
Tobacco: Smoker
Alcohol: None
Drug: Other (Methamphetamines (Nasal))
Living: With Family (Kyhlxhre-tj-Qab)
Employment: Not Employed
Family History
Family History: Unable to Obtain
Allergies / Home Medications
Allergies
Allergy/AdvReac Type Severity Reaction Status Date / Time
No Known Allergies Allergy Verified 04/03/25 19:53
Home Medications
�Medication �Instructions �Recorded �Confirmed �Last Taken �Type
amitriptyline 25 mg tablet 25 mg PO HS Mental Health 08/10/24 01/31/25 01/30/25 History
escitalopram oxalate 10 mg tablet 10 mg PO DAILY Mental Health 08/10/24 01/31/25 01/30/25 History
(Lexapro)
ferrous sulfate 325 mg (65 mg 325 mg PO DAILY Supplement 08/10/24 01/31/25 01/30/25 History
iron) tablet
gabapentin 100 mg tablet 300 mg PO BID Pain 08/10/24 01/31/25 01/30/25 History
hydroxychloroquine 200 mg tablet 200 mg PO BID lupus 01/01/31/25 01/30/25 History
(Plaquenil)
rivaroxaban 20 mg tablet (Xarelto) 20 mg PO DAILY Blood Clot 08/10/24 01/31/25 01/30/25 History
Prevention/Tx
cyclobenzaprine 5 mg tablet 5 mg PO HSPRN PRN muscle spasms 09/21/24 01/31/25 09/21/24 20:00 History
lisinopril 30 mg tablet 30 mg PO DAILY Blood Pressure 09/21/24 01/31/25 01/30/25 History
furosemide 20 mg tablet (Lasix) 20 mg PO DAILY #30 tabs 09/23/24 01/31/25 01/30/25 Rx
acetaminophen 500 mg tablet 1,000 mg PO DAILYPRN PRN mild pain 09/26/24 01/31/25 01/30/25 History
amlodipine 5 mg tablet 10 mg PO DAILY 01/31/25 01/31/25 01/30/25 History
atorvastatin 40 mg tablet 80 mg PO DAILY 01/31/25 01/31/25 01/30/25 History
folic acid 1 mg tablet 1 mg PO DAILY 01/31/25 01/31/25 01/30/25 History
pantoprazole 40 mg tablet,delayed 40 mg PO BID 01/31/25 01/31/25 01/30/25 History
release
prednisone 10 mg tablet 10 mg PO DAILY 01/31/25 01/31/25 01/30/25 History
tacrolimus 1 mg capsule, 1 mg PO DAILY 01/31/25 01/31/25 01/30/25 History
immediate-release
diazepam 2 mg tablet (Valium) 2 mg PO TID PRN muscle spasm #10 04/01/25 Unknown Rx
tabs
aripiprazole 5 mg tablet 5 mg PO DAILY 05/25/25 Unknown History
mirtazapine 7.5 mg tablet 7.5 mg PO HS 05/25/25 Unknown History
Review of Systems
-
Unable to Obtain full review of systems at this time due to: Patient Non Verbal
Vitals / Labs / Diagnostic Testing
Vital Signs
Temp Pulse Resp BP Pulse Ox
97.7 F 78 18 111/75 97
05/26/25 07:41 05/26/25 07:15 05/26/25 07:15 05/26/25 07:00 05/26/25 08:49
Lab Data
05/26/25 04:35
05/26/25 04:35
Laboratory Results
05/25/25 05/25/25 05/26/25
22:17 22:18 04:55
PT 12.6
INR 0.91
APTT 31.7
pH 7.41 7.38
pCO2 31 L 31 L
pO2 153 H 113 H
HCO3 19.6 L 18.3 L
O2 Delivery Level
Microbiology
05/25/25 16:57 Nasal Swab Influenza Types A & B (RIA) - Final
Negative for Influenza A & B, NAAT
Negative results must be combined with clinical observations
and patient history.
Nucleic Acid Amplification test (NAAT)performed on the
[employer] platform.
Diagnostic Testing:
Physical Exam
-
HEENT: Normocephalic
Cardiovascular: S1/S2 and Regular Rhythm
Respiratory: Clear, Non-Labored Respirations and Other (Intubated)
General: Comfortable
Assessment
-
Assessment:
This is a 55 y/o female with pmhx of paroxysmal atrial fibrillation, SLE, h/o cerebral thrombosis, h/o colon cancer who presented to the ED on 05/25/2025 after witnessed seizure-like activity who was intubated following a second tonic-clonic seizure
in the emergency department.
Plan:
Seizure (x2)
Fever
Severe Headache
Patient with witnessed seizure in the ED s/p Keppra 3000mg x1 and intubation
CT Scan: 1.8 cm low-attenuation lesion in the cortical self matter and subcortical white matter of the lateral left frontal lobe. Diagnostic possibilities are (1) an acute ischemic infarct containing cytotoxic edema, (2) MACHINE BRUSHER VASCULITIS given the
history of systemic lupus erythematosus, or (3) metastatic disease. 8 mm chronic infarct in the genu of the right internal capsule and adjacent 1.3 cm lesion in the anterior right thalamus with a similar differential of ischemic infarction,
vasculitis, and less likely metastatic disease. Mild diffuse cerebral and cerebellar volume loss.
Infectious disease and Neurology are following, will appreciate their insight
Currently intubated and sedated with Fentanyl and Propofol
Maintain Plateau pressure <30 and titrate fiO2 and PEEP to keep SpO2 > 90-94%
Continue aspiration precautions, keeping head of the bed >30-45 degrees
Daily Chest X-rays and daily Blood Gas
Daily Vent Adjustments as needed based on above
Cerebelli has shown 0% seizure burden thus far
MRI ordered by admitting team, pending
Lumbar Puncture pending
Continue Keppra 1000mg BID
Continue Thiamine 100mg daily
Continue antibiotics per Infectious Disease recommendations. Currently on Acyclovir, Ampicillin, Ceftriaxone, Vancomycin
Resume anticoagulation today with Lovenox
Transitioned NS to LR for IV fluids
Will monitor
Substance Use Disorder
UDS in the ED was positive for methamphetamines/amphetamines, benzodiazepines, tricyclics and THC.
Last known use unknown
Continue Ativan PRN for withdrawal
Systemic Lupus Erythematous
Patient on chronic steroids at home (Dosage not confirmed, will reach out to [id number]-[id number]-wnj to confirm medications)
Continue IV steroids
[2025-05-26] MEDS: SUBLIMAZE 100 IV ×2 (11:06→19:11)
[2025-05-26] MEDS: LOVENOX 60 MG SC ×2 (11:15→22:17)
[2025-05-26] MEDS: LR 1000 IV ×2 (11:15→22:17)
--- NOTE | 2025-05-26 12:00 | PTCARENOTE ---
pt. reassessed, no changes in assessment from previous. Plan remains to obtain MRI, CTA, and LP. Family @ bedside continuously updated.
--- NOTE | 2025-05-26 12:57 | CM ---
Patient intubated. Initial assessment completed with mother, son (Sterling) and other son's girlfriend and patient criminal attorney (Edel). Patient lives with a son who is deaf and his girlfriend who is also a paid caregiver for 10 hours/day, 70 hours/week.
They live in a 1 story plus basement home, 3 steps to enter. 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 She also has a SC, transport chair and grab bars in the BR. She does drive. No skilled in-home
services. Sterling is POA. Confirmed by patient's mother and Edel. he has the paperwork but is unsure where it is. No VA benefits. Has had a recent psychiatric admission to [facility] approximately 6 weeks ago for psychosis. Believed to be
illicit drug induced. PCP is Dr. Sridhar Reynolds. Pharmacy is [facility] on [facility] in [place]. Discharge POC: TBD.
--- NOTE | 2025-05-26 14:00 | CON.ID ---
Addendum entered and electronically signed by Vanessa West MD 05/27/25 08:03:
I personally performed a history and physical exam of the patient and discussed management with the resident. I reviewed the resident's note and agree with the documented findings and plan of care HPI/CC with the following additions/corrections:
cc: headache and seizure
Ms Hilton is a 55 year old female with history notable for SLE (tacrolimus 1 mg daily, plaquenil and prednisone 10 mg PO daily), cerebral thrombosis, colon cancer, PAF who presented to the ER for severe headache that progressed to witnessed
seizure. The headache began on the day of admission and she developed inability to use the right arm due to clumsiness/ataxia. She does have a history of headaches. She developed a tonic clonic seizure 911 was called and she was brought to the
ER where she had another witnessed seizure. She was sedated and intubated for airway protection. Family report no: fevers, chills cough, nausea, vomiting, diarrhea. Son reports mom is not always forthcoming with complaints. No sick contacts or
small children in the home and now travel. Son reports she sees a cartography/mapping technician and doesnt recieve any injectable mediations for lupus.
Note she has an extensive rash attributed to lupus. Patient reports it is unchanged and chronic.
Since arrival here she has been febrile to 100.9, bp was initially mildly hypotensive 90s/60s now stabilized, wbc initially 13.9 today 14.3, hgb 11.7, plt 516, L shift, na 134, cr 1.0, gluose 94, t bili 0.1, ast 22, alt 15, alk phos 84, ESR 94, CRP
27, UA >100 wbc/hpf and many bacteria, UDS: methamphetamines/amphetamines, benzos, TCA and THC. There is a prior history of methamphetamine use disorder. CT head w/o IV contrast: 1.8 cm lesion in cortical self matter (ischemic infarct, ammonia still operator
vasculitis, metastatic disease) also an 8 mm chronic infarct with similar differential, CXR 05/26 improved L basilar atelectasis or pneumonia, urine culture in progress, blood cultures x2 in progress, influenza screen in progress. She is currently
on vancomycin, ceftriaxone, ampicillin, acyclovir and dexamethasone. IR is consulted for LP.
Past Medical History
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
Anemia of Chronic Disease
Raynaud's
Cerebral Thrombosis
Hypertension
Anxiety
Chronic Neuropathic Pain
Colon Cancer
GERD
Severe Protein Malnutrition
Chronic Immunosuppressed State
ASCVD - Prior DC / CVA
Past Surgical History:
Colon Resection with Ileostomy and Subsequent Reversal
Social, family history reviewed
Physical Exam
General: no acute distress, sedated on ventilator
HEENT: supple neck
Respiratory: Clear; No Wheezes, Rales or Rhonchi
Cardiac: S1/S2 and Regular Rhythm; No Murmur
GI: Soft, Non Tender, Non Distended and Normal Bowel Sounds
Musculoskeletal: No Clubbing, No Cyanosis and No Edema
Skin: rash of the face, chest, arms - coalsecing, macular
Neuro: Sedated
Labs reviewed as above
Imaging reviewed as above
A&P:
Witnessed Seizure
Fever
Headache
UTI
SLE - uncontrolled
Substance use disorder
- blood cultures x2 in progress
- note UA with pyuria, urine culture in progress
- atelectasis on CXR
- LP pending with IR: cell count, culture, protein, glucose, meningitis panel; additionally note acid fast culture, fungus culture, CRAG, lyme PCR additionally are ordered
- c/w vancomycin, ceftriaxone, ampicillin, acyclovir, dexamethasone, droplet precautions pending LP results
AW
Original Note:
Consultation
-
Date/Time Consultation Requested: 05/25/25 at 21:31 hours
Date/Time Consultation Performed: 05/26/2025 at 1 PM
Requesting Provider: Robbie Bartholomew
Performing Provider: Micheline Brwon
Reason for Consultation: Seizure and encephalopathy
Chief Complaint / Past History
Chief Complaint
Headache and seizure
History of Present Illness
Patient is a 55-year-old female with a past medical history significant for SLE, paroxysmal atrial fibrillation, cerebral thrombosis, substance use disorder, and colon cancer who presented to the emergency department for evaluation of headache and
witnessed seizure. ��Initial history was obtained by emergency department staff and from family at the bedside. The patient's family reported that there were no recent symptoms of illness including cough, nausea, vomiting, or diarrhea. �There was no
recent travel or known sick contacts.� She was in her normal state of health up until the morning of her presentation where she started to begin complaining of a severe headache that was persistent and not going away. ��During that time she had
complained that she was not able to use her right arm due to clumsiness.� While the patient was en route to [facility] she started to speak nonsensically and then had evident tonic clonic seizure activity in the car.� The patient
returned home with her family and 911 was called and the patient was brought to our emergency department for further evaluation.� In the emergency department the patient had another witnessed seizure and she was sedated and intubated. �In the
emergency department the patient was febrile and had a temperature of 100.9, she was hemodynamically unstable and had a blood pressure that ranged from hypotensive to hypertensive, she had leukocytosis with WBCs at 13.9 with left shift, hemoglobin
11.7, and platelets 516, ESR was 94, CRP was 27.4, and triglycerides were elevated at 360. �Urine drug screen was positive for tricyclics, amphetamines, methamphetamines, benzodiazepines, and THC. �CT of the head without IV contrast showed a 1.8 cm
low-attenuation lesion in the cortical self matter and subcortical white matter of the lateral left frontal lobe suggesting possible acute ischemic infarct containing cytotoxic edema, CREAM DUMPER vasculitis given the history of SLE, or metastatic disease.�
An 8 mm chronic infarct of the genu of the right internal capsule and adjacent 1.3 cm lesion in the anterior right thalamus with a similar differential was also seen. �Chest x-ray showed mild airspace consolidation in the posterior basilar left
lower lobe which was suspected to be secondary to atelectasis or aspiration pneumonia. �2 blood cultures were taken and a urine analysis was conducted showing 3+ occult blood, 3+ leukocyte esterase, 7-10 urine RBC, greater than 100 urine WBC, many
bacteria, and 4+ albumin.� Awaiting urine culture.� She was initiated on ceftriaxone, vancomycin, acyclovir, ampicillin, and dexamethasone.� Interventional radiology was consulted for LP.� Patient was admitted for witnessed seizure and fever.
Past History
Additional Past Medical History:
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
Anemia of chronic disease
Raynaud's phenomenon
Cerebral thrombosis
Essential hypertension
Anxiety disorder
Chronic neuropathic pain
Colon cancer
GERD
Severe protein malnutrition
Chronic immunosuppressed state
History of prior DC
Coronary artery disease
History of prior CVA
Additional Past Surgical History:
Colonic resection with ileostomy and subsequent reversal
Allergy History:
No Known Allergies Allergy (Verified 04/03/25 19:53)
Medications Reviewed: Yes
Current Antibiotics:
Allergies
Allergy/AdvReac Type Severity Reaction Status Date / Time
No Known Allergies Allergy Verified 04/03/25 19:53
Home Medications
amitriptyline 25 mg tablet 25 mg PO HS Mental Health 08/10/24
escitalopram oxalate 10 mg tablet (Lexapro) 10 mg PO DAILY Mental Health 08/10/24
ferrous sulfate 325 mg (65 mg iron) tablet 325 mg PO DAILY Supplement 08/10/24
gabapentin 100 mg tablet 300 mg PO BID Pain 08/10/24
hydroxychloroquine 200 mg tablet (Plaquenil) 200 mg PO BID lupus 08/10/24
rivaroxaban 20 mg tablet (Xarelto) 20 mg PO DAILY Blood Clot Prevention/Tx 08/10/24
lisinopril 30 mg tablet 30 mg PO DAILY Blood Pressure 09/21/24
acetaminophen 500 mg tablet 1,000 mg PO DAILYPRN PRN mild pain 09/26/24
amlodipine 5 mg tablet 10 mg PO DAILY Blood Pressure 01/31/25
atorvastatin 40 mg tablet 80 mg PO DAILY High Cholesterol 01/31/25
folic acid 1 mg tablet 1 mg PO DAILY Supplement 01/31/25
pantoprazole 40 mg tablet,delayed release 40 mg PO BID Gastrointestinal Issue 01/31/25
prednisone 10 mg tablet 10 mg PO DAILY lupus - rash 01/31/25
aspirin 81 mg tablet 81 mg PO DAILY Blood Clot Prevention/Tx 05/26/25
docusate sodium 100 mg capsule 100 mg PO BID Constipation 05/26/25
furosemide 20 mg tablet (Lasix) 20 mg PO DAILY Fluid Retention/Swelling 05/26/25
hydrocortisone 2.5 % topical cream 1 applic topical BID lupus - rash 05/26/25
ondansetron 4 mg disintegrating tablet 4 mg PO Q6H PRN Nausea/Vomiting 05/26/25
tacrolimus 0.5 mg capsule, immediate-release 1.5 mg PO Q12H lupus 05/26/25
Social History
Tobacco: Smoker
Alcohol: None
Drug: Other (Methamphetamines)
Living: Other (Lives with [id number])
Employment: Not Employed
Family History
Family History: Unable to Obtain
Review of Systems
Review of Systems
General: Other (Unable to obtain due to acuity)
Vital Signs
Temp Pulse Resp BP Pulse Ox
97.4 F 71 18 170/100 99
05/26/25 11:30 05/26/25 13:00 05/26/25 13:00 05/26/25 13:00 05/26/25 13:00
Physical Exam
Physical Exam
Head: Normocephalic
Cardiovascular: Regular Rate and S1/S2; Negative Murmur, Rub or Gallop
Pulmonary: Clear, Symmetric and Other (Intubated); Negative Wheezes, Rales, Rhonchi or Coarse
Gastrointestinal: Soft, Non Tender, Non Distended and Normal Bowel Sounds
Genito-Urinary: Pryor
Skin: Warm, Dry and Rash (Prominent SLE rash seen on face, chest, and arms -macular in nature); Negative Jaundice or Ulcers
Lab / Diagnostic Study Results
05/26/25 12:08
05/26/25 04:35
Abs Immat Gran (auto) 0.1 10^3/uL (0-0.05) H 05/25/25 16:57
Absolute Neuts (auto) 11.5 10^3/uL (1.4-6.5) H 05/25/25 16:57
Absolute Lymphs (auto) 1.2 10^3/uL (1.2-3.4) 05/25/25 16:57
Absolute Monos (auto) 1.1 10^3/uL (0.1-0.6) H 05/25/25 16:57
Absolute Basos (auto) 0.0 10^3/uL (0-0.2) 05/25/25 16:57
Immature Gran % 0.8 % (0-0.5) H 05/25/25 16:57
Neutrophils % 82.9 % (42.2-75.2) H 05/25/25 16:57
Lymphocytes % 8.3 % (20.5-51.1) L 05/25/25 16:57
Monocytes % 7.6 % (1.7-9.3) 05/25/25 16:57
Eosinophils % 0.3 % (0-6) 05/25/25 16:57
Basophils % 0.1 % (0-2) 05/25/25 16:57
ESR 94 mm/hour (0-20) H 05/25/25 22:18
PT 12.6 Sec (11.4-14.6) 05/25/25 22:18
INR 0.91 05/25/25 22:18
Lactic Acid 0.9 mmol/L (0.7-2.0) 05/25/25 20:39
C-Reactive Protein 27.40 mg/L (0.0-10.00) H 05/25/25 22:18
Ur Squamous Epith Cells 0-2 /LPF (Few) 05/25/25 17:00
Microbiology Results
Micro:
05/26/25 15:42 CSF Culture - Pending
Csf Gram Stain - Pending
05/26/25 15:42 Gram Stain - Pending
Csf
05/26/25 15:42 Fungal Culture - Pending
Csf
05/26/25 15:42 Acid Fast Bacilli Smear - Pending
Csf Acid Fast Bacilli Culture - Pending
05/26/25 15:42 Meningitis/Encephalitis Panel (PCR) - Pending
Csf
05/25/25 17:00 Urine Culture - Final
Urine
05/25/25 16:57 Influenza Types A & B (RIA) - Final
Nasal Swab Negative for Influenza A & B, NAAT
Negative results must be combined with clinical observations
and patient history.
Nucleic Acid Amplification test (NAAT)performed on the
[employer] platform.
05/25/25 16:57 Blood Culture - Pending
Blood/Venous
05/25/25 16:57 Blood Culture - Pending
Blood/Venous
Assessment / Plan
- Fever and headache:
- Witnessed seizure:
- Urinary tract infection:
- Systemic lupus erythematosus: Uncontrolled
CT of the head without IV contrast showed a 1.8 cm low-attenuation lesion in the cortical self matter and subcortical white matter of the lateral left frontal lobe suggesting possible acute ischemic infarct containing cytotoxic edema, CREAM DUMPER
vasculitis given history of SLE, or possible metastatic disease
Atelectasis versus aspiration pneumonia of the posterior basilar left lower lobe seen on chest x-ray
Blood cultures x 2 pending
Urinalysis notable for pyuria�awaiting urine culture
Pending LP to obtain cell count, cultures, protein, glucose, meningitis panel, acid-fast culture, fungus culture, cryptococcal antigen, and Lyme PCR
Continue vancomycin, ceftriaxone, ampicillin, acyclovir, and dexamethasone pending LP results
Continue droplet precautions pending LP results
--- NOTE | 2025-05-26 15:52 | PTCARENOTE ---
Received pt. on ICU bed at 1520. Placed on IRAD table laterally on left side. Pt. secured with velcro straps. Time out at 1529, needle in 1537 needle [id number]. CSF sent to lab as ordered. Pt. transferred back to ICU bed and transported back to ICU by
RN and Resp. therapist.
[2025-05-26 16:22] LABS: CSF Color Colorless; CSF Tube # Clarity Clear; Red Cell Count/CSF 7 mm^3; White Blood Cell Count/CSF 1 mm^3 (0-5); White Cell Count/CSF 3 mm^3 (0-5)
[2025-05-26 16:23] LABS: Red Cell Count/CSF 37 mm^3
--- NOTE | 2025-05-26 17:40 | PTCARENOTE ---
pt. transported via bed w RN and RT down to MRI; obtained. Pt. then transported to CT scan; obtained. S/P imaging completion pt. transported to IR for LP and back to rm [id number], no issues on transport. Upon arrival back to unit, in contact w Neuro,
Dr. Ying, received orders to keep Cerbell off and d/c continuous EEG order. Complete hygiene provided. OG tube dislodged on transport; removed. Dr. Doe made aware and further orders received for dobhoff placement. R junie dobhoff inserted and
secured @ 75cm; awaiting placement confirmation w abd x-ray. Pt.'s daughter and [id number]-oh-etz to bedside; inquired about pt.'s meth usage/frequency; family unable to verify amount/frequency of drug usage; information relayed to Dr. Bartholomew. Safe
environment maintained.
[2025-05-26] MEDS: VANCOCIN HCL 500 MG 100 IV (18:09)
[2025-05-26] MEDS: DECADRON 6 MG IV ×2 (18:10→23:25)
--- NOTE | 2025-05-26 20:00 | PTCARENOTE ---
on assessment pt intubated and sedated, unable to follow commands, SR on the monitor, 7.5 ETT 23 at the lip, 18/400/30/5, no secretions noted, afebrile, R nare dobhoff at 75 cm placed today, lou in place, chronic rash over whole body, mottled
fingers and toes, Fent and prop gtt infusing per orders.
[2025-05-26 20:59] LABS: Urine Character Clear (Clear)
[2025-05-26 21:13] LABS: Urine Red Blood Cell 0-2 /HPF (0-2)
--- NOTE | 2025-05-26 23:35 | PTCARENOTE ---
pt restless, PRN meds given see SEP,
[2025-05-27] VITALS (23 sets, daily range): BP systolic 123–175; BP diastolic 75–94; BMI 22.9
[2025-05-27] MEDS: AMPICILLIN 108 MG IV ×2 (02:08→05:57)
--- NOTE | 2025-05-27 04:00 | PTCARENOTE ---
pt remains intubated and sedated, PRNs given, see mar, repositioning q2h
[2025-05-27] MEDS: SUBLIMAZE 100 IV ×2 (04:13→13:01)
[2025-05-27] MEDS: SUBLIMAZE 50 MCG IV (04:15)
[2025-05-27] MEDS: ZOVIRAX INJECTION 111.4 MG IV (04:15)
[2025-05-27 05:06] LABS: B.E. -6.2 mmol/L; HCO3 17.6 mmol/L (21-28); O2 Saturation % 99.0 % (94-98); PCO2 29 mmHg (32-35); PO2 144 mmHg (83-108)
[2025-05-27 05:17] LABS: Hematocrit 28.8 % (37.0-47.0); Hemoglobin 10.0 g/dL (12.0-16.0); Mean Corp Hgb Conc. 34.7 g/dL (33.0-37.0); Mean Corpuscular Volume 87.0 fL (81.0-99.0); Platelet Count 462 10^3/uL (130-400); Red Cell Dist. Width 15.9 % (11.5-14.5)
[2025-05-27 05:38] LABS: Blood Urea Nitrogen 35 mg/dl (7-17); Calcium 8.4 mg/dl (8.4-10.2); Carbon Dioxide 17 mmol/L (22-30); Chloride 112 mmol/L (98-107); Estimated Creatinine Clearance 44 ml/min; Glucose 128 mg/dl (70-99); Magnesium 2.1 mg/dl (1.6-2.3); Potassium 4.2 mmol/L (3.5-5.1); Sodium 134 mmol/L (135-145); eGFR 53.46
[2025-05-27] MEDS: DECADRON 6 MG IV (05:58)
--- NOTE | 2025-05-27 07:31 | W.PN.INTV ---
Today's Communication / Plan
Recommendations
Pulse steroids
Consider additional immunosuppressive with lupus cerebritis
Keppra
Stable on the ventilator-not a weaning candidate
Rheumatology evaluation
Consider transfer to tertiary center
Assessment
-
55-year-old smoking female with a history of lupus, PAF, cerebral thrombosis, stage III colon cancer who presented with headache and witnessed seizure activity who was intubated for airway protection and coldfusion consulted for
seizures/ventilator/critical care management 05/26/2025.
New onset seizures/tonic-clonic
Lupus cerebritis
Severe headache with fever
Substance abuse disorder-urine drug screen positive for amphetamines and methamphetamines, benzodiazepines, tricyclic's and marijuana
SLE with chronic rash
Paroxysmal atrial fibrillation
Leukocytosis
Jliezy-algcwagbkt-wifchuvrld 10.7
Metabolic acidosis
Hyperglycemia
Hypocalcemia
Hypomagnesemia
Conditions present prior to admission:
SLE-with lupus nephritis and chronic rash.
Chronic immunosuppression.
Anemia of chronic disease.
Raynaud's.
Cerebral thrombosis.
Hypertension.
Anxiety.
Chronic neuropathic pain.
Colon cancer stage III/resection/ileostomy/reversal..
GERD.
Protein malnutrition.
Methamphetamine use.
Plan
Patient critically ill intubated after witnessed tonic-clonic seizures
Ventilator settings reviewed
Chest x-ray reviewed-pull back ET tube 2 cm-reviewed with MINISTER ASSISTANT
ABGs reviewed 05/27/2025--/7.39
Wean FiO2
Adjust ventilator
Nebulizers if needed-currently not bronchospastic
VAP prevention protocol
Aspiration precautions
Spontaneous breathing trial once mental status improved and no longer seizures
Cultures reviewed
CSF cultures no growth
CSF meningitis panel 05/26/2025-negative
Urine cultures negative
Influenza negative
Empiric antibiotics-ampicillin, ceftriaxone, vancomycin, acyclovir and Decadron
Follow leukocytosis
Antiepileptics
Keppra load
Neurology evaluation ongoing-correspondence reviewed
CT head summarized below
MRI brain 05/26/2025 consistent with lupus cerebritis
Pulse steroids
Likely needs additional immunosuppressants
Rheumatology evaluation recommended
Consider transfer to tertiary center
Patient chronically on Eliquis
Heparin drip
Monitor blood sugar
Insulin supplementation as needed
Replace electrolytes
Substance abuse cessation counseling
DVT prophylaxis-on heparin drip
GI prophylaxis-on pantoprazole
Nutrition-nasogastric tube for feedings in the next 24 hours if not extubated
Early mobilization
Reviewed with son and mother at the bedside during multidisciplinary rounds 05/26/2025 and reviewed on several occasions with mother 05/27/2025 including potential for poor prognosis
Critical care statement: A total of 55 minutes of critical care time was provided for this patient today. This includes management of unstable vital signs, evaluation of the patient at bedside, reviewing the patient�s pertinent medical records
including radiographs, microbiology, laboratory evaluations, and��discussion with primary team, consultants, pharmacy, nutrition, physical therapy, case management, charge nurse, critical care nursing, and respiratory therapy.
Diagnostic data:
Chest x-ray 05/25/2025-endotracheal tube in normal position, mild airspace disease left lower lobe
Chest x-ray 05/26/2025-ET tube at [facility], improved left basilar atelectasis
CT head 05/25/25-1.8 cm low-attenuation lesion cortical self matter and subcortical white matter of the lateral left frontal lobe-differential includes acute ischemic infarct containing cytotoxic edema, FLIGHT ENGINEER vasculitis given history of lupus and or
metastatic disease, 8 mm chronic infarct in genu of the right internal capsule, mild diffuse cerebral and cerebellar volume loss
Echocardiogram 09/22/2024-EF 55-60%, moderate aortic stenosis, CASSIE 1.4 cm, mild to moderate mitral regurgitation, PA systolic estimated 60-65
Subjective Dataa
Subjective Data
Date of Service:
Date of Service: May 27, 2025
Chief Complaint: Medical Technologist Clinical Follow Up and Pulmonary Follow Up
Subjective:
No further seizures, sedated on the ventilator, unable to obtain review of systems
Review of Systems
General: Unobtainable - Sedation
Objective Data
Data Reviewed
Vital Signs / I&O / Oxygen:
Vital Signs
Temp Pulse Resp BP Pulse Ox
97.2 F 62 18 144/84 100
05/27/25 03:08 05/27/25 06:00 05/27/25 06:00 05/27/25 06:00 05/27/25 04:30
Intake and Output
05/26/25 05/27/25 05/28/25
06:59 06:59 06:59
Intake Total 1903.6 / 2023.9 3256.0 / 3256.0
Output Total 460 / 490 1215 / 1215
Balance 1443.6 / 1533.9 2041.0 / 2041.0
SaO2 [A/C] 100
SaO2 100
Nasal Cannula flow liters per 96
minute
Physical Exam
General: Respiratory Distress (n) and Comfortable
HEENT: Normocephalic, Anicteric and Moist Mucous Membranes
Cardiovascular: Regular Rhythm, Murmur and Peripheral Edema
Respiratory: Wheeze (n), Crackles (Few basilar), Rhonchi (n), Non-Labored Respirations, Accessory Resp Muscle Use (n) and Stridor (n)
GI: Soft, Non Distended and Non Tender
Neurology: Unresponsive
Skin: Warm, Good Color, Cyanosis (n), Jaundice (n) and Other (Diffuse rash related to her lupus)
Labs/Micro/Reports
Lab Data
05/27/25 04:49
05/27/25 04:49
Laboratory Results
05/26/25 05/27/25
12:08 04:49
APTT Cancelled
pH 7.39
pCO2 29 L
pO2 144 H
HCO3 17.6 L
O2 Delivery Level
Microbiology
05/26/25 15:42 Csf Gram Stain - Preliminary
05/26/25 15:42 Csf Meningitis/Encephalitis Panel (PCR) - Final
05/25/25 16:57 Blood/Venous Blood Culture - Preliminary
No Growth in 24 hours- Final report to follow
05/25/25 16:57 Blood/Venous Blood Culture - Preliminary
No Growth in 24 hours- Final report to follow
05/26/25 15:42 Csf Fungal Culture - Preliminary
Culture in progress.
Positive cultures are reported as soon as detected.
Final report to follow in four to five weeks.
05/25/25 17:00 Urine Urine Culture - Final
05/25/25 16:57 Nasal Swab Influenza Types A & B (RIA) - Final
Negative for Influenza A & B, NAAT
Negative results must be combined with clinical observations
and patient history.
Nucleic Acid Amplification test (NAAT)performed on the
[employer] platform.
[2025-05-27] MEDS: DIPRIVAN 100 IV ×2 (08:32→13:20)
--- NOTE | 2025-05-27 08:33 | W.PN.INTV ---
Today's Communication / Plan
Recommendations
Pending tacrolimus level
Pending additional lumbar puncture studies
Consulted Rheumatology today
Continue Dexamethasone 6mg Q6h
Continue intubation
Assessment
-
Assessment:
This is a 55 y/o female with pmhx of paroxysmal atrial fibrillation, SLE, h/o cerebral thrombosis, h/o colon cancer who presented to the ED on 05/25/2025 after witnessed seizure-like activity who was intubated following a second tonic-clonic seizure
in the emergency department.
Plan:
Seizure (x2)
Fever
Severe Headache
Systemic Lupus Erythematous with concern for Lupus Cerebritis
Patient with pmhx of SLE on chronic steroid, recently increased tacrolimus and hydroxychloroquine with witnessed seizure in the ED s/p Keppra 3000mg x1 and intubation.
CT Scan: 1.8 cm low-attenuation lesion in the cortical self matter and subcortical white matter of the lateral left frontal lobe. Diagnostic possibilities are (1) an acute ischemic infarct containing cytotoxic edema, (2) CHAIN MAKER MACHINE VASCULITIS given the
history of systemic lupus erythematosus, or (3) metastatic disease. 8 mm chronic infarct in the genu of the right internal capsule and adjacent 1.3 cm lesion in the anterior right thalamus with a similar differential of ischemic infarction,
vasculitis, and less likely metastatic disease. Mild diffuse cerebral and cerebellar volume loss.
MRI 05/26: There are multiple regions of abnormal increased FLAIR signal scattered throughout the brain, probably greatest in the left hemisphere. 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 Regions of involvement have changed since prior
examination of September 27, 2024. There is no evidence for enhancement of any of these focal areas of signal abnormality. No significant mass effect with no midline shift. There is a small focus of old infarction in the junction of the right anterior
thalamus and the adjacent posterior limb of the right internal capsule. 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
Head/Neck CTA 05/26: No significant vascular occlusion, aneurysm or dissection
Infectious disease and Neurology are following, will appreciate their insight
Consulted rheumatology today, will appreciate their insight
Currently intubated and sedated with Fentanyl (125) and Propofol (25).
--Vent Settings: 18 - 400 - 5 - 30
Maintain Plateau pressure <30 and titrate fiO2 and PEEP to keep SpO2 > 90-94%
Continue aspiration precautions, keeping head of the bed >30-45 degrees
Daily Chest X-rays and daily Blood Gas
Daily Vent Adjustments as needed based on above
Cerebelli has shown 0% seizure burden thus far
Lumbar puncture showed elevated protein, otherwise unremarkable. Additional Lumbar Puncture studies pending
Pending Tacrolimus level
Continue Keppra 1000mg BID
Continue Thiamine 100mg daily
Continue dexamethasone IV 6mg Q6h for lupus cerebritis
Continue antibiotics per Infectious Disease recommendations. Currently on Acyclovir, Ampicillin, Ceftriaxone, Vancomycin at time of this note
Continue Lovenox
Continue LR for IV fluids
Would wait to add any of patient's home psychiatric medications back in until she is more alert. Concern for any medications that may lower her seizure threshold.
Will add Nelsy hugger for temperature support, this and worsened rash are both likely secondary to SLE.
Will monitor
Substance Use Disorder
UDS in the ED was positive for methamphetamines/amphetamines, benzodiazepines, tricyclics and THC.
Last known use unknown
Continue Ativan PRN for agitation
Subjective Dataa
Subjective Data
Date of Service:
Date of Service: May 27, 2025
Chief Complaint: It Generalist Follow Up
Subjective:
Patient remains sedated and intubated. Family unfortunately was not in the room when I arrived. ROS limited by patient sedation.
Review of Systems
General: Unobtainable - Sedation
Objective Data
Data Reviewed
Vital Signs / I&O / Oxygen:
Vital Signs
Temp Pulse Resp BP Pulse Ox
97.3 F 62 18 144/84 100
05/27/25 07:51 05/27/25 06:00 05/27/25 06:00 05/27/25 06:00 05/27/25 07:48
Intake and Output
05/26/25 05/27/25 05/28/25
06:59 06:59 06:59
Intake Total 1903.6 / 2023.9 3256.0 / 3256.0
Output Total 460 / 490 1215 / 1215
Balance 1443.6 / 1533.9 2041.0 / 2041.0
SaO2 [A/C] 100
SaO2 100
Nasal Cannula flow liters per 96
minute
Physical Exam
General: Comfortable
HEENT: Normocephalic
Cardiovascular: S1-S2 and Regular Rhythm
Respiratory: Crackles (Clear throughout except left lateral lung field)
Neurology: Unresponsive
Skin: Warm, Dry and Rash (Worsening mottling of the skin especially of the face compared to yesterday. Limbs are cold to touch)
Labs/Micro/Reports
Lab Data
05/27/25 04:49
05/27/25 04:49
Laboratory Results
05/26/25 05/27/25
12:08 04:49
APTT Cancelled
pH 7.39
pCO2 29 L
pO2 144 H
HCO3 17.6 L
O2 Delivery Level
Microbiology
05/26/25 15:42 Csf Gram Stain - Preliminary
05/26/25 15:42 Csf Meningitis/Encephalitis Panel (PCR) - Final
05/25/25 16:57 Blood/Venous Blood Culture - Preliminary
No Growth in 24 hours- Final report to follow
05/25/25 16:57 Blood/Venous Blood Culture - Preliminary
No Growth in 24 hours- Final report to follow
05/26/25 15:42 Csf Fungal Culture - Preliminary
Culture in progress.
Positive cultures are reported as soon as detected.
Final report to follow in four to five weeks.
05/25/25 17:00 Urine Urine Culture - Final
05/25/25 16:57 Nasal Swab Influenza Types A & B (RIA) - Final
Negative for Influenza A & B, NAAT
Negative results must be combined with clinical observations
and patient history.
Nucleic Acid Amplification test (NAAT)performed on the
[employer] platform.
--- NOTE | 2025-05-27 08:40 | W.PN.ID1 ---
Addendum entered and electronically signed by Vanessa West MD 05/27/25 13:05:
I saw and evaluated the patient. I reviewed the resident�s note and agree with findings and plan as documented in the resident�s note with the following additions/corrections:
No further fevers
BP remains stable
Overnight had LP with normal CSF findings
Acyclovir dose yesterday at 1400 was potentially mislabeled; on review it was unclear if the correct dose was placed in the wrong volume or the wrong dose was given. Patient would have received either 450 mg or 600 mg of acyclovir. When the
potential error became apparent the dose was stopped. The next dose was adjusted to 8pm.
Physical Exam
General: no acute distress, intubated sedated on ventilator
HEENT: supple neck
Respiratory: Clear; No Wheezes, Rales or Rhonchi
Cardiac: S1/S2 and Regular Rhythm; No Murmur
GI: Soft, Non Tender, Non Distended and Normal Bowel Sounds
Musculoskeletal: No Clubbing, No Cyanosis and No Edema
Skin: rash of the face, chest, arms - coalescing, macular
Neuro: Sedated
Labs reviewed as above
Imaging notable for MRI brain suggestive of lupus cerebritis
Laboratory Tests
05/26/25
15:42
CSF Appearance Clear
CSF Color Colorless
CSF WBC 1
CSF RBC 7
CSF Cell Count Tube # 4
CSF Glucose 54
CSF Total Protein 74 H
A&P:
Witnessed Seizure
Fever
Headache
UTI
SLE - uncontrolled
Substance use disorder
- blood cultures x2 in progress
- note UA with pyuria, urine culture in progress
- atelectasis on CXR
- LP with normal CSF
- continue ceftriaxone dose adjusted for possible UTI
- stopped: vancomycin, ampicillin, acyclovir, droplet precautions and dexamethasone
- CSF paraneoplastic abs, VDRL, c neoformans, lyme PCR, afb culture, fungus culture are pending - clinical suspicion for these etiologies with normal CSF is very low
- defer further steroid management to the primary team; patient is for STAT transfer
AW
Original Note:
Date of Service
Date of Service: May 27, 2025
Today's Communication
Discontinued acyclovir, acyclovir, and ampicillin
Continue ceftriaxone 2000 mg IV every 24 hours
Defer to primary team in regards to dexamethasone in the setting of active lupus cerebritis
Assessment / Plan
- Fever and headache:
- Witnessed seizure:
- Urinary tract infection:
- Systemic lupus erythematosus: Uncontrolled
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
vasculitis given history of SLE, or possible metastatic disease
Atelectasis versus aspiration pneumonia of the posterior basilar left lower lobe seen on chest x-ray
Blood cultures x 2 no growth
Urinalysis notable for pyuria�awaiting urine culture
CSF culture pending�so far no white blood cells or organisms
CSF fungal culture pending
Discontinued acyclovir, acyclovir, and ampicillin
Continue ceftriaxone 2000 mg IV every 24 hours
Defer to primary team in regards to dexamethasone in the setting of active lupus cerebritis
Subjective / Review of Systems
Subjective unable to be obtained due to patient acuity. The patient remains intubated in the ICU.
Vital Signs / Physical Exam
Vital Signs
Vital Signs
Temp Pulse Resp BP Pulse Ox
97.3 F 61 18 142/82 99
05/27/25 07:51 05/27/25 10:00 05/27/25 10:00 05/27/25 10:00 05/27/25 10:00
Physical Exam
Constitutional: No Acute Distress, Well Developed and Chronically Ill
Head: Normocephalic
Cardiovascular: Regular Rate and S1/S2; Negative Murmur, Rub or Gallop
Pulmonary: Clear and Symmetric; Negative Wheezes, Rales, Rhonchi or Coarse
Gastrointestinal: Soft, Non Tender, Non Distended and Normal Bowel Sounds
Genito-Urinary: Pryor
Skin: Warm, Dry and Other (Coalescing and macular rash with the skin of the face, chest, and arms secondary to SLE)
Neurological: Other (Patient is sedated and intubated)
Objective Data
Lab Data
Lab Results
05/27/25 04:49
05/27/25 04:49
ESR 94 mm/hour (0-20) H 05/25/25 22:18
PT 12.6 Sec (11.4-14.6) 05/25/25 22:18
INR 0.91 05/25/25 22:18
APTT Cancelled 05/26/25 12:08
Estimated Creat Clear 44 ml/min 05/27/25 04:49
Lactic Acid 0.9 mmol/L (0.7-2.0) 05/25/25 20:39
Total Bilirubin 0.2 mg/dl (0.2-1.3) 05/26/25 04:35
AST 20 U/L (14-36) 05/26/25 04:35
ALT 12 U/L (0-35) 05/26/25 04:35
Alkaline Phosphatase 51 U/L (38-126) 05/26/25 04:35
C-Reactive Protein 27.40 mg/L (0.0-10.00) H 05/25/25 22:18
Most recent labs reviewed.
Micro Results:
05/26/25 15:42 CSF Culture - Preliminary
Csf No Growth After 18-24 Hours
Gram Stain - Preliminary
05/26/25 20:52 Urine Culture - Pending
Urine
05/26/25 15:42 Meningitis/Encephalitis Panel (PCR) - Final
Csf
05/25/25 16:57 Blood Culture - Preliminary
Blood/Venous No Growth in 24 hours- Final report to follow
05/25/25 16:57 Blood Culture - Preliminary
Blood/Venous No Growth in 24 hours- Final report to follow
05/26/25 15:42 Fungal Culture - Preliminary
Csf Culture in progress.
Positive cultures are reported as soon as detected.
Final report to follow in four to five weeks.
05/26/25 15:42 Acid Fast Bacilli Smear - Pending
Csf Acid Fast Bacilli Culture - Pending
05/25/25 17:00 Urine Culture - Final
Urine
05/25/25 16:57 Influenza Types A & B (RIA) - Final
Nasal Swab Negative for Influenza A & B, NAAT
Negative results must be combined with clinical observations
and patient history.
Nucleic Acid Amplification test (NAAT)performed on the
[employer] platform.
[2025-05-27] MEDS: STERILE WATER FOR INJECTION IV (09:02)
[2025-05-27] MEDS: ROCEPHIN IV (09:02)
[2025-05-27] MEDS: LOW STRENGTH ASPIRIN 81 MG TUBE (09:03)
[2025-05-27] MEDS: LOVENOX 60 MG SC (09:03)
[2025-05-27] MEDS: KEPPRA 1000 MG IV (09:03)
[2025-05-27] MEDS: THIAMINE INJECTION 100 MG IV (09:04)
[2025-05-27] MEDS: NSS (PRESERVATIVE FREE) 10 ML IV (09:04)
[2025-05-27] MEDS: MIRALAX 17 GRAMS TUBE (09:04)
[2025-05-27] MEDS: PROTONIX IV 40 MG IV (09:04)
--- NOTE | 2025-05-27 10:00 | PTCARENOTE ---
Rec'd care of patient at 0715. Patient intubated and sedated on Fent/Prop. PERRLA; sluggish,+3mm. +Corneal/cough/gag reflexes. Trace movement in extremities observed inconsistently. SB/NSR, 50-60's. +2 generalized anasarca. Swelling in b/l eyelids
and lips. Rash remains on face/neck/chest area. Mottling found in b/l hands/fingers/knees/feet/toes. Hands and fingertips black. Patient packed in warm blankets. Bairhugger obtained and applied. #7.5 ett, 23 cm @ the lip. A/C 18/400/5/30%. Lung
sounds coarse, diminished throughout. No secretions from ett. Hypo BS. NPO. Meds through right nare DHT. No BM. Pryor in place for critical I/O. IVFs/Fentanyl/Propofol infusing through peripheral sites. Droplet precautions dc'd by infection
patient services coordinator. See worklist for full assessment and care.
--- NOTE | 2025-05-27 11:15 | W.PN.NEURO.1 ---
Addendum entered and electronically signed by Robbin Ying MD 05/27/25 11:35:
Studies reviewed.
I have personally examined the patient. I reviewed and agree with the REGISTERED NURSE MIDWIFE's Note.
My addenda:
Intubated. No acute distress.
Speech mute. Negative doll's eyes. Does spontaneously open eyes with verbal stimulation, then immediately closes eyes
Follows no requests. No tremor.
No spontaneous movements of limbs.
Neck: full ROM.
Chest: no dyspnea
Heart: no JVD
Ext: (-) Clubbing, (-) Cyanosis, (-) Edema
IMPRESSIONS/RECOMMENDATIONS:
Abrupt onset of change in mental status
Most likely secondary to toxic metabolic encephalopathy. Differential diagnosis most likely includes neuropsychiatric lupus erythematosus (NPSLE) with cerebritis, and toxic metabolic exposure following lumbar puncture
Continue anticoagulation
Continue dexamethasone 6 mg every 6 hours
Continue newly initiated levetiracetam 1000 mg twice a day
Continue thiamine
Await additional results from lumbar puncture
Will follow.
Original Note:
Today's Communication / Plan
-
.
Neuro Assessment/Plan
Assessment
IMPRESSIONS/RECOMMENDATIONS:
Abrupt onset of change in mental status
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
-MRI brain 05/26/25: There are multiple regions of abnormal increased FLAIR signal scattered throughout the brain, probably greatest in the left hemisphere. 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 There is no evidence for enhancement of any of
these focal areas of signal abnormality. No significant mass effect with no midline shift. There is a small focus of old infarction in the junction of the right anterior thalamus and the adjacent posterior limb of the right internal capsule.
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
-CTA head/neck 05/26/25: No significant vascular occlusion, aneurysm or dissection.
-Ceribell EEG 05/26/25: No evidence of status epilepticus.
-CSF 05/26/25: Protein 74, WBC 1, glucose 54.
Plan
Continue anticoagulation
Continue newly initiated levetiracetam 1000 mg twice a day
Continue thiamine
Appreciate assistance from infectious disease
Subjective/Objective
Subjective Data
Date of Service: May 27, 2025
No acute events overnight. Patient remains intubated in the ICU.
Objective Data
Vital Signs
Temp Pulse Resp BP Pulse Ox
97.3 F 58 18 145/75 98
05/27/25 07:51 05/27/25 10:30 05/27/25 10:30 05/27/25 10:30 05/27/25 10:30
Lab Results
05/27/25 04:49
05/27/25 04:49
PT 12.6 Sec (11.4-14.6) 05/25/25 22:18
INR 0.91 05/25/25 22:18
APTT Cancelled 05/26/25 12:08
Sodium 134 mmol/L (135-145) L 05/27/25 04:49
Potassium 4.2 mmol/L (3.5-5.1) 05/27/25 04:49
BUN 35 mg/dl (7-17) H 05/27/25 04:49
Glucose 128 mg/dl (70-99) H 05/27/25 04:49
Calcium 8.4 mg/dl (8.4-10.2) D 05/27/25 04:49
Phosphorus 5.4 mg/dl (2.5-4.5) H 05/26/25 04:35
Ur Buprenorphine Negative (Negative) 05/25/25 17:00
Patient Allergies
No Known Allergies Allergy (Verified 04/03/25 19:53)
Review of Systems
-
Unable to obtain full review of systems at this time due to: Patient Intubation
Physical Exam
-
General: Appears Chronically Ill
Eyes: No Ptosis and PERRLA
HEENT: Normocephalic and Atraumatic
GI: Non-distended
Extremities: Edema +1; Negative No Cyanosis (bilateral hands mottled)
Extended Neurological Exam
Attention Span & Concentration: Closes Eyes after Stimulation (opens eyes to voice, close quickly)
Memory: Unable to Assess
Tremor: Unable to Assess
Involuntary Movement: None
Speech: Unable to Assess
Cranial Nerve II: Left Eye: Pupillary Reactivity Unremarkable, Pupillary Size Unremarkable and Unable to Assess Visual Cano
Cranial Nerve II: Right Eye: Pupillary Reactivity Unremarkable, Pupillary Size Unremarkable and Unable to Assess Visual Cano
Cranial Nerves III, IV, : Extraocular Movement: Unable to Assess
Cranial Nerve VII: Facial Symmetry: Normal Facial Symmetry
Cranial Nerve VIII: Hearing: Unable to Assess
Cranial Nerve XI: Shoulder Shrug: Unable to Assess
Cranial Nerve XII: Tongue Protusion: Unable to Assess
Muscle Strength, Overall: Other (flicker withdraws in all extremities)
Pronator Drift: Unable to Assess
Cold Sensation: Unable to Assess
Vibration Sensation: Unable to Assess
Touch Sensation: Unable to Assess
Coordination: Unable to Assess
Babinski Sign: Absent Bilaterally
Data Reviewed
-
CT-A: Report Reviewed and Image Reviewed
MRI Head: Report Reviewed and Image Reviewed
EEG: Report Reviewed
Labs: Report Reviewed
Reviewed with: Physician and Nurse
Medications
-
Active Medications
Generic Name Dose Route Start Last Admin
Trade Name Freq PRN Reason Stop Dose Admin
Acetaminophen 650 mg 05/25/25 21:31
Acetaminophen 650 Mg Rectal Suppository RECTAL 06/22/25 21:30
Q6HPRN PRN
Fever > 101
Aspirin 81 mg 05/26/25 08:00 05/27/25 09:03
Aspirin 81 Mg Chewable Tablet TUBE 06/23/25 07:59 81 mg
DAILY SUMMER Administration
Bisacodyl 10 mg 05/25/25 21:41
Bisacodyl 10 Mg Rectal Suppository RECTAL 06/22/25 21:40
DAILYPRN PRN
no BM within 72 hours
Ceftriaxone Sodium 2,000 mg 05/27/25 20:00
Ceftriaxone 2,000 Mg/20 Ml Vial IV
Q24H SUMMER
Dexamethasone Sodium Phosphate 6 mg 05/27/25 11:00
Dexamethasone 4 Mg/Ml 1 Ml Vial IV 06/24/25 10:59
Q6H SUMMER
Enoxaparin Sodium 60 mg 05/26/25 11:00 05/27/25 09:03
Enoxaparin Sodium 60 Mg/0.6 Ml Syringe SC 06/23/25 10:59 60 mg
Q12 SUMMER Administration
Fentanyl Citrate 50 mcg 05/25/25 21:41 05/27/25 04:15
Fentanyl (50 Mcg/Ml) 100 Mcg/2 Ml Ampul IV 06/08/25 21:40 50 mcg
[id number] PRN Administration
see protocol
Protocol
Fentanyl Citrate 1,000 mcg in 100 mls @ 0 mls/hr 05/25/25 21:45 05/27/25 04:13
Sublimaze IV 100 mls
PER PROTOCOL SUMMER Administration
Protocol
Per Protocol
Propofol 1,000,000 mcg in 100 mls @ 0 mls/hr 05/25/25 21:45 05/27/25 08:32
Diprivan IV 100 mls
PER PROTOCOL SUMMER Administration
Protocol
Per Protocol
Lactated Ringer's 1,000 mls @ 80 mls/hr 05/26/25 11:00 05/27/25 11:26
Lr IV 1,000 mls
.[id number] SUMMER Administration
Levetiracetam 1,000 mg 05/26/25 10:00 05/27/25 09:03
Levetiracetam (100 Mg/Ml) 500 Mg/5 Ml Vial IV 06/23/25 09:59 1,000 mg
Q12 SUMMER Administration
Lorazepam 2 mg 05/25/25 21:31
Lorazepam 2 Mg/Ml Vial IV 06/22/25 21:30
Q1HPRN PRN
Seizure activity
Lorazepam 0.5 mg 05/26/25 17:14
Lorazepam 0.5 Mg Tablet TUBE 06/23/25 17:13
Q4HPRN PRN
Agitation
Pantoprazole Sodium 40 mg 05/26/25 08:00 05/27/25 09:04
Pantoprazole Sodium 40 Mg/10 Ml Vial IV 06/23/25 07:59 40 mg
DAILY SUMMER Administration
Polyethylene Glycol 17 grams 05/26/25 08:00 05/27/25 09:04
Polyethylene Glycol Powder 17 Grams Packet TUBE 06/23/25 07:59 17 grams
DAILY SUMMER Administration
Sodium Chloride 0 flush 05/25/25 22:00
Sodium Chloride 0.9% (Flush) Syringe IV 06/22/25 21:59
PER PROTOCOL SUMMER
Sodium Chloride 10 ml 05/26/25 08:00 05/27/25 09:04
Sodium Chloride 0.9% (Preservative Free) 10 Ml Vial IV 06/23/25 07:59 10 ml
DAILY SUMMER Administration
Sodium Chloride 1 ml 05/25/25 21:55
Nss (Pf) 10 Ml Vial For Ativan 2 Mg Dose IV 06/22/25 21:54
Q1HPRN PRN
IV LORAZEPAM DILUTION
Sterile Water 20 ml 05/27/25 20:00
Sterile Water For Injection 20 Ml Vial IV 06/24/25 19:59
Q24H SUMMER
Thiamine HCl 100 mg 05/26/25 10:00 05/27/25 09:04
Thiamine (100 Mg/Ml) 2 Ml Vial IV 05/29/25 09:59 100 mg
DAILY SUMMER Administration
Home Medications
�Medication �Instructions �Recorded
amitriptyline 25 mg tablet 25 mg PO HS Mental Health 08/10/24
escitalopram oxalate 10 mg tablet 10 mg PO DAILY Mental Health 08/10/24
(Lexapro)
ferrous sulfate 325 mg (65 mg 325 mg PO DAILY Supplement 08/10/24
iron) tablet
gabapentin 100 mg tablet 300 mg PO BID Pain 08/10/24
hydroxychloroquine 200 mg tablet 200 mg PO BID lupus 08/10/24
(Plaquenil)
rivaroxaban 20 mg tablet (Xarelto) 20 mg PO DAILY Blood Clot 08/10/24
Prevention/Tx
lisinopril 30 mg tablet 30 mg PO DAILY Blood Pressure 09/21/24
acetaminophen 500 mg tablet 1,000 mg PO DAILYPRN PRN mild pain 09/26/24
amlodipine 5 mg tablet 10 mg PO DAILY Blood Pressure 01/31/25
atorvastatin 40 mg tablet 80 mg PO DAILY High Cholesterol 01/31/25
folic acid 1 mg tablet 1 mg PO DAILY Supplement 01/31/25
pantoprazole 40 mg tablet,delayed 40 mg PO BID Gastrointestinal Issue 01/31/25
release
prednisone 10 mg tablet 10 mg PO DAILY lupus - rash 01/31/25
aspirin 81 mg tablet 81 mg PO DAILY Blood Clot 05/26/25
Prevention/Tx
docusate sodium 100 mg capsule 100 mg PO BID Constipation 05/26/25
furosemide 20 mg tablet (Lasix) 20 mg PO DAILY Fluid 05/26/25
Retention/Swelling
hydrocortisone 2.5 % topical cream 1 applic topical BID lupus - rash 05/26/25
ondansetron 4 mg disintegrating 4 mg PO Q6H PRN Nausea/Vomiting 05/26/25
tablet
tacrolimus 0.5 mg capsule, 1.5 mg PO Q12H lupus 05/26/25
immediate-release
[2025-05-27] MEDS: LR 1000 IV (11:26)
--- NOTE | 2025-05-27 11:48 | W.PN.HOSP.TC ---
Today's Communication/Plan
-
Methyprednisolone 1000 mg IV to be given now
Transfer to [facility]
Assessment / Plan
Assessment / Plan
Physical Exam
General: Not in acute distress
HEENT: Normocephalic
Respiratory: Equal air entry bilaterally
Cardiac: S1/S2 and Regular Rhythm
GI: Soft, Non Tender, Non Distended and Normal Bowel Sounds
Musculoskeletal: No Cyanosis and No Edema
Neuro: Sedated
Assessment/Plan
55 y/o female with past medical history significant for SLE, paroxysmal A-Fib, history of cerebral thrombosis and colon cancer who presented to [facility] ED for evaluation of headache and witnessed seizure activity. Patient was reportedly in her usual
state of health on 05/24/25. On 05/25/25, she began complaining of a severe headache in the morning that persisted throughout the day. She apparently complained that she was not able to use her right arm due to clumsiness / ataxia. They were en
route to [facility] when patient began speaking nonsensically and then had evident, tonic-clonic seizure activity in the car. They returned home and called 911 and patient was brought to the [facility] emergency room for further evaluation.
Once at [facility] emergency room, patient had another witnessed seizure. She was sedated and intubated for airway protection. She was noted to be febrile to 100.9 F. Family reports no recent symptoms of illness including cough, N/V/D, etc. No recent
travel. No known sick contacts / small children in the home. UDS done in the ED was positive for methamphetamines / amphetamines, benzodiazepines, TCAs and THC. Family reported prior history of methamphetamine use disorder - but was not aware of
any recent use.
Witnessed Seizure
Fever
Severe Headache, right ataxia/expressive aphasia, followed by witnessed seizure
Cerebral Thrombosis
- Continue to monitor in ICU, patient is intubated and sedated
- Sedated and intubated in the ED for airway protection/recurrent seizures.
- Keppra 3000mg x 1 administered initially, subsequently placed on Propofol for sedation/seizures.
- Continue Keppra 1000 mg BID
- Differential for presentation including meningitis / encephalitis, lupus vasculitis, substance use disorder, CVA, etc.
- Cover with empiric antimicrobials for now.
- LP showed elevated protein
- Infectious Disease and IR consulted.
- Ceribell in place to monitor for any breakthrough seizure activity
- Neurology consulted for further evaluation.
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
- IV dexamethasone being switched to pulse dose steroids IV Methylprednisolone 1000 mg daily for at least 3 days (as per admitting office escort recommendations)
- When possible will need Dobhoff tube to get Plaquenil. Tacrolimus to be considered based on the Tacrolimus level.
- Patient will likely need further immunosuppression such as cyclophosphamide so if no recent Quant gold, Hepatitis C test, and hepatitis B core and surface antigen/antibody these
should also be obtained. For testing we would want SLE markers from blood (complement 3 and 4, sed/crp, urine analysis with UPCR ratio, CBC/CMP, dsDNA, and anticardiolipin/
antibeta2 glycoprotein and lupus anticoagulant tests) -- since patient is going to [facility] today, these can be done over there
- ASA daily with prior h/o stroke, RUE ataxia and expressive aphasia described prior to seizure onset.
- Imaging in the ED with L frontal and R thalamic lesions concerning for stroke vs vasculitis. MRI as noted above.
- Continue Ceftriaxone, but stop Vancomycin, Ampicillin and Acyclovir given the LP results so far
- Continue IV steroids (please see below)
- Continue subq therapeutic Lovenox
- Continue Thiamine
UTI
- Continue Ceftriaxone
Mottling/Rash
- Related to autoimmune process? Facility Maintenance Supervisor and neurologist recommended Nelsy [address].
Substance Use Disorder
- UDS in the ED positive for amphetamines / methamphetamines, BZDs, TCAs and marijuana.
- Family reports prior h/o methamphetamine use disorder, but not aware of any recent use.
- ? amphetamine use contributed to headache, BP elevation, etc on admission.
- Follow for symptoms of withdrawal. BZDs as needed.
SLE with Chronic Rash
Immunosuppressed State
History of Cerebral Thrombosis / CVA
- Patient is on chronic steroids at home (Dosage not confirmed, will reach out to [id number] to confirm medications)
- IV dexamethasone acutely as noted above.
- Follow-up imaging / [employer] studies for further evaluation.
- Holding Xarelto acutely for LP in the AM.
- Continue subq therapeutic dose Lovenox
Paroxysmal Atrial Fibrillation
- By history. Currently in sinus rhythm.
- Holding Xarelto acutely as noted above.
- Currently on subq therapeutic Lovenox
DVT Prophylaxis: SCDs. Therapeutic Lovenox.
Code Status: Full Code
On 05/27/25, after discussion with food service representative, and admitting office escort, I called [facility] to transfer the patient to [facility] for inpatient rheumatology services there, I spoke over the phone with
neurologist Dr. Avni Merchant at [facility], and he accepted the patient for transfer. Dr. Eusebio Park will be the patient's physician at [facility]. Patient was accepted for a Level 0 (STAT) transfer by air. Patient will go to the neuro
ICU unit, as per Dr. Merchant and the transfer specialist.

Neuro-lupus/ and seizures needing intubation and mechanical ventilation, together with concern for infection, is a high risk encounter.
More than 30 minutes spent in discharge including
Final examination of the patient
Summarizing hospital stay
Instructions for continuing care to all relevant caregivers
Preparation of discharge records, prescriptions, and referral forms
Total time spent (in minutes): 90
Anticipated Discharge: Today
Subjective/Interval History
-
Date of Service: May 27, 2025
Patient was seen and examined. She remained intubated and sedated.
Objective Data
-
Labs:
Laboratory Results
05/27/25
04:49
WBC 8.2
Hgb 10.0 L
Hct 28.8 L
Plt Count 462 H
HCO3 17.6 L
Sodium 134 L
Potassium 4.2
Chloride 112 H
Carbon Dioxide 17 L
BUN 35 H
Creatinine 1.2 H
Glucose 128 H
Calcium 8.4 D
Vital Signs:
Vital Signs
Temp Pulse Resp BP Pulse Ox
97.5 F 56 18 164/79 99
05/27/25 11:28 05/27/25 11:00 05/27/25 11:00 05/27/25 11:00 05/27/25 11:15
I&O
05/26/25 05/27/25 05/28/25
06:59 06:59 06:59
Intake Total 1903.6 / 202.9 3256.0 / 3256.0
Output Total 460 / 490 1215 / 1215
Balance 1443.6 / 1533.9 2041.0 / 2041.0
--- NOTE | 2025-05-27 12:15 | PTCARENOTE ---
Plan of care discussed during rounds. Rheumatology consult placed. Systems reviewed. Mottling improving with rafita abbasi. No other changes from prior assessment. Sporting Goods Sales Manager and Resident at bedside to discuss transfer to tertiary center with
patient's mother.
--- NOTE | 2025-05-27 12:45 | PTCARENOTE ---
Report given to Neal Root RN, Cassie.
[2025-05-27] MEDS: SOLU-MEDROL 258 MG IV (13:02)
--- NOTE | 2025-05-27 13:35 | PTCARENOTE ---
Patient transported to [facility] by flight team. Family present at bedside. Dose of 1G Solu-Medrol IV obtained. Administered by flight team.
--- NOTE | 2025-05-27 14:35 | CM ---
acute to acute transfer, patient to transfer to [facility]. On ventilator.
Plan; acute to acute transfer.
== END 2025-05-27 13:35 | disposition short-term general hospital (02) | DRG 97 ==
LOC: ICU 21:01
PROVIDERS: Nurse Practitioner Family; Radiology Diagnostic Radiology; ADMITTING PHYSICIAN Hospitalist; ATTENDING PHYSICIAN Hospitalist; CONSULT PHYSICIAN Internal Medicine Critical Care Medicine; CONSULT PHYSICIAN Psychiatry & Neurology Neurology; CONSULT PHYSICIAN Student in an Organized Health Care Education/Training Program; EMERGENCY PHYSICIAN Emergency Medicine; FAMILY PHYSICIAN Family Medicine
PROC: 5A1945Z Respiratory Ventilation, 24-96 Consecutive Hours (ICD-10-PCS; 2025-05-25)
PROC: 009U3ZX Drainage of Spinal Canal, Percutaneous Approach, Diagnostic (ICD-10-PCS; 2025-05-26)
PROC: B01B1ZZ Fluoroscopy of Spinal Cord using Low Osmolar Contrast (ICD-10-PCS; 2025-05-26)
PROC: XX20X89 Monitoring of Brain Electrical Activity, Computer-aided Detection and Notification, New Technology Group 9 (ICD-10-PCS; 2025-05-26)
DX: G03.9 Meningitis, unspecified (principal); E43 Unspecified severe protein-calorie malnutrition; I63.9 Cerebral infarction, unspecified; R47.01 Aphasia; D84.821 Immunodeficiency due to drugs; E87.20 Acidosis, unspecified; G05.3 Encephalitis and encephalomyelitis in diseases classified elsewhere; M32.19 Other organ or system involvement in systemic lupus erythematosus; Z86.73 Personal history of transient ischemic attack (TIA), and cerebral infarction without residual deficits; G40.909 Epilepsy, unspecified, not intractable, without status epilepticus; R27.0 Ataxia, unspecified; Z11.52 Encounter for screening for COVID-19; I48.0 Paroxysmal atrial fibrillation; Z85.038 Personal history of other malignant neoplasm of large intestine; M32.14 Glomerular disease in systemic lupus erythematosus; D63.8 Anemia in other chronic diseases classified elsewhere; I73.00 Raynaud's syndrome without gangrene; I10 Essential (primary) hypertension; F41.9 Anxiety disorder, unspecified; K21.9 Gastro-esophageal reflux disease without esophagitis; Z68.22 Body mass index [BMI] 22.0-22.9, adult; Z79.621 Long term (current) use of calcineurin inhibitor; F17.200 Nicotine dependence, unspecified, uncomplicated; E83.42 Hypomagnesemia; E83.51 Hypocalcemia; R73.9 Hyperglycemia, unspecified; I25.10 Atherosclerotic heart disease of native coronary artery without angina pectoris; I25.2 Old myocardial infarction; Z79.01 Long term (current) use of anticoagulants; Z79.82 Long term (current) use of aspirin; Z79.899 Other long term (current) drug therapy; Z92.21 Personal history of antineoplastic chemotherapy
CPT/HCPCS: 31500; 36600; 51701; 62328; 70450; 70496; 70498; 70553; 71045; 71046; 74018; 80048; 80053; 80197; 80202; 80306; 80307; 81003; 81015; 82248; 82805; 82945; 82962; 83036; 83605; 83735; 84100; 84157; 84443; 84478; 85025; 85027; 85610; 85652; 85730; 86140; 86255; 86592; 87015; 87040; 87070; 87086; 87102; 87116; 87205; 87327; 87476; 87483; 87502; 87811; 88108; 89051; 93005; 94002; 94003; 95708; 96361; 96365; 96366; 96367; 96375; 96376; 99291; A9575; Q9967

== ENCOUNTER 2025-06-21 14:48 | Emergency (ER) | payer OTHER, SELFPAY ==
[2025-06-21 14:55] VITALS: BP 132/76
--- NOTE | 2025-06-21 15:35 | EDRN ---
Dr. Pryor in room w /pt
[2025-06-21 15:45] VITALS: BP 128/79
--- NOTE | 2025-06-21 15:50 | EDRN ---
Pt just voided in BR. Pt informed urine spec needed w/ cup and wipes placed in BR and instructions given.
[2025-06-21 15:53] VITALS: BMI 28.9
[2025-06-21 16:00] VITALS: BP 127/74
--- NOTE | 2025-06-21 16:04 | ED.GENMED ---
History of Present Illness
General
Chief Complaint: Swelling
Source: patient and family
Time Seen by Provider: 06/21/25 15:32
History of Present Illness
History of Present Illness:
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 She presents because her molvrryx-ev-tel noticed
bilateral lower extremity edema more than usual, left slightly greater than right. Patient has a history of clots but states that she has been generally compliant with Xarelto. She does note that she had a kidney biopsy last week and needed to
discontinue the Xarelto for approximately 3 days. She denies any new complaints otherwise. She denies fever, chills, chest pain, dyspnea, orthopnea, abdominal pain, nausea, vomiting, headache, or other complaints.
Past History
Past History
ED Past Medical History: CAD, Cancer (colon), HTN and Other (Lupus, colon cancer, HTN, Raynaud's, immunocompromised, reflux, coronary artery disease, etc. etc.)
ED Past Surgical History: Bowel resection and Other ( colon tumor resected colostomy reversal, 2023, ileostomy reversal on 08/21/2024)
Social History
Tobacco: Smoker
Alcohol: None
Drug: None
Personal: Single
Living: with family (daughter)
Employment: Retired
Family History
Family History: Other
Phy Exam
Physical Exam
Physical Exam:
GENERAL: Alert , in no apparent distress, very thin/cachectic
EYE: pupils equal and reactive
NECK: Supple, no significant adenopathy.
ENT: o/p clr, mmm.
CARDIAC: Regular rate and rhythm .
LUNGS: Clear breath sounds bilaterally, no acute respiratory distress, no wheezes/rales/rhonchi
ABDOMEN: Soft, without focal tenderness, no r/g, no cvat
NEUROLOGICAL: Alert and oriented, no focal neuro deficits
SKIN: Warm and dry, skin intact, chronic rash noted throughout.
MUSCULOSKELETAL: 2+ bilateral lower extremity edema, left slightly greater than right, 2+ DP pulses bilaterally, full range of motion of lower extremities well perfused.
PSYCH: Normal and appropriate interaction.
Course
Orders/Labs/Results
Orders:
Orders
06/21/25 15:47
Urinalysis Reflex To Culture Urgent
US Periph Venous LOWER Ext LT Urgent
Comment:
Reason For Exam: swelling
06/21/25 16:09
Complete Blood Count/No Diff Urgent
Comprehensive Metabolic Panel Urgent
06/21/25 17:07
Add On- LAB Urgent
Comments:: tube in lab
Tests Added?: albumin urgent
Abnormal Lab Results
06/21/25
16:09
RBC 2.94 L 10^6/uL
(4.20-5.40)
Hgb 8.9 L g/dL
(12.0-16.0)
Hct 26.9 L %
(37.0-47.0)
RDW 17.7 H %
(11.5-14.5)
Plt Count 459 H 10^3/uL
(130-400)
Sodium 132 L mmol/L
(135-145)
BUN 24 H mg/dl
(7-17)
Glucose 122 H mg/dl
(70-99)
Total Bilirubin < 0.1 L mg/dl
(0.2-1.3)
Total Protein 4.8 L g/dl
(6.3-8.2)
Albumin 2.6 L g/dl
(3.5-5.0)
06/21/25 16:09
06/21/25 16:09
Vital Signs
Initial and Last Documented VS:
Initial Vital Signs
Temp Pulse Resp BP Pulse Ox
99.0 F 104 18 132/76 97
06/21/25 14:55 06/21/25 14:55 06/21/25 14:55 06/21/25 14:55 06/21/25 14:55
Last Documented Vital Signs
Temp Pulse Resp BP Pulse Ox
99.0 F 91 17 126/75 96
06/21/25 14:55 06/21/25 17:00 06/21/25 17:00 06/21/25 17:00 06/21/25 17:00
*Pulse Oximetry
SaO2: 100
Oxygen Mode of Delivery: Room air
Update Note
Update Note:
Patient presents to the Emergency Department with ____leg swelling
Number and Complexity of Problems Addressed at the Encounter
� Chronic conditions affecting care:
� Acute Exacerbation and/or Progression of Chronic Illness:
� Differential Diagnosis includes: But not limited to venous insufficiency, DVT, heart failure, nephrotic syndrome, etc. etc.
Amount and/or Complexity of Data to be Reviewed and Analyzed
� I performed an independent evaluation of and my interpretation is:
EKG:
CT:
Xrays:
Laboratory Studies: Patient made aware hemoglobin slightly lower than baseline, no active bleeding identified. Patient has low protein and albumin which is relatively unchanged from earlier this month
Other:dr Prakash Dias report: No sonographic evidence for LEFT lower extremity deep venous thrombosis. The posterior tibial veins were not well identified secondary to swelling.
� Review of other/old records reveals: Discharge summary from May 25 through of this year reviewed at that time there was concern about the possibility of lupus cerebritis. Family states this diagnosis was excluded when
she was transferred. [facility]--as per chart, to get renal bx, dx'd with PRES/lupus cerebritis requiring steroid taper and d/c tacrolimus. Echo report from [facility]: Radiology Studies: Radiologic studies dated 2024 were reviewed during this
patient's visit.
A complete transthoracic echocardiogram (including 2D, color flow Doppler, spectral Doppler and M-mode imaging) was performed using the standard protocol. The study quality was adequate.
� The left ventricle is normal in size. Normal left ventricular wall thickness. Normal left ventricular ejection fraction. The left ventricular ejection fraction is 62%.
� The right ventricle is normal in size. There is normal function of the right ventricle.
� There is severe mitral annular calcification. There is no mitral regurgitation. There is no mitral stenosis.
� The aortic valve is trileaflet. There is mild aortic valve thickening. There is no aortic stenosis. There is no aortic regurgitation.
� The tricuspid valve is normal in structure. There is trace tricuspid regurgitation. The pulmonary artery systolic pressure is unable to be estimated due to an incomplete tricuspid regurgitation envelope.
� Agitated saline contrast injection demonstrates no early passage of bubbles at rest. With Valsalva maneuver, there is no passage of bubbles across the interatrial septum.
� The inferior vena cava is normal in size (diameter <21 mm) and decreases >50% in size with inspiration, suggesting a normal right atrial pressure of 3 mmHg (range 0-5 mm Hg).
� Compared to the prior study of 11/15/2022, changes were noted. There is no pericardial effusion.
�
There is normal LV size and function. There is normal RV size and function. There is normal valvular function. There is severe mitral annular calcification primarily posteriorly. The MAC comes in and out of the plane of view, but no clear
vegetation. There is no pericardial effusion.
� Clinical information was obtained by an independent historian: [id number] Natalie
� Prescriptions/Medications Considered but not given:
� Further testing considered but not performed:
Risk of Complications and/or Morbidity or Mortality of Patient Management
� Social determinants of health affecting care:
� Discussion with other providers (PCP, Hospitalists, Consultants, etc):
� Escalation of care including admission/observation vs risk of discharge considered: Patient remains comfortable and asymptomatic here the exception of edema which is not abrupt or limiting her activities. No secondary signs of
infection. No DVT noted and patient compliant with her medication. Patient is already on Lasix. She is awaiting results of renal biopsy which should be back any day now. I did discuss with her the possibility of a diagnosis of nephrotic syndrome
and recommend that she connect with her sawmill worker as soon as possible for further recommendations.
ED Attending Note
-
Portions of this chart may have been created with voice recognition software.� Occasional wrong word or��sound alike� substitutions may have occurred due to the inherent limitations of voice recognition software.
Discharge Plan
Departure
Patient Disposition: Home (Routine Discharge)
Date of Disposition: 06/21/25
Time of Disposition: 17:21
Patient with high blood pressure during this ER visit?: Yes
Condition: Good
Discharge Problem:
Edema
Instructions: BLOOD PRESSURE, Dependent Edema (DC)
Prescriptions:
No Action
amitriptyline 25 mg Tablet
25 mg PO HS
ferrous sulfate 325 mg (65 mg iron) Tablet
325 mg PO DAILY
hydroxychloroquine [Plaquenil] 200 mg Tablet
200 mg PO BID
escitalopram oxalate [Lexapro] 10 mg Tablet
10 mg PO DAILY
gabapentin 100 mg Tablet
300 mg PO BID
Xarelto 20 mg Tablet
20 mg PO DAILY
lisinopril 30 mg Tablet
30 mg PO DAILY
acetaminophen 500 mg Tablet
1,000 mg PO DAILYPRN PRN (Reason: mild pain)
atorvastatin 40 mg tablet
80 mg PO DAILY
amlodipine 5 mg tablet
10 mg PO DAILY
folic acid 1 mg tablet
1 mg PO DAILY
prednisone 10 mg tablet
10 mg PO DAILY
pantoprazole 40 mg tablet,delayed release (DR/EC)
40 mg PO BID
docusate sodium 100 mg Capsule
100 mg PO BID
aspirin 81 mg Tablet
81 mg PO DAILY
ondansetron 4 mg Tablet,Disintegrating
4 mg PO Q6H PRN (Reason: Nausea/Vomiting)
hydrocortisone 2.5 % Cream
1 applic TOPICAL BID
tacrolimus 0.5 mg Capsule
1.5 mg PO Q12H
furosemide [Lasix] 20 mg tablet
20 mg PO DAILY
Referrals:
UNKNOWN - PT DOES,NOT KNOW [Family Provider]
Activity Restrictions/Additional Instructions:
PLEASE FOLLOW-UP WITH YOUR ELECTRICAL INSTALLATION SUPERVISOR THIS WEEK, SOON POSSIBLE. IF YOU DEVELOP INCREASING SWELLING, ANY CHEST PAIN, SHORTNESS OF BREATH, FEVER, ABDOMINAL PAIN, VOMITING, OR OTHER WORRISOME SIGNS, PLEASE RETURN TO THE ER IMMEDIATELY!
Interventions
Interventions:
*Risk Screen - Suicide Last Done: 06/21/25 14:50
*General Assessment Last Done: 06/21/25 14:55
*Neglect/Abuse Screening Last Done: 06/21/25 14:55
*ED COVID-19 Vaccine History Last Done: 06/21/25 15:56
*ED Influenza Vaccine History Last Done: 06/21/25 15:56
[facility] Fall Risk Assessment Tool Last Done: 06/21/25 15:54
ED- Cardiac Assessment Last Done: 06/21/25 16:57
ED- Pulmonary Assessment Last Done: 06/21/25 16:57
ED-Skin Assessment Last Done: 06/21/25 16:14
Discharge Date and Time
Print Language: [place]
[2025-06-21 16:19] LABS: Hematocrit 26.9 % (37.0-47.0); Hemoglobin 8.9 g/dL (12.0-16.0); Mean Corp Hgb Conc. 33.1 g/dL (33.0-37.0); Mean Corpuscular Volume 91.5 fL (81.0-99.0); Platelet Count 459 10^3/uL (130-400); Red Cell Dist. Width 17.7 % (11.5-14.5)
[2025-06-21 16:38] LABS: ALT (SGPT) 20 U/L (0-35); AST (SGOT) 17 U/L (14-36); Albumin 2.6 g/dl (3.5-5.0); Alkaline Phosphatase 93 U/L (38-126); Blood Urea Nitrogen 24 mg/dl (7-17); Calcium 8.7 mg/dl (8.4-10.2); Carbon Dioxide 23 mmol/L (22-30); Chloride 107 mmol/L (98-107); Estimated Creatinine Clearance 87 ml/min; Glucose 122 mg/dl (70-99); Potassium 3.9 mmol/L (3.5-5.1); Sodium 132 mmol/L (135-145); Total Protein 4.8 g/dl (6.3-8.2); eGFR > 60.00
[2025-06-21 17:00] VITALS: BP 126/75
--- NOTE | 2025-06-21 17:16 | EDRN ---
Dr. Pryor in room w/pt.
[2025-06-21 18:00] VITALS: BP 124/78
== END 2025-06-21 18:07 | disposition home or self-care (01) ==
LOC: EMR 14:48
PROVIDERS: EMERGENCY PHYSICIAN Emergency Medicine; FAMILY PHYSICIAN Nurse Practitioner Family
DX: R60.0 Localized edema (principal); I10 Essential (primary) hypertension; F17.200 Nicotine dependence, unspecified, uncomplicated; I25.10 Atherosclerotic heart disease of native coronary artery without angina pectoris; Z85.038 Personal history of other malignant neoplasm of large intestine; Z79.01 Long term (current) use of anticoagulants
CPT/HCPCS: 99284; 80053; 85027; 93971

== ENCOUNTER 2025-07-02 17:49 | Inpatient (IN) | payer OTHER, SELFPAY ==
[2025-07-02] VITALS (11 sets, daily range): BP systolic 105–142; BP diastolic 77–99; BMI 30.9; BMI 27.6
[2025-07-02 12:02] LABS: Hematocrit 24.8 % (37.0-47.0); Hemoglobin 8.0 g/dL (12.0-16.0); Mean Corp Hgb Conc. 32.3 g/dL (33.0-37.0); Mean Corpuscular Volume 90.8 fL (81.0-99.0); Nucleated Red Blood Cells % 0.2 %; Platelet Count 442 10^3/uL (130-400); Red Cell Dist. Width 17.0 % (11.5-14.5)
[2025-07-02 12:12] LABS: INR 1.11; PT 14.5 Sec (11.4-14.6)
[2025-07-02 12:16] LABS: ALT (SGPT) 21 U/L (0-35); AST (SGOT) 19 U/L (14-36); Albumin 2.7 g/dl (3.5-5.0); Alkaline Phosphatase 91 U/L (38-126); Blood Urea Nitrogen 19 mg/dl (7-17); Calcium 8.5 mg/dl (8.4-10.2); Carbon Dioxide 25 mmol/L (22-30); Chloride 105 mmol/L (98-107); Estimated Creatinine Clearance 90 ml/min; Glucose 112 mg/dl (70-99); Potassium 3.3 mmol/L (3.5-5.1); Sodium 134 mmol/L (135-145); Total Protein 4.9 g/dl (6.3-8.2); eGFR > 60.00
[2025-07-02 12:31] LABS: Troponin I 0.113 ng/ml
--- NOTE | 2025-07-02 13:17 | ED.GENMED ---
History of Present Illness
<Cassie Mojica EXCELLENCE COACH - Last Filed: 07/02/25 19:22>
General
Chief Complaint: Breathing Problem
Source: patient and family
Exam Limitations: none
Time Seen by Provider: 07/02/25 12:32
Nursing documentation reviewed up to this point in time: agreed with
History of Present Illness
History of Present Illness:
55-year-old female with a history of SLE, PAF, cerebral thrombosis, colon cancer status post colostomy and ileostomy in 2021, with subsequent reversal in July 2024.
Admitted here 05/25-05/27 for headache, ataxia, expressive aphasia then a witnessed seizure, cerebral thrombosis, intubated and sedated. Maxwell initiated, flown to [facility]
DC'd 06/11 from [place] back home and family state although she is 'always moaning in some sore of pain' she has been ambulating independently with rollator, toileting herself, etc,
Sudden change noted this a.m. with lethargy, etc. No seizure activity reported.
Pt states is here today for 'pain all over.' Daughter in law and brother in law at bedside state she was at her baseline last evening, ambulating with her rollator, mentally alert, no more general pain than usual and this a.m. both state she
has had a dramatic change in mental state: Lethargic, worse general pain, abdomen much more distended than usual
She reports neck pain beginning recently, which she did not experience yesterday. Additionally, the patient has a history of diarrhea since her colostomy and ileostomy reversal. The caregiver expressed concern about the patient�s lethargic
state today, which is reportedly different from her baseline. There was no current chest pain or urination difficulty reported, but the patient did report a new onset of abdominal pain.
Past History
<Cassie Mojica EXCELLENCE COACH - Last Filed: 07/02/25 19:22>
Past History
ED Past Medical History: CAD, Cancer (colon), HTN, Psychiatric (Substance abuse disorder) and Other (Lupus, colon cancer, HTN, Raynaud's, immunocompromised, reflux, coronary artery disease, etc. etc.)
ED Past Surgical History: Bowel resection and Other ( colon tumor resected colostomy reversal, 2023, ileostomy reversal on 08/21/2024)
Social History
Tobacco: Smoker
Alcohol: None
Drug: None
Personal: Single
Living: with family (daughter)
Employment: Retired
Family History
Family History: Other
Review of Systems
<Cassie Mojica, EXCELLENCE COACH - Last Filed: 07/02/25 19:22>
Review of Systems
Allergies reviewed?: Yes
All Other Systems: ROS reviewed and negative except as documented in HPI and ROS
Constitutional: Reports fatigue; Denies fever
EENT: Denies sore throat
Respiratory: Denies trouble breathing
Cardiac: Denies chest pain
ABD/GI: Reports abdominal pain (With swelling more than usual per patient and family), nausea and anorexia; Denies vomiting, bloody stools or black stools
: Reports incontinence; Denies dysuria or difficulty voiding
Musculoskeletal: Reports neck pain and other (Generalized pain, pain 'all over'); Denies edema
Skin: Reports other (Chronic color changes throughout the body due to lupus); Denies rash
Neurological: Reports weakness (Generalized); Denies dizzy or headache
Phy Exam
<Cassie Mojica, EXCELLENCE COACH - Last Filed: 07/02/25 19:22>
Physical Exam
Physical Exam:
GENERAL: No acute distress. Lethargic but easily arouses, Ox3.
CONSTITUTIONAL: Afebrile.
EYES: clear, conjunctivae normal
ENMT: moist mucus membranes, Pharynx nl
RESPIRATORY: Regular respirations, nonlabored, lungs clear.
CARDIOVASCULAR: Regular rate and rhythm, no murmurs, no rubs.
GI: Round, distended, semifirm, generally normal BS
: stool light brown heme neg
MUSCULOSKELETAL: No spinal bony tenderness, no nuchal rigidity. No edema. Well perfused.
SKIN: Warm, dry, multicolored dark to light patches of lupus, some areas of pink rash
PSYCH: Depressed mood and affect. Groggily interactive and appropriate
NEUROLOGIC: Lethargic, easily aroused, appropriate. Oriented x 3. No focal neurological deficits
Scores
<Cassie Mojica, EXCELLENCE COACH - Last Filed: 07/02/25 19:22>
Heart Failure Risk
Heart Failure Risk Score: Yes
History of Stroke or TIA: Yes
History of intubation for respiratory distress: Yes
Heart rate on ED arrival >/= 110: Yes
SaO2 <90% on arrival on room air: No
HR >/=110 during 3min walk test (or too ill to perform test): Yes
ECG has acute ischemic changes: No
Urea >/=12mmol/L (BUN 33.6mg/dL): No
Serum CO2>/=35mmol/L: No
Troponin I or T elevated to IA Level (0.4mg/dL): Yes
NT-proBNP >/=5,000ng/L (5,000pg/ml): No
HF Risk Score: 7
Admission Status: VERY HIGH RISK 69.8% Consider admission to hospital
Course
<Cassie Mojica, EXCELLENCE COACH - Last Filed: 07/02/25 19:22>
Orders/Labs/Results
Orders:
Orders
07/02/25 11:40
Electrocardiogram (*1) Urgent
Reason for Study: Shortness of Breath
EKG- Treatment ONCE
07/02/25 11:50
C-Reactive Protein Urgent
Comment: ADD ON
Complete Blood Count/With Diff Urgent
Comprehensive Metabolic Panel Urgent
Erythrocyte Sed Rate Urgent
Comment: ADD ON
NT-proBNP Urgent
Comment: ADD
Prothrombin Time Urgent
Troponin I Urgent
07/02/25 11:51
Add On- LAB Urgent
Tests Added?: Pro-BNP
07/02/25 13:01
Add On- LAB Urgent
Tests Added?: CRP, Sed Rate
07/02/25 13:21
Urinalysis Reflex To Culture Urgent
Date Specimen was Collected: 07/02/25
Time Specimen was Collected: 13:12
Urine Drug Abuse Screen Urgent
Date Specimen was Collected: 07/02/25
Time Specimen was Collected: 13:12
Urine Microscopic Reflex Cult Urgent
07/02/25 13:34
CT Abd/Pel (IV only)-DH only Urgent
Comment:
Reason For Exam: distended, pain
0.9% Sodium Chloride 1000 ml [Nss] 1,000 ml IV BOLUS
07/02/25 14:25
CT Head W/o Iv Contrast Urgent
Comment:
Reason For Exam: change in mental state
07/02/25 14:32
CR Chest - 2 Views Urgent
Comment:
Reason For Exam: sob, hypoxia
07/02/25 14:55
Troponin I Urgent
07/02/25 15:47
Furosemide [Lasix] 60 mg IV NOW STA
07/02/25 16:05
Dexamethasone Sod Phosphate [Decadron] 4 mg IV NOW STA
07/02/25 16:09
Potassium Chloride [KCl] 40 meq Dextrose 5%/Water 250 ml [D5w] 250 ml IV NOW
07/02/25 16:59
Admit/Transfer Patient As Directed
Co-Sign Provider:
Level of Care: Inpatient admission
Assign to:: Telemetry
Physician / Group: hospitalist
Diagnosis: CHF
Reason for Telemetry: Medication for Arrhythmia
Date to Stop Telemetry: 07/04/25
Time to Stop Telemetry: 11:00
Reason for Hospitalization: CHF
Expected length of stay greater than two midnights?: Yes
ELOS- Estimated Length of Stay in days: 3
I certify the patient meets the requirements for IP care: Yes
PRN Pain Medication Management As Directed
May give lesser potent ordered pain med per pt: Yes
preference::
Protocol:: Medication orders for pain may be administered in a
manner that supports deferring to patient preference
when the pt is:
- Requesting an ordered lesser potent pain medication.
Least to most potent pain medications are defined
as: acetaminophen < NSAID < tramadol < opioids
(morphine, oxycodone, hydromorphone).
- Requesting a lesser dose of the same medication IF
ORDERED.
- Requesting a less intrusive route of administration
if both routes are prescribed by the provider (PO <
IV).
07/02/25 17:11
Code Status As Directed
Resuscitation Status: Do not resuscitate
Reached after discussion with pt or family/Healthcare POA: Yes
07/02/25 17:12
DNR Bracelet Application ONCE
07/02/25 17:19
CR Abdomen - 2 Views Urgent
Reason For Exam: moderate abdominal distension with pain
07/02/25 17:20
PRN Pain Medication Management As Directed
May give lesser potent ordered pain med per pt: Yes
preference::
Protocol:: Medication orders for pain may be administered in a
manner that supports deferring to patient preference
when the pt is:
- Requesting an ordered lesser potent pain medication.
Least to most potent pain medications are defined
as: acetaminophen < NSAID < tramadol < opioids
(morphine, oxycodone, hydromorphone).
- Requesting a lesser dose of the same medication IF
ORDERED.
- Requesting a less intrusive route of administration
if both routes are prescribed by the provider (PO <
IV).
07/02/25 17:23
HYDROmorphone [Dilaudid] 0.25 mg IV NOW STA
07/02/25 17:25
Ondansetron Injectable [Zofran] 4 mg IV NOW STA
07/04/25 11:00
DC Protocol for Telemetry ONCE
Abnormal Lab Results
07/02/25 07/02/25 07/02/25
11:50 13:21 14:55
RBC 2.73 L 10^6/uL
(4.20-5.40)
Hgb 8.0 L g/dL
(12.0-16.0)
Hct 24.8 L %
(37.0-47.0)
MCHC 32.3 L g/dL
(33.0-37.0)
RDW 17.0 H %
(11.5-14.5)
Plt Count 442 H 10^3/uL
(130-400)
Abs Immat Gran (auto) 0.2 H 10^3/uL
(0-0.05)
Absolute Neuts (auto) 8.2 H 10^3/uL
(1.4-6.5)
Absolute Lymphs (auto) 0.4 L 10^3/uL
(1.2-3.4)
Immature Gran % 2.3 H %
(0-0.5)
Neutrophils % 87.7 H %
(42.2-75.2)
Lymphocytes % 3.8 L %
(20.5-51.1)
ESR 83 H mm/hour
(0-20)
Sodium 134 L mmol/L
(135-145)
Potassium 3.3 L mmol/L
(3.5-5.1)
BUN 19 H mg/dl
(7-17)
Glucose 112 H mg/dl
(70-99)
Troponin I 0.113 H* ng/ml 0.094 H* ng/ml
C-Reactive Protein 25.70 H mg/L
(0.0-10.00)
Total Protein 4.9 L g/dl
(6.3-8.2)
Albumin 2.7 L g/dl
(3.5-5.0)
Urine Glucose 1+ A
(Negative)
Urine Albumin (Reflex) 3+ A
(Neg - Trace)
U Marijuana (THC) Screen Positive H
(Negative)
07/02/25 11:50
07/02/25 11:50
Vital Signs
Initial and Last Documented VS:
Initial Vital Signs
Temp Pulse Resp BP Pulse Ox
99.1 F 115 35 139/99 98
07/02/25 11:33 07/02/25 11:33 07/02/25 11:33 07/02/25 11:33 07/02/25 11:33
Last Documented Vital Signs
Temp Pulse Resp BP Pulse Ox
99.1 F 96 20 127/84 94
07/02/25 11:33 07/02/25 17:45 07/02/25 17:45 07/02/25 17:00 07/02/25 17:00
<Raul Randall MD - Last Filed: 07/02/25 16:14>
Orders/Labs/Results
Orders:
Orders
07/02/25 11:40
Electrocardiogram (*1) Urgent
Reason for Study: Shortness of Breath
EKG- Treatment ONCE
07/02/25 11:50
C-Reactive Protein Urgent
Comment: ADD ON
Complete Blood Count/With Diff Urgent
Comprehensive Metabolic Panel Urgent
Erythrocyte Sed Rate Urgent
Comment: ADD ON
NT-proBNP Urgent
Comment: ADD
Prothrombin Time Urgent
Troponin I Urgent
07/02/25 11:51
Add On- LAB Urgent
Tests Added?: Pro-BNP
07/02/25 13:01
Add On- LAB Urgent
Tests Added?: CRP, Sed Rate
07/02/25 13:21
Urinalysis Reflex To Culture Urgent
Date Specimen was Collected: 07/02/25
Time Specimen was Collected: 13:12
Urine Drug Abuse Screen Urgent
Date Specimen was Collected: 07/02/25
Time Specimen was Collected: 13:12
Urine Microscopic Reflex Cult Urgent
07/02/25 13:34
CT Abd/Pel (IV only)-DH only Urgent
Comment:
Reason For Exam: distended, pain
0.9% Sodium Chloride 1000 ml [Nss] 1,000 ml IV BOLUS
07/02/25 14:25
CT Head W/o Iv Contrast Urgent
Comment:
Reason For Exam: change in mental state
07/02/25 14:32
CR Chest - 2 Views Urgent
Comment:
Reason For Exam: sob, hypoxia
07/02/25 14:55
Troponin I Urgent
07/02/25 15:47
Furosemide [Lasix] 60 mg IV NOW STA
07/02/25 16:05
Dexamethasone Sod Phosphate [Decadron] 4 mg IV NOW STA
07/02/25 16:09
Potassium Chloride [KCl] 40 meq Dextrose 5%/Water 250 ml [D5w] 250 ml IV NOW
07/02/25 16:59
Admit/Transfer Patient As Directed
Co-Sign Provider:
Level of Care: Inpatient admission
Assign to:: Telemetry
Physician / Group: hospitalist
Diagnosis: CHF
Reason for Telemetry: Medication for Arrhythmia
Date to Stop Telemetry: 07/04/25
Time to Stop Telemetry: 11:00
Reason for Hospitalization: CHF
Expected length of stay greater than two midnights?: Yes
ELOS- Estimated Length of Stay in days: 3
I certify the patient meets the requirements for IP care: Yes
PRN Pain Medication Management As Directed
May give lesser potent ordered pain med per pt: Yes
preference::
Protocol:: Medication orders for pain may be administered in a
manner that supports deferring to patient preference
when the pt is:
- Requesting an ordered lesser potent pain medication.
Least to most potent pain medications are defined
as: acetaminophen < NSAID < tramadol < opioids
(morphine, oxycodone, hydromorphone).
- Requesting a lesser dose of the same medication IF
ORDERED.
- Requesting a less intrusive route of administration
if both routes are prescribed by the provider (PO <
IV).
07/02/25 17:11
Code Status As Directed
Resuscitation Status: Do not resuscitate
Reached after discussion with pt or family/Healthcare POA: Yes
07/02/25 17:12
DNR Bracelet Application ONCE
07/02/25 17:19
CR Abdomen - 2 Views Urgent
Reason For Exam: moderate abdominal distension with pain
07/02/25 17:20
PRN Pain Medication Management As Directed
May give lesser potent ordered pain med per pt: Yes
preference::
Protocol:: Medication orders for pain may be administered in a
manner that supports deferring to patient preference
when the pt is:
- Requesting an ordered lesser potent pain medication.
Least to most potent pain medications are defined
as: acetaminophen < NSAID < tramadol < opioids
(morphine, oxycodone, hydromorphone).
- Requesting a lesser dose of the same medication IF
ORDERED.
- Requesting a less intrusive route of administration
if both routes are prescribed by the provider (PO <
IV).
07/02/25 17:23
HYDROmorphone [Dilaudid] 0.25 mg IV NOW STA
07/02/25 17:25
Ondansetron Injectable [Zofran] 4 mg IV NOW STA
07/04/25 11:00
DC Protocol for Telemetry ONCE
Abnormal Lab Results
07/02/25 07/02/25 07/02/25
11:50 13:21 14:55
RBC 2.73 L 10^6/uL
(4.20-5.40)
Hgb 8.0 L g/dL
(12.0-16.0)
Hct 24.8 L %
(37.0-47.0)
MCHC 32.3 L g/dL
(33.0-37.0)
RDW 17.0 H %
(11.5-14.5)
Plt Count 442 H 10^3/uL
(130-400)
Abs Immat Gran (auto) 0.2 H 10^3/uL
(0-0.05)
Absolute Neuts (auto) 8.2 H 10^3/uL
(1.4-6.5)
Absolute Lymphs (auto) 0.4 L 10^3/uL
(1.2-3.4)
Immature Gran % 2.3 H %
(0-0.5)
Neutrophils % 87.7 H %
(42.2-75.2)
Lymphocytes % 3.8 L %
(20.5-51.1)
ESR 83 H mm/hour
(0-20)
Sodium 134 L mmol/L
(135-145)
Potassium 3.3 L mmol/L
(3.5-5.1)
BUN 19 H mg/dl
(7-17)
Glucose 112 H mg/dl
(70-99)
Troponin I 0.113 H* ng/ml 0.094 H* ng/ml
C-Reactive Protein 25.70 H mg/L
(0.0-10.00)
Total Protein 4.9 L g/dl
(6.3-8.2)
Albumin 2.7 L g/dl
(3.5-5.0)
Urine Glucose 1+ A
(Negative)
Urine Albumin (Reflex) 3+ A
(Neg - Trace)
U Marijuana (THC) Screen Positive H
(Negative)
07/02/25 11:50
07/02/25 11:50
Vital Signs
Initial and Last Documented VS:
Initial Vital Signs
Temp Pulse Resp BP Pulse Ox
99.1 F 115 35 139/99 98
07/02/25 11:33 07/02/25 11:33 07/02/25 11:33 07/02/25 11:33 07/02/25 11:33
Last Documented Vital Signs
Temp Pulse Resp BP Pulse Ox
99.1 F 96 20 127/84 94
07/02/25 11:33 07/02/25 17:45 07/02/25 17:45 07/02/25 17:00 07/02/25 17:00
<Cassie Mojica EXCELLENCE COACH - Last Filed: 07/02/25 19:22>
MDM/Problems Addressed
Differential Diagnosis Includes:
lupus flare, substance use disorder, CVA, dehydration, UTI, renal insufficiency
MDM/Problems Addressed:
55-year-old female with a history of SLE, PAF, cerebral thrombosis, colon cancer status post colostomy and ileostomy in 2021, with subsequent reversal in July 2024.
Admitted here 05/25-05/27 for headache, ataxia, expressive aphasia then a witnessed seizure, cerebral thrombosis, intubated and sedated. Maxwell initiated, flown to [facility]
DC'd 06/11 from [place] back home and family state although she is 'always moaning in some sore of pain' she has been ambulating independently with rollator, toileting herself, etc,
Sudden change noted this a.m. with lethargy, etc. No seizure activity reported.
Pt states is here today for 'pain all over.' Daughter in law and brother in law at bedside state she was at her baseline last evening, ambulating with her rollator, mentally alert, no more general pain than usual and this a.m. both state she
has had a dramatic change in mental state: Lethargic, worse general pain, abdomen much more distended than usual
She reports neck pain beginning recently, which she did not experience yesterday. Additionally, the patient has a history of diarrhea since her colostomy and ileostomy reversal. The caregiver expressed concern about the patient�s lethargic
state today, which is reportedly different from her baseline. There was no current chest pain or urination difficulty reported, but the patient did report a new onset of abdominal pain.
EKG: Sinus tach HR 111
Chronically ill appearing
CBC: Hgb 8. (8.9 on 06/30)
CMP: K+ 3.3 otherwise normal
BNP 4090
Troponin 0.113
CRP 25.70:
ESR: 83
UDS: pos marijuana, otherwise neg
U/A neg
4:00 PM:
Troponin #2 trending down at 0.094
CXR: IMPRESSION:
1. MODERATE ACUTE INTERSTITIAL and mild alveolar CARDIOGENIC PULMONARY EDEMA. IV fluids stopped.
2. Small bilateral pleural effusions.
3. Mild cardiomegaly.
Head CT: No acute finding
Abdomen/pelvis CT with IV contrast: Acute on chronic bilateral renal disease moderate to severe diffuse anasarca
Dr. Randall consulted and then to see patient, agrees with admission, IV Lasix, Decadron for now
Hospitalist notified of admission
<Cassie Mojica NP - Last Filed: 07/02/25 19:22>
*Pulse Oximetry
SaO2: 98
Oxygen Mode of Delivery: Room air
Patient hypoxic: no
*Critical Care Note
Total Time (30-74mins, 75-104mins- exclusive of procedures): Not Applicable
ED Attending Note
<Cassie Mojica NP - Last Filed: 07/02/25 19:22>
-
Portions of this chart may have been created with voice recognition software.� Occasional wrong word or��sound alike� substitutions may have occurred due to the inherent limitations of voice recognition software.
<Raul Randall MD - Last Filed: 07/02/25 16:14>
ED Attending Note
Patient seen and examined by attending physician: Yes
I performed the substantive portion of visit, reviewed & personally made and approve the management plan that is documented in note by myself or RICK.: Yes
ED Attending Note:
Patient with a history of complicated lupus presents with increasing pain in her legs and back and abdomen today. She gets this on a daily basis. Today's episodes were worse. General fatigue and weakness and some shortness of breath. Also admits
to depression. Recent complicated admission and transfer to [place]. Was apparently intubated for a week at that time. Patient seen recently. Had a recent echocardiogram that was stable. All labs reviewed. Chronic anemia but slightly worsening.
Stable renal function. Anasarca and ascites. Pulmonary edema by x-ray. Head CT stable. On exam patient is chronically ill-appearing. Chronic rash. She is mildly sleepy but able to fully answer questions and is fully alert. Neck is supple. No
petechia or purpura. No respiratory distress. Regular rate and rhythm. Distended abdomen but soft. No rebound or guarding no mass or hernia. Chronic lower extremity edema. Nonfocal. Impression patient is a difficult patient to make a clinical
judgment given her chronic severe medical issues and lupus. She appears ill although a significant component of this is chronic. Nonetheless given her increased pain level her inflammatory markers being elevated, pulmonary edema on x-ray patient
warrants inpatient manage
Discharge Plan
Departure
Patient Disposition: Admit
Date of Disposition: 07/02/25
Time of Disposition: 16:13
Admit to: Med/Surg
Presentation/result/management discussed w/ accepting MD/DO: Hospitalist
Condition: Fair
Discharge Problem:
Lupus nephritis, Change in mental state, CHF (congestive heart failure)
Interventions
Interventions:
*Risk Screen - Suicide Last Done: 07/02/25 11:33
*General Assessment Last Done: 07/02/25 11:33
*Neglect/Abuse Screening Last Done: 07/02/25 11:33
ED- Cardiac Assessment Last Done: 07/02/25 12:17
ED- Pulmonary Assessment Last Done: 07/02/25 12:17
[2025-07-02 13:31] LABS: Urine Character Clear (Clear)
[2025-07-02] MEDS: NSS 1000 IV (13:55)
[2025-07-02 13:57] LABS: Urine Squamous Cell 0-2 /LPF (Few); Urine White Cell 0-2 /HPF (0-5)
[2025-07-02 13:59] LABS: Urine Red Blood Cell 0-2 /HPF (0-2)
[2025-07-02 14:27] LABS: C-Reactive Protein 25.70 mg/L (0.0-10.00)
[2025-07-02 15:32] LABS: Troponin I 0.094 ng/ml
[2025-07-02] MEDS: DECADRON 4 MG IV (16:09)
[2025-07-02] MEDS: LASIX 60 MG IV (16:09)
[2025-07-02] MEDS: KCL 270 MEQ IV (16:34)
--- NOTE | 2025-07-02 17:15 | HPS.HSE ---
Addendum entered and electronically signed by David Johnson MD 07/02/25 18:07:
This is an addendum to the H&P written by Jeremias Lock on 07/02/2025. �Patient seen and examined independently with resident.
55-year-old female past medical history of SLE, lupus cerebritis, lupus nephritis, Raynaud's, paroxysmal atrial fibrillation, history of cerebral thrombosis, colon cancer status post chemotherapy/colon resection with diverting loop ileostomy with
reversal, substance use disorder, anemia of chronic disease, GERD, CAD, neuropathy, chronic abdominal pain, anxiety, presenting with multiple complaints including pain of her lower extremities and belly and everywhere as well as swelling of her
lower leg, confusion.
Dry cough for past several weeks and nasal congestion. �No shortness of breath or chest pain. �No fevers or chills
Complaining of fecal and urinary incontinence.
She was recently admitted from 05/25 to 05/27 for weakness/headache/seizure activity. �She was started on steroids for lupus cerebritis and transferred to [facility].
Vital signs showed heart rate up to 115.
Labs show hemoglobin of 8.
Troponin of 0.113. �CRP of 25. �Cardiac BNP 4000. �Potassium 3.3. �EKG shows sinus tachycardia. �Urinalysis unremarkable. �CRP of 25 from 27 previously.
Chest x-ray shows moderate acute interstitial and mild alveolar cardiogenic pulm edema. �Small bilateral pleural effusions. �Mild cardiomegaly.
Patient with acute CHF exacerbation. �IV Bumex 2 mg twice daily. �
Elevated troponin secondary to nonischemic myocardial injury. �Trend troponins. �Cardiology consulted.
Patient also with abdominal distention likely fluid retention from CHF. �Check abdominal x-ray to rule out bowel obstruction.
Patient progressive worsening of anemia secondary to chronic disease. �Continue to monitor.
IV Dilaudid for pain.
Original Note:
Family Physician
-
Family Physician: INTERVIEWE UNKNOWN - PT NOT
Chief Complaint
-
lethargy
History of Present Illness
55-year-old female with a history of SLE, PAF, cerebral thrombosis, colon cancer status post colostomy and ileostomy in 2021, with subsequent reversal in July 2024.
Admitted here 05/25-05/27 for headache, ataxia, expressive aphasia then a witnessed seizure, cerebral thrombosis, intubated and sedated. Sachira initiated, flown to [facility]
DC'd 06/11 from [facility] back home and family state although she is 'always moaning in some sore of pain' she has been ambulating independently with rollator, toileting herself, etc,
Pt reports of feeling fatigue with lethargy, etc. No seizure activity reported. She reports of dry cough and nasal congestion ongoing for couple weeks. Denies fever/chills/SOB/CP.
Pt states is here today for 'pain all over.' She was at baseline last evening, ambulating with her rollator, mentally alert, no more general pain than usual and this a.m. both state she has had a dramatic change in mental state: Lethargic, worse
general pain, abdomen much more distended than usual. Pt notes of b/l leg swelling. Pt is awake, alert and oriented, not lethargic.
Upon arrival to ED, elevated troponin, hypokalemia, normal creatinine, elevated CRP 25. CXR moderate acute interstitial and mild alveolar cardiogenic pulm edema. EKG, NSR, no acute changes.
Medical History
Past Medical History
Past Medical History: Reports Other (SLE, PAF, cerebral thrombosis, colon cancer status post colostomy and ileostomy in 2021, with subsequent reversal in July 2024. )
Past Surgical History: Reports Other (colostomy and ileostomy in 2021)
Social History
Tobacco: Non-smoker
Alcohol: None
Drug: Marijuana
Personal: Single
Living: With Family
Employment: Retired
Family History
Family History: Not pertinent
Allergies / Home Medications
Allergies reflects when Allergies were last updated in [facility].
Home Medications with original date entered in [facility]
Allergy/Medication List:
Allergies
Allergy/AdvReac Type Severity Reaction Status Date / Time
No Known Allergies Allergy Verified 06/21/25 14:55
Home Medications
escitalopram oxalate 10 mg tablet (Lexapro) 10 mg PO DAILY Mental Health 08/10/24
hydroxychloroquine 200 mg tablet (Plaquenil) 200 mg PO BID lupus 08/10/24
rivaroxaban 20 mg tablet (Xarelto) 20 mg PO DAILY Blood Clot Prevention/Tx 08/10/24
acetaminophen 500 mg tablet 1,000 mg PO Q6HPRN PRN mild pain 09/26/24
amlodipine 5 mg tablet 10 mg PO DAILY Blood Pressure 01/31/25
atorvastatin 40 mg tablet 80 mg PO QPM High Cholesterol 01/31/25
folic acid 1 mg tablet 1 mg PO DAILY Supplement 01/31/25
prednisone 10 mg tablet 20 mg PO DAILY lupus - rash 01/31/25
aspirin 81 mg tablet 81 mg PO DAILY Blood Clot Prevention/Tx 05/26/25
bumetanide 1 mg tablet 1 mg PO BID 07/02/25
cholecalciferol (vitamin D3) 25 mcg (1,000 unit) tablet (Vitamin D3) 25 mcg PO DAILY diarrhea 07/02/25
lansoprazole 30 mg delayed release,disintegrating tablet 30 mg PO DAILY 07/02/25
levetiracetam 100 mg/mL oral solution (Keppra) 1,000 mg PO BID 07/02/25
lisinopril 5 mg tablet 15 mg PO DAILY 07/02/25
mycophenolate mofetil 200 mg/mL oral powder for suspension 1,000 mg PO BID 07/02/25
zinc sulfate 50 mg zinc (220 mg) tablet 50 mg PO DAILY 07/02/25
Review of Systems
-
History Source: Patient
A 12 point ROS was completed and negative except as noted: Yes
Physical Exam
Vital Signs
Vital Signs
Temp Pulse Resp BP Pulse Ox
99.1 F 104 22 133/95 98
07/02/25 11:33 07/02/25 15:00 07/02/25 15:00 07/02/25 15:00 07/02/25 14:53
Physical Exam
General: Conversant and Pain
HEENT: NormoCephalic and Anicteric
Respiratory: Clear
Cardiac: S1/S2 and Regular Rhythm
GI: Soft, Non Tender, Normal Bowel Sounds and Distended (moderate )
Musculoskeletal: Edema, Left Lower Extremity and Edema, Right Lower Extremity
Skin: Warm and Dry
Neuro: AO x 3 and Nonfocal/grossly intact
Psych: Calm
Laboratory Results
-
07/02/25 11:50
07/02/25 11:50
Laboratory Results
PT 14.5 Sec (11.4-14.6) 07/02/25 11:50
INR 1.11 07/02/25 11:50
Total Bilirubin 0.2 mg/dl (0.2-1.3) 07/02/25 11:50
AST 19 U/L (14-36) 07/02/25 11:50
ALT 21 U/L (0-35) 07/02/25 11:50
Alkaline Phosphatase 91 U/L (38-126) 07/02/25 11:50
Troponin I 0.094 ng/ml H* 07/02/25 14:55
Data Reviewed
-
Diagnostic Radiology: Report Reviewed by me and Discussed with Physician
Lab Data: Labs Reviewed by me and Discussed with Physician
Impression/Plan
-
IMPRESSION:
Abdominal distension
Hypokalemia
Hx of Lupus nephritis and cerebritis
Hx of seizures
Paroxysmal Atrial Fibrillation
Hx colon cancer s/p colostomy/ileostomy with reversal
Essential HTN
HLD
Chronic long standing pain
Anxiety/depression
Marijuana use
PLAN:
Abdominal distension
Pt AO X 3, not lethargic, on RA.
Suspect CHF
Admit to telemetry
Check obstructive series to r/o bowel obstruction
BM 1-2 days ago, + passing gas
Home dose bumex 1 mg BID.
Start 2 mg IV bumex BID
Increase weight gain of 6 kg from dry weight. Dry weight 73.9 kg
Monitor weight and I/O
Consult cards
Trend troponin
IV Zofran prn for nausea
Hypokalemia
K 3.3, s/p KCL in ED
Continue KCL 40 meq with increase dose of diuretics.
Repeat BMP in am
Hx of Lupus nephritis and cerebritis
s/p decadron in ED. No more IV steroids needed.
Normal BP, VSS, do not suspect adrenal insufficiency.
Continue home dose prednisone taper.
Continue Plaquenil and mycophenolate moftil.
Elevated CRP 25 < 27 (previous)--- likely due to the above
UA negative and normal WBC.
Hx of seizures
Continue keppra.
No new seizures.
Paroxysmal Atrial Fibrillation
NSR, continue Xeralto
Hx colon cancer s/p colostomy/ileostomy with reversal
Chronic long standing abdominal pain for 3 years (post colon cancer)
UDS + marijuana.
Dilaudid IV prn for pain and tylenol PO
Not on any opioids at home.
Anxiety/depression
Continue lansaprazole and lexapro
Marijuana use
DNR
Chol diet
Xeralto
[2025-07-02] MEDS: DILAUDID 0.25 MG IV (18:08)
[2025-07-02] MEDS: ZOFRAN 4 MG IV (18:08)
[2025-07-02 21:50] LABS: Troponin I 0.063 ng/ml
[2025-07-02] MEDS: KEPPRA 1000 MG PO (22:28)
[2025-07-02] MEDS: PLAQUENIL 200 MG PO (22:30)
[2025-07-02] MEDS: CELLCEPT 1000 MG PO (22:30)
[2025-07-02] MEDS: LIPITOR 80 MG PO (22:30)
[2025-07-03 03:10] VITALS: BP 148/91
[2025-07-03 03:43] LABS: Troponin I 0.045 ng/ml
[2025-07-03 07:15] VITALS: BP 146/91
[2025-07-03] MEDS: ZINC 50 MG PO (08:01)
[2025-07-03] MEDS: ZESTRIL 15 MG PO (08:02)
[2025-07-03] MEDS: BUMEX 2 MG PO (08:02)
[2025-07-03] MEDS: PLAQUENIL 200 MG PO ×2 (08:02→23:01)
[2025-07-03] MEDS: XARELTO 20 MG PO (08:03)
[2025-07-03] MEDS: VITAMIN D3 (cholecalciferol) 25 MCG PO (08:03)
[2025-07-03] MEDS: FOLVITE 1 MG PO (08:03)
[2025-07-03] MEDS: NORVASC 10 MG PO (08:03)
[2025-07-03] MEDS: DELTASONE 20 MG PO (08:05)
[2025-07-03] MEDS: KCL ELIXIR 40 MEQ PO (08:11)
[2025-07-03] MEDS: PREVACID 30 MG PO (08:12)
[2025-07-03] MEDS: KEPPRA 1000 MG PO ×2 (08:12→23:00)
[2025-07-03] MEDS: LEXAPRO 10 MG PO (08:12)
[2025-07-03] MEDS: LOW STRENGTH ASPIRIN 81 MG PO (08:12)
[2025-07-03] MEDS: CELLCEPT 1000 MG PO ×2 (08:13→23:00)
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
--- NOTE | 2025-07-03 09:04 | W.PN.HOSP.TC ---
Today's Communication/Plan
-
IV diuretics
Check labs
Cardiology consult
Assessment / Plan
Assessment / Plan
Gen-AAOx3, NAD
HEENT-NC, AT, anicteric, clear oral mm
Neck-supple
CV-reg, no M, +S1/S2
Lungs-clear B/L
Abd-soft, NT, ND
Ext-bilateral lower extremity edema
Musculoskeletal-no cyanosis, clubbing
Skin-warm and dry
Neuro-grossly non-focal
Psych-calm, cooperative
Acute hypoxic respiratory failure -due to acute pulmonary edema from heart failure exacerbation. Chest x-ray shows moderate acute interstitial pulmonary edema. Small bilateral pleural effusions.
Oxygenation stable on 2 L. Wean down as able.
Acute on chronic heart failure with preserved EF -presentation with anasarca, significant lower extremity edema. BNP 4090.
Patient states that her Bumex was discontinued prior to admission for unclear reasons.
Change Bumex to intravenous.
Cardiology consulted.
Last echocardiogram was September 2024, LVEF 55 to 60%, normal regional wall motion. Normal RV size and function, severely dilated left atrium, moderately dilated right atrium. Mild to moderate MR. Mild to moderate . Mild to moderate eccentric TR.
Hyponatremia -POA. Monitor on diuretics.
Hypokalemia -POA, replete. Check magnesium. Check labs today.
Troponin elevation -suspect acute nonischemic myocardial injury due to heart failure exacerbation.
Acute on chronic anemia -baseline chronic anemia due to chronic inflammation from SLE. Hemoglobin down slightly to 8.0 today, baseline appears to be around 9-10. Monitor closely. No evidence of bleeding.
Paroxysmal atrial fibrillation -on Xarelto.
SLE -on chronic prednisone.
History of lupus cerebritis
Hyperlipidemia
Seizure disorder -continue Keppra.
History of colon cancer -s/p colostomy, ileostomy in 2021, subsequent reversal July 2024.
Osteoporosis/vertebral compression fracture -possibly due to chronic steroid use. CT shows acute superior endplate fracture of L2 with mild loss of vertebral height.
Marijuana use disorder
DNR
Anticipated Discharge: > 48 hours
Subjective/Interval History
-
Date of Service: July 03, 2025
Patient seen and examined. Feeling better with less swelling. Denies shortness of breath.
Objective Data
-
Labs:
Laboratory Results
07/03/25
07:57
Sodium Pending
Potassium Pending
Chloride Pending
Carbon Dioxide Pending
BUN Pending
Creatinine Pending
Glucose Pending
Calcium Pending
Total Bilirubin Pending
AST Pending
ALT Pending
Alkaline Phosphatase Pending
Vital Signs:
Vital Signs
Temp Pulse Resp BP Pulse Ox
98.0 F 93 18 146/91 96
07/03/25 07:15 07/03/25 07:15 07/03/25 07:15 07/03/25 07:15 07/03/25 07:15
Review of Systems
-
History Source: Patient
All other systems: Reviewed and negative
[2025-07-03 09:08] LABS: Troponin I 0.042 ng/ml
[2025-07-03 09:17] LABS: ALT (SGPT) 22 U/L (0-35); AST (SGOT) 19 U/L (14-36); Albumin 2.6 g/dl (3.5-5.0); Alkaline Phosphatase 68 U/L (38-126); Blood Urea Nitrogen 21 mg/dl (7-17); Calcium 8.6 mg/dl (8.4-10.2); Carbon Dioxide 27 mmol/L (22-30); Chloride 104 mmol/L (98-107); Estimated Creatinine Clearance 86 ml/min; Glucose 74 mg/dl (70-99); Potassium 4.1 mmol/L (3.5-5.1); Sodium 135 mmol/L (135-145); Total Protein 4.7 g/dl (6.3-8.2); eGFR > 60.00
[2025-07-03 09:26] LABS: Magnesium 1.5 mg/dl (1.6-2.3)
[2025-07-03 09:38] LABS: Hepatitis B Surface Antigen Negative (Negative)
[2025-07-03 09:55] LABS: Hepatitis C Antibody Negative (Negative)
[2025-07-03 11:05] VITALS: BP 152/91
[2025-07-03] MEDS: DILAUDID 0.25 MG IV ×2 (12:18→23:10)
[2025-07-03] MEDS: FLUSH (NSS) 1 FLUSH IV (12:19)
[2025-07-03] MEDS: MAGNESIUM SULFATE 100 IV (14:08)
[2025-07-03 15:05] VITALS: BP 133/82
[2025-07-03] MEDS: LIPITOR 80 MG PO (17:48)
[2025-07-03 20:04] VITALS: BP 147/82
[2025-07-03] MEDS: BUMEX 2 MG IV (23:01)
[2025-07-03 23:04] VITALS: BP 134/80
[2025-07-04] VITALS (8 sets, daily range): BP systolic 118–163; BP diastolic 68–93; O2SAT 95; BMI 27.6; BMI 25.3
[2025-07-04 08:33] LABS: Hematocrit 25.4 % (37.0-47.0); Hemoglobin 8.2 g/dL (12.0-16.0); Mean Corp Hgb Conc. 32.3 g/dL (33.0-37.0); Mean Corpuscular Volume 89.8 fL (81.0-99.0); Nucleated Red Blood Cells % 0 %; Platelet Count 480 10^3/uL (130-400); Red Cell Dist. Width 16.2 % (11.5-14.5)
[2025-07-04 08:43] LABS: ALT (SGPT) 22 U/L (0-35); AST (SGOT) 18 U/L (14-36); Albumin 2.8 g/dl (3.5-5.0); Alkaline Phosphatase 73 U/L (38-126); Blood Urea Nitrogen 22 mg/dl (7-17); Calcium 8.9 mg/dl (8.4-10.2); Carbon Dioxide 29 mmol/L (22-30); Chloride 96 mmol/L (98-107); Estimated Creatinine Clearance 75 ml/min; Glucose 82 mg/dl (70-99); Potassium 3.9 mmol/L (3.5-5.1); Sodium 132 mmol/L (135-145); Total Protein 4.9 g/dl (6.3-8.2); eGFR > 60.00
[2025-07-04] MEDS: DILAUDID 0.25 MG IV ×3 (08:51→21:53)
[2025-07-04] MEDS: ZESTRIL 15 MG PO (08:56)
[2025-07-04] MEDS: KCL ELIXIR 40 MEQ PO (08:57)
[2025-07-04] MEDS: VITAMIN D3 (cholecalciferol) 25 MCG PO (08:59)
[2025-07-04] MEDS: LOW STRENGTH ASPIRIN 81 MG PO (08:59)
[2025-07-04] MEDS: PLAQUENIL 200 MG PO ×2 (08:59→21:21)
[2025-07-04] MEDS: ZINC 50 MG PO (08:59)
[2025-07-04] MEDS: PREVACID 30 MG PO (08:59)
[2025-07-04] MEDS: DELTASONE 20 MG PO (08:59)
[2025-07-04] MEDS: NORVASC 10 MG PO (08:59)
[2025-07-04] MEDS: LEXAPRO 10 MG PO (08:59)
[2025-07-04] MEDS: FOLVITE 1 MG PO (09:00)
[2025-07-04] MEDS: KEPPRA 1000 MG PO ×2 (09:01→21:26)
--- NOTE | 2025-07-04 09:30 | CM ---
Late entry from 07/03/25:
Patient seen bedside with daughter in law and mother, DOROTHY completed.
Patient is a 55-year-old female with a history of SLE, PAF, cerebral thrombosis, colon cancer status post colostomy and ileostomy in 2021, with subsequent reversal in July 2024.
Patient very tearful during assessment. Patient resides with her son, daughter in law, and brother in law in a one level home.
Patient is current with [facility], daughter in law Majo provides care for patient in home.
Patient reports being 302 in March, went to [facility]. Patient reports feeling extremely depressed and overwhelmed lately with ongoing medical issues, reports she does not want to burden her family and feels guilty for the care she needs.
TT to Hospitalist for Psych consult.
PCP Sridhar Reynolds through [facility], Pharmacy [facility].
CM will continue to follow for all d/c needs.
Plan; home with family, [facility] ERIKA
[2025-07-04 09:31] LABS: Magnesium 2.0 mg/dl (1.6-2.3)
[2025-07-04] MEDS: CELLCEPT 1000 MG PO ×2 (10:51→21:24)
[2025-07-04] MEDS: BUMEX 2 MG IV ×2 (10:52→21:20)
--- NOTE | 2025-07-04 10:55 | W.PN.HOSP.TC ---
Today's Communication/Plan
-
Continue diuretics
Psychiatry consult
Echocardiogram
Assessment / Plan
Assessment / Plan
Gen-AAOx3, NAD
HEENT-NC, AT, anicteric, clear oral mm
Neck-supple
CV-reg, no M, +S1/S2
Lungs-clear B/L
Abd-soft, NT, ND
Ext-bilateral lower extremity edema, improving
Musculoskeletal-no cyanosis, clubbing
Skin-warm and dry
Neuro-grossly non-focal
Psych-calm, cooperative
Acute hypoxic respiratory failure -due to acute pulmonary edema from heart failure exacerbation. Chest x-ray shows moderate acute interstitial pulmonary edema. Small bilateral pleural effusions.
Oxygenation improved, now on room air.
Acute on chronic heart failure with preserved EF -presentation with anasarca, significant lower extremity edema. BNP 4090.
Patient states that her Bumex was discontinued prior to admission for unclear reasons.
Continue IV Bumex. Weight is trending down. Edema is improving.
Cardiology following.
Last echocardiogram was September 2024, LVEF 55 to 60%, normal regional wall motion. Normal RV size and function, severely dilated left atrium, moderately dilated right atrium. Mild to moderate MR. Mild to moderate . Mild to moderate eccentric TR.
Update echocardiogram tomorrow morning.
Hyponatremia -POA. Monitor on diuretics.
Hypokalemia -improved.
Hypomagnesemia -improved.
Troponin elevation -suspect acute nonischemic myocardial injury due to heart failure exacerbation.
Acute on chronic anemia -baseline chronic anemia due to chronic inflammation from SLE. Hemoglobin stable at 8.2 today, baseline appears to be around 9-10. Monitor closely. No evidence of bleeding.
Paroxysmal atrial fibrillation -on Xarelto.
SLE -on chronic prednisone.
History of lupus cerebritis
Hyperlipidemia
Seizure disorder -continue Keppra.
History of colon cancer -s/p colostomy, ileostomy in 2021, subsequent reversal July 2024.
Osteoporosis/vertebral compression fracture -possibly due to chronic steroid use. CT shows acute superior endplate fracture of L2 with mild loss of vertebral height.
Marijuana use disorder
Depression -continue Lexapro. Case management requesting psychiatry consult as patient feels that she is a burden to her family and feels depressed, guilty. History of getting 302'd 2 months ago.
DNR
Anticipated Discharge: > 48 hours
Subjective/Interval History
-
Date of Service: July 04, 2025
Patient seen and examined. Feeling much better, shortness of breath improving. No new complaints.
Objective Data
-
Labs:
Laboratory Results
07/04/25
07:36
WBC 6.3
Hgb 8.2 L
Hct 25.4 L
Plt Count 480 H
Sodium 132 L
Potassium 3.9
Chloride 96 L
Carbon Dioxide 29
BUN 22 H
Creatinine 0.8
Glucose 82
Calcium 8.9
Total Bilirubin 0.1 L
AST 18
ALT 22
Alkaline Phosphatase 73
Vital Signs:
Vital Signs
Temp Pulse Resp BP Pulse Ox
98.3 F 108 18 128/77 100
07/04/25 07:54 07/04/25 10:52 07/04/25 07:54 07/04/25 10:52 07/04/25 07:54
I&O
07/03/25 07/04/25 07/05/25
06:59 06:59 06:59
Intake Total 1899
Balance 1899
Review of Systems
-
History Source: Patient
All other systems: Reviewed and negative
[2025-07-04] MEDS: TYLENOL 1000 MG PO (11:10)
[2025-07-04 11:48] LABS: COVID-19 Antigen Negative (Negative)
--- NOTE | 2025-07-04 11:52 | W.PN.CD ---
Today's Communication / Plan
-
continue bumex 2mg IV bid
echo in AM
Impression / Plan
-
Acute on chronic HFpEF:
-severe, requiring hospitalization for IV diuresis and close monitoring of labs/tele.
-pt may have been off diuretics at home per her report
-echo from 09/2024 EF 55-60%, mild/mod MR, , TR
-continue bumex 2mg IV bid
Parox AFib:
-NSR: currently on chronic Xarelto
Acute non-ischemic myocardial injury: in setting of HF, peak 0.1
- No CP/angina. No EKG changes.
-echo
Mild/mod MR, , TR
-echo
hyperlipidemia: on statin
SLE: primary team
-lupus nephritis and cerebritis
Physical Exam
Vital Signs/Labs
Vital Signs
Temp Pulse Resp BP Pulse Ox
101.6 F H 108 16 128/77 95
07/04/25 10:53 07/04/25 10:53 07/04/25 10:53 07/04/25 10:53 07/04/25 10:53
07/03/25 07/04/25 07/05/25
06:59 06:59 06:59
Actual Weight 70.562 kg
07/04/25 07:36
07/04/25 07:36
PT 14.5 Sec (11.4-14.6) 07/02/25 11:50
INR 1.11 07/02/25 11:50
Magnesium 2.0 mg/dl (1.6-2.3) 07/04/25 07:36
07/02/25
11:50
Waz-E-Lsowizvukta Pept 4090
LAB Results
07/02/25 07/02/25 07/02/25
11:50 14:55 21:14
Troponin I 0.113 H* 0.094 H* 0.063 H* D
07/03/25 07/03/25
03:07 07:57
Troponin I 0.045 H* D 0.042 H*
Physical Exam
Constitutional: No acute distress and Comfortable
EENT: Moist mucous membranes
Cardiovascular: Rhythm & rate is regular, Pedal edema present, JVD present and Systolic murmur present
Respiratory: Respiratory effort normal and Lungs clear to auscul.
Neuro/Psych: AO x 3
Data Reviewed
-
Date of Service: July 04, 2025
EKG: Other (Tele: SR 90s)
Labs: Labs Reviewed by me
--- NOTE | 2025-07-04 13:23 | CON.MD ---
Consultation - Medical
-
patient seen chart reviewed. consult done today jul 04 2025 spoke with nursing. patient is a 55 year with massive physical issues as well as psychosocial stressors who has been very depressed since dx with colon cancer about four years ago. she
has had a very complicated medical course. see med hx below. she is very sad much of the time. she has extremely slow energy. so much so she got meth and amphet from a relative a month or so ago in the hope she could get some energy. she became
tearful as she spoke of her little grandkids and she cannot even play w them. she is very embarrassed that she tried the amphets. she does use medical mj as she is often in a lot of pain. she is not suicidal. she said she is afraid to even says
she sometimes has thoughts that would be easier as er family 302 committed her a few months ago and being at friends was 'a nightmare'. she said she would never take her own life. she was placed on remeron which she stopped did not like how
she felt and is now on lexapro. not sure if it helps. she may have taken gapapentin and cymbalta in the past not sure (she will check w her pcp to see if she took these). there is nothing to suggest bipolar or psychosis
past psych hx see above patient w hx depression since dx with cancer and besieged with medical issues she says she did not make a suicide attempt but spoke of ideation and was 302 committed
past medical hx patient dx with lupus about twenty years ago. has had some periods of exacerbation of illness with cerebritis in the recent past. she had colon cancer and had temp ileostomy another nightmare for her. even the reversal she said
was complicated. hx valvular heart disease with chf (effusion on cxr) neuropathy a fib hx cerebral thrombus anemia gerd osteoporosis ahrf hyponatremia low K low MG inc troponin paf hld seizure (not being able to drive also a stress for
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
substance abuse uses med mj see above re amphets meth noted in tox screen here at in the past
fh father bipolar anx sis she feels may be bipolar
social numerous stressors h murdered in [place] within last year. four kids estranged from two she and sis have conflict this pains her. father in [place] patient when well was visiting him [place]. three grands she can't really 'even babysit for ' bc
of her weakness. 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 he has now given her another year. 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
payments lives with son and his gf as well as her brother in law. the latter is a stress for her mom alive and supportive
mse alert ox3 cooperative engaged speech and thought process nl no psyhosis very depressed affect appropriate no si aver intell insight judgment ok
dx major depression recurrent severe
plan for now would continue lexapro but with hyponatremia need to monitor closely. if sodium does not come up may need to reconsider. if hyponatremia resolves maybe would consider cymbalta instead as it may help more w chronic pain. she will check
if she has taken it. consider gabapentin for pain as well. again she needs to check if she has taken it. she might benefit from supportive psychotherapy upon dc. not clear if small doses of ritalin would be possible given she felt the illicit
amphets did help a bit. not sure if cardiac condition would allow it. something to consider. psych will follow
[2025-07-04] MEDS: XARELTO 20 MG PO (13:40)
[2025-07-04] MEDS: LIPITOR 80 MG PO (17:21)
--- NOTE | 2025-07-04 18:17 | PTCARENOTE ---
Assumed care of pt from previous nurse. Pt provided prn medication for pain to head and abdomen. Positive results. Pt oob with assist today, too fatigued to stay oob. Pt is on tele running nsr. Pt call brandon is within reach, pt rings sun. will cont
to monitor.
[2025-07-04] MEDS: DESENEX/MITRAZOL/ZEASORB 1 APPLIC TOPICAL (21:20)
[2025-07-05 03:04] VITALS: BP 128/84
[2025-07-05 06:00] VITALS: BMI 25.5
[2025-07-05] MEDS: DILAUDID 0.25 MG IV ×4 (06:00→19:56)
[2025-07-05 07:10] VITALS: BP 142/81
[2025-07-05 08:51] LABS: Hematocrit 24.4 % (37.0-47.0); Hemoglobin 8.0 g/dL (12.0-16.0); Mean Corp Hgb Conc. 32.8 g/dL (33.0-37.0); Mean Corpuscular Volume 90.7 fL (81.0-99.0); Nucleated Red Blood Cells % 0 %; Platelet Count 453 10^3/uL (130-400); Red Cell Dist. Width 15.8 % (11.5-14.5)
[2025-07-05 09:23] LABS: ALT (SGPT) 21 U/L (0-35); AST (SGOT) 19 U/L (14-36); Albumin 2.7 g/dl (3.5-5.0); Alkaline Phosphatase 70 U/L (38-126); Blood Urea Nitrogen 23 mg/dl (7-17); Calcium 8.7 mg/dl (8.4-10.2); Carbon Dioxide 31 mmol/L (22-30); Chloride 95 mmol/L (98-107); Estimated Creatinine Clearance 66 ml/min; Glucose 73 mg/dl (70-99); Potassium 3.7 mmol/L (3.5-5.1); Sodium 130 mmol/L (135-145); Total Protein 4.9 g/dl (6.3-8.2); eGFR > 60.00
[2025-07-05] MEDS: DELTASONE 20 MG PO (09:25)
[2025-07-05] MEDS: DESENEX/MITRAZOL/ZEASORB 1 APPLIC TOPICAL ×2 (09:25→20:05)
[2025-07-05] MEDS: KEPPRA 1000 MG PO ×2 (09:25→20:04)
[2025-07-05] MEDS: LOW STRENGTH ASPIRIN 81 MG PO (09:26)
[2025-07-05] MEDS: ZESTRIL 15 MG PO (09:26)
[2025-07-05] MEDS: VITAMIN D3 (cholecalciferol) 25 MCG PO (09:26)
[2025-07-05] MEDS: NORVASC 10 MG PO (09:26)
[2025-07-05] MEDS: FOLVITE 1 MG PO (09:27)
[2025-07-05] MEDS: LEXAPRO 10 MG PO (09:27)
[2025-07-05] MEDS: ZINC 50 MG PO (09:27)
[2025-07-05] MEDS: PLAQUENIL 200 MG PO ×2 (09:27→20:01)
[2025-07-05] MEDS: PREVACID 30 MG PO (09:27)
[2025-07-05] MEDS: KCL ELIXIR 40 MEQ PO (09:30)
[2025-07-05] MEDS: BUMEX 2 MG IV ×2 (09:32→19:57)
--- NOTE | 2025-07-05 09:42 | W.PN.CD ---
Today's Communication / Plan
-
continue IV diuresis
echo
Impression / Plan
-
Acute on chronic HFpEF:
-severe, requiring hospitalization for IV diuresis and close monitoring of labs/tele.
-pt may have been off diuretics at home per her report
-unclear dry weight--looks like getting close
-echo from 09/2024 EF 55-60%, mild/mod MR, , TR
-continue bumex 2mg IV bid
Parox AFib:
-NSR: currently on chronic Xarelto
Acute non-ischemic myocardial injury: in setting of HF, peak 0.1
- No CP/angina. No EKG changes.
-echo
Mild/mod MR, , TR
-echo
hyperlipidemia: on statin
SLE: primary team
-lupus nephritis and cerebritis
Physical Exam
Vital Signs/Labs
Vital Signs
Temp Pulse Resp BP Pulse Ox
98.7 F 91 18 142/81 99
07/05/25 07:10 07/05/25 09:26 07/05/25 07:10 07/05/25 09:26 07/05/25 07:10
07/04/25 07/05/25 07/06/25
06:59 06:59 06:59
Actual Weight 65.374 kg
07/05/25 07:57
07/05/25 07:58
PT 14.5 Sec (11.4-14.6) 07/02/25 11:50
INR 1.11 07/02/25 11:50
Magnesium 2.0 mg/dl (1.6-2.3) 07/04/25 07:36
07/02/25
11:50
Vbh-H-Aoriseieafi Pept 4090
LAB Results
07/02/25 07/02/25 07/02/25
11:50 14:55 21:14
Troponin I 0.113 H* 0.094 H* 0.063 H* D
07/03/25 07/03/25
03:07 07:57
Troponin I 0.045 H* D 0.042 H*
Physical Exam
Constitutional: No acute distress and Comfortable
EENT: Moist mucous membranes
Cardiovascular: Rhythm & rate is regular, Pedal edema present, JVD present and Systolic murmur present
Respiratory: Respiratory effort normal and Lungs clear to auscul.
Neuro/Psych: AO x 3
Data Reviewed
-
Date of Service: July 05, 2025
EKG: Other (Tele: SR 80-90s)
Labs: Labs Reviewed by me
[2025-07-05] MEDS: CELLCEPT 1000 MG PO ×2 (10:11→19:56)
[2025-07-05 10:29] LABS: Folate > 20.0 ng/ml (2.76-20); Vitamin B12 499 pg/ml (239-931)
[2025-07-05 11:37] VITALS: BP 148/82
--- NOTE | 2025-07-05 13:54 | CM ---
CM met with patient at bedside. She is being treated for acute on chronic heart failure. She is Bumex 2mg IV bid.Plan remains to return home with her son and his girlfriend when stable for d/c. Son will provide transport home. Patient is known to
[facility]. CM placed referral in [facility] for resumption of care upon d/c.
Plan: home with son, [facility]
--- NOTE | 2025-07-05 14:03 | W.PN.UPDATE ---
Update Note
Progress Note Update
pt seen for assessment. very serious medical illness with impairments in important areas of functioning. demoralized. is interested in getting outpatient therapy but aware of long waiting lists. willing to consider inpatient psychiatry if depression
worsens
--- NOTE | 2025-07-05 14:53 | W.PN.HOSP.TC ---
Today's Communication/Plan
-
Much improved, continue IV Bumex as per cardiology, likely transition to oral soon
Assessment / Plan
Assessment / Plan
55F with CHF, anemia, A-fib on Xarelto, SLE, seizures, depression, presenting with CHF exacerbation.
Acute hypoxic respiratory failure
-due to acute pulmonary edema from heart failure exacerbation. Chest x-ray shows moderate acute interstitial pulmonary edema. Small bilateral pleural effusions.
Oxygenation improved, now on room air.
Acute on chronic HFpEF
-presentation with anasarca, significant lower extremity edema. BNP 4090.
Patient states that her Bumex was discontinued prior to admission for unclear reasons.
Continue IV Bumex. Weight is trending down. Edema is improving.
Cardiology following.
Eho this morning with EF 55 to 60%, no RWMA, stage II DD, mild , mild/mod MR/TR, PASP 42 mmHg
Hyponatremia -POA. Monitor on diuretics. 132�>130
Hypokalemia -improved.
Hypomagnesemia -improved.
Troponin elevation -suspect acute nonischemic myocardial injury due to heart failure exacerbation.
Acute on chronic anemia
-baseline chronic anemia due to chronic inflammation from SLE. Hemoglobin stable at 8 today, baseline appears to be around 9-10. Monitor closely. No evidence of bleeding.
Paroxysmal atrial fibrillation
-on Xarelto.
SLE -on chronic prednisone.
History of lupus cerebritis
Seizure disorder
-continue Keppra.
Depression
-continue Lexapro. Case management requesting psychiatry consult as patient feels that she is a burden to her family and feels depressed, guilty. History of getting 302'd 2 months ago.
Appreciate psych eval, monitor sodium closely with the Lexapro, if it does not improve we will need to reconsider
If sodium improves, would consider Cymbalta
DVT PPx
Xarelto
Anticipated Discharge: Within 24 hours
Subjective/Interval History
-
Date of Service: July 05, 2025
Patient states she is feeling much better than she has been, she was able to walk around yesterday without feeling short of breath
Objective Data
-
Labs:
Laboratory Results
07/05/25 07/05/25
07:57 07:58
WBC 5.1
Hgb 8.0 L
Hct 24.4 L
Plt Count 453 H
Sodium 130 L
Potassium 3.7
Chloride 95 L
Carbon Dioxide 31 H
BUN 23 H
Creatinine 0.8
Glucose 73
Calcium 8.7
Total Bilirubin < 0.1 L
AST 19
ALT 21
Alkaline Phosphatase 70
Vital Signs:
Vital Signs
Temp Pulse Resp BP Pulse Ox
99.5 F 96 20 148/82 98
07/05/25 11:37 07/05/25 11:37 07/05/25 11:37 07/05/25 11:37 07/05/25 11:37
I&O
07/04/25 07/05/25 07/06/25
06:59 06:59 06:59
Intake Total 1900 / 0 720 / 720
Output Total 300 / 300
Balance 1900 / 1900 420 / 420
Review of Systems
-
History Source: Patient
All other systems: Reviewed and negative
Physical Exam
-
General: No Apparent Distress
HEENT: Moist Mucous Membranes, Anicteric and PERRLA
Respiratory: Clear to Auscultation; Negative Wheezes, Rales or Rhonchi
Cardiac: Regular Rhythm, S1/S2 and Murmur; Negative Rub or Gallop
GI: Soft, Nontender, Nondistended and Normal Bowel Sounds
Musculoskeletal: Edema, Right Lower Extrem and Edema, Left Lower Extrem
Skin: Warm and Dry; Negative Rash, Ulcers or Lesions
Neuro: Awake and AO x 3
Hematologic / Lymphatic: No Lymphadenopathy
Psych: Calm
Data Reviewed
-
Labs: Labs Reviewed by me and Discussed with Patient
[2025-07-05 15:36] VITALS: BP 111/70
[2025-07-05] MEDS: LIPITOR 80 MG PO (17:24)
[2025-07-05] MEDS: XARELTO 20 MG PO (17:24)
[2025-07-05 19:00] VITALS: BP 113/66
[2025-07-05 23:28] VITALS: BP 114/71
[2025-07-06 03:02] VITALS: BP 146/83
[2025-07-06] MEDS: DILAUDID 0.25 MG IV (04:54)
[2025-07-06 05:54] VITALS: BMI 25.4
[2025-07-06 07:10] VITALS: BP 141/86
[2025-07-06 08:22] LABS: Hematocrit 27.0 % (37.0-47.0); Hemoglobin 8.7 g/dL (12.0-16.0); Mean Corp Hgb Conc. 32.2 g/dL (33.0-37.0); Mean Corpuscular Volume 90.3 fL (81.0-99.0); Platelet Count 504 10^3/uL (130-400); Red Cell Dist. Width 15.8 % (11.5-14.5)
[2025-07-06 08:43] LABS: Blood Urea Nitrogen 23 mg/dl (7-17); Calcium 8.9 mg/dl (8.4-10.2); Carbon Dioxide 35 mmol/L (22-30); Chloride 92 mmol/L (98-107); Estimated Creatinine Clearance 58 ml/min; Glucose 78 mg/dl (70-99); Potassium 3.7 mmol/L (3.5-5.1); Sodium 133 mmol/L (135-145); eGFR > 60.00
[2025-07-06] MEDS: BUMEX 2 MG IV (08:45)
[2025-07-06] MEDS: PREVACID 30 MG PO (08:46)
[2025-07-06] MEDS: LOW STRENGTH ASPIRIN 81 MG PO (08:46)
[2025-07-06] MEDS: PLAQUENIL 200 MG PO (08:46)
[2025-07-06] MEDS: NORVASC 10 MG PO (08:46)
[2025-07-06] MEDS: VITAMIN D3 (cholecalciferol) 25 MCG PO (08:46)
[2025-07-06] MEDS: LEXAPRO 10 MG PO (08:46)
[2025-07-06] MEDS: ZINC 50 MG PO (08:46)
[2025-07-06] MEDS: ZESTRIL 15 MG PO (08:46)
[2025-07-06] MEDS: FOLVITE 1 MG PO (08:48)
[2025-07-06] MEDS: DELTASONE 20 MG PO (08:48)
[2025-07-06] MEDS: KCL ELIXIR 40 MEQ PO (08:49)
[2025-07-06] MEDS: KEPPRA 1000 MG PO (08:50)
[2025-07-06] MEDS: DESENEX/MITRAZOL/ZEASORB 1 APPLIC TOPICAL (08:52)
[2025-07-06] MEDS: CELLCEPT 1000 MG PO (09:56)
--- NOTE | 2025-07-06 09:57 | W.PN.CD ---
Today's Communication / Plan
-
transition to po bumex 2 mg daily
she knows to follow up with primary cards
We will sign off call [facility] questions
Impression / Plan
-
Acute on chronic HFpEF:
-severe, requiring hospitalization for IV diuresis and close monitoring of labs/tele.
-pt may have been off diuretics at home per her report
-unclear dry weight--looks like getting close
-echo from 09/2024 EF 55-60%, mild/mod MR, , TR
- transition to PO bumex 2 mg daily
Parox AFib:
-NSR: currently on chronic Xarelto
Acute non-ischemic myocardial injury: in setting of HF, peak 0.1
- No CP/angina. No EKG changes.
-echo as below
Mild/mod MR, , TR
-echo
hyperlipidemia: on statin
SLE: primary team
-lupus nephritis and cerebritis
Echo Jul 05 2025: SUMMARY
1. Normal biventricular size and systolic function, with no regional wall motion abnormalities. Estimated LVEF 55-60%.
2. Stage II diastolic dysfunction suggestive of abnormal relaxation and increased filling pressures.
3. Mild aortic stenosis.
4. Mild/moderate mitral valve regurgitation.
5. Mild/moderate tricuspid regurgitation. Estimated pulmonary artery pressure of 42 mmHg assuming a right atrial pressure of 3 mmHg. Mildly elevated PASP.
6. Compared to 09/22/24: looks mild, compared to mild/moderate previously. PASP has improved from 65mmg to 42 mmHg.
Physical Exam
Vital Signs/Labs
Vital Signs
Temp Pulse Resp BP Pulse Ox
98.1 F 87 18 141/86 98
07/06/25 07:10 07/06/25 08:45 07/06/25 07:10 07/06/25 08:45 07/06/25 07:10
07/05/25 07/06/25 07/07/25
06:59 06:59 06:59
Actual Weight 144 lb 2 oz 143 lb 5 oz
07/06/25 07:51
07/06/25 07:51
PT 14.5 Sec (11.4-14.6) 07/02/25 11:50
INR 1.11 07/02/25 11:50
Magnesium 2.0 mg/dl (1.6-2.3) 07/04/25 07:36
07/02/25
11:50
Uzj-F-Rwrjaaeliip Pept 4090
Physical Exam
Constitutional: No acute distress
EENT: Anicteric
Cardiovascular: Rhythm & rate is regular and Pedal edema is absent
Respiratory: Respiratory effort normal and Lungs clear to auscul.
GI: Soft
Neuro/Psych: AO x 3
Data Reviewed
-
Date of Service: July 06, 2025
EKG: Tracing Personally Visualized and interpreted (sr)
Echo: Report Reviewed by me
Labs: Labs Reviewed by me
[2025-07-06 11:44] VITALS: BP 117/71
--- NOTE | 2025-07-06 13:14 | W.DCSUMMARY ---
Discharge Summary
Discharge Data
Date of Admission: 07/02/25
Date of Discharge: 07/06/25
Total time spent discharging patient (in min): 35
-
Pending Results: No
Hospital Course
Attending physician on day of discharge:
Hortensia Colon MD
Discharge diagnosis:
Acute exacerbation of CHF
Secondary diagnoses:
Acute hypoxic respiratory failure
Acute on chronic anemia
Paroxysmal AF
Depression
Consultations:
Psych
Cardiology
Procedures:
None
Hospital course:
55F with CHF, anemia, A-fib on Xarelto, SLE, seizures, depression, presenting with fatigue, LE edema, and nonspecific pain, found to have acute CHF exacerbation and new oxygen requirement. She was treated with IV Bumex, cardiology was consulted due
to elevated troponin which was felt to be due to nonischemic myocardial injury. She had improvement in her oxygen requirement and no shortness of breath, was transition to oral Bumex. Her potassium and magnesium improved on repletion. Her sodium
was low, but improved to 133 prior to discharge. She was also seen by psychiatry for her depression, they recommended to continue with her Lexapro, and if her sodium normalizes to consider Cymbalta, as well as considering gabapentin, also
recommended follow-up with outpatient psychotherapy, referral was made on discharge.
Diagnostic Findings:
Echo: EF 55 to 60%, no RWMA, stage II DD, mild , mild/mod MR/TR, PASP 42 mmHg
Physical exam on discharge:
Gen: NAD
HEENT: PERRLA, EOMI, MMM, neck supple
Cards: RRR, no M/G/R
Resp: Lungs CTAB, no W/R/R
GI: soft, NT/ND/NABS
MSK: No edema
Skin: warm and dry, no rash, ulcer or lesions
Heme: No LAD
Psych: Calm
Neuro: AAOx3
Discharge disposition:
Home
Discharge Plan
-
Patient Disposition: Home (Routine Discharge)
Discharge Diagnosis/Procedures: CHF exacerbation
Diet: Low Cholesterol and Low Sodium
Activity: As tolerated
Instructions: *PCP/Other Receiving Team Member Heart Failure Instructions
Referrals:
[facility] cardiology [Other] - in one to two weeks
UNKNOWN - PT NOT,INTERVIEWE [Family Provider]
Armando Apodaca MD [Active, Psychiatry] - in one to two weeks
Prescriptions:
New
bumetanide 1 mg Tablet
2 mg PO DAILY 30 Days Qty: 60 0RF
Continued
hydroxychloroquine [Plaquenil] 200 mg Tablet
200 mg PO BID
escitalopram oxalate [Lexapro] 10 mg Tablet
10 mg PO DAILY
Xarelto 20 mg Tablet
20 mg PO QPM
acetaminophen 500 mg Tablet
1,000 mg PO Q6HPRN PRN (Reason: mild pain)
atorvastatin 40 mg tablet
80 mg PO QPM
amlodipine 5 mg tablet
10 mg PO DAILY
folic acid 1 mg tablet
1 mg PO DAILY
prednisone 10 mg tablet
20 mg PO DAILY
aspirin 81 mg Tablet
81 mg PO DAILY
zinc sulfate 50 mg zinc (220 mg) Tablet
50 mg PO DAILY
mycophenolate mofetil 200 mg/mL suspension for reconstitution
1,000 mg PO BID
lansoprazole 30 mg Tablet,Disintegrat, Delay Rel
30 mg PO DAILY
levetiracetam [Keppra] 100 mg/mL Solution
1,000 mg PO BID
cholecalciferol (vitamin D3) [Vitamin D3] 25 mcg (1,000 unit) Tablet
25 mcg PO DAILY
lisinopril 5 mg Tablet
15 mg PO DAILY
Discontinued
bumetanide [Bumex] 1 mg Tablet
1 mg PO BID
Discharge Orders:
Discharge Patient (As Directed); Ordered 07/06/25
Ordered By: Hortensia Colon
Discharge Date and Time
Discharge Date/Time: 07/06/25 14:53
Print Language: LATVIAN
--- NOTE | 2025-07-06 14:12 | CM ---
Patient is for discharge home today. She is returning home with her son and his girlfriend. She has been referred to [facility] for resumption of care.
[facility] fax# [phone]
Plan: d/c home today with [facility]
--- NOTE | 2025-07-06 14:40 | PTCARENOTE ---
Pt iv removed, tele removed. DC instructions reviewed, copy provided. Pt transported by transport to family members car without issue.
--- NOTE | 2025-07-07 15:42 | W.HF.CON ---
Heart Failure
- LV Function
Left ventricular function study result: LV Ejection fraction >/= 50%
Ejection Fraction Percentage: 55-60
- ARNI
Patient already on ARNI: No
Heart Failure ARNI Not Indicated: LV Ejection Fraction >/= 40%
- ACEI/ARB
Patient already on ACEI/ARB: Yes
- Beta Jasson
Patient already on Evidence Based Beta Jasson: No
Heart Failure Evidence Based Beta Jasson Not Indicated: LV Ejection Fraction > 40%
- Mineralocorticord Receptor Antagonist
Patient already on MRA: No
Heart Failure MRA Not Indicated: LV Ejection Fraction > 40%
- SGLT-2 Inhibitor
Patient already on SGLT-2 Inhibitor: No
Heart Failure SGLT-2 Inhibitor Not Indicated: LV Ejection Fraction >40%
- Afib Anticoagulation
Patient already on Anticoagulation for Afib: Yes
- NYHA CHF Classification
NYHA CHF Classification Level: Class III - Symptoms w/ min exertion, interferes w/ nml daily activity
- ACC/AHA Stage
ACC/AHA Stage: Stage C: Symptomatic Heart Failure
== END 2025-07-06 14:53 | disposition home health service (06) | DRG 291 ==
LOC: 4 WEST ACU 17:49
PROVIDERS: Emergency Medicine; Hospitalist; Registered Nurse; Student in an Organized Health Care Education/Training Program; ADMITTING PHYSICIAN Hospitalist; ATTENDING PHYSICIAN Internal Medicine; CONSULT PHYSICIAN Internal Medicine; CONSULT PHYSICIAN Psychiatry & Neurology Psychiatry; EMERGENCY PHYSICIAN Emergency Medicine
DX: I11.0 Hypertensive heart disease with heart failure (principal); I50.33 Acute on chronic diastolic (congestive) heart failure; J96.01 Acute respiratory failure with hypoxia; D84.821 Immunodeficiency due to drugs; E87.1 Hypo-osmolality and hyponatremia; M80.08XA Age-related osteoporosis with current pathological fracture, vertebra(e), initial encounter for fracture; I5A Non-ischemic myocardial injury (non-traumatic); I48.0 Paroxysmal atrial fibrillation; F17.200 Nicotine dependence, unspecified, uncomplicated; I25.10 Atherosclerotic heart disease of native coronary artery without angina pectoris; I73.00 Raynaud's syndrome without gangrene; K21.9 Gastro-esophageal reflux disease without esophagitis; M32.14 Glomerular disease in systemic lupus erythematosus; R32 Unspecified urinary incontinence; R15.9 Full incontinence of feces; F32.A Depression, unspecified; F41.9 Anxiety disorder, unspecified; D63.8 Anemia in other chronic diseases classified elsewhere; E87.6 Hypokalemia; G40.909 Epilepsy, unspecified, not intractable, without status epilepticus; E83.42 Hypomagnesemia; M32.19 Other organ or system involvement in systemic lupus erythematosus; F19.10 Other psychoactive substance abuse, uncomplicated; I08.3 Combined rheumatic disorders of mitral, aortic and tricuspid valves; R79.82 Elevated C-reactive protein (CRP); Z66 Do not resuscitate; Z79.82 Long term (current) use of aspirin; Z79.01 Long term (current) use of anticoagulants; Z79.52 Long term (current) use of systemic steroids; Z79.899 Other long term (current) drug therapy; Z79.624 Long term (current) use of inhibitors of nucleotide synthesis; Z85.038 Personal history of other malignant neoplasm of large intestine; Z92.21 Personal history of antineoplastic chemotherapy; I25.2 Old myocardial infarction; Z63.4 Disappearance and death of family member; Z63.8 Other specified problems related to primary support group; Z11.52 Encounter for screening for COVID-19
CPT/HCPCS: 70450; 71046; 74019; 74177; 80048; 80053; 80306; 81003; 81015; 82607; 82746; 83735; 83880; 84484; 85025; 85027; 85610; 85652; 86140; 86803; 87040; 87340; 87389; 87811; 93005; 93306; 96361; 96365; 96366; 96375; 97162; 97166; 99285; Q9967

== ENCOUNTER 2025-07-08 21:54 | Emergency (ER) | payer OTHER, SELFPAY ==
[2025-07-08] MEDS: NSS 500 IV (22:34)
[2025-07-08] MEDS: DILAUDID 0.5 MG IV (22:35)
[2025-07-08 22:44] LABS: Hematocrit 31.3 % (37.0-47.0); Hemoglobin 10.0 g/dL (12.0-16.0); Mean Corp Hgb Conc. 31.9 g/dL (33.0-37.0); Mean Corpuscular Volume 91.5 fL (81.0-99.0); Nucleated Red Blood Cells % 0 %; Red Cell Dist. Width 15.6 % (11.5-14.5)
[2025-07-08 22:49] LABS: INR 1.09; PT 13.9 Sec (11.4-14.6)
[2025-07-08 22:50] LABS: APTT 30.5 Sec (23.4-35.0)
[2025-07-08 22:54] LABS: HCG, Serum Qualitative Screen Negative
[2025-07-08 23:01] LABS: ALT (SGPT) 30 U/L (0-35); AST (SGOT) 26 U/L (14-36); Albumin 3.9 g/dl (3.5-5.0); Alkaline Phosphatase 119 U/L (38-126); Blood Urea Nitrogen 34 mg/dl (7-17); Calcium 9.6 mg/dl (8.4-10.2); Carbon Dioxide 29 mmol/L (22-30); Chloride 99 mmol/L (98-107); Glucose 90 mg/dl (70-99); Lipase 282 U/L (23-300); Potassium 4.5 mmol/L (3.5-5.1); Sodium 137 mmol/L (135-145); Total Protein 6.6 g/dl (6.3-8.2); eGFR > 60.00
[2025-07-08 23:04] VITALS: BP 132/80
--- NOTE | 2025-07-09 01:01 | ED.GENMED ---
History of Present Illness
General
Chief Complaint: Abdominal Symptoms
Source: patient
Time Seen by Provider: 07/08/25 22:11
Nursing documentation reviewed up to this point in time: agreed with
History of Present Illness
History of Present Illness:
Note:
CHIEF COMPLAINT(S)
Abdominal bloating and congestion.
HISTORY OF PRESENT ILLNESS
The patient is a 55-year-old female presenting with symptoms primarily of abdominal congestion and bloating. The patient reports experiencing fluid accumulation around her midsection, which prompted concern. She did not report any episodes of blood
in her stool. She is usually aware of her body states, suggesting that this current symptom is a deviation from her normal condition. The patient did not mention any other significant symptoms or associated pain.
PLAN
A computed tomography (CT) scan of the abdomen is planned to investigate the cause of the abdominal bloating and congestion. Additionally, treatments with intravenous medications, specifically metoclopramide (Reglan), have been ordered to address
the symptoms.
DIFFERENTIAL DIAGNOSIS
The Differential Diagnosis includes, in no particular order and is not limited to:
1. Ascites
2. Irritable Bowel Syndrome
3. Gastroesophageal Reflux Disease
4. Abdominal Obstruction
5. Hepatic Congestion
6. Gastrointestinal Infection
7. Celiac Disease
8. Ovarian Cyst
9. Intra-Abdominal Mass
10. Pancreatitis
CARE-UPDATE
07/09/25 - 01:31
Patient showing improvement with increased oral intake; now tolerating liquids. Agrees to provide urine sample for further evaluation.
Disposition:
SUMMARY OF ENCOUNTER
The patient, a 55-year-old female, presented to the emergency department with complaints of abdominal bloating and discomfort. A CT scan of the abdomen was performed, showing no acute processes. A stool sample was collected and sent to the lab for
analysis of Clostridioides difficile. The patients condition improved in the emergency department, with increased oral intake and tolerance to liquids.
DISPOSITION
The patient is to be discharged home.
ASSESSMENT
The patients symptoms appear improved and no acute processes were identified on the CT scan.
PLAN
Discharge the patient with instructions to monitor symptoms and follow up as needed.
INDEPENDENT REVIEW OF LABS AND INTERPRETATION OF TESTS
- My independent review of the CT scan of the abdomen shows no acute processes.
- My independent review of the urinalysis is negative.
FOLLOW-UP INSTRUCTIONS
Monitor symptoms and follow up with healthcare provider as needed.
MEDICATION RECONCILIATION
The patient received metoclopramide to address symptoms of bloating and discomfort during the emergency department visit.
MEDICAL DECISION MAKING
- Complexity of Data Reviewed: DDx includes ascites, irritable bowel syndrome, gastroesophageal reflux disease, abdominal obstruction, hepatic congestion, gastrointestinal infection, celiac disease, ovarian cyst, intra-abdominal mass, pancreatitis.
Category 1
- My independent interpretation of the CT scan showed no acute processes.
DIAGNOSIS
- Abdominal bloating, unspecified (R14.0)
- Suspected gastrointestinal infection (A09)
The patients symptoms are improved, and no acute processes were identified, allowing for discharge with monitoring instructions.
Past History
Past History
ED Past Medical History: CAD, Cancer (colon), HTN, Psychiatric (Substance abuse disorder) and Other (Lupus, colon cancer, HTN, Raynaud's, immunocompromised, reflux, coronary artery disease, etc. etc.)
ED Past Surgical History: Bowel resection and Other ( colon tumor resected colostomy reversal, 2023, ileostomy reversal on 08/21/2024)
Social History
Tobacco: Smoker
Alcohol: None
Drug: None
Personal: Single
Living: with family (daughter)
Employment: Retired
Family History
Family History: Other
Phy Exam
Physical Exam
Physical Exam:
.
Course
Orders/Labs/Results
Orders:
Orders
07/08/25 22:16
Cardiac Monitoring- Treatment ONCE
Urinalysis Reflex To Culture Urgent
Date Specimen was Collected: 07/09/25
Time Specimen was Collected: 01:31
0.9% Sodium Chloride 500 ml [Nss] 500 ml IV BOLUS
HYDROmorphone [Dilaudid] 0.5 mg IV NOW STA
07/08/25 22:17
Test Result ONCE
07/08/25 22:18
CT Abd/pelvis W Iv Cont Urgent
Comment:
Reason For Exam: 'severe' abd pain, n/v/d
07/08/25 22:25
Complete Blood Count/With Diff Urgent
Comprehensive Metabolic Panel Urgent
HCG, Serum Qualitative Screen Urgent
Lactic Acid Urgent
Lipase Urgent
PTT Urgent
Prothrombin Time Urgent
07/08/25 23:31
STOOL [C difficile Antigen & Toxins] Urgent
PEE Source: Feces/Stool
Specimen Description:
Date Specimen was Collected: 07/08/25
Time Specimen was Collected: 23:32
07/09/25 01:32
Urine Microscopic Reflex Cult Urgent
Abnormal Lab Results
07/08/25 07/09/25
22:25 01:32
WBC 11.7 H 10^3/uL
(4.8-10.8)
RBC 3.42 L 10^6/uL
(4.20-5.40)
Hgb 10.0 L g/dL
(12.0-16.0)
Hct 31.3 L %
(37.0-47.0)
MCHC 31.9 L g/dL
(33.0-37.0)
RDW 15.6 H %
(11.5-14.5)
Abs Immat Gran (auto) 0.1 H 10^3/uL
(0-0.05)
Absolute Neuts (auto) 10.7 H 10^3/uL
(1.4-6.5)
Absolute Lymphs (auto) 0.6 L 10^3/uL
(1.2-3.4)
Immature Gran % 1.2 H %
(0-0.5)
Neutrophils % 91.3 H %
(42.2-75.2)
Lymphocytes % 4.8 L %
(20.5-51.1)
BUN 34 H mg/dl
(7-17)
Lactic Acid 2.1 H mmol/L
(0.7-2.0)
Ur Occult Blood Reflex 2+ A
(Negative)
Urine RBC 3-6 A /HPF
(0-2)
Urine Bacteria (Reflex) Few A
(Negative)
Urine Glucose 1+ A
(Negative)
Urine Albumin (Reflex) 4+ A
(Neg - Trace)
07/08/25 22:25
07/08/25 22:25
Vital Signs
Initial and Last Documented VS:
Initial Vital Signs
Pulse Ox
88
07/08/25 22:41
Last Documented Vital Signs
Pulse Resp BP Pulse Ox
113 25 130/84 93
07/09/25 03:00 07/09/25 02:30 07/09/25 03:00 07/09/25 03:00
*Radiology
Radiology exam reviewed: all reviewed NAD by ED Provider
*Pulse Oximetry
SaO2: 94
Nasal Cannula flow liters per minute: 2
Patient hypoxic: no
*Critical Care Note
Total Time (30-74mins, 75-104mins- exclusive of procedures): Not Applicable
Update Note
Update Note:
NAME: ALEJANDRINA LEVY
DATE OF EXAM: 07/08/2025
Patient No: [id number]
Physician: AB
Date of : 1970
Past Medical History (entered by Technologist):
Reason For Exam (entered by Technologist):
Other Notes (entered by Technologist): n/v abd pain
priors
Additional Information (per [facility]):
Comparison July 02, 2025
CT abdomen and pelvis with IV contrast
IMPRESSION:
No acute intra-abdominal pathology. Prior subtotal colectomy. No bowel obstruction or inflammation. No hydronephrosis or nephrolithiasis. No free air or free fluid. Age-indeterminate chronic mild compression deformity of the L2 vertebral body.
Case finalized on 07/09/25 00:43 EST
Jennifer Hancock M.D.
ED Attending Note
-
Portions of this chart may have been created with voice recognition software.� Occasional wrong word or��sound alike� substitutions may have occurred due to the inherent limitations of voice recognition software.
Discharge Plan
Departure
Patient Disposition: Home (Routine Discharge)
Date of Disposition: 07/09/25
Time of Disposition: 02:52
Patient with high blood pressure during this ER visit?: Yes
Condition: Fair
Discharge Problem:
Abdominal pain, Diarrhea
Instructions: Diarrhea in teens and adults, Abdominal Pain
Prescriptions:
No Action
hydroxychloroquine [Plaquenil] 200 mg Tablet
200 mg PO BID
escitalopram oxalate [Lexapro] 10 mg Tablet
10 mg PO DAILY
Xarelto 20 mg Tablet
20 mg PO QPM
acetaminophen 500 mg Tablet
1,000 mg PO Q6HPRN PRN (Reason: mild pain)
atorvastatin 40 mg tablet
80 mg PO QPM
amlodipine 5 mg tablet
10 mg PO DAILY
folic acid 1 mg tablet
1 mg PO DAILY
prednisone 10 mg tablet
20 mg PO DAILY
aspirin 81 mg Tablet
81 mg PO DAILY
zinc sulfate 50 mg zinc (220 mg) Tablet
50 mg PO DAILY
mycophenolate mofetil 200 mg/mL suspension for reconstitution
1,000 mg PO BID
lansoprazole 30 mg Tablet,Disintegrat, Delay Rel
30 mg PO DAILY
levetiracetam [Keppra] 100 mg/mL Solution
1,000 mg PO BID
cholecalciferol (vitamin D3) [Vitamin D3] 25 mcg (1,000 unit) Tablet
25 mcg PO DAILY
lisinopril 5 mg Tablet
15 mg PO DAILY
bumetanide 1 mg Tablet
2 mg PO DAILY 30 Days Qty: 60 0RF
Referrals:
Sridhar Reynolds CRNP [Family Provider, Family Practice]
Activity Restrictions/Additional Instructions:
Thank You for choosing [facility].
It was a pleasure meeting you and taking part in your care. We hope for your continued healing and wellness.
Please read discharge instructions in their entirety. However, they are for general education and may not describe your exact diagnosis at discharge. Information on your ER visit and medical conditions were discussed with you along with appropriate
follow up information...
If indicated, please take your medications as instructed and indicated on discharge paperwork.
Please schedule a follow up appointment as directed. Call to schedule an appointment
Please return to the emergency department with ANY change in, persisting, or worsening of symptoms. If any of your symptoms do not improve, or persist, or become more severe within 6-12 hours, please return to the emergency department for further
care.
Please return to the emergency department if you develop a headache, neck pain/stiffness, fever greater than 100.4F, chest pain, shortness of breath, persistent nausea, vomiting, slurred speech, difficulty walking, numbness/tingling, weakness, signs
of infection or any other symptoms that are worrisome to you.
If you have any questions or concerns please do not hesitate to call the Hospital at .
Interventions
Interventions:
*General Assessment Last Done: 07/08/25 23:15
*Neglect/Abuse Screening Last Done: 07/08/25 23:15
*ED COVID-19 Vaccine History Last Done: 07/08/25 23:15
*ED Influenza Vaccine History Last Done: 07/08/25 23:15
[facility] Risk Assessment Tool Last Done: 07/08/25 21:55
*Risk Screen - Suicide (C-SSRS) Last Done: 07/08/25 23:15
*Nursing Disposition Last Done: 07/09/25 03:30
AO-Jrutqx-Hitwcikiqa Assessment Last Done: 07/08/25 23:20
Discharge Date and Time
Discharge Date/Time: 07/09/25 03:31
Print Language: GEORGIAN
[2025-07-09 01:27] VITALS: BP 128/83
[2025-07-09 01:50] LABS: Urine Character Clear (Clear)
[2025-07-09 02:00] VITALS: BP 134/79
[2025-07-09 03:00] VITALS: BP 130/84
[2025-07-09 03:11] LABS: Urine Squamous Cell 0-2 /LPF (Few)
--- NOTE | 2025-07-09 09:25 | W.PN.UPDATE ---
Update Note
Progress Note Update
Lisette was seen in the ER yesterday for abdominal pain. She had a CT scan abd/pelvis read by [facility] and there was no mention of mild enteritis. I called and spoke with the pts victoria Estrada to review findings. Pt had C. diff panel sent
which is negative. She has a follow up appt with her PCP on 07/14. Was advised if symptoms worsen to return to ER
== END 2025-07-09 03:31 | disposition home or self-care (01) ==
LOC: EMR 21:54
PROVIDERS: EMERGENCY PHYSICIAN Student in an Organized Health Care Education/Training Program; FAMILY PHYSICIAN Nurse Practitioner Family
DX: R10.9 Unspecified abdominal pain (principal); R19.7 Diarrhea, unspecified; I10 Essential (primary) hypertension; I25.10 Atherosclerotic heart disease of native coronary artery without angina pectoris; M32.9 Systemic lupus erythematosus, unspecified; I73.00 Raynaud's syndrome without gangrene; K21.9 Gastro-esophageal reflux disease without esophagitis; M48.56XA Collapsed vertebra, not elsewhere classified, lumbar region, initial encounter for fracture; F17.200 Nicotine dependence, unspecified, uncomplicated; Z85.038 Personal history of other malignant neoplasm of large intestine
CPT/HCPCS: 99284; 96374; 96361 ×2; 74177; 80053; 81003; 81015; 83605; 83690; 84703; 85025; 85610; 85730; 87324; 87449; Q9967